=== PATIENT | female | born 1945 | race Caucasian/White ===

== ENCOUNTER → 2018-03-05 | Outpatient (CLI) | payer MEDICARE, OTHER ==
--- NOTE | 2018-03-07 13:39 | MM ---
Reason for exam: screening (asymptomatic). Last mammogram was performed 1 year and 11 months ago. Physical Findings: A clinical breast exam by your physician is recommended on an annual basis and results should be correlated with mammographic findings. MG 3D Screening Mammo W/Cad Bilateral CC and MLO view(s) were taken. Prior study comparison: March 31, 2016, bilateral MG screening mammo w CAD. September 02, 2014, mammogram, performed at [place]. There are scattered fibroglandular densities. New enlarging nodule posterior lower inner quadrant right breast. ASSESSMENT: Incomplete: need additional imaging evaluation, BI-RAD 0 RECOMMENDATION: Special view mammogram of the right breast. If lesion persists on supplemental views, image directed ultrasound is recommended. [facility] will attempt to contact patient to return for supplemental views and ultrasound if indicated.
== END | disposition home or self-care (01) ==
LOC: RADMAMWWP 09:56
PROVIDERS: ATTEND Family Medicine
DX: Z12.31 Encounter for screening mammogram for malignant neoplasm of breast (principal)
CPT/HCPCS: 77063; 77067

== ENCOUNTER → 2018-03-22 | Outpatient (CLI) | payer MEDICARE, OTHER ==
--- NOTE | 2018-03-23 11:31 | MM ---
Reason for exam: additional evaluation requested from abnormal screening. Last mammogram was performed 1 month ago. Physical Findings: Nurse did not find any significant physical abnormalities on exam. MG 3D Work Up W/Cad RT Spot compression LM and MLO view(s) were taken of the right breast. Prior study comparison: March 05, 2018, bilateral MG 3d screening mammo w/cad. March 31, 2016, bilateral MG screening mammo w CAD. Finding: There is a stable 2 mm equal density (isodense), circumscribed oval mass in the lower quadrant of the right breast. New finding since March 31, 2016. These results were verbally communicated with the patient and result sheet given to the patient on 03/22/18. ASSESSMENT: Probably benign, BI-RAD 3 RECOMMENDATION: Follow-up diagnostic mammogram and ultrasound of the right breast in 6 months.
--- NOTE | 2018-03-23 11:32 | USB ---
Reason for exam: additional evaluation requested from abnormal screening. US Breast Workup Limited RT Right limited breast ultrasound including focal area of concern, retroareolar and axilla demonstrates a 0.4 x 0.3 x 0.3cm oval lesion too small to characterize at 4 o'clock, probable cyst. These results were verbally communicated with the patient and result sheet given to the patient on 03/22/18. ASSESSMENT: Probably benign, BI-RAD 3 RECOMMENDATION: Follow-up diagnostic mammogram and ultrasound of the right breast in 6 months.
== END | disposition home or self-care (01) ==
LOC: RADMAMWWP 12:41
PROVIDERS: ATTEND Family Medicine
DX: R92.8 Other abnormal and inconclusive findings on diagnostic imaging of breast (principal)
CPT/HCPCS: 77065; 76642; G0279; 77061

== ENCOUNTER → 2018-10-04 | Outpatient (CLI) | payer MEDICARE, OTHER ==
--- NOTE | 2018-10-05 08:17 | MM ---
Reason for exam: follow-up at short interval from prior study. Last mammogram was performed 6 months ago. Physical Findings: Nurse did not find any significant physical abnormalities on exam. MG Diagnostic Mammo RT w CAD CC and MLO view(s) were taken of the right breast. Prior study comparison: March 22, 2018, right breast MG 3d work up w/cad RT. March 05, 2018, bilateral MG 3d screening mammo w/cad. There are scattered fibroglandular densities. The previously seen right mass at 4-5 o'clock position appears smaller. Benign calcifications in the right breast. These results were verbally communicated with the patient and result sheet given to the patient on 10/04/18. ASSESSMENT: Benign, BI-RAD 2 RECOMMENDATION: Return to routine screening mammogram schedule for both breasts. Back on schedule.
--- NOTE | 2018-10-05 08:20 | USB ---
Reason for exam: follow-up at short interval from prior study. US Breast RT Right complete breast ultrasound includes all four quadrants, the retroareolar region and axilla. Finding demonstrates a 0.2 x 0.1 x 0.1cm lesion too small to characterize at 5 o'clock previously 4 x 3 x 3mm, smaller, benign. These results were verbally communicated with the patient and result sheet given to the patient on 10/04/18. ASSESSMENT: Benign, BI-RAD 2 RECOMMENDATION: Return to routine screening mammogram schedule for both breasts. Back on schedule.
== END | disposition home or self-care (01) ==
LOC: RADMAMWWP 13:00
PROVIDERS: ATTEND Family Medicine
DX: R92.8 Other abnormal and inconclusive findings on diagnostic imaging of breast (principal)
CPT/HCPCS: 77065

== ENCOUNTER → 2018-10-04 | Outpatient (CLI) | payer MEDICARE, OTHER ==
--- NOTE | 2018-10-05 09:03 | EST ---
EXERCISE STRESS DATE OF SERVICE: 10/04/2018 AGE: 73 SEX: Female HT: 60 WT: 120 PROTOCOL: Alberto STAGE: II DURATION OF EXERCISE: 4 minutes HEART RATE REST: 106 BLOOD PRESSURE REST: 148/94 MAXIMUM HEART RATE ACHIEVED: 153 MAXIMUM BLOOD PRESSURE: 214/82 85% MPHR: 125 100% MPHR: 147 METS: 5.9 INDICATIONS: Chest pain. CLINICAL INFORMATION: STRESS DATA: Pretesting physical examination showed a heart rate of 106, pressure is 148/94 mmHg. Baseline rhythm showed sinus mechanism. The patient exercised on the treadmill according to Alberto protocol for a total of 4 minutes and achieved 5.9 METs. Max heart rate was 153, which is about 100% of maximum predicted heart rate. Maximum blood pressure was 214/82 mmHg. Clinically the patient did not have any symptoms of chest pain or discomfort. The EKG did not show any significant ST or T-wave abnormalities concerning for ischemia. CONCLUSION: 1. Average exercise capacity. 2. Normal EKG in response to exercise. 3. Normal stress test for the patient. MMODL / IJN: [id number] /
== END ==
LOC: RADNMMAIN 10:24
PROVIDERS: ATTEND Nurse Practitioner
DX: R94.31 Abnormal electrocardiogram [ECG] [EKG] (principal)
CPT/HCPCS: 93017

== ENCOUNTER → 2019-03-19 | Outpatient (CLI) | payer MEDICARE, OTHER | LOC: CPPFTMAIN 12:15 | PROVIDERS: ATTEND Family Medicine | DX: J44.9 Chronic obstructive pulmonary disease, unspecified (principal) | CPT/HCPCS: 93005; 94060; 94726; 94729 ==

== ENCOUNTER → 2019-04-05 | Outpatient (CLI) | payer MEDICARE, OTHER ==
--- NOTE | 2019-04-05 11:32 | BD ---
EXAMINATION TYPE: Axial Bone Density DATE OF EXAM: 04/05/2019 COMPARISON: NONE CLINICAL HISTORY: M 89.9 Height: 60 IN Weight: 114 LBS FRAX RISK QUESTIONS: Family History (Parent hip fracture): YES FATHER RISK FACTORS HISTORY OF: Active: YES Postmenopausal woman: AGE 58 MEDICATIONS: Additional Medications: VIT D, HIGH BLOOD PRESSURE MEDS, WATER PILL, TYPE TWO DIABETES MEDS, PILL FO R EYES, CHOLESTEROL MEDS EXAM MEASUREMENTS: Bone mineral densitometry was performed using the [employer]. Bone mineral density as measured about the Lumbar spine is: ----- L1-L4(G/cm2): 0.955 T Score Values are as follows: ----- L2: -2.0 ----- L3: -1.9 ----- L4: -1.7 ----- L1-L4: -1.9 Bone mineral density BASELINE Bone mineral density about the R hip (g/cm2): 0.823 Bone mineral density about the L hip (g/cm2): 0.804 T Score values are as follows: -----R Neck: -1.5 -----L Neck: -1.7 -----R Total: -1.4 -----L Total: -1.6 Bone mineral density BASELINE IMPRESSION: Osteopenia (T Score between -2.5 and -1). There is slightly increased risk of fracture and the patient may be considered for treatment. Re-Screen 2-5 years. NOTE: T-SCORE=SD OF THE YOUNG ADULT MEAN.
--- NOTE | 2019-04-09 08:21 | MM ---
Reason for exam: screening (asymptomatic). Last mammogram was performed 6 months ago. History: Patient is postmenopausal. Physical Findings: A clinical breast exam by your physician is recommended on an annual basis and results should be correlated with mammographic findings. MG 3D Screening Mammo W/Cad Bilateral CC and MLO view(s) were taken. Prior study comparison: October 04, 2018, right breast MG diagnostic mammo RT w CAD. March 05, 2018, bilateral MG 3d screening mammo w/cad. September 02, 2014, mammogram, performed at [place]. There are scattered fibroglandular densities. There are benign appearing round calcifications bilaterally. There is no discrete abnormality. ASSESSMENT: Benign, BI-RAD 2 RECOMMENDATION: Routine screening mammogram of both breasts in 1 year.
== END ==
LOC: RADMAMWWP 10:11
PROVIDERS: ATTEND Family Medicine
DX: Z12.31 Encounter for screening mammogram for malignant neoplasm of breast (principal); M85.80 Other specified disorders of bone density and structure, unspecified site
CPT/HCPCS: 77063; 77067; 77080

== ENCOUNTER → 2019-04-08 | Outpatient (CLI) | payer MEDICARE, OTHER ==
[2019-04-08 16:41] LABS: Basophils # (A) 0.1 k/uL (0-0.2); Basophils % (A) 1 %; Eosinophils # (A) 0.6 k/uL (0-0.7); Eosinophils % (A) 8 %; HCT 41.5 % (34.0-46.0); HGB 13.7 gm/dL (11.4-16.0); Lymphocytes % (A) 27 %; MCH 30.3 pg (25.0-35.0); MCHC 32.9 g/dL (31.0-37.0); MCV 91.9 fL (80.0-100.0); Monocytes # (A) 0.3 k/uL (0-1.0); Monocytes % (A) 4 %; Neutrophils # (A) 4.3 k/uL (1.3-7.7); Neutrophils % (A) 57 %; Platelet Count 272 k/uL (150-450); RBC 4.52 m/uL (3.80-5.40); RDW 13.7 % (11.5-15.5); WBC 7.4 k/uL (3.8-10.6)
[2019-04-08 16:48] LABS: Potassium 3.5 mmol/L (3.5-5.1)
== END | disposition home or self-care (01) ==
LOC: LABPAT 15:18
PROVIDERS: ATTEND Obstetrics & Gynecology
DX: Z01.812 Encounter for preprocedural laboratory examination (principal); N81.4 Uterovaginal prolapse, unspecified; E11.9 Type 2 diabetes mellitus without complications
CPT/HCPCS: 36415; 80051; 82565; 82947; 84520; 85025; 87086

== ENCOUNTER 2019-04-16 08:18 | Day surgery (SDC) | payer MEDICARE, OTHER ==
[~2019-04-16 08:18] MED LIST: DEXAMETHASONE SOD PHOSPHATE 10 MG/ML 1 ML VIAL IV ONE; LIDOCAINE 1% 20 ML VIAL (10MG/ML) FOR IV START INTRADERMA PRN; METOCLOPRAMIDE 5 MG/ML 2 ML VIAL IVP PRN; MORPHINE SULFATE 2 MG/ML SYRINGE IV PRN; ONDANSETRON 4 MG/2 ML VIAL IVP ONE
[2019-04-16 09:23] LABS: Glucose,Whole Blood 139 mg/dL (75-99)
[2019-04-16] MEDS: LACTATED RINGERS 1,000 ML IV SCH (09:30)
[2019-04-16] MEDS ORDERED: fentaNYL (PF) 50 MCG/ML 2 ML AMP IV ONE (09:48)
[2019-04-16] MEDS ORDERED: MIDAZOLAM (PF) 2 MG/2 ML VIAL IV ONE (09:48)
[2019-04-16] MEDS ORDERED: NALOXONE 0.4 MG/ML 1 ML VIAL IV PRN (09:56)
[2019-04-16] MEDS ORDERED: NALBUPHINE 10 MG/ML (1 ML AMP) IV PRN (09:56)
[2019-04-16] MEDS ORDERED: diphenhydrAMINE 50 MG/ML 1 ML VIAL IVP PRN ×2 (09:56→11:34)
[2019-04-16] MEDS ORDERED: KETOROLAC 30 MG/ML 1 ML VIAL IVP PRN ×2 (09:56→11:34)
[2019-04-16] MEDS ORDERED: MORPHINE SULFATE (PF) 0.3 MG/0.3 ML SYR ONE (10:19)
[2019-04-16] MEDS ORDERED: ALBUTEROL INHALER 60 PUFF/8 GM INHALER INHALATION ONE (10:19)
[2019-04-16] MEDS ORDERED: fentaNYL (PF) 50 MCG/ML 2 ML AMP ONE (10:19)
[2019-04-16] MEDS ORDERED: MIDAZOLAM 2 MG/2 ML VIAL ONE (10:19)
[2019-04-16] MEDS ORDERED: ROCURONIUM BROMIDE 10 MG/ML 10 ML VIAL IV ONE (10:19)
[2019-04-16] MEDS ORDERED: PROPOFOL 10 MG/ML 20 ML VIAL IV ONE (10:19)
[2019-04-16] MEDS ORDERED: GLYCOPYRROLATE 0.2 MG/ML 2 ML VIAL ONE (10:19)
[2019-04-16] MEDS ORDERED: NEOSTIGMINE 1 MG/ML 10 ML VIAL ONE (10:19)
[2019-04-16] MEDS ORDERED: LIDOCAINE 1% INJ 10MG/ML (20 ML MDV) ONE (10:19)
[2019-04-16] MEDS ORDERED: PHENYLEPHRINE-0.9% NACL SYG 1 MG/10 ML SYRINGE ONE (10:19)
[2019-04-16] MEDS ORDERED: VASOPRESSIN 20 UNIT/ML 1 ML VIAL SQ ONE (10:44)
[2019-04-16] MEDS ORDERED: BACITRACIN 500 UNIT/GM OINT 28.4 GM TUBE TOPICAL ONE (10:51)
[2019-04-16] MEDS ORDERED: ONDANSETRON 4 MG/2 ML VIAL IVP PRN (11:34)
[2019-04-16] MEDS ORDERED: METOCLOPRAMIDE 5 MG/ML 2 ML VIAL IVP PRN (11:34)
[2019-04-16] MEDS ORDERED: SIMETHICONE 80 MG CHEWABLE PO PRN (11:34)
--- NOTE | 2019-04-16 11:34 | P.OP ---
Date of Procedure: 04/16/19 Preoperative Diagnosis: Symptomatic grade 4 cystocele, uterine prolapse. Postoperative Diagnosis: Same, atrophic appearing ovaries bilaterally Procedure(s) Performed: Vaginal hysterectomy, cystocele repair Anesthesia: SHORTY Surgeon: Arlyn Pineda Truer Pinion And Wheel #1: Katlyn No Estimated Blood Loss (ml): 50 IV fluids (ml): 400 Urine output (ml): 100 Pathology: other (Cervix and uterus) Condition: stable Disposition: PACU Operative Findings: Atrophic bilateral ovaries, high in the pelvis Description of Procedure: Patient is brought to the operating suite after spinal with Duramorph is administered. She's placed in the dorsal lithotomy position and a general anesthetic is administered. The appropriate timeout is performed to assure proper patient and procedural identification. Antibiotics are given. The cervix, vagina, perineal body are all prepped and draped in the usual sterile fashion. Bladder is drained for approximately 100 mL of clear yellow urine. Weighted speculum was placed into the vagina. Anterior lip of the cervix is grasped with a double-tooth tenaculum. Cervix is injected circumferentially with a dilute Pitressin solution. [place] blade scalpel is used to incise the mucosa with a V position at 6:00. A sponge is used to sweep the mucosa from the underlying fascial plane. The peritoneum is entered at 6:00 and suture tied with 2-0 Vicryl, held with a hemostat. The large billed speculum is now placed into the peritoneal cavity. At all times care is taken to keep the mucosa swept well from the operative field to avoid bladder and/or ureteral injury. The right uterosacral ligament is identified, clamped with Natalia clamp, cut and suture tied. It is held with a hemostat. Same procedure is carried out on the patient's left side. Uterine vasculature is now skeletonized, it is clamped cut and suture ligated. 2 additional pedicles are taken superior to the vessels. The uterus is now "walked out" posteriorly. The anterior peritoneum is entered carefully and Natalia clamps are used around the final pedicles to remove the cervix and uterus. The pedicles are tied with 0 Vicryl, flashed, and retied for excellent hemostasis. The ovaries are very small, atrophic, high in the pelvis and left in situ. Weighted speculum was now changed to the shallow billed speculum. The 2-0 Vicryl that was placed at 6:00 is carefully brought around in a pursestring fashion to close the peritoneum. Care is taken to avoid loops of bowel. The uterosacral ligaments are then brought across to incorporate the opposite ligament and vaginal mucosa. 2 additional yjfiwv-xb-alnxa sutures are taken on the mucosa and the vaginal cough is closed. The superiormost portion is grasped with Allis clamps, and the cystocele repair is started. The anterior mucosa is injected with the same dilute Pitressin. Metzenbaum scissors are used in the midline to underlying the mucosa. The edges are held with Allis clamps and a fanlike fashion. A sponge rolled finger is used to sweep the mucosa from the underlying fascial plane. Brown catheter is placed and urine is noted to be clear. 2-0 Vicryl sutures are now placed in an interrupted fashion to bring the fascial edges together thereby completely reducing the cystocele. Metzenbaum scissors are used to trim the redundant mucosa. 2-0 Vicryl is used to close the mucosa and a running locking stitch to the apex of the defect. Brown catheter is noted to be draining clear urine. All sponge needle and enhancement counts are correct. The vagina is packed with one-inch iodophor gauze with basic tracing. Hemostasis is excellent. Patient is brought back to recovery room in very good condition with a pulse of 78, 98% O2 saturation, blood pressure 97/60.
[2019-04-16 12:19] LABS: Glucose,Whole Blood 211 mg/dL (75-99)
[2019-04-16] MEDS ORDERED: INSULIN ASPART (NovoLOG) 100 UNIT/ML VIAL SQ ONE (12:20)
[2019-04-16 14:16] LABS: Glucose,Whole Blood 185 mg/dL (75-99)
[2019-04-16 14:28] VITALS: BMI 22.6
[2019-04-16] MEDS ORDERED: FLUTICASONE 220 MCG INHALER INHALATION PRN (16:34)
[2019-04-16] MEDS ORDERED: ALBUTEROL NEBULIZED 2.5 MG/3 ML INHALATION PRN (16:34)
[2019-04-16 16:59] LABS: Glucose,Whole Blood 150 mg/dL (75-99)
[2019-04-17 07:11] VITALS: BP 128/75; PULSE 90; RESP 17; TEMP 98.7
[2019-04-17 07:12] LABS: Glucose,Whole Blood 128 mg/dL (75-99)
[2019-04-17] MEDS: LACTATED RINGERS 1,000 ML IV SCH (07:12)
[2019-04-17] MEDS ORDERED: metFORMIN 500 MG TAB PO SCH (09:00)
[2019-04-17] MEDS ORDERED: ATORVASTATIN 10 MG TAB PO SCH (09:00)
[2019-04-17] MEDS ORDERED: ACETAMINOPHEN TAB 325 MG TAB PO PRN (11:35)
--- NOTE | 2019-04-17 12:25 | DS ---
DISCHARGE SUMMARY DATE OF ADMISSION: 04/16/2019 ADMITTING DIAGNOSES: 1. Symptomatic grade 4 cystocele. 2. Uterine prolapse. DATE OF DISCHARGE: 04/16/2019 DISCHARGE DIAGNOSIS: 1. Status post vaginal hysterectomy and cystocele repair. This is a 73-year-old female who presented with a history of increasing perineal bulge and pressure. Primary care physician diagnosed cystocele and referred patient to my care. She was noted indeed to have a grade 4 cystocele, as well as the uterine prolapse. After consultation, patient elected to proceed with surgical repair, declining option for pessary. Please see admitting history and physical for details. She was admitted and underwent vaginal hysterectomy and cystocele repair under my care at [facility] on 04/16/2019. Surgery was unremarkable, no rectocele was noted, ovaries appeared normal and atrophic in appearance and therefore were left in situ per her wishes. The vagina was packed with iodoform gauze and Brown catheter placed. Please see dictated operative note for details. This morning, the patient is doing well. Brown catheter has been removed, she is successfully voiding with a postvoid residual of 0 Noted on the bedside urine scan. Her vital signs have remained stable and she is afebrile. Blood sugar was slightly high yesterday in the postoperative recovery room, this was covered by 3 units of insulin per anesthesia. Blood sugar this morning 128. The patient is passing flatus, ambulating, tolerating regular food, and is judged to be in very good condition for discharge home. She is having no pain. Vaginal packing and Brown catheter have been removed, and as noted, successful voids have been recorded. The patient will follow up with me in the office in 2 weeks. I have reminded her no intercourse, tampons, or douching. She will use [id number] Advil or Aleve, or Motrin as needed for pain. She will resume all of her home medications as prescribed by Dr. Boggs. I have asked her to call me with any fever, shakes or chills, foul- smelling or bloody vaginal drainage, with any pain not alleviated by [id number]-gaulafe products, with any difficulties urinating or with defecation, or indeed with any concerns or questions. MMODL / IJN: [id number] /
--- NOTE | 2019-04-17 13:28 | P.PAINPG ---
Subjective Progress Note Date: 04/17/19 Patient was given intrathecal Duramorph on 04/16 for hysterectomy. She was not able to be seen before discharge. It does not appear she had any side effects from the medication. Pain medications per primary service; please call back with any further questions. Eduardo Dubois MD Objective - Vital Signs Vital signs: Vital Signs Temp 98.7 F 04/17/19 06:31 Pulse 90 04/17/19 06:31 Resp 17 04/17/19 06:31 BP 128/75 04/17/19 06:31 Pulse Ox 95 04/17/19 06:31 Intake & Output 04/16/19 04/17/19 04/17/19 18:59 06:59 18:59 Intake Total 1130 600 Output Total 150 1800 1151 Balance 980 -1200 -1151 Intake: IV 550 Intake, IV Titration 40 60 Amount Lactated Ringers 1,000 ml 40 60 @ 20 mls/hr IV .Q24H CHARLES Rx#:[id number] Oral 540 540 Output: Urine 100 1800 1125 Straight 450 Uretheral (Brown) 1800 Post Void Residual 26 Estimated Blood Loss 50 Other: Voiding Method Indwelling Catheter Toilet # Voids 1 - Labs Labs: Abnormal Lab Results - Last 24 Hours (Table) 04/16/19 04/16/19 04/17/19 Range/Units 14:04 16:38 07:00 POC Glucose (mg/dL) 185 H 150 H 128 H (75-99) mg/dL PQRS Measure Charge Sheet PQRS Narrative: Smoking Status Former smoker Do You Want the Pneumonia Vaccine Up to Date Vaccine AT THIS TIME? Blood Pressure [Left Arm] 128/75 Blood Pressure [Right Arm 152/77 Supine] Pain Intensity [Lower Abdomen] 0 Pain Intensity [None] 0 Scale Used Numeric (1 - 10) Home Medications: Ambulatory Orders Cholecalciferol [Vitamin D3] 2,000 unit PO DAILY 04/05/16 Fish Oil/Dha/Epa [Fish Oil 1,200 mg Fish Oil] 1 each PO DAILY 04/05/16 Lovastatin [Mevacor] 40 mg PO DAILY 04/05/16 Triamterene-Hctz 37.5-25Mg [Dyazide 37.5-25 Capsule] 1 cap PO DAILY 04/05/16 Albuterol Nebulized [Ventolin Nebulized] 2.5 mg INHALATION Q6H PRN 04/10/19 Albuterol Sulfate [Proair Hfa] 1 - 2 puff INHALATION Q6HR PRN 04/10/19 Fluticasone Propionate [Flovent Hfa 220 mcg] 1 puff INHALATION BID PRN 04/10/19 Vit C/E/Zn/Coppr/Lutein/Zeaxan [Preservision Areds 2 Softgel] 1 each PO DAILY 04/10/19 metFORMIN HCL [Glucophage] 500 mg PO DAILY 04/10/19 Controlled Substance Measures - Controlled Substance Measures Is patient prescribed a controlled substance at discharge?: No
== END 2019-04-17 12:47 ==
LOC: OR 08:18 → 4SSUR 11:26 → OR 04-17 12:47
PROVIDERS: ATTEND Obstetrics & Gynecology
DX: N81.4 Uterovaginal prolapse, unspecified (principal); N80.0 Endometriosis of uterus; D25.9 Leiomyoma of uterus, unspecified; N84.0 Polyp of corpus uteri; N88.8 Other specified noninflammatory disorders of cervix uteri; N83.312 Acquired atrophy of left ovary; N83.311 Acquired atrophy of right ovary; I10 Essential (primary) hypertension; E78.5 Hyperlipidemia, unspecified; J45.909 Unspecified asthma, uncomplicated; E11.9 Type 2 diabetes mellitus without complications; K57.90 Diverticulosis of intestine, part unspecified, without perforation or abscess without bleeding; M85.80 Other specified disorders of bone density and structure, unspecified site; Z79.84 Long term (current) use of oral hypoglycemic drugs; Z79.82 Long term (current) use of aspirin; Z79.899 Other long term (current) drug therapy; Z98.890 Other specified postprocedural states; Z87.891 Personal history of nicotine dependence; Z88.1 Allergy status to other antibiotic agents; Z86.010 Personal history of colon polyps; Z87.19 Personal history of other diseases of the digestive system; Z78.0 Asymptomatic menopausal state; Z82.49 Family history of ischemic heart disease and other diseases of the circulatory system; Z82.3 Family history of stroke; Z83.3 Family history of diabetes mellitus
CPT/HCPCS: 88307; 58260; 57240; J2250 ×2; J1100; J2710; J0690; J2405; J2001; J2274; J3010; J2370; J2704; 86850; 86900; 86901

== ENCOUNTER → 2020-04-07 | Outpatient (CLI) | payer MEDICARE, OTHER ==
--- NOTE | 2020-04-09 09:24 | MM ---
Reason for exam: screening (asymptomatic). Last mammogram was performed 1 year ago. History: Patient is postmenopausal. Physical Findings: A clinical breast exam by your physician is recommended on an annual basis and results should be correlated with mammographic findings. MG 3D Screening Mammo W/Cad Bilateral CC and MLO view(s) were taken. Prior study comparison: April 05, 2019, bilateral MG 3d screening mammo w/cad. October 04, 2018, right breast MG diagnostic mammo RT w CAD. There are scattered fibroglandular densities. Benign oil cyst calcifications. No significant changes when compared with prior studies. ASSESSMENT: Negative, BI-RAD 1 RECOMMENDATION: Routine screening mammogram of both breasts in 1 year.
== END | disposition home or self-care (01) ==
LOC: RADMAMWWP 13:32
PROVIDERS: ATTEND Family Medicine
DX: Z12.31 Encounter for screening mammogram for malignant neoplasm of breast (principal); R94.31 Abnormal electrocardiogram [ECG] [EKG]
CPT/HCPCS: 77063; 77067; 93005

== ENCOUNTER → 2021-03-03 | Outpatient (CLI) | payer MEDICARE, OTHER | END | disposition home or self-care (01) | LOC: LABWHC1 11:41 | PROVIDERS: ATTEND Family Medicine | DX: R94.31 Abnormal electrocardiogram [ECG] [EKG] (principal) | CPT/HCPCS: 36415; 93005 ==

== ENCOUNTER → 2021-04-12 | Outpatient (CLI) | payer MEDICARE, OTHER ==
--- NOTE | 2021-04-14 14:11 | MM ---
Reason for exam: screening (asymptomatic). Last mammogram was performed 1 year ago. History: Patient is postmenopausal. Took hormonal contraceptives for 2 years. Physical Findings: A clinical breast exam by your physician is recommended on an annual basis and results should be correlated with mammographic findings. MG 3D Screening Mammo W/Cad Bilateral CC and MLO view(s) were taken. Prior study comparison: April 07, 2020, bilateral MG 3d screening mammo w/cad. October 04, 2018, right breast MG diagnostic mammo RT w CAD. There are scattered fibroglandular densities. There are benign appearing round calcifications bilaterally. There is no discrete abnormality. ASSESSMENT: Benign, BI-RAD 2 RECOMMENDATION: Routine screening mammogram of both breasts in 1 year.
== END | disposition home or self-care (01) ==
LOC: RADMAMWWP 10:44
PROVIDERS: ATTEND Family Medicine
DX: Z12.31 Encounter for screening mammogram for malignant neoplasm of breast (principal)
CPT/HCPCS: 77063; 77067

== ENCOUNTER → 2022-04-13 | Outpatient (CLI) | payer MEDICARE, OTHER ==
--- NOTE | 2022-04-15 12:23 | BD ---
EXAMINATION TYPE: Axial Bone Density DATE OF EXAM: 04/13/2022 COMPARISON: 04.05.2019 SCAN, UNAVAILABLE, TRENDED NEW CLINICAL HISTORY: 76 years year old Female. ICD-10 CODE: Z13.820 Osteoporosis screen Height: 59.5 Weight: 114 FRAX RISK QUESTIONS: Family History (Parent hip fracture): YES, FATHER Glucocorticoids (More than 3mos): YES (Ex: prednisone, prednisolone, methylprednisolone, dexamethasone, and hydrocortisone). RISK FACTORS HISTORY OF: Family History of Osteoporosis: YES, FATHER, WITH FX Postmenopausal woman: YES, 58 YRS OLD Hyperparathyroidism: NO Adrenal Insufficiency: NO MEDICATIONS: Prednisone or other steroids: YES, FOR ASTHMA, FOR FEW YRS Additional Medications: VIT D, BP MEDS, STEROIDS FOR EYES, CHOLESTEROL MEDS, VIT D, DIABETIC MEDS, Additional History: HYPERTENSION, CHOLESTEROL, DIABETIC, ASTHMA EXAM MEASUREMENTS: Bone mineral densitometry was performed using the [employer] System. Bone mineral density as measured about the Lumbar spine is: ----- L1-L4(G/cm2): 0.942 T Score Values are as follows: ----- L1: -2.4 ----- L2: -2.2 ----- L3: -2.1 ----- L4: -1.3 ----- L1-L4: -2.0 Bone mineral density FIRST SCAN, PRIOR UNAVAILABLE Bone mineral density about the R hip (g/cm2): 0.789 Bone mineral density about the L hip (g/cm2): 0.783 T Score values are as follows: -----R Neck: -1.7 -----L Neck: -1.8 -----R Total: -1.7 -----L Total: -1.8 Bone mineral density FIRST SCAN....PRIOR UNAVAILABLE FRAX%s: The graph provided illustrates a 35.5% chance for a major osteoporotic fx and a 21.4% chance for the hips probability for fx in 10 years time. IMPRESSION: Osteopenia (T Score between -2.5 and -1). There is slightly increased risk of fracture and the patient may be considered for treatment. Re-Screen 2-5 years. NOTE: T-SCORE=SD OF THE YOUNG ADULT MEAN.
--- NOTE | 2022-04-15 18:44 | MM ---
Reason for Exam: Screening (asymptomatic). Last screening mammogram was performed 12 month(s) ago. Patient History: Menarche at age 13. First Full-Term at age 25. Hysterectomy at age 71. Postmenopausal. Patient used Hormonal Contraceptives for 2 years. Risk Values: Jeanna 5 year model risk: 2.0%. NCI Lifetime model risk: 4.0%. Prior Study Comparison: 04/05/2019 Bilateral Screening Mammogram, [facility]. 04/07/2020 Bilateral Screening Mammogram, [facility]. 04/12/2021 Bilateral Screening Mammogram, [facility]. Tissue Density: There are scattered fibroglandular densities. Findings: Analyzed By CAD. There is no suspicious group of microcalcifications or new suspicious mass in either breast. Overall Assessment: Negative, BI-RAD 1 Management: Screening Mammogram of both breasts in 1 year. A clinical breast exam by your physician is recommended on an annual basis and results should be correlated with mammographic findings. Electronically signed and approved by: Singh Nevarez DO
== END | disposition home or self-care (01) ==
LOC: RADMAMWWP 10:21
PROVIDERS: ATTEND Family Medicine
DX: Z12.31 Encounter for screening mammogram for malignant neoplasm of breast (principal); Z13.820 Encounter for screening for osteoporosis
CPT/HCPCS: 77063; 77067; 77080

== ENCOUNTER 2022-07-05 06:36 | Day surgery (SDC) | payer MEDICARE, OTHER ==
[2022-06-30 15:22] VITALS: BMI 21.4
[~2022-07-05 06:36] MED LIST changes: -DEXAMETHASONE SOD PHOSPHATE 10 MG/ML 1 ML VIAL IV ONE; +LACTATED RINGERS 1,000 ML IV SCH; +LIDOCAINE 1% (10MG/ML) FOR IV START INTRADERMA PRN; -LIDOCAINE 1% 20 ML VIAL (10MG/ML) FOR IV START INTRADERMA PRN; -METOCLOPRAMIDE 5 MG/ML 2 ML VIAL IVP PRN; -MORPHINE SULFATE 2 MG/ML SYRINGE IV PRN; -ONDANSETRON 4 MG/2 ML VIAL IVP ONE
[2022-07-05 07:08] VITALS: TEMP 97.8
[2022-07-05 07:21] LABS: Glucose,Whole Blood 159 mg/dL (70-110)
[2022-07-05] MEDS ORDERED: LIDOCAINE 2% INJ 20 MG/ML (2 ML VIAL) ONE (07:28)
[2022-07-05] MEDS ORDERED: PROPOFOL 10 MG/ML 20 ML VIAL IV ONE (07:28)
--- NOTE | 2022-07-05 07:31 | P.GSHP ---
History of Present Illness H&P Date: 07/05/22 Chief Complaint: Colon cancer screening 76-year-old female here today for colonoscopy. Her last colonoscopy was 6 years ago. A 1 cm tubular adenoma was found at that time. Family history of colon cancer in her sister. No bowel complaints. Past Medical History Past Medical History: Asthma, Diabetes Mellitus, Eye Disorder, Hyperlipidemia, Hypertension Additional Past Medical History / Comment(s): MACULAR DEGENERATION-BILAT History of Any Multi-Drug Resistant Organisms: None Reported Past Surgical History: Hysterectomy Additional Past Surgical History / Comment(s): GANGLION CYST FROM FINGER. FATTY TUMOR REMOVED LT HIP. COLONOSCOPY Past Anesthesia/Blood Transfusion Reactions: No Reported Reaction Smoking Status: Former smoker - Past Family History Son(s) Family Medical History: Cancer Sister(s) Family Medical History: Cancer Medications and Allergies Home Medications Medication Instructions Recorded Confirmed Type Cholecalciferol [Vitamin D3] 2,000 unit PO DAILY 04/05/16 07/05/22 History Fish Oil/Dha/Epa [Fish Oil 1,200 1 each PO DAILY 04/05/16 07/05/22 History mg Fish Oil] Lovastatin [Mevacor] 40 mg PO DAILY 04/05/16 07/05/22 History Triamterene-Hctz 37.5-25Mg 1 cap PO DAILY 04/05/16 07/05/22 History [Dyazide 37.5-25 Capsule] Albuterol Nebulized [Ventolin 2.5 mg INHALATION Q6H PRN 04/10/19 07/05/22 Histor y Nebulized] Albuterol Sulfate [Proair Hfa] 1 - 2 puff INHALATION Q6HR PRN 04/10/19 07/05/22 History Fluticasone Propionate [Flovent 1 puff INHALATION BID PRN 04/10/19 07/05/22 History Hfa 220 mcg] Vit C/E/Zn/Coppr/Lutein/Zeaxan 1 each PO DAILY 04/10/19 07/05/22 History [Preservision Areds 2 Softgel] metFORMIN HCL [Glucophage] 500 mg PO DAILY 04/10/19 07/05/22 History Allergies Allergy/AdvReac Type Severity Reaction Status Date / Time erythromycin base Allergy Dyspnea Verified 07/05/22 07:03 Surgical - Exam Vital Signs Temp Pulse Resp BP Pulse Ox 97.8 F 99 18 158/77 96 07/05/22 07:01 07/05/22 07:01 07/05/22 07:01 07/05/22 07:01 07/05/22 07:01 Physical exam: General: Well-developed, well-nourished HEENT: Normocephalic, sclerae nonicteric Abdomen: Nontender, nondistended Extremities: No edema Neuro: Alert and oriented Results - Labs Abnormal Lab Results - Last 24 Hours (Table) 07/05/22 Range/Units 07:15 POC Glucose (mg/dL) 159 H (70-110) mg/dL Assessment and Plan (1) Colon cancer screening Narrative/Plan: Will proceed with colonoscopy at this time. Current Visit: Yes Status: Acute Code(s): Z12.11 - ENCOUNTER FOR SCREENING FOR MALIGNANT NEOPLASM OF COLON SNOMED Code(s): 513354732
--- NOTE | 2022-07-05 07:52 | P.PCN ---
Date of Procedure: 07/05/22 Procedure(s) Performed: PREOPERATIVE DIAGNOSIS: Colon cancer screening, history of polyps, family history of colon cancer POSTOPERATIVE DIAGNOSIS: Mild diverticulosis PROCEDURE: Colonoscopy ANESTHESIA: MAC SURGEON: Carlos Jordan M.D. SPECIMENS: None ENDOSCOPIC PROCEDURE: The patient was placed on the endoscopy table in the left decubitus position. The Olympus colonoscope was inserted into the anus and passed under direct visualization to the base of the cecum. The appendiceal orifice was visualized. From that point the scope was slowly withdrawn inspecting all surfaces carefully. There were no neoplastic inflammatory or polypoid lesions throughout the cecum, ascending, transverse, descending, sigmoid and rectum. There was scattered diverticulosis noted throughout the colon. Digital rectal examination was normal. The patient was taken to the recovery room in stable condition per anesthesia guidelines. RECOMMENDATIONS: Resume diet. Follow colonoscopy 5 years.
[2022-07-05 07:58] VITALS: RESP 16
[2022-07-05 08:12] VITALS: BP 129/66; PULSE 83
== END 2022-07-05 08:40 | disposition home or self-care (01) ==
LOC: ORWHC2ENDO 06:36
PROVIDERS: ATTEND Surgery
DX: Z86.010 Personal history of colon polyps (principal); Z12.11 Encounter for screening for malignant neoplasm of colon; E78.5 Hyperlipidemia, unspecified; E11.9 Type 2 diabetes mellitus without complications; I10 Essential (primary) hypertension; J45.909 Unspecified asthma, uncomplicated; Z79.84 Long term (current) use of oral hypoglycemic drugs; Z80.0 Family history of malignant neoplasm of digestive organs; Z87.891 Personal history of nicotine dependence; Z88.1 Allergy status to other antibiotic agents
CPT/HCPCS: J2704; J2001; G0105; 45378

== ENCOUNTER → 2023-04-14 | Outpatient (CLI) | payer MEDICARE, OTHER ==
--- NOTE | 2023-04-17 09:59 | MM ---
Reason for Exam: Screening (asymptomatic). Last screening mammogram was performed 12 month(s) ago. Patient History: Menarche at age 13. First Full-Term at age 25. Hysterectomy at age 71. Postmenopausal. Patient used Hormonal Contraceptives for 2 years. Risk Values: Jeanna 5 year model risk: 1.9%. NCI Lifetime model risk: 3.7%. Prior Study Comparison: 04/07/2020 Bilateral Screening Mammogram, [facility]. 04/12/2021 Bilateral Screening Mammogram, [facility]. 04/13/2022 Bilateral MG 3D screening mammo w/cad, [facility]. Tissue Density: There are scattered fibroglandular densities. Findings: Analyzed By CAD. There is no suspicious group of microcalcifications or new suspicious mass in either breast. Overall Assessment: Benign, BI-RAD 2 Management: Screening Mammogram of both breasts in 1 year. . Patient should continue monthly self-breast exams. A clinical breast exam by your physician is recommended on an annual basis. This exam should not preclude additional follow-up of suspicious palpable abnormalities. Note on Jeanna scores and lifetime risk: 1. A Jeanna score greater than 3% is considered moderate risk. If this is the case, consider specialist referral to assess eligibility for a risk reducing agent. 2. If overall lifetime risk for the development of breast cancer is 20% or higher, the patient may qualify for future screening with alternating mammogram and breast MRI. Electronically signed and approved by: Austin Cortez M.D. Radiologis
== END | disposition home or self-care (01) ==
LOC: RADMAMWWP 10:53
PROVIDERS: ATTEND Family Medicine
DX: Z12.31 Encounter for screening mammogram for malignant neoplasm of breast (principal); Z78.0 Asymptomatic menopausal state
CPT/HCPCS: 77063; 77067

== ENCOUNTER → 2023-11-15 | Outpatient (CLI) | payer MEDICARE, OTHER ==
--- NOTE | 2023-11-15 12:38 | XR ---
EXAMINATION TYPE: XR chest 2V DATE OF EXAM: 11/15/2023 11:57 AM CLINICAL INDICATION:Female, 78 years old with history of R07.89; COMPARISON: Chest radiographs from 11/15/2023 TECHNIQUE: XR chest 2V Frontal and lateral views of the chest. FINDINGS: Lungs/Pleura: Blunting of the left costophrenic angle.. There is no evidence of right pleural effusio n, focal consolidation, or pneumothorax. Pulmonary vascularity: Unremarkable. Heart/mediastinum: Cardiomediastinal silhouette is unremarkable. Musculoskeletal: No acute osseous pathology. IMPRESSION: Small to moderate left pleural effusion.
== END | disposition home or self-care (01) ==
LOC: RADXRMAIN 11:39
PROVIDERS: ATTEND Family Medicine
DX: J90 Pleural effusion, not elsewhere classified (principal)
CPT/HCPCS: 71046

== ENCOUNTER 2023-11-18 18:32 | Inpatient (IN) | payer MEDICARE, OTHER ==
--- NOTE | 2023-11-18 19:34 | ED ---
SOB HPI - General Chief Complaint: Shortness of Breath Stated Complaint: KIARA,Mateus. lung pain-sent by PCP Time Seen by Provider: 11/18/23 19:03 Source: patient Mode of arrival: ambulatory Limitations: no limitations - History of Present Illness Initial Comments: 78-year-old female history of hypertension diabetes asthma hyperlipidemia who states for last week or so she has had shortness of breath and left-sided chest pain. States the pain gets worse with movement she states she had rigors and shaking about 1 week ago with a temperature 102 she states she had a temperature of 99 today at home. No overt phlegm when she coughs she does have some exer tional dyspnea she states she has had decreased oral intake and is thirsty. No other current complaints or modifying factors he is a former smoker. MD Complaint: shortness of breath, chest pain - Related Data Home Medications Medication Instructions Recorded Confirmed Cholecalciferol [Vitamin D3] 50 mcg PO DAILY 04/05/16 11/18/23 Lovastatin [Mevacor] 40 mg PO DAILY 04/05/16 11/18/23 Albuterol Sulfate [Proair Hfa] 1 - 2 puff INHALATION RT-Q6H PRN 04/10/19 11/18/23 Vit C/E/Zn/Coppr/Lutein/Zeaxan 1 cap PO DAILY 04/10/19 11/18/23 [Preservision Areds 2 Softgel] metFORMIN HCL [Glucophage] 750 mg PO DAILY 04/10/19 11/18/23 Aspirin EC [Ecotrin Low Dose] 81 mg PO DAILY 11/18/23 11/18/23 [place]-3/Dha/Epa/Fish Oil [Fish Oil 1 cap PO DAILY 11/18/23 11/18/23 1,000 mg Softgel] Triamterene-Hctz 37.5-25Mg 1 tab PO DAILY 11/18/23 11/18/23 [Maxzide 37.5-25] Allergies Allergy/AdvReac Type Severity Reaction Status Date / Time erythromycin base Allergy Dyspnea Verified 11/18/23 20:14 Review of Systems ROS Statement: Those systems with pertinent positive or pertinent negative responses have been documented in the HPI. ROS Other: All systems not noted in ROS Statement are negative. Past Medical History Past Medical History: Asthma, Diabetes Mellitus, Eye Disorder, Hyperlipidemia, Hypertension Additional Past Medical History / Comment(s): MACULAR DEGENERATION-BILAT History of Any Multi-Drug Resistant Organisms: None Reported Past Surgical History: Hysterectomy Additional Past Surgical History / Comment(s): GANGLION CYST FROM FINGER. FATTY TUMOR REMOVED LT HIP. COLONOSCOPY Past Anesthesia/Blood Transfusion Reactions: No Reported Reaction Past Psychological History: No Psychological Hx Reported Smoking Status: Former smoker Past Alcohol Use History: None Reported Past Drug Use History: None Reported - Past Family History Son(s) Family Medical History: Cancer Sister(s) Family Medical History: Cancer General Exam - General Exam Comments Initial Comments: This is a well-developed well-nourished awake alert oriented x 4 female Limitations: no limitations General appearance: alert, in no apparent distress Head exam: Present: atraumatic, normocephalic, normal inspection Eye exam: Present: normal appearance, PERRL, EOMI. Absent: scleral icterus, conjunctival injection, periorbital swelling ENT exam: Present: mucous membranes dry Neck exam: Present: normal inspection, full ROM, other (No stridor JVD or bruits). Absent: tenderness, meningismus, lymphadenopathy Respiratory exam: Present: decreased breath sounds. Absent: respiratory distress, wheezes, rales, rhonchi, stridor Cardiovascular Exam: Present: normal rhythm, tachycardia, normal heart sounds. Absent: systolic murmur, diastolic murmur, rubs, gallop, clicks GI/Abdominal exam: Present: soft, normal bowel sounds. Absent: distended, tenderness, guarding, rebound, rigid Extremities exam: Present: normal inspection, full ROM, normal capillary refill. Absent: tenderness, pedal edema, joint swelling, calf tenderness Back exam: Present: normal inspection Neurological exam: Present: alert, oriented X3, CN II-XII intact Psychiatric exam: Present: normal affect, normal mood Skin exam: Present: warm, dry, intact, normal color. Absent: rash Course Vital Signs 11/18/23 11/18/23 11/18/23 18:42 19:05 19:21 Temperature 99 F Pulse Rate 128 H 123 H Respiratory 22 18 20 Rate Blood Pressure 157/77 145/80 O2 Sat by Pulse 93 L 94 L Oximetry 11/18/23 11/18/23 11/18/23 20:28 21:12 21:18 Temperature Pulse Rate 114 H 110 H 115 H Respiratory 22 Rate Blood Pressure O2 Sat by Pulse Oximetry Medical Decision Making - Medical Decision Making I did reevaluate patient on several occasions patient did demonstrate elevated D-dimer CT was negative for evidence of PE however the CAT scan did show evidence of a left lower lobe lobar pneumonia. I did discuss the findings with the patient and family and with Dr. Gandhi. Patient will be admitted placed on IV antibiotics IV fluids. Was pt. sent in by a medical professional or institution (, ELISA, CONSTRUCTION ASSISTANT, urgent care, hospital, or detention...) When possib le be specific @ -No Did you speak to anyone other than the patient for history (EMS, parent, family, police, friend...)? What history was obtained from this source @ -Patient's Did you review nursing and triage notes (agree or disagree)? Why? @ -I reviewed and agree with nursing and triage notes Were old charts reviewed (outside hosp., previous admission, EMS record, old EKG, old radiological studies, urgent care reports/EKG's, detention records)? Report findings @ -Previous chest x-ray old charts were reviewed Differential Diagnosis (chest pain, altered mental status, abdominal pain women, abdominal pain men, vaginal bleeding, weakness, fever, dyspnea, syncope, headache, dizziness, GI bleed, back pain, seizure, CVA, palpatations, mental health, musculoskeletal)? @ -Dyspnea, chest pain EKG interpreted by me (3pts min.). @ -As above EKG interpreted by me sinus tachycardia with occasional premature atrial contractions rate 122 TN interval 164 QRS duration 71 QT/QTc 295/368 X-rays interpreted by me (1pt min.). @ -X-ray interpreted by me evidence of left lower lobe pleural effusion and consolidation CT interpreted by me (1pt min.). @ -CT angio interpreted by me no PE seen however evidence of left lower lobe lobar pneumonia U/S interpreted by me (1pt. min.). @ -None done What testing was considered but not performed or refused? (CT, X-rays, U/S, labs)? Why? @ -None What meds were considered but not given or refused? Why? @ -None Did you discuss the management of the patient with other professionals (professionals i.e. , ELISA, CONSTRUCTION ASSISTANT, lab, RT, psych nurse, social service technician, assembly line brazer, teacher, naval gunfire liaison officer, case picker)? Give summary @ -Dr. Gandhi Was smoking cessation discussed for >3mins.? @ -No Was critical care preformed (if so, how long)? @ -31 minutes Were there social determinants of health that impacted care today? How? (Homelessness, low income, unemployed, alcoholism, drug addiction, transportation, low edu. Level, literacy, decrease access to med. care, senior living, rehab)? @ -No Was there de-escalation of care discussed even if they declined (Discuss DNR or withdrawal of care, Hospice)? DNR status @ -No What co-morbidities impacted this encounter? (DM, HTN, Smoking, COPD, CAD, Cancer, CVA, ARF, Chemo, Hep., AIDS, mental health diagnosis, sleep apnea, morbid obesity)? @ -Hypertension, diabetes, hyperlipidemia Was patient admitted / discharged? Hospital course, mention meds given and route, prescriptions, significant lab abnormalities, going to OR and other pertinent info. @ -Hospital course was admitted for inpatient treatment the antibiotics consultation by pulmonary medicine Undiagnosed new problem with uncertain prognosis? @ -No Drug Therapy requiring intensive monitoring for toxicity (Heparin, Nitro, Insulin, Cardizem)? @ -No Were any procedures done? @ -No Diagnosis/symptom? @ -Left lower lobe pneumonia, dyspnea, leukocytosis, elevated D-dimer, dehydration, tachycardia Acute, or Chronic, or Acute on Chronic? @ -Acute Uncomplicated (without systemic symptoms) or Complicated (systemic symptoms)? @ -Complicated Side effects of treatment? @ -No Exacerbation, Progression, or Severe Exacerbation? @ -Progression Poses a threat to life or bodily function? How? (Chest pain, USA, SD, pneumonia, PE, COPD, DKA, ARF, appy, cholecystitis, CVA, Diverticulitis, Homicidal, Suicidal, threat to staff... and all critical care pts) @ -Potential, pneumonia, tachycardia, dehydration - Lab Data Result diagrams: 11/18/23 20:21 11/18/23 20:21 Lab Results 11/18/23 11/18/23 11/18/23 Range/Units 20:21 20:21 20: WBC 30.8 H (3.8-10.6) k/uL RBC 4.25 (3.80-5.40) m/uL Hgb 13.5 (11.4-16.0) gm/dL Hct 39.8 (34.0-46.0) % MCV 93.7 (80.0-100.0) fL MCH 31.9 (25.0-35.0) pg MCHC 34.0 (31.0-37.0) g/dL RDW 12.6 (11.5-15.5) % Plt Count 509 H (150-450) k/uL MPV 9.5 Neutrophils % (Manual) 77 % Band Neuts % (Manual) 15 % Lymphocytes % (Manual) 3 % Monocytes % (Manual) 5 % Neutrophils # (Manual) 28.30 H (1.3-7.7) k/uL Lymphocytes # (Manual) 0.92 L (1.0-4.8) k/uL Monocytes # (Manual) 1.54 H (0-1.0) k/uL Nucleated RBCs 0 (0-0) /100 WBC Manual Slide Review Performed PT 12.4 (10.0-12.5) sec INR 1.2 H (<1.2) APTT 27.7 (22.0-30.0) sec D-Dimer 3.10 H (<0.60) mg/L FEU Sodium 127 L (137-145) mmol/L Potassium 4.1 (3.5-5.1) mmol/L Chloride 87 L (98-107) mmol/L Carbon Dioxide 31 H (22-30) mmol/L Anion Gap 9 mmol/L BUN 18 H (7-17) mg/dL Creatinine 0.56 (0.52-1.04) mg/dL Est GFR (CKD-EPI)AfAm >90 (>60 ml/min/1.73 sqM) Est GFR (CKD-EPI)NonAf 90 (>60 ml/min/1.73 sqM) Glucose 353 H (74-99) mg/dL Plasma Lactic Acid Jeancarlos (0.7-2.0) mmol/L Calcium 9.1 (8.4-10.2) mg/dL Magnesium 1.6 (1.6-2.3) mg/dL Total Bilirubin 1.4 H (0.2-1.3) mg/dL AST 32 (14-36) U/L ALT 26 (4-34) U/L Alkaline Phosphatase 207 H (38-126) U/L Troponin I (0.000-0.034) ng/mL NT-Pro-B Natriuret Pep 826 pg/mL Total Protein 6.1 L (6.3-8.2) g/dL Albumin 3.0 L (3.5-5.0) g/dL Influenza Type A (PCR) (Not Detectd) Influenza Type B (PCR) (Not Detectd) RSV (PCR) (Not Detectd) SARS-CoV-2 (PCR) (Not Detectd) 11/18/23 11/18/23 11/18/23 Range/Units 20:21 20:21 20:21 WBC (3.8-10.6) k/uL RBC (3.80-5.40) m/uL Hgb (11.4-16.0) gm/dL Hct (34.0-46.0) % MCV (80.0-100.0) fL MCH (25.0-35.0) pg MCHC (31.0-37.0) g/dL RDW (11.5-15.5) % Plt Count (150-450) k/uL MPV Neutrophils % (Manual) % Band Neuts % (Manual) % Lymphocytes % (Manual) % Monocytes % (Manual) % Neutrophils # (Manual) (1.3-7.7) k/uL Lymphocytes # (Manual) (1.0-4.8) k/uL Monocytes # (Manual) (0-1.0) k/uL Nucleated RBCs (0-0) /100 WBC Manual Slide Review PT (10.0-12.5) sec INR (<1.2) APTT (22.0-30.0) sec D-Dimer (<0.60) mg/L FEU Sodium (137-145) mmol/L Potassium (3.5-5.1) mmol/L Chloride (98-107) mmol/L Carbon Dioxide (22-30) mmol/L Anion Gap mmol/L BUN (7-17) mg/dL Creatinine (0.52-1.04) mg/dL Est GFR (CKD-EPI)AfAm (>60 ml/min/1.73 sqM) Est GFR (CKD-EPI)NonAf (>60 ml/min/1.73 sqM) Glucose (74-99) mg/dL Plasma Lactic Acid Jeancarlos 1.7 (0.7-2.0) mmol/L Calcium (8.4-10.2) mg/dL Magnesium (1.6-2.3) mg/dL Total Bilirubin (0.2-1.3) mg/dL AST (14-36) U/L ALT (4-34) U/L Alkaline Phosphatase (38-126) U/L Troponin I <0.012 (0.000-0.034) ng/mL NT-Pro-B Natriuret Pep pg/mL Total Protein (6.3-8.2) g/dL Albumin (3.5-5.0) g/dL Influenza Type A (PCR) Not Detected (Not Detectd) Influenza Type B (PCR) Not Detected (Not Detectd) RSV (PCR) Not Detected (Not Detectd) SARS-CoV-2 (PCR) Not Detected (Not Detectd) Critical Care Time Critical Care Time: Yes Total Critical Care Time: 31 Disposition Clinical Impression: Left lower lobe pneumonia, Tachycardia, Dyspnea, Dehydration, Elevated d-dimer, Febrile illness, acute, Leukocytosis, Hyponatremia Disposition: ADMITTED IP TO THIS [facility] Condition: Fair Referrals: Keely Valderrama MD [Primary Care Provider] - 1-2 days Time of Disposition: 23:23 Decision Date: 11/18/23 Decision Time: 23:24
[2023-11-18] MEDS: SODIUM CHLORIDE 0.9% 1,000 ML IV STA (20:23)
[2023-11-18] MEDS: SODIUM CHLORIDE 0.9% 500 ML 500 ML IV STA (20:23)
--- NOTE | 2023-11-18 20:32 | XR ---
EXAMINATION TYPE: XR chest 2V DATE OF EXAM: 11/18/2023 7:45 PM CLINICAL INDICATION:Female, 78 years old with history of difficulty breathing; [facility] COMPARISON: 11/15/2023 TECHNIQUE: XR chest 2V. Frontal and lateral views of the chest.. FINDINGS: Lines/Tubes/Devices: EKG leads overlie the chest. No indwelling lines are seen. Heart/mediastinum: Heart size upper normal. Mediastinum appears stable. Aortic atherosclerotic calc ifications. Pulmonary vascularity: Slightly increased central vascular congestion. Lungs/Pleura: Left basilar pleural/parenchymal opacity with obscuration of the costophrenic angle, ap pears slightly worsened. Right lung is stable with no evidence of infiltrate or sizable effusion. No pneumothorax seen bilaterally. Musculoskeletal: No acute osseous abnormality demonstrated in the limits of the exam. Degenerative c hanges of the spine and shoulders. Other findings: None. IMPRESSION: Increased pulmonary vascular congestion, slightly larger moderate sized left pleural effusion with ad jacent infiltrate/atelectasis. Overall findings likely reflect fluid overload or CHF.
[2023-11-18 20:52] LABS: HCT 39.8 % (34.0-46.0); HGB 13.5 gm/dL (11.4-16.0); MCH 31.9 pg (25.0-35.0); MCV 93.7 fL (80.0-100.0); Mean Platelet Volume 9.5; Platelet Count 509 k/uL (150-450); RBC 4.25 m/uL (3.80-5.40); RDW 12.6 % (11.5-15.5); WBC 30.8 k/uL (3.8-10.6)
[2023-11-18 21:07] LABS: ALT 26 U/L (4-34); AST 32 U/L (14-36); African American GFR (CKD) >90 (>60 ml/min/1.73 sqM); Alkaline Phosphatase 207 U/L (38-126); Anion Gap 9 mmol/L; Blood Urea Nitrogen 18 mg/dL (7-17); Calcium 9.1 mg/dL (8.4-10.2); Carbon Dioxide 31 mmol/L (22-30); Chloride 87 mmol/L (98-107); Glucose 353 mg/dL (74-99); Magnesium 1.6 mg/dL (1.6-2.3); Non-African American GFR(CKD) 90 (>60 ml/min/1.73 sqM); Potassium 4.1 mmol/L (3.5-5.1); Sodium 127 mmol/L (137-145); Total Bilirubin 1.4 mg/dL (0.2-1.3); Total Protein 6.1 g/dL (6.3-8.2)
[2023-11-18] MEDS: IPRATROPIUM-ALBUTEROL 3 ML NEB INHALATION STA (21:11)
[2023-11-18 21:14] LABS: NT-Pro-B-Type Natriuretic Pept 826 pg/mL
[2023-11-18 21:21] LABS: INR 1.2 (<1.2); Partial Thromboplastin Time 27.7 sec (22.0-30.0); Prothrombin Time 12.4 sec (10.0-12.5)
[2023-11-18 21:52] LABS: Band Neutrophils % 15 %; Lymphocytes # (M) 0.92 k/uL (1.0-4.8); Monocytes # (M) 1.54 k/uL (0-1.0); Neutrophils % (M) 77 %; Nucleated Red Blood Cells 0 /100 WBC (0-0); Total Cells Counted 200
--- NOTE | 2023-11-18 22:35 | CT ---
EXAM: CT Angiography Chest With Intravenous Contrast CLINICAL HISTORY: ITS.REASON CT Reason: PE suspected TECHNIQUE: Axial computed tomographic angiography images of the chest with intravenous contrast. CTDI is 9.5 mGy and DLP is 186.6 mGy-cm. This CT exam was performed using one or more of the following dose reduction techniques: automated exposure control, adjustment of the mA and/or kV according to patient size, and/or use of iterative reconstruction technique. MIP reconstructed images were created and reviewed. COMPARISON: No relevant prior studies available. FINDINGS: Pulmonary arteries: Unremarkable. No acute pulmonary embolism. Aorta: Atherosclerotic changes of the aorta. No thoracic aortic aneurysm. Lungs: Airspace consolidation in the LEFT lower lobe, consistent with lobar pneumonia. Pleural space: Unremarkable. No significant effusion. No pneumothorax. Heart: Unremarkable. No cardiomegaly. No significant pericardial effusion. No evidence of RV dysfunction. Bones/joints: Degenerative changes of the spine. No acute fracture. No dislocation. Soft tissues: Unremarkable. Lymph nodes: Unremarkable. No enlarged lymph nodes. Upper abdomen: Elevated RIGHT hemidiaphragm. IMPRESSION: 1. No acute pulmonary embolism. 2. Airspace consolidation in the LEFT lower lobe, consistent with lobar pneumonia. Aspiration not excluded.
[2023-11-18] MEDS ORDERED: PNEUMONIA PROTOCOL UTILIZED 1 EACH MISC PO PRN (23:24)
[2023-11-18] MEDS: cefTRIAXone IN SWFI 1,000 MG/10 ML SYRINGE IVP STA (23:38)
[2023-11-18] MEDS: SODIUM CHLORIDE 0.9% 1,000 ML IV SCH (23:40)
[2023-11-19 00:04] LABS: Glucose,Whole Blood 307 mg/dL (70-110)
[2023-11-19] MEDS: INSULIN ASPART (NovoLOG) 100 UNIT/ML VIAL SQ SCH (00:30)
[2023-11-19 06:48] LABS: Glucose,Whole Blood 246 mg/dL (70-110)
--- NOTE | 2023-11-19 07:35 | XR ---
EXAMINATION TYPE: XR chest 2V DATE OF EXAM: 11/19/2023 COMPARISON: 11/18/2023 HISTORY: 78-year-old female follow-up pneumonia TECHNIQUE: PA and lateral views FINDINGS: Moderate-sized left pleural effusion persists with adjacent opacity. Interstitial prominence unchange d. Hyperinflation. Heart normal size. IMPRESSION: COPD with continued moderate left pleural effusion with adjacent atelectasis and/or consolidation.
[2023-11-19] MEDS: ATORVASTATIN 10 MG TAB PO SCH (08:32)
[2023-11-19] MEDS: VIT A,C & E-LUTEIN-MINERALS 1 EACH TAB PO SCH (08:32)
[2023-11-19] MEDS: CHOLECALCIFEROL 25 MCG (1000 IU) TABLET PO SCH (08:32)
[2023-11-19] MEDS: NON FORMULARY DRUG (Omega-3/Dha/Epa/Fish Oil [Fish Oil 1,000 Mg Softgel] 1 EACH Capsule) PO SCH (08:32)
[2023-11-19] MEDS: metFORMIN 500 MG TAB PO SCH (08:33)
[2023-11-19] MEDS: ASPIRIN 81 MG PO SCH (08:33)
[2023-11-19] MEDS: TRIAMTERENE-HCTZ 37.5-25MG 1 EACH CAP PO SCH (08:33)
--- NOTE | 2023-11-19 08:36 | US ---
EXAMINATION TYPE: US chest DATE OF EXAM: 11/19/2023 COMPARISON: Radiograph same day CLINICAL INDICATION: Female, 78 years old with history of Markings for thoracentesis by pulmonary sta ff; Left lateral chest pain radiating to neck TECHNIQUE: Targeted ultrasound of the posterior lower bilateral hemithoraces EXAM MEASUREMENTS: Right Pleural Effusion pocket size: 0 cm Right skin surface to fluid distance: 0 cm Left Pleural Effusion pocket size: 7.7 cm Left skin surface to fluid distance: 2.9 cm Loculated left pleural effusion Left side marked for possible thoracentesis outside the dept. Pulmonologists are able to review the images in the patient?s EMR. IMPRESSIONS: Moderate-sized loculated left pleural effusion.
[2023-11-19] MEDS: IPRATROPIUM-ALBUTEROL 3 ML NEB INHALATION PRN (08:48)
--- NOTE | 2023-11-19 09:50 | P.HPIM ---
History of Present Illness H&P Date: 11/19/23 this is a 70-year-old female patient of Dr. Valderrama who presented to the ER with complaints of muscle aches and shaking febrile and chest pain that has been occurring over the past week. Patient states she's had some external shortness of breath and poor oral intake. Patient has past medical history of asthma, diabetes mellitus, I disorder, hyperlipidemia and hypertension.chest x-ray completed showing COPD with continued moderate left pleural effusion. Lab work revealing a WBC of 30.8, sodium 127, creatinine 0.56. Troponin negative. D- dimer elevated at 3.10CT of the chest completed showing no acute pulmonary embolism. Airspace consolidation in the left lower lobe consistent with lobar pneumonia.influenza, RSV and COVID-19 negative.at this time patient was admitted. Patient started on IV antibiotics. Pulmonary service is consulted. Blood culture and sputum culture ordered repeat labs ordered. At this time patient is sitting up in chair. Current vital signs temp 90.6, heart rate 103, blood pressure 129/70 fourth pulse ox 93% on room air. ultrasound of chest has been ordered per pulmonary for possible pleurocentesis. Review of Systems please refer to HPI otherwise unremarkable Past Medical History Past Medical History: Asthma, Diabetes Mellitus, Eye Disorder, Hyperlipidemia, Hypertension Additional Past Medical History / Comment(s): MACULAR DEGENERATION-BILAT History of Any Multi-Drug Resistant Organisms: None Reported Past Surgical History: Hysterectomy Additional Past Surgical History / Comment(s): GANGLION CYST FROM FINGER. FATTY TUMOR REMOVED LT HIP. COLONOSCOPY Past Anesthesia/Blood Transfusion Reactions: No Reported Reaction Past Psychological History: No Psychological Hx Reported Smoking Status: Former smoker Past Alcohol Use History: None Reported Additional Past Alcohol Use History / Comment(s): SMOKED IN [id number] 3 CIGARETTES A WEEK Past Drug Use History: None Reported - Past Family History Son(s) Family Medical History: Cancer Sister(s) Family Medical History: Cancer Medications and Allergies Home Medications Medication Instructions Recorded Confirmed Type Cholecalciferol [Vitamin D3] 50 mcg PO DAILY 04/05/16 11/18/23 History Lovastatin [Mevacor] 40 mg PO DAILY 04/05/16 11/18/23 History Albuterol Sulfate [Proair Hfa] 1 - 2 puff INHALATION RT-Q6H PRN 04/10/19 11/18/23 History Vit C/E/Zn/Coppr/Lutein/Zeaxan 1 cap PO DAILY 04/10/19 11/18/23 History [Preservision Areds 2 Softgel] metFORMIN HCL [Glucophage] 750 mg PO DAILY 04/10/19 11/18/23 History Aspirin EC [Ecotrin Low Dose] 81 mg PO DAILY 11/18/23 11/18/23 History [place]-3/Dha/Epa/Fish Oil [Fish Oil 1 cap PO DAILY 11/18/23 11/18/23 History 1,000 mg Softgel] Triamterene-Hctz 37.5-25Mg 1 tab PO DAILY 11/18/23 11/18/23 History [Maxzide 37.5-25] Allergies Allergy/AdvReac Type Severity Reaction Status Date / Time erythromycin base Allergy Dyspnea Verified 11/18/23 20:14 Physical Exam Vitals: Vital Signs Temp Pulse Pulse Resp BP BP Pulse Ox 11/19/23 09:06 112 H 11/19/23 08:48 112 H 11/19/23 07:46 98.8 F 121 H 19 130/72 90 L 11/19/23 01:22 98.6 F 103 H 16 129/74 93 L 11/18/23 23:42 98.1 F 106 H 20 129/81 94 L 11/18/23 23:00 112 H 13 139/84 94 L 11/18/23 22:00 109 H 15 129/81 94 L 11/18/23 21:18 115 H 11/18/23 21:12 110 H 11/18/23 20:28 114 H 22 11/18/23 19:21 123 H 20 145/80 94 L 11/18/23 19:05 18 11/18/23 18:42 99 F 128 H 22 157/77 93 L Intake and Output 11/18/23 11/19/23 11/19/23 22:59 06:59 14:59 Output Total 450 Balance -450 Output: Urine 450 Other: # Voids 1 # Bowel Movements 1 Weight 45.359 kg 45.359 kg Head normocephalic Neck supple Lungs clear to auscultation bilaterally no wheezing or crackles Heart regular rate and rhythm S1-S2, no rub or gallop Abdomen is soft nontender nondistended positive bowel sounds no hepatosplenomegaly Extremities no edema Neuro alert and orientated to 3 Results CBC & Chem 7: 11/18/23 20:21 11/18/23 20:21 Labs: Abnormal Lab Results - Last 24 Hours (Table) 11/18/23 11/18/23 11/18/23 Range/Units 20:21 20:21 20:21 WBC 30.8 H (3.8-10.6) k/uL Plt Count 509 H (150-450) k/uL Neutrophils # (Manual) 28.30 H (1.3-7.7) k/uL Lymphocytes # (Manual) 0.92 L (1.0-4.8) k/uL Monocytes # (Manual) 1.54 H (0-1.0) k/uL INR 1.2 H (<1.2) D-Dimer 3.10 H (<0.60) mg/L FEU Sodium 127 L (137-145) mmol/L Chloride 87 L (98-107) mmol/L Carbon Dioxide 31 H (22-30) mmol/L BUN 18 H (7-17) mg/dL Glucose 353 H (74-99) mg/dL POC Glucose (mg/dL) (70-110) mg/dL Total Bilirubin 1.4 H (0.2-1.3) mg/dL Alkaline Phosphatase 207 H (38-126) U/L Total Protein 6.1 L (6.3-8.2) g/dL Albumin 3.0 L (3.5-5.0) g/dL 11/19/23 11/19/23 Range/Units 00:03 06:42 WBC (3.8-10.6) k/uL Plt Count (150-450) k/uL Neutrophils # (Manual) (1.3-7.7) k/uL Lymphocytes # (Manual) (1.0-4.8) k/uL Monocytes # (Manual) (0-1.0) k/uL INR (<1.2) D-Dimer (<0.60) mg/L FEU Sodium (137-145) mmol/L Chloride (98-107) mmol/L Carbon Dioxide (22-30) mmol/L BUN (7-17) mg/dL Glucose (74-99) mg/dL POC Glucose (mg/dL) 307 H 246 H (70-110) mg/dL Total Bilirubin (0.2-1.3) mg/dL Alkaline Phosphatase (38-126) U/L Total Protein (6.3-8.2) g/dL Albumin (3.5-5.0) g/dL Thrombosis Risk Factor Assmnt - Choose All That Apply Any of the Below Risk Factors Present?: No Each Risk Factor Represents 3 Points: Age 75 years or older Thrombosis Risk Factor Assessment Total Risk Factor Score: 3 Thrombosis Risk Factor Assessment Level: Moderate Risk Assessment and Plan Assessment: 1. Left lower lobe pneumonia 2. Leukocytosis secondary to above 3. Pleural effusion 4. Hyponatremia secondary to dehydration 5. Elevated d-dimer. CTA negative for PE 6. History of asthma 7. History of diabetes mellitus. Patient on sliding scale coverage 8. History of macular degeneration 9. History of hyperlipidemia 10. History of essential hypertension DVT prophylaxis heparin. GI prophylaxis Protonix Pulmonary service is consulted Ultrasound of chest ordered per pulmonary Sputum and blood cultures ordered Patient started on IV antibiotics repeat labs ordered Time with Patient: Greater than 30 (Greater than 60% of the total time spent in counseling and coordination of careGreater than 60% of the total time spent in counseling and coordination of care)
[2023-11-19] MEDS ORDERED: VANCOMYCIN IV PER PHARMACY 1 EACH MISC MISCELLANE PRN (10:57)
--- NOTE | 2023-11-19 11:32 | XR ---
EXAMINATION TYPE: XR chest 1V portable DATE OF EXAM: 11/19/2023 Comparison: 11/19/2023 Clinical History: 78-year-old female s/p thoracentesis, empyema Findings: Residual small to moderate left pleural effusion. No appreciable pneumothorax. Mild hyperinflation. H eart limits of normal in size. Impression: Residual small to moderate left pleural effusion with adjacent atelectasis and/or consolidation follo wing thoracentesis. No appreciable pneumothorax.
[2023-11-19] MEDS: AMPICILLIN-SULBACTAM 3 GM in SODIUM CHLORIDE 0.9% 100 ML IVPB SCH (11:52)
[2023-11-19 12:05] LABS: Glucose,Whole Blood 302 mg/dL (70-110)
[2023-11-19 12:26] LABS: ALT 22 U/L (4-34); AST 32 U/L (14-36); African American GFR (CKD) >90 (>60 ml/min/1.73 sqM); Albumin 2.5 g/dL (3.5-5.0); Albumin/Globulin Ratio 0.9; Alkaline Phosphatase 163 U/L (38-126); Anion Gap 8 mmol/L; Blood Urea Nitrogen 15 mg/dL (7-17); Calcium 8.5 mg/dL (8.4-10.2); Carbon Dioxide 29 mmol/L (22-30); Chloride 92 mmol/L (98-107); Globulin 2.8 g/dL; Glucose 336 mg/dL (74-99); LDH 217 U/L (120-246); Non-African American GFR(CKD) 88 (>60 ml/min/1.73 sqM); Potassium 3.7 mmol/L (3.5-5.1); Sodium 129 mmol/L (137-145); Total Bilirubin 0.9 mg/dL (0.2-1.3); Total Protein 5.3 g/dL (6.3-8.2)
[2023-11-19] MEDS: VANCOMYCIN 750 MG in SODIUM CHLORIDE 0.9% 250 ML IVPB SCH (12:28)
[2023-11-19 12:37] LABS: HCT 39.7 % (34.0-46.0); HGB 12.5 gm/dL (11.4-16.0); MCH 30.6 pg (25.0-35.0); MCHC 31.4 g/dL (31.0-37.0); MCV 97.3 fL (80.0-100.0); Mean Platelet Volume 9.8; Platelet Count 528 k/uL (150-450); RBC 4.09 m/uL (3.80-5.40); RDW 12.6 % (11.5-15.5); WBC 28.3 k/uL (3.8-10.6)
[2023-11-19 13:41] LABS: Band Neutrophils % 1 %; Lymphocytes # (M) 0.85 k/uL (1.0-4.8); Metamyelocytes # (M) 0.57 k/uL (0); Metamyelocytes % 2 %; Monocytes # (M) 1.98 k/uL (0-1.0); Myelocytes # (M) 0.28 k/uL (0); Myelocytes % 1 %; Neutrophils % (M) 88 %; Nucleated Red Blood Cells 0 /100 WBC (0-0); Total Cells Counted 200
[2023-11-19 13:42] LABS: RBC Morphology Normal; Toxic Granulation Present
--- NOTE | 2023-11-19 15:14 | P.CNPUL ---
History of Present Illness Consult date: 11/19/23 Requesting physician: Jeffery Gandhi Reason for consult: abnormal CXR/CT Chief complaint: Shortness of breath, chills, fever History of present illness: This is a very pleasant 78-year-old female patient with a history of asthma, diabetes mellitus, hypertension, hyperlipidemia, macular degeneration, former smoker. About 1 week ago she had a day where she developed shortness of breath left-sided chest discomfort shivers and shaking and a temperature of 102. She thought that it would go away and proceeded throughout the next few days however she was getting some exertional dyspnea and poor appetite and presented here to the emergency room yesterday. She denied any recent travel. No sick contacts. Chest x-ray revealed a left-sided infiltrate/effusion and airspace consolidation consistent with lobar pneumonia. CT angiogram ruled out pulmonary embolism. White count 28.3. Hemoglobin 12.5. Platelets 528. Sodium 129. Potassium 3.7. Bicarb 29. BUN 15. Creatinine 0.59. Glucose 336. Viral screen negative. Ultrasound of the chest revealed a 7.7 cm pleural effusion. She was initiated on ceftriaxone. She is seen today in consultation on the regular medical floor. She is currently sitting up in bed. Awake and alert in no acute distress. Still with some left-sided chest discomfort. He is maintaining good O2 saturations in the 90s on room air. She is currently afebrile. Slightly tachycardic. Review of Systems REVIEW OF SYSTEMS: CONSTITUTIONAL: Denies any recent significant weight loss or weight gain. EYES: Denies change in vision. EARS, NOSE, MOUTH, THROAT: Denies headaches, denies sore throat. CARDIOVASCULAR: Positive for left-sided chest pain, palpitations or syncopal episodes. RESPIRATORY: Positive for shortness of breath, cough, congestion no hemoptysis. GASTROINTESTINAL: Denies change in appetite, denies abdominal pain GENITOURINARY: Denies hematuria, denies infections. MUSKULOSKELETAL: Denies pain, denies swelling. INTEGUMENTARY: Denies rash, denies eczema. NEUROLOGICAL: Denies recent memory loss, no recent seizure activity. PSYCHIATRIC: Denies anxiety, denies depression. HEMATOLOGIC/LYMPHATIC: Denies anemia, denies enlarged lymph nodes. Past Medical History Past Medical History: Asthma, Diabetes Mellitus, Eye Disorder, Hyperlipidemia, Hypertension Additional Past Medical History / Comment(s): MACULAR DEGENERATION-BILAT History of Any Multi-Drug Resistant Organisms: None Reported Past Surgical History: Hysterectomy Additional Past Surgical History / Comment(s): GANGLION CYST FROM FINGER. FATTY TUMOR REMOVED LT HIP. COLONOSCOPY Past Anesthesia/Blood Transfusion Reactions: No Reported Reaction Past Psychological History: No Psychological Hx Reported Smoking Status: Former smoker Past Alcohol Use History: None Reported Additional Past Alcohol Use History / Comment(s): SMOKED IN [id number] 3 CIGARETTES A WEEK Past Drug Use History: None Reported - Past Family History Son(s) Family Medical History: Cancer Sister(s) Family Medical History: Cancer Medications and Allergies Home Medications Medication Instructions Recorded Confirmed Type Cholecalciferol [Vitamin D3] 50 mcg PO DAILY 04/05/16 11/18/23 History Lovastatin [Mevacor] 40 mg PO DAILY 04/05/16 11/18/23 History Albuterol Sulfate [Proair Hfa] 1 - 2 puff INHALATION RT-Q6H PRN 04/10/19 11/18/23 History Vit C/E/Zn/Coppr/Lutein/Zeaxan 1 cap PO DAILY 04/10/19 11/18/23 History [Preservision Areds 2 Softgel] metFORMIN HCL [Glucophage] 750 mg PO DAILY 04/10/19 11/18/23 History Aspirin EC [Ecotrin Low Dose] 81 mg PO DAILY 11/18/23 11/18/23 History [place]-3/Dha/Epa/Fish Oil [Fish Oil 1 cap PO DAILY 11/18/23 11/18/23 History 1,000 mg Softgel] Triamterene-Hctz 37.5-25Mg 1 tab PO DAILY 11/18/23 11/18/23 History [Maxzide 37.5-25] Allergies Allergy/AdvReac Type Severity Reaction Status Date / Time erythromycin base Allergy Dyspnea Verified 11/18/23 20:14 Physical Exam Vitals: Vital Signs Temp Pulse Pulse Resp BP BP Pulse Ox 11/19/23 09:06 112 H 11/19/23 08:48 112 H 11/19/23 07:46 98.8 F 121 H 19 130/72 90 L 11/19/23 01:22 98.6 F 103 H 16 129/74 93 L 11/18/23 23:42 98.1 F 106 H 20 129/81 94 L 11/18/23 23:00 112 H 13 139/84 94 L 11/18/23 22:00 109 H 15 129/81 94 L 11/18/23 21:18 115 H 11/18/23 21:12 110 H 11/18/23 20:28 114 H 22 11/18/23 19:21 123 H 20 145/80 94 L 11/18/23 19:05 18 11/18/23 18:42 99 F 128 H 22 157/77 93 L Intake and Output 11/19/23 11/19/23 11/19/23 06:59 14:59 22:59 Output Total 450 Balance -450 Output: Urine 450 Other: # Voids 1 # Bowel Movements 1 Weight 45.359 kg GENERAL EXAM: Alert, active, very pleasant 78-year-old female, on room air, fairly comfortable in no apparent distress. HEAD: Normocephalic. EYES: Normal reaction of pupils, equal size. NOSE: Clear with pink turbinates. THROAT: No erythema or exudates. NECK: No masses, no JVD. CHEST: No chest wall deformity. LUNGS: Equal air entry with diminished breath sounds in the left base. CVS: S1 and S2 normal with no audible murmur, regular rhythm. ABDOMEN: No hepatosplenomegaly, normal bowel sounds, no guarding or rigidity. SPINE: No scoliosis or deformity SKIN: No rashes CENTRAL NERVOUS SYSTEM: No focal deficits, tone is normal in all 4 extremities. EXTREMITIES: There is no peripheral edema. No clubbing, no cyanosis. Peripheral pulses are intact. Results - Laboratory Findings CBC and BMP: 11/19/23 10:57 11/19/23 10:57 PT/INR, D-dimer PT 12.4 sec (10.0-12.5) 11/18/23 20:21 INR 1.2 (<1.2) H 11/18/23 20:21 D-Dimer 3.10 mg/L FEU (<0.60) H 11/18/23 20:21 Abnormal lab findings: Abnormal Labs 11/18/23 11/18/23 11/18/23 20:21 20:21 20:21 WBC 30.8 H Plt Count 509 H Neutrophils # (Manual) 28.30 H Lymphocytes # (Manual) 0.92 L Monocytes # (Manual) 1.54 H Metamyelocytes # (Man) Myelocytes # (Manual) INR 1.2 H D-Dimer 3.10 H Sodium 127 L Chloride 87 L Carbon Dioxide 31 H BUN 18 H Glucose 353 H POC Glucose (mg/dL) Total Bilirubin 1.4 H Alkaline Phosphatase 207 H Total Protein 6.1 L Albumin 3.0 L 11/19/23 11/19/23 11/19/23 00:03 06:42 10:57 WBC 28.3 H Plt Count 528 H Neutrophils # (Manual) 25.10 H Lymphocytes # (Manual) 0.85 L Monocytes # (Manual) 1.98 H Metamyelocytes # (Man) 0.57 H Myelocytes # (Manual) 0.28 H INR D-Dimer Sodium Chloride Carbon Dioxide BUN Glucose POC Glucose (mg/dL) 307 H 246 H Total Bilirubin Alkaline Phosphatase Total Protein Albumin 11/19/23 11/19/23 10:57 12:03 WBC Plt Count Neutrophils # (Manual) Lymphocytes # (Manual) Monocytes # (Manual) Metamyelocytes # (Man) Myelocytes # (Manual) INR D-Dimer Sodium 129 L Chloride 92 L Carbon Dioxide BUN Glucose 336 H POC Glucose (mg/dL) 302 H Total Bilirubin Alkaline Phosphatase 163 H Total Protein 5.3 L Albumin 2.5 L - Diagnostic Findings Chest x-ray: image reviewed CT scan - chest: image reviewed Assessment and Plan Assessment: Left-sided chest pain secondary to a left pleural effusion. Status post left- sided thoracentesis today November 19, 2023 with 150 cc of thick creamy moreno fluid returned. Suspect empyema Acute community-acquired pneumonia in the left lower lobe, possible empyema Febrile illness secondary to above Leukocytosis secondary to above Hyponatremia Diabetes mellitus with hyperglycemia Macular degeneration Hyperlipidemia Hypertension Plan: The patient was seen and evaluated CAT scan, chest x-ray, labs and medications reviewed Status post left-sided thoracentesis Suspect empyema Discontinue ceftriaxone Add vancomycin and Unasyn May require pigtail catheter insertion Follow-up chest x-ray in a.m. We will continue to follow and make further recommendations based on her clinical status I have personally seen and examined the patient, performed the documentation and the assessment and plan as written. Number of minutes spent on the visit: 20.
[2023-11-19 16:46] LABS: Glucose,Whole Blood 232 mg/dL (70-110)
--- NOTE | 2023-11-19 19:51 | OP ---
OPERATIVE REPORT DATE OF SERVICE : PROCEDURE: Left-sided thoracentesis. PREOPERATIVE DIAGNOSIS: Left pleural effusion. POSTOPERATIVE DIAGNOSIS: Emphysema. ANESTHESIA USED: 2 mL of 1% lidocaine. PROCEDURE IN DETAIL: The patient was placed in a sitting upright position, the area below the left scapula was prepared in a sterile fashion. Drapes were applied. The marking was placed by biotechnician at the level of the 8th intercostal space and tip of the scapula. The area was locally anesthetized; then using a 26-gauge needle, I was able to advance the needle into the pleural space, and fluid was obtained. The fluid was noted to be purulent. Then, a small tiny incision was made, and a standard thoracentesis catheter and needle were used, advanced into the pleural space, fluid was obtained. Then, the catheter was advanced over the needle and the needle was pulled out of the pleural space. Intermittently flowing fluid was noted draining into the bottle, and the fluid seemed to be purulent, consistent with pus. I was able to drain a total of 150 mL out of the pleural space using a syringe. Then, the fluid was sent for different diagnostic studies. The catheter was removed. Chest x-ray postoperatively showed no complications. Results on the fluid are pending. Based on the finding on the pleural effusion fluid, the patient may need to have a pigtail catheter placement and she will have a followup chest x-ray in a.m. MP / EMILIEN: [id number] /
[2023-11-19] MEDS: HEPARIN SODIUM,PORCINE 5,000 UNIT/ML 1 ML VIAL SQ SCH (20:11)
[2023-11-19 21:39] LABS: Glucose,Whole Blood 262 mg/dL (70-110)
[2023-11-19 23:03] LABS: Cholesterol,BF Source Pleural Fluid; Cholesterol,Body Fluid 23 mg/dL; Glucose, BF Source Pleural Fluid; Glucose, Body Fluid 105 mg/dL; T. Protein, Body Fluid Source Pleural Fluid; Total Protein, Body Fluid 3050 mg/dL
[2023-11-19 23:22] LABS: LDH, Body Fluid Source Pleural Fluid
[2023-11-19 23:33] LABS: Appearance,BF Turbid (Clear)
[2023-11-20 06:35] LABS: Glucose,Whole Blood 222 mg/dL (70-110)
[2023-11-20] MEDS: PANTOPRAZOLE 40 MG TABLET PO SCH (06:53)
[2023-11-20 08:42] LABS: Basophils % (A) 0.5 %; Eosinophils # (A) 0.09 X 10*3/uL (0.04-0.35); Eosinophils % (A) 0.5 %; HCT 35.8 % (37.2-46.3); HGB 11.6 g/dL (12.0-15.0); Lymphocytes # (A) 1.39 X 10*3/uL (0.90-5.00); MCH 30.3 pg (27.0-32.0); MCHC 32.4 g/dL (32.0-37.0); MCV 93.5 FL (80.0-97.0); Mean Platelet Volume 11.5 FL (9.5-12.2); Monocytes # (A) 1.28 X 10*3/uL (0.20-1.00); Monocytes % (A) 6.5 %; NRBC Per 100 WBC 0 X 10*3/uL (0.00-0.01); Neutrophils # (A) 16.56 X 10*3/uL (1.80-7.70); Neutrophils % (A) 83.8 %; Platelet Count 489 X 10*3/uL (140-440); RBC 3.83 X 10*6/uL (4.10-5.20); RDW 13.2 % (11.5-14.5); WBC 19.76 X 10*3/uL (4.50-10.00)
[2023-11-20 08:47] LABS: ALT 24 U/L (8-44); AST 38 U/L (13-35); Albumin 2.6 g/dL (3.8-4.9); Albumin/Globulin Ratio 1.04 Ratio (1.60-3.17); Alkaline Phosphatase 134 U/L (41-126); BUN/Creat Ratio 18.17 Ratio (12.00-20.00); Blood Urea Nitrogen 10.9 mg/dL (9.0-27.0); Calcium 8.7 mg/dL (8.7-10.3); Carbon Dioxide 26.7 mmol/L (21.6-31.8); Chloride 97 mmol/L (96-109); Globulin 2.5 g/dL (1.6-3.3); Glucose 245 mg/dL (70-110); Potassium 3.5 mmol/L (3.5-5.5); Sodium 135 mmol/L (135-145); Total Bilirubin 0.6 mg/dL (0.3-1.2); Total Protein 5.1 g/dL (6.2-8.2)
--- NOTE | 2023-11-20 10:52 | XR ---
EXAMINATION TYPE: XR chest 1V portable DATE OF EXAM: 11/20/2023 Comparison: 11/19/2023 Clinical History: 78-year-old female Empyema Findings: Undergoing moderate left pleural effusion. Trace effusion suggested on the right. Upper and mid lungs remain clear. Heart normal size. No appreciable pneumothorax. Impression: Ongoing moderate left pleural effusion with adjacent atelectasis and/or consolidation. Possible trace effusion on the right.
[2023-11-20 11:41] LABS: Glucose,Whole Blood 333 mg/dL (70-110)
--- NOTE | 2023-11-20 14:02 | P.GSCN ---
History of Present Illness Consult date: 11/20/23 Reason for Consult: Empyema Requesting physician: Jc Bhakta History of present illness: This is a 78-year-old gentleman who follows outpatient with Dr. Valderrama for internal medicine. She has a previous medical history of hypertension, hyperlipidemia, asthma, diabetes, previous light tobacco dependence with cessation many years ago, and family history of cancer. She has had recent episode of chills, shaking, along with left-sided chest pain and shortness of breath. She had a chest x-ray completed per her primary care physician demonstrating a left-sided pleural effusion. She continued to feel bad and presented to [facility] emergency room a couple of days ago. Chest x- ray in the emergency room demonstrated left-sided pleural effusion. Chest CTA was completed demonstrating no acute pulmonary embolism, however there was airspace consolidation in the left lower lobe consistent with pneumonia. Lab work revealed WBC 30.8, platelet count 509, 15% band neutrophils, sodium 127, creatinine 0.56, negative troponin, BNP 826, and influenza/RSV/COVID were negative. She was initiated on IV antibiotics and admitted for evaluation and treatment with consultation placed to pulmonology. Yesterday she had an ultrasound of the chest completed demonstrating a 7.7 cm fluid pocket on the left side. Subsequently she underwent left-sided thoracentesis by Dr. Ortez, however he was only able to drain a total of 150 mL purulent drainage which was sent for culture. Follow-up chest x-ray this morning demonstrated ongoing left- sided pleural effusion. Due to this finding and the nature of the purulent d rainage from thoracentesis consultation was placed to Dr. Echeverria for surgical recommendations. Review of Systems Review of systems was completed and was negative except as noted - Constitutional Reports chills, Reports fever - Cardiovascular Reports dyspnea on exertion Past Medical History Past Medical History: Asthma, Diabetes Mellitus, Eye Disorder, Hyperlipidemia, Hypertension Additional Past Medical History / Comment(s): MACULAR DEGENERATION-BILAT History of Any Multi-Drug Resistant Organisms: None Reported Past Surgical History: Hysterectomy Additional Past Surgical History / Comment(s): GANGLION CYST FROM FINGER. FATTY TUMOR REMOVED LT HIP. COLONOSCOPY Past Anesthesia/Blood Transfusion Reactions: No Reported Reaction Past Psychological History: No Psychological Hx Reported Smoking Status: Former smoker Past Alcohol Use History: None Reported Additional Past Alcohol Use History / Comment(s): SMOKED IN [id number] 3 CIGARETTES A WEEK Past Drug Use History: None Reported - Past Family History Son(s) Family Medical History: Cancer Sister(s) Family Medical History: Cancer Medications and Allergies Home Medications Medication Instructions Recorded Confirmed Type Cholecalciferol [Vitamin D3] 50 mcg PO DAILY 04/05/16 11/18/23 History Lovastatin [Mevacor] 40 mg PO DAILY 04/05/16 11/18/23 History Albuterol Sulfate [Proair Hfa] 1 - 2 puff INHALATION RT-Q6H PRN 04/10/19 11/18/23 History Vit C/E/Zn/Coppr/Lutein/Zeaxan 1 cap PO DAILY 04/10/19 11/18/23 History [Preservision Areds 2 Softgel] metFORMIN HCL [Glucophage] 750 mg PO DAILY 04/10/19 11/18/23 History Aspirin EC [Ecotrin Low Dose] 81 mg PO DAILY 11/18/23 11/18/23 History [place]-3/Dha/Epa/Fish Oil [Fish Oil 1 cap PO DAILY 11/18/23 11/18/23 History 1,000 mg Softgel] Triamterene-Hctz 37.5-25Mg 1 tab PO DAILY 11/18/23 11/18/23 History [Maxzide 37.5-25] Allergies Allergy/AdvReac Type Severity Reaction Status Date / Time erythromycin base Allergy Dyspnea Verified 11/18/23 20:14 Surgical - Exam Vital Signs Temp Pulse Resp BP Pulse Ox 99 F 128 H 22 157/77 93 L 11/18/23 18:42 11/18/23 18:42 11/18/23 18:42 11/18/23 18:42 11/18/23 18:42 CONSTITUTIONAL: Awake and alert, appears comfortable, cooperative, well- developed, well-nourished, no pain, no acute distress EYES: Pupils equal, round, reactive to light, normal ocular movement ENT: Moist mucous membranes without oral lesions present NECK: No masses, no bruits, trachea midline RESPIRATORY: Lungs sounds diminished in the left base. Respirations even, nonlabored. Currently on room air with oxygen saturation 95%. Strong cough. No chest wall deformities. No clubbing or cyanosis present CARDIOVASCULAR: S1, S2 present. Regular rate and rhythm, sinus rhythm on telemetry. Palpable peripheral pulses bilaterally. No edema present. No calf pain or tenderness noted GASTROINTESTINAL: Abdomen soft, nontender, nondistended without masses or organomegaly noted. There is no rebound or guarding present. Active bowel sounds present 4 quadrants. GENITOURINARY: Deferred INTEGUMENTARY: Skin is warm and dry NEUROLOGIC: Cranial nerves II through XII intact, normal coordination, no obvious motor or sensory deficits, speech is normal MUSKULOSKELETAL: Able to move all extremities, strength equal bilaterally, normal posture PSYCHIATRIC: Alert and oriented to person place and time, appropriate affect, intact judgment and insight Results - Labs 11/22/23 05:27 11/22/23 05:27 Abnormal Lab Results - Last 24 Hours (Table) 11/19/23 11/19/23 11/19/23 Range/Units 10:45 10:57 10:57 WBC 28.3 H (3.8-10.6) k/uL RBC (4.10-5.20) X 10*6/uL Hgb (12.0-15.0) g/dL Hct (37.2-46.3) % Plt Count 528 H (150-450) k/uL Immature Gran # (0.00-0.04) X 10*3/uL Neutrophils # (1.80-7.70) X 10*3/uL Neutrophils # (Manual) 25.10 H (1.3-7.7) k/uL Lymphocytes # (Manual) 0.85 L (1.0-4.8) k/uL Monocytes # (0.20-1.00) X 10*3/uL Monocytes # (Manual) 1.98 H (0-1.0) k/uL Metamyelocytes # (Man) 0.57 H (0) k/uL Myelocytes # (Manual) 0.28 H (0) k/uL Sodium 129 L (137-145) mmol/L Chloride 92 L (98-107) mmol/L Glucose 336 H (74-99) mg/dL POC Glucose (mg/dL) (70-110) mg/dL AST (13-35) U/L Alkaline Phosphatase 163 H (38-126) U/L Total Protein 5.3 L (6.3-8.2) g/dL Albumin 2.5 L (3.5-5.0) g/dL Albumin/Globulin Ratio (1.60-3.17) Ratio Procalcitonin (0.02-0.09) ng/mL Fluid Appearance Turbid A (Clear) 11/19/23 11/19/23 11/19/23 Range/Units 10:57 16:45 21:37 WBC (3.8-10.6) k/uL RBC (4.10-5.20) X 10*6/uL Hgb (12.0-15.0) g/dL Hct (37.2-46.3) % Plt Count (150-450) k/uL Immature Gran # (0.00-0.04) X 10*3/uL Neutrophils # (1.80-7.70) X 10*3/uL Neutrophils # (Manual) (1.3-7.7) k/uL Lymphocytes # (Manual) (1.0-4.8) k/uL Monocytes # (0.20-1.00) X 10*3/uL Monocytes # (Manual) (0-1.0) k/uL Metamyelocytes # (Man) (0) k/uL Myelocytes # (Manual) (0) k/uL Sodium (137-145) mmol/L Chloride (98-107) mmol/L Glucose (74-99) mg/dL POC Glucose (mg/dL) 232 H 262 H (70-110) mg/dL AST (13-35) U/L Alkaline Phosphatase (38-126) U/L Total Protein (6.3-8.2) g/dL Albumin (3.5-5.0) g/dL Albumin/Globulin Ratio (1.60-3.17) Ratio Procalcitonin 1.08 H (0.02-0.09) ng/mL Fluid Appearance (Clear) 11/20/23 11/20/23 11/20/23 Range/Units 05:45 05:45 06:34 WBC 19.76 H (3.8-10.6) k/uL RBC 3.83 L (4.10-5.20) X 10*6/uL Hgb 11.6 L (12.0-15.0) g/dL Hct 35.8 L (37.2-46.3) % Plt Count 489 H (150-450) k/uL Immature Gran # 0.34 H (0.00-0.04) X 10*3/uL Neutrophils # 16.56 H (1.80-7.70) X 10*3/uL Neutrophils # (Manual) (1.3-7.7) k/uL Lymphocytes # (Manual) (1.0-4.8) k/uL Monocytes # 1.28 H (0.20-1.00) X 10*3/uL Monocytes # (Manual) (0-1.0) k/uL Metamyelocytes # (Man) (0) k/uL Myelocytes # (Manual) (0) k/uL Sodium (137-145) mmol/L Chloride (98-107) mmol/L Glucose 245 H (74-99) mg/dL POC Glucose (mg/dL) 222 H (70-110) mg/dL AST 38 H (13-35) U/L Alkaline Phosphatase 134 H (38-126) U/L Total Protein 5.1 L (6.3-8.2) g/dL Albumin 2.6 L (3.5-5.0) g/dL Albumin/Globulin Ratio 1.04 L (1.60-3.17) Ratio Procalcitonin (0.02-0.09) ng/mL Fluid Appearance (Clear) 11/20/23 Range/Units 11:39 WBC (3.8-10.6) k/uL RBC (4.10-5.20) X 10*6/uL Hgb (12.0-15.0) g/dL Hct (37.2-46.3) % Plt Count (150-450) k/uL Immature Gran # (0.00-0.04) X 10*3/uL Neutrophils # (1.80-7.70) X 10*3/uL Neutrophils # (Manual) (1.3-7.7) k/uL Lymphocytes # (Manual) (1.0-4.8) k/uL Monocytes # (0.20-1.00) X 10*3/uL Monocytes # (Manual) (0-1.0) k/uL Metamyelocytes # (Man) (0) k/uL Myelocytes # (Manual) (0) k/uL Sodium (137-145) mmol/L Chloride (98-107) mmol/L Glucose (74-99) mg/dL POC Glucose (mg/dL) 333 H (70-110) mg/dL AST (13-35) U/L Alkaline Phosphatase (38-126) U/L Total Protein (6.3-8.2) g/dL Albumin (3.5-5.0) g/dL Albumin/Globulin Ratio (1.60-3.17) Ratio Procalcitonin (0.02-0.09) ng/mL Fluid Appearance (Clear) Microbiology - Last 24 Hours (Table) 11/19/23 07:45 Gram Stain - Preliminary Sputum 11/19/23 10:45 Gram Stain - Preliminary Pleural Fluid Diabetes panel 11/19/23 11/20/23 Range/Units 10:57 05:45 Sodium 129 L 135 (137-145) mmol/L Potassium 3.7 3.5 (3.5-5.1) mmol/L Chloride 92 L 97 (98-107) mmol/L Carbon Dioxide 29 26.7 (22-30) mmol/L BUN 15 10.9 (7-17) mg/dL Creatinine 0.59 0.6 (0.52-1.04) mg/dL Glucose 336 H 245 H (74-99) mg/dL Calcium 8.5 8.7 (8.4-10.2) mg/dL AST 32 38 H (14-36) U/L ALT 22 24 (4-34) U/L Alkaline Phosphatase 163 H 134 H (38-126) U/L Total Protein 5.3 L 5.1 L (6.3-8.2) g/dL Albumin 2.5 L 2.6 L (3.5-5.0) g/dL Calcium panel 11/19/23 11/20/23 Range/Units 10:57 05:45 Calcium 8.5 8.7 (8.4-10.2) mg/dL Albumin 2.5 L 2.6 L (3.5-5.0) g/dL Pituitary panel 11/19/23 11/20/23 Range/Units 10:57 05:45 Sodium 129 L 135 (137-145) mmol/L Potassium 3.7 3.5 (3.5-5.1) mmol/L Chloride 92 L 97 (98-107) mmol/L Carbon Dioxide 29 26.7 (22-30) mmol/L BUN 15 10.9 (7-17) mg/dL Creatinine 0.59 0.6 (0.52-1.04) mg/dL Glucose 336 H 245 H (74-99) mg/dL Calcium 8.5 8.7 (8.4-10.2) mg/dL Adrenal panel 11/19/23 11/20/23 Range/Units 10:57 05:45 Sodium 129 L 135 (137-145) mmol/L Potassium 3.7 3.5 (3.5-5.1) mmol/L Chloride 92 L 97 (98-107) mmol/L Carbon Dioxide 29 26.7 (22-30) mmol/L BUN 15 10.9 (7-17) mg/dL Creatinine 0.59 0.6 (0.52-1.04) mg/dL Glucose 336 H 245 H (74-99) mg/dL Calcium 8.5 8.7 (8.4-10.2) mg/dL Total Bilirubin 0.9 0.6 (0.2-1.3) mg/dL AST 32 38 H (14-36) U/L ALT 22 24 (4-34) U/L Alkaline Phosphatase 163 H 134 H (38-126) U/L Total Protein 5.3 L 5.1 L (6.3-8.2) g/dL Albumin 2.5 L 2.6 L (3.5-5.0) g/dL - Imaging Chest x-ray: report reviewed, image reviewed CT scan - chest: report reviewed, image reviewed Assessment and Plan Assessment: Left-sided pleural effusion, status post thoracentesis with removal of 150 mL purulent drainage, suspect empyema Leukocytosis, likely due to pneumonia pneumonia Hyponatremia Fever, chest pain, shortness of breath secondary to above History of hypertension Hyperlipidemia Asthma Diabetes Previous light tobacco dependence with cessation many years ago Family history of cancer Plan: The patient was seen and examined at the bedside with Dr. Echeverria. Chart/diagnostics reviewed. The patient's white blood cell count is currently trending down, 19 this morning down from 30 previously. She remains on room air and is in no acute distress. She was sitting up on the cardiac stepdown unit eating lunch when we saw her. At this time we recommend placement of pigtail catheter by interventional radiology, we will instill lytics to break up and remove septations and allow chest to drain. No surgical intervention warranted at this point, although if patient effusion does not improve will consider possible VATS with decortication. This was discussed in detail with the patient and her by Dr. Echeverria. Recommend continuing IV antibiotics with adjustments once pleural fluid culture finalized. Increase activity as tolerated. Encourage incentive spirometry use. Medical management of other comorbidities per internal medicine, pulmonology. Thank you Dr. Ortez for this consult, we will continue to follow along with you and make further recommendations as appropriate. I have personally seen and examined the patient, performed the documentation and the assessment and plan as written. Number of minutes spent on the visit: 30. MARGARITA Mullins Attending Addendum: Pt seen and evaluated with VETERINARY TECHNICIAN INSTRUCTOR above. Agree with their assessment and plan. I spent 35 minutes reviewing the data and discussing the plan of care with the team. Time with Patient: Greater than 30
--- NOTE | 2023-11-20 15:00 | P.PN ---
Subjective Progress Note Date: 11/20/23 This is a very pleasant 78-year-old female patient with a history of asthma, diabetes mellitus, hypertension, hyperlipidemia, macular degeneration, former smoker. About 1 week ago she had a day where she developed shortness of breath left-sided chest discomfort shivers and shaking and a temperature of 102. She thought that it would go away and proceeded throughout the next few days however she was getting some exertional dyspnea and poor appetite and presented here to the emergency room yesterday. She denied any recent travel. No sick contacts. Chest x-ray revealed a left-sided infiltrate/effusion and airspace consolidation consistent with lobar pneumonia. CT angiogram ruled out pulmonary embolism. White count 28.3. Hemoglobin 12.5. Platelets 528. Sodium 129. Potassium 3.7. Bicarb 29. BUN 15. Creatinine 0.59. Glucose 336. Viral screen negative. Ultrasound of the chest revealed a 7.7 cm pleural effusion. She was initiated on ceftriaxone. She is seen today in consultation on the regular medical floor. She is currently sitting up in bed. Awake and alert in no acute distress. Still with some left-sided chest discomfort. He is maintaining good O2 saturations in the 90s on room air. She is currently afebrile. Slightly tachycardic. The patient is seen today November 20, 2023 in follow-up on the regular medical floor. She is currently sitting up in a chair at the bedside. Awake and alert in no acute distress. She denies any worsening shortness of breath, cough or congestion. She is maintaining good O2 saturation in the 90s on room air. No fever or chills. Normal saline at 100 MLS per hour. She did undergo a left- sided thoracentesis yesterday with thick creamy purulent drainage noted. Urinalysis reveals greater than 565,000 WBCs. Total protein 3050. LDH greater than 2500. Exudate. White count 19.7. Hemoglobin 11.6. Platelets 489. Sodium 135. Potassium 3.5. Bicarb 27. BUN 11. Creatinine 0.6. Glucose 245. Chest x-ray shows ongoing moderate left pleural effusion with adjacent atelectasis and/or consolidation. Trace right effusion. Blood culture, sputum culture and pleural fluid cultures are pending. She remains on vancomycin and Unasyn. Heparin for DVT prophylaxis. Objective - Vital Signs Vital signs: Vital Signs Temp 98.3 F 11/20/23 07:27 Pulse 112 H 11/20/23 11:16 Resp 19 11/20/23 07:27 BP 141/72 11/20/23 07:27 Pulse Ox 95 11/20/23 08:19 FiO2 21 11/20/23 08:19 Intake & Output 11/19/23 11/20/23 11/20/23 18:59 06:59 18:59 Other: Voiding Method Toilet # Voids 2 4 3 # Bowel Movements 1 1 - Exam GENERAL EXAM: Alert, active, pleasant 78-year-old female, on room air, comf ortable in no apparent distress. HEAD: Normocephalic. EYES: Normal reaction of pupils, equal size. NOSE: Clear with pink turbinates. THROAT: No erythema or exudates. NECK: No masses, no JVD. CHEST: No chest wall deformity. LUNGS: Equal air entry with crackles, dullness in the left base. CVS: S1 and S2 normal with no audible murmur, regular rhythm. ABDOMEN: No hepatosplenomegaly, normal bowel sounds, no guarding or rigidity. SPINE: No scoliosis or deformity SKIN: No rashes CENTRAL NERVOUS SYSTEM: No focal deficits, tone is normal in all 4 extremities. EXTREMITIES: There is no peripheral edema. No clubbing, no cyanosis. Peripheral pulses are intact. - Labs CBC & Chem 7: 11/20/23 05:45 11/20/23 05:45 Labs: Abnormal Lab Results - Last 24 Hours (Table) 11/19/23 11/19/23 11/19/23 Range/Units 10:45 10:57 16:45 WBC (4.50-10.00) X 10*3/uL RBC (4.10-5.20) X 10*6/uL Hgb (12.0-15.0) g/dL Hct (37.2-46.3) % Plt Count (140-440) X 10*3/uL Immature Gran # (0.00-0.04) X 10*3/uL Neutrophils # (1.80-7.70) X 10*3/uL Monocytes # (0.20-1.00) X 10*3/uL Glucose (70-110) mg/dL POC Glucose (mg/dL) 232 H (70-110) mg/dL AST (13-35) U/L Alkaline Phosphatase (41-126) U/L Total Protein (6.2-8.2) g/dL Albumin (3.8-4.9) g/dL Albumin/Globulin Ratio (1.60-3.17) Ratio Procalcitonin 1.08 H (0.02-0.09) ng/mL Fluid Appearance Turbid A (Clear) 11/19/23 11/20/23 11/20/23 Range/Units 21:37 05:45 05:45 WBC 19.76 H (4.50-10.00) X 10*3/uL RBC 3.83 L (4.10-5.20) X 10*6/uL Hgb 11.6 L (12.0-15.0) g/dL Hct 35.8 L (37.2-46.3) % Plt Count 489 H (140-440) X 10*3/uL Immature Gran # 0.34 H (0.00-0.04) X 10*3/uL Neutrophils # 16.56 H (1.80-7.70) X 10*3/uL Monocytes # 1.28 H (0.20-1.00) X 10*3/uL Glucose 245 H (70-110) mg/dL POC Glucose (mg/dL) 262 H (70-110) mg/dL AST 38 H (13-35) U/L Alkaline Phosphatase 134 H (41-126) U/L Total Protein 5.1 L (6.2-8.2) g/dL Albumin 2.6 L (3.8-4.9) g/dL Albumin/Globulin Ratio 1.04 L (1.60-3.17) Ratio Procalcitonin (0.02-0.09) ng/mL Fluid Appearance (Clear) 11/20/23 11/20/23 Range/Units 06:34 11:39 WBC (4.50-10.00) X 10*3/uL RBC (4.10-5.20) X 10*6/uL Hgb (12.0-15.0) g/dL Hct (37.2-46.3) % Plt Count (140-440) X 10*3/uL Immature Gran # (0.00-0.04) X 10*3/uL Neutrophils # (1.80-7.70) X 10*3/uL Monocytes # (0.20-1.00) X 10*3/uL Glucose (70-110) mg/dL POC Glucose (mg/dL) 222 H 333 H (70-110) mg/dL AST (13-35) U/L Alkaline Phosphatase (41-126) U/L Total Protein (6.2-8.2) g/dL Albumin (3.8-4.9) g/dL Albumin/Globulin Ratio (1.60-3.17) Ratio Procalcitonin (0.02-0.09) ng/mL Fluid Appearance (Clear) Microbiology - Last 24 Hours (Table) 11/18/23 20:30 Blood Culture - Preliminary Blood 11/18/23 20:21 Blood Culture - Preliminary Blood 11/19/23 07:45 Gram Stain - Preliminary Sputum 11/19/23 10:45 Gram Stain - Preliminary Pleural Fluid Assessment and Plan Assessment: Left-sided chest pain secondary to a left pleural effusion. Status post left-s ided thoracentesis today November 19, 2023 with 150 cc of thick creamy moreno fluid returned. Suspect empyema Acute community-acquired pneumonia in the left lower lobe, possible empyema Febrile illness secondary to above Leukocytosis secondary to above Hyponatremia Diabetes mellitus with hyperglycemia Macular degeneration Hyperlipidemia Hypertension Plan: The patient was seen and evaluated Chest x-ray, labs and medications reviewed Status post left-sided thoracentesis Suspect empyema Continue vancomycin and Unasyn Consult to cardiothoracic services We will continue to follow I have personally seen and examined the patient, performed the documentation and the assessment and plan as written. Number of minutes spent on the visit: 10.
[2023-11-20 16:48] LABS: Glucose,Whole Blood 247 mg/dL (70-110)
--- NOTE | 2023-11-20 17:42 | P.PN ---
Subjective Progress Note Date: 11/20/23 Aliya Leiva, is a 78-year-old female patient of Dr. Valderrama who presented to the ER with complaints of muscle aches and shaking febrile and chest pain that has been occurring over the past week. Patient states she's had some external shortness of breath and poor oral intake. Patient has past medical history of asthma, diabetes mellitus, I disorder, hyperlipidemia and hypertension.chest x- ray completed showing COPD with continued moderate left pleural effusion. Lab work revealing a WBC of 30.8, sodium 127, creatinine 0.56. Troponin negative. D-dimer elevated at 3.10CT of the chest completed showing no acute pulmonary embolism. Airspace consolidation in the left lower lobe consistent with lobar pneumonia.influenza, RSV and COVID-19 negative.at this time patient was admitted. Patient started on IV antibiotics. Pulmonary service is consulted. Blood culture and sputum culture ordered repeat labs ordered. At this time patient is sitting up in chair. Current vital signs temp 90.6, heart rate 103, blood pressure 129/70 fourth pulse ox 93% on room air. ultrasound of chest has been ordered per pulmonary for possible pleurocentesis. on 11/20/2023 patient was seen and examined on the medical floor, she is alert and oriented 3 in no apparent distress, she is complaining of cough and shortness of breath, with mild improvement since yesterday, otherwise she denies any complaints there is no fever or chills no headache or dizziness no chest pain, no nausea or vomiting no abdominal pain no diarrhea no blood in the stools no burning with urination no frequency or urgency and no hematuria.. Patient remains on IV antibiotic Unasyn and vancomycin, awaiting culture results. left sided chest tube remains in place. Objective - Vital Signs Vital signs: Vital Signs Temp 98.3 F 11/20/23 07:27 Pulse 108 H 11/20/23 08:31 Resp 19 11/20/23 07:27 BP 141/72 11/20/23 07:27 Pulse Ox 95 11/20/23 08:19 FiO2 21 11/20/23 08:19 Intake & Output 11/19/23 11/20/23 11/20/23 18:59 06:59 18:59 Other: Voiding Method Toilet # Voids 2 4 # Bowel Movements 1 - Exam In general patient is alert and oriented x 3 in no distress HEENT head normocephalic and atraumatic Neck is supple no JVD no goiter no lymphadenopathy no carotid bruit Chest examination reveals a scattered crackles in both lung [place] no wheezing Cardiac exam reveals regular heart sounds S1 and S2 no gallops no murmurs Abdomen is soft nontender no organomegaly with normal bowel sounds Extremity exam reveals no edema no cyanosis or clubbing Neurological examination reveals no gross focal deficits - Labs CBC & Chem 7: 11/20/23 05:45 11/20/23 05:45 Labs: Abnormal Lab Results - Last 24 Hours (Table) 11/19/23 11/19/23 11/19/23 Range/Units 10:45 10:57 10:57 WBC 28.3 H (3.8-10.6) k/uL Plt Count 528 H (150-450) k/uL Neutrophils # (Manual) 25.10 H (1.3-7.7) k/uL Lymphocytes # (Manual) 0.85 L (1.0-4.8) k/uL Monocytes # (Manual) 1.98 H (0-1.0) k/uL Metamyelocytes # (Man) 0.57 H (0) k/uL Myelocytes # (Manual) 0.28 H (0) k/uL Sodium 129 L (137-145) mmol/L Chloride 92 L (98-107) mmol/L Glucose 336 H (74-99) mg/dL POC Glucose (mg/dL) (70-110) mg/dL Alkaline Phosphatase 163 H (38-126) U/L Total Protein 5.3 L (6.3-8.2) g/dL Albumin 2.5 L (3.5-5.0) g/dL Procalcitonin (0.02-0.09) ng/mL Fluid Appearance Turbid A (Clear) 11/19/23 11/19/23 11/19/23 Range/Units 10:57 12:03 16:45 WBC (3.8-10.6) k/uL Plt Count (150-450) k/uL Neutrophils # (Manual) (1.3-7.7) k/uL Lymphocytes # (Manual) (1.0-4.8) k/uL Monocytes # (Manual) (0-1.0) k/uL Metamyelocytes # (Man) (0) k/uL Myelocytes # (Manual) (0) k/uL Sodium (137-145) mmol/L Chloride (98-107) mmol/L Glucose (74-99) mg/dL POC Glucose (mg/dL) 302 H 232 H (70-110) mg/dL Alkaline Phosphatase (38-126) U/L Total Protein (6.3-8.2) g/dL Albumin (3.5-5.0) g/dL Procalcitonin 1.08 H (0.02-0.09) ng/mL Fluid Appearance (Clear) 11/19/23 11/20/23 Range/Units 21:37 06:34 WBC (3.8-10.6) k/uL Plt Count (150-450) k/uL Neutrophils # (Manual) (1.3-7.7) k/uL Lymphocytes # (Manual) (1.0-4.8) k/uL Monocytes # (Manual) (0-1.0) k/uL Metamyelocytes # (Man) (0) k/uL Myelocytes # (Manual) (0) k/uL Sodium (137-145) mmol/L Chloride (98-107) mmol/L Glucose (74-99) mg/dL POC Glucose (mg/dL) 262 H 222 H (70-110) mg/dL Alkaline Phosphatase (38-126) U/L Total Protein (6.3-8.2) g/dL Albumin (3.5-5.0) g/dL Procalcitonin (0.02-0.09) ng/mL Fluid Appearance (Clear) Microbiology - Last 24 Hours (Table) 11/19/23 10:45 Gram Stain - Preliminary Pleural Fluid Assessment and Plan Assessment: 1. Left lower lobe pneumonia 2. Leukocytosis secondary to above 3. Pleural effusion 4. Hyponatremia secondary to dehydration 5. Elevated d-dimer. CTA negative for PE 6. History of asthma 7. History of diabetes mellitus. Patient on sliding scale coverage 8. History of macular degeneration 9. History of hyperlipidemia 10. History of essential hypertension DVT prophylaxis heparin. GI prophylaxis Protonix Pulmonary service is consulted Ultrasound of chest ordered per pulmonary Sputum and blood cultures ordered Patient started on IV antibiotics repeat labs ordered
[2023-11-20 20:29] LABS: Glucose,Whole Blood 262 mg/dL (70-110)
[2023-11-21 05:47] LABS: Glucose,Whole Blood 232 mg/dL (70-110)
--- NOTE | 2023-11-21 08:15 | US ---
EXAMINATION TYPE: US guided chest tube insertion DATE OF EXAM: 11/20/2023 Comparison: Correlation CT 11/18/2023 Clinical History: 78-year-old female with empyema, referred for left chest pigtail catheter insertion RADIOLOGIST: Dr. Ambar Gomez PROCEDURE: Ultrasound along the posterior left chest wall was used identify the very thickened, complex left ple ural effusion The patient was brought into the ultrasound suite. The procedure, along with risks and complications were discussed with the patient. Patient agreed to proceed with the procedure. A consent was signed a nd placed in patient's chart. Maximum sterile technique was utilized. The site was marked. Timeout was performed by myself. The posterior left chest was sterilely prepped and draped in the usual fashion. 7mL of 1% Lidocaine was utilized to anesthetize the superficial and deep soft tissues under direct ul trasound guidance. Following that, a skin milvia was and through that skin milvia, an 8.5 [place] catheter system was advance d into the fluid collection under direct ultrasound guidance. The pigtail loop was formed and secured as the stylette/introducer was removed. Positioning was confirmed with successful aspiration of 5 mL of blood tinged, purulent fluid which was discarded. The catheter was subsequently connected to a drainage bag and secured with a StayFix device. Patient tolerated the procedure well and discharged to the inpatient service in satisfactory conditio n. IMPRESSION: Satisfactory placement of an 8.5 [place] pigtail drainage catheter into the patient's left-sided empye ma via ultrasound guidance.
--- NOTE | 2023-11-21 08:19 | XR ---
EXAMINATION TYPE: XR chest 1V portable DATE OF EXAM: 11/21/2023 Comparison: 11/20/2023 Clinical History: 78-year-old female left effusion Findings: Background hyperinflation. Heart normal size. Decreasing but still with residual [id number] le ft effusion with a left-sided pigtail pleural catheter in place. No appreciable pneumothorax. Impression: Left-sided pigtail pleural catheter in place. No appreciable pneumothorax. Decreasing but still resid ual [id number] left pleural effusion.
[2023-11-21] MEDS: DORNASE ALFA 5 MG in SODIUM CHLORIDE 0.9% 50 ML IRRIGATION ONE (08:41)
[2023-11-21] MEDS: ALTEPLASE 10 MG in SODIUM CHLORIDE 0.9% 50 ML IRRIGATION ONE (08:41)
[2023-11-21 08:50] LABS: Basophils # (A) 0.11 X 10*3/uL (0.00-0.10); Basophils % (A) 0.7 %; Eosinophils # (A) 0.11 X 10*3/uL (0.04-0.35); Eosinophils % (A) 0.7 %; HCT 37.9 % (37.2-46.3); HGB 12.4 g/dL (12.0-15.0); Lymphocytes # (A) 1.41 X 10*3/uL (0.90-5.00); Lymphocytes % (A) 9.2 %; MCH 30.5 pg (27.0-32.0); MCHC 32.7 g/dL (32.0-37.0); MCV 93.1 FL (80.0-97.0); Mean Platelet Volume 11.2 FL (9.5-12.2); Monocytes % (A) 7.2 %; NRBC Per 100 WBC 0 X 10*3/uL (0.00-0.01); Neutrophils # (A) 11.85 X 10*3/uL (1.80-7.70); Neutrophils % (A) 77.2 %; Platelet Count 575 X 10*3/uL (140-440); RBC 4.07 X 10*6/uL (4.10-5.20); RDW 13.2 % (11.5-14.5); WBC 15.34 X 10*3/uL (4.50-10.00)
--- NOTE | 2023-11-21 09:14 | P.PN ---
Subjective Progress Note Date: 11/21/23 Aliya Leiva, is a 78-year-old female patient of Dr. Valderrama who presented to the ER with complaints of muscle aches and shaking febrile and chest pain that has been occurring over the past week. Patient states she's had some external shortness of breath and poor oral intake. Patient has past medical history of asthma, diabetes mellitus, I disorder, hyperlipidemia and hypertension.chest x- ray completed showing COPD with continued moderate left pleural effusion. Lab work revealing a WBC of 30.8, sodium 127, creatinine 0.56. Troponin negative. D-dimer elevated at 3.10CT of the chest completed showing no acute pulmonary embolism. Airspace consolidation in the left lower lobe consistent with lobar pneumonia.influenza, RSV and COVID-19 negative.at this time patient was admitted. Patient started on IV antibiotics. Pulmonary service is consulted. Blood culture and sputum culture ordered repeat labs ordered. At this time patient is sitting up in chair. Current vital signs temp 90.6, heart rate 103, blood pressure 129/70 fourth pulse ox 93% on room air. ultrasound of chest has been ordered per pulmonary for possible pleurocentesis. on 11/20/2023 patient was seen and examined on the medical floor, she is alert and oriented 3 in no apparent distress, she is complaining of cough and shortness of breath, with mild improvement since yesterday, otherwise she denies any complaints there is no fever or chills no headache or dizziness no chest pain, no nausea or vomiting no abdominal pain no diarrhea no blood in the stools no burning with urination no frequency or urgency and no hematuria.. Patient remains on IV antibiotic Unasyn and vancomycin, awaiting culture results. left sided chest tube remains in place. On 11/21/2023 patient's alert and oriented 3. Patient reports improvement from yesterday. Patient remains on IV antibiotics. Discussed case with cardio thoracic surgery continue current plan of altaplase through pigtail. Chest tube remains in placecurrent vital signs temp 98.0, heart rate 101, respiratory rate 18, blood pressure 131/76 with pulse ox of 95%.white blood cell trending down 15.34. Patient remains on vancomycin and Unasyn. Objective - Vital Signs Vital signs: Vital Signs Temp 98.0 F 11/21/23 07:14 Pulse 101 H 11/21/23 07:14 Resp 18 11/21/23 07:14 BP 131/76 11/21/23 07:14 Pulse Ox 95 11/21/23 07:14 FiO2 21 11/20/23 08:19 Intake & Output 11/20/23 11/21/23 11/21/23 18:59 06:59 18:59 Output Total 80 Balance -80 Output: Chest Tube Drainage 80 Left Posterior Chest 80 Other: Voiding Method Toilet # Voids 1 1 # Bowel Movements 1 - Exam In general patient is alert and oriented x 3 in no distress HEENT head normocephalic and atraumatic Neck is supple no JVD no goiter no lymphadenopathy no carotid bruit Chest examination reveals a scattered crackles in both lung [place] no wheezing Cardiac exam reveals regular heart sounds S1 and S2 no gallops no murmurs Abdomen is soft nontender no organomegaly with normal bowel sounds Extremity exam reveals no edema no cyanosis or clubbing Neurological examination reveals no gross focal deficits - Labs CBC & Chem 7: 11/21/23 06:08 11/20/23 05:45 Labs: Abnormal Lab Results - Last 24 Hours (Table) 11/20/23 11/20/23 11/20/23 Range/Units 11:39 16:46 20:19 WBC (4.50-10.00) X 10*3/uL RBC (4.10-5.20) X 10*6/uL Plt Count (140-440) X 10*3/uL Immature Gran # (0.00-0.04) X 10*3/uL Neutrophils # (1.80-7.70) X 10*3/uL Monocytes # (0.20-1.00) X 10*3/uL Basophils # (0.00-0.10) X 10*3/uL POC Glucose (mg/dL) 333 H 247 H 262 H (70-110) mg/dL 11/21/23 11/21/23 Range/Units 05:46 06:08 WBC 15.34 H (4.50-10.00) X 10*3/uL RBC 4.07 L (4.10-5.20) X 10*6/uL Plt Count 575 H (140-440) X 10*3/uL Immature Gran # 0.76 H (0.00-0.04) X 10*3/uL Neutrophils # 11.85 H (1.80-7.70) X 10*3/uL Monocytes # 1.10 H (0.20-1.00) X 10*3/uL Basophils # 0.11 H (0.00-0.10) X 10*3/uL POC Glucose (mg/dL) 232 H (70-110) mg/dL Microbiology - Last 24 Hours (Table) 11/19/23 10:45 Acid Fast Bacilli Smear - Preliminary Pleural Fluid 11/19/23 10:45 Gram Stain - Preliminary Pleural Fluid Body Fluid Culture - Preliminary Alpha Hemolytic Streptococcus 11/18/23 20:30 Blood Culture - Preliminary Blood 11/18/23 20:21 Blood Culture - Preliminary Blood 11/19/23 07:45 Gram Stain - Preliminary Sputum Assessment and Plan Assessment: 1. Left lower lobe pneumonia 2. Leukocytosis secondary to above 3. Pleural effusionstatus post pleurocentesis with purulent drainage esuspect empyema 4. Hyponatremia secondary to dehydration 5. Elevated d-dimer. CTA negative for PE 6. History of asthma 7. History of diabetes mellitus. Patient on sliding scale coverage 8. History of macular degeneration 9. History of hyperlipidemia 10. History of essential hypertension DVT prophylaxis heparin. GI prophylaxis Protonix Pulmonary service is consulted cardiothoracic following Sputum and blood cultures ordered Patient started on IV antibiotics repeat labs ordered
[2023-11-21 09:26] LABS: ALT 33 U/L (8-44); AST 37 U/L (13-35); Albumin 2.8 g/dL (3.8-4.9); Alkaline Phosphatase 146 U/L (41-126); BUN/Creat Ratio 15.33 Ratio (12.00-20.00); Blood Urea Nitrogen 9.2 mg/dL (9.0-27.0); Calcium 8.7 mg/dL (8.7-10.3); Carbon Dioxide 28.9 mmol/L (21.6-31.8); Chloride 97 mmol/L (96-109); Globulin 2.8 g/dL (1.6-3.3); Glucose 260 mg/dL (70-110); Potassium 3.6 mmol/L (3.5-5.5); Sodium 137 mmol/L (135-145); Total Bilirubin 0.7 mg/dL (0.3-1.2); Total Protein 5.6 g/dL (6.2-8.2)
--- NOTE | 2023-11-21 09:44 | P.PN ---
Subjective Progress Note Date: 11/21/23 Principal diagnosis: Left-sided pleural effusion status post thoracentesis, leukocytosis, hyponatremia. History of hypertension, hyperlipidemia, asthma, diabetes, previous light tobacco dependence with cessation many years ago, family history of cancer The patient was seen and examined this morning with Dr. Echeverria. She is in no acute distress and does states she is feeling better. Remains on room air. Left sided pigtail catheter was placed yesterday with 250 mL purulent drainage currently in her chest atrium. Will instill lytics today and monitor output. Pleural fluid from thoracentesis on November 18 preliminarily growing alphahemolytic strep. Remains on IV antibiotics. No other new concerns. Objective - Vital Signs Vital signs: Vital Signs Temp 98.0 F 11/21/23 07:14 Pulse 101 H 11/21/23 07:14 Resp 18 11/21/23 07:14 BP 131/76 11/21/23 07:14 Pulse Ox 95 11/21/23 07:14 FiO2 21 11/20/23 08:19 Intake & Output 11/20/23 11/21/23 11/21/23 18:59 06:59 18:59 Output Total 80 Balance -80 Output: Chest Tube Drainage 80 Left Posterior Chest 80 Other: Voiding Method Toilet # Voids 1 1 # Bowel Movements 1 - Exam CONSTITUTIONAL: Appears comfortable, cooperative, no acute distress RESPIRATORY: Lungs sounds diminished in the left base. Respirations even, nonlabored. Currently on room air with oxygen saturation 92% CARDIOVASCULAR: S1, S2 present. Tacky but regular rate and rhythm. Palpable peripheral pulses bilaterally. No edema present. No calf pain or tenderness noted. SCDs present. GASTROINTESTINAL: Abdomen soft, nontender, nondistended. Active bowel sounds present 4 quadrants. Tolerating diet GENITOURINARY: Continues to void INTEGUMENTARY: Skin is warm and dry NEUROLOGIC: Cranial nerves II through XII intact MUSKULOSKELETAL: Able to move all extremities, strength equal bilaterally, gait normal PSYCHIATRIC: Alert and oriented to person place and time, appropriate affect, intact judgment and insight INVASIVE LINES AND TUBES: Left pigtail catheter present, no air leaks present, 60 mL purulent drainage overnight, 250 mL in the last 24 hours - Allied health notes Allied health notes reviewed: nursing - Labs CBC & Chem 7: 11/21/23 06:08 04/23/24 06:08 Labs: Abnormal Lab Results - Last 24 Hours (Table) 11/20/23 11/20/23 11/20/23 Range/Units 11:39 16:46 20:19 WBC (4.50-10.00) X 10*3/uL RBC (4.10-5.20) X 10*6/uL Plt Count (140-440) X 10*3/uL Immature Gran # (0.00-0.04) X 10*3/uL Neutrophils # (1.80-7.70) X 10*3/uL Monocytes # (0.20-1.00) X 10*3/uL Basophils # (0.00-0.10) X 10*3/uL Glucose (70-110) mg/dL POC Glucose (mg/dL) 333 H 247 H 262 H (70-110) mg/dL AST (13-35) U/L Alkaline Phosphatase (41-126) U/L Total Protein (6.2-8.2) g/dL Albumin (3.8-4.9) g/dL Albumin/Globulin Ratio (1.60-3.17) Ratio 11/21/23 11/21/23 11/21/23 Range/Units 05:46 06:08 06:08 WBC 15.34 H (4.50-10.00) X 10*3/uL RBC 4.07 L (4.10-5.20) X 10*6/uL Plt Count 575 H (140-440) X 10*3/uL Immature Gran # 0.76 H (0.00-0.04) X 10*3/uL Neutrophils # 11.85 H (1.80-7.70) X 10*3/uL Monocytes # 1.10 H (0.20-1.00) X 10*3/uL Basophils # 0.11 H (0.00-0.10) X 10*3/uL Glucose 260 H (70-110) mg/dL POC Glucose (mg/dL) 232 H (70-110) mg/dL AST 37 H (13-35) U/L Alkaline Phosphatase 146 H (41-126) U/L Total Protein 5.6 L (6.2-8.2) g/dL Albumin 2.8 L (3.8-4.9) g/dL Albumin/Globulin Ratio 1.00 L (1.60-3.17) Ratio Microbiology - Last 24 Hours (Table) 11/19/23 10:45 Acid Fast Bacilli Smear - Preliminary Pleural Fluid 11/19/23 10:45 Gram Stain - Preliminary Pleural Fluid Body Fluid Culture - Preliminary Alpha Hemolytic Streptococcus 11/18/23 20:30 Blood Culture - Preliminary Blood 11/18/23 20:21 Blood Culture - Preliminary Blood 11/19/23 07:45 Gram Stain - Preliminary Sputum - Imaging and Cardiology Chest x-ray: report reviewed, image reviewed Assessment and Plan Assessment: Left-sided pleural effusion/empyema, status post thoracentesis with removal of 150 mL purulent drainage, status post pigtail catheter placement Leukocytosis, likely due to pneumonia Hyponatremia Fever, chest pain, shortness of breath secondary to above History of hypertension Hyperlipidemia Asthma Diabetes Previous light tobacco dependence with cessation many years ago Family history of cancer Plan: First dose alteplase/dornase instilled to pigtail catheter, catheter clamped, will allow lytics to dwell for 1 to 2 hours No surgical intervention warranted at this point, although if patient's effusion does not improve will consider possible VATS with decortication Continue antibiotics, monitor for culture finalization Increase activity as tolerated Incentive spirometry ordered and should be encouraged Medical management of other comorbidities per internal medicine, pulmonology More recommendations to follow
[2023-11-21 11:42] LABS: African American GFR (CKD) >90 (>60 ml/min/1.73 sqM); Non-African American GFR(CKD) 90 (>60 ml/min/1.73 sqM)
[2023-11-21 11:46] LABS: Glucose,Whole Blood 339 mg/dL (70-110)
[2023-11-21] MEDS: VANCOMYCIN 1,000 MG in SODIUM CHLORIDE 0.9% 250 ML IVPB SCH (12:41)
[2023-11-21] MEDS: VANCOMYCIN TROUGH DUE 1 EACH MISC MISCELLANE ONE (12:47)
--- NOTE | 2023-11-21 13:03 | P.PN ---
Subjective Progress Note Date: 11/21/23 This is a very pleasant 78-year-old female patient with a history of asthma, diabetes mellitus, hypertension, hyperlipidemia, macular degeneration, former smoker. About 1 week ago she had a day where she developed shortness of breath left-sided chest discomfort shivers and shaking and a temperature of 102. She thought that it would go away and proceeded throughout the next few days however she was getting some exertional dyspnea and poor appetite and presented here to the emergency room yesterday. She denied any recent travel. No sick contacts. Chest x-ray revealed a left-sided infiltrate/effusion and airspace consolidation consistent with lobar pneumonia. CT angiogram ruled out pulmonary embolism. White count 28.3. Hemoglobin 12.5. Platelets 528. Sodium 129. Potassium 3.7. Bicarb 29. BUN 15. Creatinine 0.59. Glucose 336. Viral screen negative. Ultrasound of the chest revealed a 7.7 cm pleural effusion. She was initiated on ceftriaxone. She is seen today in consultation on the regular medical floor. She is currently sitting up in bed. Awake and alert in no acute distress. Still with some left-sided chest discomfort. He is maintaining good O2 saturations in the 90s on room air. She is currently afebrile. Slightly tachycardic. The patient is seen today November 20, 2023 in follow-up on the regular medical floor. She is currently sitting up in a chair at the bedside. Awake and alert in no acute distress. She denies any worsening shortness of breath, cough or congestion. She is maintaining good O2 saturation in the 90s on room air. No fever or chills. Normal saline at 100 MLS per hour. She did undergo a left- sided thoracentesis yesterday with thick creamy purulent drainage noted. Urinalysis reveals greater than 565,000 WBCs. Total protein 3050. LDH greater than 2500. Exudate. White count 19.7. Hemoglobin 11.6. Platelets 489. Sodium 135. Potassium 3.5. Bicarb 27. BUN 11. Creatinine 0.6. Glucose 245. Chest x-ray shows ongoing moderate left pleural effusion with adjacent atelectasis and/or consolidation. Trace right effusion. Blood culture, sputum culture and pleural fluid cultures are pending. She remains on vancomycin and Unasyn. Heparin for DVT prophylaxis. The patient is seen today November 21, 2023 and follow-up on the regular medical floor. She is awake and alert in no acute distress. Up in a chair. She did undergo left-sided pigtail catheter placement yesterday. She received lytic therapy today. Currently with 250 mL of purulent drainage within the Pleur- evac. Chest x-ray reveals left-sided pigtail catheter in place. No appreciable pneumothorax. Decreasing but still residual small to moderate left pleural effusion. Pleural fluid culture is positive for alphahemolytic Streptococcus. Blood cultures reveal no growth. Sputum culture revealed no growth. White count 15.3. Hemoglobin 12.4. Platelets 575. Sodium 137. Potassium 3.6. BUN 9.2. Creatinine 0.6. Glucose 260. AST 37. ALT 33. Vancomycin trough 8.3. She is continued on vancomycin and Unasyn. Heparin for DVT prophylaxis. Normal saline at 100 MLS per hour. Objective - Vital Signs Vital signs: Vital Signs Temp 98.0 F 11/21/23 07:14 Pulse 101 H 11/21/23 07:14 Resp 18 11/21/23 07:14 BP 131/76 11/21/23 07:14 Pulse Ox 95 11/21/23 07:14 FiO2 21 11/20/23 08:19 Intake & Output 11/20/23 11/21/23 11/21/23 18:59 06:59 18:59 Output Total 80 190 Balance -80 -190 Output: Chest Tube Drainage 80 190 Left Posterior Chest 80 190 Other: Voiding Method Toilet # Voids 1 1 # Bowel Movements 1 - Exam GENERAL EXAM: Alert, pleasant 78-year-old female, up in a chair, on room air, comfortable in no apparent distress. HEAD: Normocephalic. EYES: Normal reaction of pupils, equal size. NOSE: Clear with pink turbinates. THROAT: No erythema or exudates. NECK: No masses, no JVD. CHEST: No chest wall deformity. LUNGS: Equal air entry with crackles, dullness in the left base. Left-sided pigtail catheter in place to Pleur-evac and -20 cm of water wall suction CVS: S1 and S2 normal with no audible murmur, regular rhythm. ABDOMEN: No hepatosplenomegaly, normal bowel sounds, no guarding or rigidity. SPINE: No scoliosis or deformity SKIN: No rashes CENTRAL NERVOUS SYSTEM: No focal deficits, tone is normal in all 4 extremities. EXTREMITIES: There is no peripheral edema. No clubbing, no cyanosis. Peripheral pulses are intact. - Labs CBC & Chem 7: 11/21/23 06:08 11/21/23 10:59 Labs: Abnormal Lab Results - Last 24 Hours (Table) 11/20/23 11/20/23 11/21/23 Range/Units 16:46 20:19 05:46 WBC (4.50-10.00) X 10*3/uL RBC (4.10-5.20) X 10*6/uL Plt Count (140-440) X 10*3/uL Immature Gran # (0.00-0.04) X 10*3/uL Neutrophils # (1.80-7.70) X 10*3/uL Monocytes # (0.20-1.00) X 10*3/uL Basophils # (0.00-0.10) X 10*3/uL Glucose (70-110) mg/dL POC Glucose (mg/dL) 247 H 262 H 232 H (70-110) mg/dL AST (13-35) U/L Alkaline Phosphatase (41-126) U/L Total Protein (6.2-8.2) g/dL Albumin (3.8-4.9) g/dL Albumin/Globulin Ratio (1.60-3.17) Ratio 11/21/23 11/21/23 11/21/23 Range/Units 06:08 06:08 11:44 WBC 15.34 H (4.50-10.00) X 10*3/uL RBC 4.07 L (4.10-5.20) X 10*6/uL Plt Count 575 H (140-440) X 10*3/uL Immature Gran # 0.76 H (0.00-0.04) X 10*3/uL Neutrophils # 11.85 H (1.80-7.70) X 10*3/uL Monocytes # 1.10 H (0.20-1.00) X 10*3/uL Basophils # 0.11 H (0.00-0.10) X 10*3/uL Glucose 260 H (70-110) mg/dL POC Glucose (mg/dL) 339 H (70-110) mg/dL AST 37 H (13-35) U/L Alkaline Phosphatase 146 H (41-126) U/L Total Protein 5.6 L (6.2-8.2) g/dL Albumin 2.8 L (3.8-4.9) g/dL Albumin/Globulin Ratio 1.00 L (1.60-3.17) Ratio Microbiology - Last 24 Hours (Table) 11/19/23 07:45 Gram Stain - Final Sputum Sputum Culture - Final 11/19/23 10:45 Acid Fast Bacilli Smear - Preliminary Pleural Fluid 11/19/23 10:45 Gram Stain - Preliminary Pleural Fluid Body Fluid Culture - Preliminary Alpha Hemolytic Streptococcus 11/18/23 20:30 Blood Culture - Preliminary Blood 11/18/23 20:21 Blood Culture - Preliminary Blood Assessment and Plan Assessment: Left-sided chest pain secondary to a left pleural effusion. Status post left- sided thoracentesis today November 19, 2023 with 150 cc of thick creamy moreno fluid returned. Suspect empyema. Received a left-sided pigtail catheter placement on 11/20/2023. Lytics instilled on 11/21/2023. Approximately 250 mL of purulent drainage in the Pleur-evac thus far. Preliminary cultures revealing alpha hemolytic Streptococcus. Remains on vancomycin and Unasyn Acute community-acquired pneumonia in the left lower lobe, possible empyema Febrile illness secondary to above, recovered Leukocytosis secondary to above, improving Hyponatremia, recovered Diabetes mellitus with hyperglycemia Macular degeneration Hyperlipidemia Hypertension Plan: The patient was seen and evaluated Chest x-ray, labs and medications reviewed Left-sided pigtail catheter placed Received lytic therapy today Preliminary cultures with alphahemolytic Streptococcus Continue vancomycin and Unasyn Stable and on room air We will continue to follow I have personally seen and examined the patient, performed the documentation and the assessment and plan as written. Number of minutes spent on the visit: 10.
[2023-11-21 16:43] LABS: Glucose,Whole Blood 269 mg/dL (70-110)
[2023-11-21 21:31] LABS: Glucose,Whole Blood 284 mg/dL (70-110)
--- NOTE | 2023-11-21 21:50 | P.CONS ---
History of Present Illness - Reason for Consult Consult date: 11/21/23 Empyema Requesting physician: Jeffery Gandhi - Chief Complaint Shortness of breath left-sided chest pain x days - History of Present Illness Patient is a 78-year-old female with a past medical history significant for diabetes mellitus hypertension hyperlipidemia asthma started getting sick about a week before presentation to the hospital with the patient did have an episode of fever with rigors and chills and then started to having left sided chest pain patient was describing the pain to be sharp that has progressively getting worse in intensity to almost 9 out of 10 by the time she presented to the hospital patient mention prior to coming to the hospital was evaluated by her primary care physician did have a chest x-ray and was told there was fluid on the lungs however no antibiotics were given patient was running a low-grade fever but with worsening chest pain the patient did present to the hospital on 11/26/2023 patient presented to the hospital did have a low- grade fever of 99 degrees for right patient was tachycardic but not hypotensive mildly hypoxic currently off oxygen patient did have a white count of 30,000 which is down to 15.34 creatinine 0.6 AST mildly elevated procalcitonin 1.08 patient did have a chest x-ray followed by CT angiogram of the chest there was no PE airspace consolidation left lower lobe consistent with lobar pneumonia patient has been evaluated by pulmonary and the patient did have a left-sided thoracocentesis with fluid consistent with empyema patient did have a chest tube insertion completed this morning infectious was consulted for further management of antibiotic therapy patient is currently combination of Unasyn and vancomycin Review of Systems Positive point and negatives has been mentioned in the HPI, complete review of systems was performed and all other systems are negative Past Medical History Past Medical History: Asthma, Diabetes Mellitus, Eye Disorder, Hyperlipidemia, Hypertension Additional Past Medical History / Comment(s): MACULAR DEGENERATION-BILAT History of Any Multi-Drug Resistant Organisms: None Reported Past Surgical History: Hysterectomy Additional Past Surgical History / Comment(s): GANGLION CYST FROM FINGER. FATTY TUMOR REMOVED LT HIP. COLONOSCOPY Past Anesthesia/Blood Transfusion Reactions: No Reported Reaction Past Psychological History: No Psychological Hx Reported Smoking Status: Former smoker Past Alcohol Use History: None Reported Additional Past Alcohol Use History / Comment(s): SMOKED IN [id number] 3 CIGARETTES A WEEK Past Drug Use History: None Reported - Past Family History Son(s) Family Medical History: Cancer Sister(s) Family Medical History: Cancer Medications and Allergies Home Medications Medication Instructions Recorded Confirmed Type Cholecalciferol [Vitamin D3 (25 50 mcg PO DAILY 04/05/16 11/18/23 History Mcg = 1000 Iu)] Lovastatin [Mevacor] 40 mg PO DAILY 04/05/16 11/18/23 History Albuterol Sulfate [Proair Hfa] 1 - 2 puff INHALATION RT-Q6H PRN 04/10/19 11/18/23 History Vit C/E/Zn/Coppr/Lutein/Zeaxan 1 cap PO DAILY 04/10/19 11/18/23 History [Preservision Areds 2 Softgel] metFORMIN HCL [Glucophage] 750 mg PO DAILY 04/10/19 11/18/23 History Aspirin EC [Ecotrin Low Dose] 81 mg PO DAILY 11/18/23 11/18/23 History [place]-3/Dha/Epa/Fish Oil [Fish Oil 1 cap PO DAILY 11/18/23 11/18/23 History 1,000 mg Softgel] Triamterene-Hctz 37.5-25Mg 1 tab PO DAILY 11/18/23 11/18/23 History [Maxzide 37.5-25] Amoxic-Pot Clav 875-125Mg 1 tab PO Q12HR 15 Days #30 tab 12/02/23 Rx [Augmentin 875-125] Allergies Allergy/AdvReac Type Severity Reaction Status Date / Time erythromycin base Allergy Dyspnea Verified 11/18/23 20:14 Physical Exam Vitals: Vital Signs Temp Pulse Pulse Resp BP Pulse Ox 11/21/23 07:14 98.0 F 101 H 18 131/76 95 11/21/23 06:23 112 H 11/21/23 06:16 110 H 11/21/23 01:15 98.0 F 110 H 13 117/72 92 L 11/20/23 19:29 98.1 F 106 H 15 137/65 96 11/20/23 16:45 99.2 F 111 H 18 137/68 96 11/20/23 15:30 115 H 16 155/68 98 11/20/23 15:10 113 H 18 147/71 96 11/20/23 14:50 116 H 18 155/67 95 Intake and Output 11/20/23 11/21/23 11/21/23 22:59 06:59 14:59 Output Total 20 60 Balance -20 -60 Output: Chest Tube Drainage 20 60 Left Posterior Chest 20 60 Other: Voiding Method Toilet # Voids 2 1 # Bowel Movements 1 GENERAL DESCRIPTION: Elderly female lying in bed, no distress. No tachypnea or accessory muscle of respiration use. HEENT: Shows Pallor , no scleral icterus. Oral mucous membrane is dry. No pharyngeal erythema or thrush NECK: Trachea central, no thyromegaly. LUNGS: Unlabored breathing. Decreased breath sound left base HEART: S1, S2, regular rate and rhythm. No loud murmur ABDOMEN: Soft, no tenderness , guarding or rigidity, no organomegaly EXTREMITIES: No edema of feet. SKIN: No rash, no masses palpable. NEUROLOGICAL: The patient is awake, alert, oriented x3, mood and affect normal. Results CBC & Chem 7: 12/02/23 06:06 12/02/23 06:06 Labs: Abnormal Lab Results - Last 24 Hours (Table) 11/20/23 11/20/23 11/20/23 Range/Units 11:39 16:46 20:19 WBC (4.50-10.00) X 10*3/uL RBC (4.10-5.20) X 10*6/uL Plt Count (140-440) X 10*3/uL Immature Gran # (0.00-0.04) X 10*3/uL Neutrophils # (1.80-7.70) X 10*3/uL Monocytes # (0.20-1.00) X 10*3/uL Basophils # (0.00-0.10) X 10*3/uL Glucose (70-110) mg/dL POC Glucose (mg/dL) 333 H 247 H 262 H (70-110) mg/dL AST (13-35) U/L Alkaline Phosphatase (41-126) U/L Total Protein (6.2-8.2) g/dL Albumin (3.8-4.9) g/dL Albumin/Globulin Ratio (1.60-3.17) Ratio 11/21/23 11/21/23 11/21/23 Range/Units 05:46 06:08 06:08 WBC 15.34 H (4.50-10.00) X 10*3/uL RBC 4.07 L (4.10-5.20) X 10*6/uL Plt Count 575 H (140-440) X 10*3/uL Immature Gran # 0.76 H (0.00-0.04) X 10*3/uL Neutrophils # 11.85 H (1.80-7.70) X 10*3/uL Monocytes # 1.10 H (0.20-1.00) X 10*3/uL Basophils # 0.11 H (0.00-0.10) X 10*3/uL Glucose 260 H (70-110) mg/dL POC Glucose (mg/dL) 232 H (70-110) mg/dL AST 37 H (13-35) U/L Alkaline Phosphatase 146 H (41-126) U/L Total Protein 5.6 L (6.2-8.2) g/dL Albumin 2.8 L (3.8-4.9) g/dL Albumin/Globulin Ratio 1.00 L (1.60-3.17) Ratio Microbiology - Last 24 Hours (Table) 11/19/23 07:45 Gram Stain - Final Sputum Sputum Culture - Final 11/19/23 10:45 Acid Fast Bacilli Smear - Preliminary Pleural Fluid 11/19/23 10:45 Gram Stain - Preliminary Pleural Fluid Body Fluid Culture - Preliminary Alpha Hemolytic Streptococcus 11/18/23 20:30 Blood Culture - Preliminary Blood 11/18/23 20:21 Blood Culture - Preliminary Blood Assessment and Plan (1) Empyema Status: Acute Code(s): J86.9 - PYOTHORAX WITHOUT FISTULA SNOMED Code(s): 733670525 (2) Left lower lobe pneumonia Status: Acute Code(s): J18.9 - PNEUMONIA, UNSPECIFIED ORGANISM SNOMED Code(s): 572794177 Plan: 1patient was in the hospital with sepsis in this patient who did have a low- grade fever tachycardia elevated white count source is left-sided pneumonia with a parapneumonic effusion/empyema in this patient was status post thoracocentesis followed by chest tube placement cultures currently growing alphahemolytic Streptococcus 2-patient to continue Unasyn 3 g every 6 hours however we will discontinue vancomycin 3-May need IV antibiotic on discharge depending upon clinical response and final culture Multiple question concern answered We will follow on clinical condition and cultures to further adjust medication if needed Thank you for this consultation we will follow the patient along with you Dictation was produced using [employer] dictation software. please excuse any grammatical, word or spelling errors. Time with Patient: Greater than 30
[2023-11-21] MEDS: ACETAMINOPHEN TAB 325 MG TAB PO PRN (23:21)
[2023-11-22 06:21] LABS: Glucose,Whole Blood 220 mg/dL (70-110)
[2023-11-22 08:38] LABS: Basophils # (A) 0.08 X 10*3/uL (0.00-0.10); Basophils % (A) 0.4 %; Eosinophils # (A) 0.09 X 10*3/uL (0.04-0.35); Eosinophils % (A) 0.5 %; HCT 34.4 % (37.2-46.3); HGB 11.6 g/dL (12.0-15.0); Lymphocytes # (A) 1.98 X 10*3/uL (0.90-5.00); Lymphocytes % (A) 10.6 %; MCH 30.9 pg (27.0-32.0); MCHC 33.7 g/dL (32.0-37.0); MCV 91.5 FL (80.0-97.0); Monocytes # (A) 1.39 X 10*3/uL (0.20-1.00); Monocytes % (A) 7.4 %; NRBC Per 100 WBC 0 X 10*3/uL (0.00-0.01); Neutrophils # (A) 14.36 X 10*3/uL (1.80-7.70); Platelet Count 577 X 10*3/uL (140-440); RBC 3.76 X 10*6/uL (4.10-5.20); RDW 13.2 % (11.5-14.5); WBC 18.67 X 10*3/uL (4.50-10.00)
--- NOTE | 2023-11-22 08:41 | P.PN ---
Subjective Progress Note Date: 11/22/23 Principal diagnosis: Left-sided pleural effusion status post thoracentesis, leukocytosis, hyponatremia. History of hypertension, hyperlipidemia, asthma, diabetes, previous light tobacco dependence with cessation many years ago, family history of cancer The patient was seen and examined this morning. She is in no acute distress and does states she is feeling better although she felt worse yesterday afternoon after lytics were instilled. Remains on room air. Left sided pigtail remains with 450 mL purulent drainage after first lytic instillation yesterday. Pleural fluid from thoracentesis on November 18 growing alphahemolytic strep. Remains on IV antibiotics, ID consulted. No other new concerns. Objective - Vital Signs Vital signs: Vital Signs Temp 97.6 F 11/22/23 07:29 Pulse 98 11/22/23 07:29 Resp 17 11/22/23 07:29 BP 126/73 11/22/23 07:29 Pulse Ox 95 11/22/23 07:29 FiO2 21 11/20/23 08:19 Intake & Output 11/21/23 11/22/23 11/22/23 18:59 06:59 18:59 Output Total 190 260 Balance -190 -260 Output: Chest Tube Drainage 190 260 Left Posterior Chest 190 260 Other: Voiding Method Toilet # Voids 1 4 - Exam CONSTITUTIONAL: Appears comfortable, cooperative, no acute distress RESPIRATORY: Lungs sounds diminished in the left base. Respirations even, nonlabored. Currently on room air with oxygen saturation 95%. Achieving 750 mL on incentive spirometry CARDIOVASCULAR: S1, S2 present. Tacky but regular rate and rhythm. Palpable peripheral pulses bilaterally. No edema present. No calf pain or tenderness noted. SCDs present. GASTROINTESTINAL: Abdomen soft, nontender, nondistended. Active bowel sounds present 4 quadrants. Tolerating diet GENITOURINARY: Continues to void INTEGUMENTARY: Skin is warm and dry NEUROLOGIC: Cranial nerves II through XII intact MUSKULOSKELETAL: Able to move all extremities, strength equal bilaterally, gait normal PSYCHIATRIC: Alert and oriented to person place and time, appropriate affect, intact judgment and insight INVASIVE LINES AND TUBES: Left pigtail catheter present, no air leaks present, 260 mL purulent drainage overnight, 450 mL in the last 24 hours - Allied health notes Allied health notes reviewed: nursing - Labs CBC & Chem 7: 11/21/23 06:08 11/21/23 10:59 Labs: Abnormal Lab Results - Last 24 Hours (Table) 11/21/23 11/21/23 11/21/23 Range/Units 06:08 06:08 11:44 WBC 15.34 H (4.50-10.00) X 10*3/uL RBC 4.07 L (4.10-5.20) X 10*6/uL Plt Count 575 H (140-440) X 10*3/uL Immature Gran # 0.76 H (0.00-0.04) X 10*3/uL Neutrophils # 11.85 H (1.80-7.70) X 10*3/uL Monocytes # 1.10 H (0.20-1.00) X 10*3/uL Basophils # 0.11 H (0.00-0.10) X 10*3/uL Glucose 260 H (70-110) mg/dL POC Glucose (mg/dL) 339 H (70-110) mg/dL AST 37 H (13-35) U/L Alkaline Phosphatase 146 H (41-126) U/L Total Protein 5.6 L (6.2-8.2) g/dL Albumin 2.8 L (3.8-4.9) g/dL Albumin/Globulin Ratio 1.00 L (1.60-3.17) Ratio 11/21/23 11/21/23 11/22/23 Range/Units 16:41 21:30 06:19 WBC (4.50-10.00) X 10*3/uL RBC (4.10-5.20) X 10*6/uL Plt Count (140-440) X 10*3/uL Immature Gran # (0.00-0.04) X 10*3/uL Neutrophils # (1.80-7.70) X 10*3/uL Monocytes # (0.20-1.00) X 10*3/uL Basophils # (0.00-0.10) X 10*3/uL Glucose (70-110) mg/dL POC Glucose (mg/dL) 269 H 284 H 220 H (70-110) mg/dL AST (13-35) U/L Alkaline Phosphatase (41-126) U/L Total Protein (6.2-8.2) g/dL Albumin (3.8-4.9) g/dL Albumin/Globulin Ratio (1.60-3.17) Ratio Microbiology - Last 24 Hours (Table) 11/19/23 10:45 Gram Stain - Final Pleural Fluid Body Fluid Culture - Final Alpha Hemolytic Streptococcus 11/18/23 20:30 Blood Culture - Preliminary Blood 11/18/23 20:21 Blood Culture - Preliminary Blood 11/19/23 07:45 Gram Stain - Final Sputum Sputum Culture - Final - Imaging and Cardiology Chest x-ray: image reviewed Assessment and Plan Assessment: Left-sided pleural effusion/empyema, status post thoracentesis with removal of 150 mL purulent drainage, status post pigtail catheter placement Leukocytosis, likely due to pneumonia Hyponatremia Fever, chest pain, shortness of breath secondary to above History of hypertension Hyperlipidemia Asthma Diabetes Previous light tobacco dependence with cessation many years ago Family history of cancer Plan: Will instill second dose alteplase/dornase instilled to pigtail catheter, catheter clamped, will allow lytics to dwell for 1 to 2 hours Plan is for 3 days of lytics then CT of chest tomorrow afternoon to determine further course of treatment No surgical intervention warranted at this point, although if patient's effusion does not improve will consider possible VATS with decortication Continue antibiotics per ID recommendations Increase activity as tolerated Incentive spirometry ordered and should be encouraged Medical management of other comorbidities per internal medicine, pulmonology More recommendations to follow
[2023-11-22 08:51] LABS: ALT 25 U/L (8-44); AST 29 U/L (13-35); Albumin 2.5 g/dL (3.8-4.9); Alkaline Phosphatase 119 U/L (41-126); BUN/Creat Ratio 14.17 Ratio (12.00-20.00); Blood Urea Nitrogen 8.5 mg/dL (9.0-27.0); Calcium 8.3 mg/dL (8.7-10.3); Chloride 98 mmol/L (96-109); Globulin 2.5 g/dL (1.6-3.3); Glucose 245 mg/dL (70-110); Potassium 3.3 mmol/L (3.5-5.5); Sodium 136 mmol/L (135-145); Total Bilirubin 0.6 mg/dL (0.3-1.2)
--- NOTE | 2023-11-22 09:06 | XR ---
EXAMINATION TYPE: XR chest 1V portable DATE OF EXAM: 11/22/2023 Comparison: 11/21/2023 Clinical History: 78-year-old female empyema Findings: Left basilar pigtail pleural catheter is present. [id number] left effusion remains. Heart norm al size. Remainder of the lungs appear clear. Impression: Stable appearance with pigtail pleural catheter at the left base and small to moderate residual left effusion.
[2023-11-22] MEDS: DORNASE ALFA 5 MG in SODIUM CHLORIDE 0.9% 50 ML IRRIGATION ONE (09:32)
[2023-11-22] MEDS: ALTEPLASE 10 MG in SODIUM CHLORIDE 0.9% 50 ML IRRIGATION ONE (09:32)
--- NOTE | 2023-11-22 11:10 | P.PN ---
Subjective Progress Note Date: 11/22/23 lAiya Leiva, is a 78-year-old female patient of Dr. Valderrama who presented to the ER with complaints of muscle aches and shaking febrile and chest pain that has been occurring over the past week. Patient states she's had some external shortness of breath and poor oral intake. Patient has past medical history of asthma, diabetes mellitus, I disorder, hyperlipidemia and hypertension.chest x- ray completed showing COPD with continued moderate left pleural effusion. Lab work revealing a WBC of 30.8, sodium 127, creatinine 0.56. Troponin negative. D-dimer elevated at 3.10CT of the chest completed showing no acute pulmonary embolism. Airspace consolidation in the left lower lobe consistent with lobar pneumonia.influenza, RSV and COVID-19 negative.at this time patient was admitted. Patient started on IV antibiotics. Pulmonary service is consulted. Blood culture and sputum culture ordered repeat labs ordered. At this time patient is sitting up in chair. Current vital signs temp 90.6, heart rate 103, blood pressure 129/70 fourth pulse ox 93% on room air. ultrasound of chest has been ordered per pulmonary for possible pleurocentesis. on 11/20/2023 patient was seen and examined on the medical floor, she is alert and oriented 3 in no apparent distress, she is complaining of cough and shortness of breath, with mild improvement since yesterday, otherwise she denies any complaints there is no fever or chills no headache or dizziness no chest pain, no nausea or vomiting no abdominal pain no diarrhea no blood in the stools no burning with urination no frequency or urgency and no hematuria.. Patient remains on IV antibiotic Unasyn and vancomycin, awaiting culture results. left sided chest tube remains in place. On 11/21/2023 patient's alert and oriented 3. Patient reports improvement from yesterday. Patient remains on IV antibiotics. Discussed case with cardio thoracic surgery continue current plan of altaplase through pigtail. Chest tube remains in placecurrent vital signs temp 98.0, heart rate 101, respiratory rate 18, blood pressure 131/76 with pulse ox of 95%.white blood cell trending down 15.34. Patient remains on vancomycin and Unasyn. On 11/22/2023 patient's alert and oriented 3.Patient reports improvement from yesterday. Chest tube remains in place patient remains on IV antibiotics. Pulmonary, cardiothoracic infectious disease service is following.Current vital signs temp 97.6, heart rate 98, respiratory rate 17, blood pressure 126/73 with a pulse ox 95% on room air Patient denies chest pain or shortness of breath. Patient denies any nausea vomiting or diarrhea. Patient denies any urinary burning or frequency Objective - Vital Signs Vital signs: Vital Signs Temp 97.6 F 11/22/23 07:29 Pulse 98 11/22/23 08:00 Resp 17 11/22/23 08:00 BP 126/73 11/22/23 07:29 Pulse Ox 95 11/22/23 07:29 FiO2 21 11/20/23 08:19 Intake & Output 11/21/23 11/22/23 11/22/23 18:59 06:59 18:59 Output Total 190 260 Balance -190 -260 Output: Chest Tube Drainage 190 260 Left Posterior Chest 190 260 Other: Voiding Method Toilet Toilet # Voids 1 4 1 - Exam In general patient is alert and oriented x 3 in no distress HEENT head normocephalic and atraumatic Neck is supple no JVD no goiter no lymphadenopathy no carotid bruit Chest examination reveals a scattered crackles in both lung [place] no wheezing Cardiac exam reveals regular heart sounds S1 and S2 no gallops no murmurs Abdomen is soft nontender no organomegaly with normal bowel sounds Extremity exam reveals no edema no cyanosis or clubbing Neurological examination reveals no gross focal deficits - Labs CBC & Chem 7: 11/22/23 05:27 11/22/23 05:27 Labs: Abnormal Lab Results - Last 24 Hours (Table) 11/21/23 11/21/23 11/21/23 Range/Units 11:44 16:41 21:30 WBC (4.50-10.00) X 10*3/uL RBC (4.10-5.20) X 10*6/uL Hgb (12.0-15.0) g/dL Hct (37.2-46.3) % Plt Count (140-440) X 10*3/uL Immature Gran # (0.00-0.04) X 10*3/uL Neutrophils # (1.80-7.70) X 10*3/uL Monocytes # (0.20-1.00) X 10*3/uL Potassium (3.5-5.5) mmol/L BUN (9.0-27.0) mg/dL Glucose (70-110) mg/dL POC Glucose (mg/dL) 339 H 269 H 284 H (70-110) mg/dL Calcium (8.7-10.3) mg/dL Total Protein (6.2-8.2) g/dL Albumin (3.8-4.9) g/dL Albumin/Globulin Ratio (1.60-3.17) Ratio 11/22/23 11/22/23 11/22/23 Range/Units 05:27 05:27 06:19 WBC 18.67 H (4.50-10.00) X 10*3/uL RBC 3.76 L (4.10-5.20) X 10*6/uL Hgb 11.6 L (12.0-15.0) g/dL Hct 34.4 L (37.2-46.3) % Plt Count 577 H (140-440) X 10*3/uL Immature Gran # 0.77 H (0.00-0.04) X 10*3/uL Neutrophils # 14.36 H (1.80-7.70) X 10*3/uL Monocytes # 1.39 H (0.20-1.00) X 10*3/uL Potassium 3.3 L (3.5-5.5) mmol/L BUN 8.5 L (9.0-27.0) mg/dL Glucose 245 H (70-110) mg/dL POC Glucose (mg/dL) 220 H (70-110) mg/dL Calcium 8.3 L (8.7-10.3) mg/dL Total Protein 5.0 L (6.2-8.2) g/dL Albumin 2.5 L (3.8-4.9) g/dL Albumin/Globulin Ratio 1.00 L (1.60-3.17) Ratio Microbiology - Last 24 Hours (Table) 11/19/23 10:45 Gram Stain - Final Pleural Fluid Body Fluid Culture - Final Alpha Hemolytic Streptococcus 11/18/23 20:30 Blood Culture - Preliminary Blood 11/18/23 20:21 Blood Culture - Preliminary Blood 11/19/23 07:45 Gram Stain - Final Sputum Sputum Culture - Final Assessment and Plan Assessment: 1. Left lower lobe pneumonia 2. Leukocytosis secondary to above 3. Pleural effusion status post pleurocentesis with purulent drainage esuspect empyema 4. Hyponatremia secondary to dehydration 5. Elevated d-dimer. CTA negative for PE 6. History of asthma 7. History of diabetes mellitus. Patient on sliding scale coverage 8. History of macular degeneration 9. History of hyperlipidemia 10. History of essential hypertension DVT prophylaxis heparin. GI prophylaxis Protonix Pulmonary service is consulted cardiothoracic following Sputum and blood cultures ordered Patient started on IV antibiotics repeat labs ordered
[2023-11-22 11:36] LABS: Glucose,Whole Blood 249 mg/dL (70-110)
--- NOTE | 2023-11-22 15:14 | P.PN ---
Subjective Progress Note Date: 11/22/23 This is a very pleasant 78-year-old female patient with a history of asthma, diabetes mellitus, hypertension, hyperlipidemia, macular degeneration, former smoker. About 1 week ago she had a day where she developed shortness of breath left-sided chest discomfort shivers and shaking and a temperature of 102. She thought that it would go away and proceeded throughout the next few days however she was getting some exertional dyspnea and poor appetite and presented here to the emergency room yesterday. She denied any recent travel. No sick contacts. Chest x-ray revealed a left-sided infiltrate/effusion and airspace consolidation consistent with lobar pneumonia. CT angiogram ruled out pulmonary embolism. White count 28.3. Hemoglobin 12.5. Platelets 528. Sodium 129. Potassium 3.7. Bicarb 29. BUN 15. Creatinine 0.59. Glucose 336. Viral screen negative. Ultrasound of the chest revealed a 7.7 cm pleural effusion. She was initiated on ceftriaxone. She is seen today in consultation on the regular medical floor. She is currently sitting up in bed. Awake and alert in no acute distress. Still with some left-sided chest discomfort. He is maintaining good O2 saturations in the 90s on room air. She is currently afebrile. Slightly tachycardic. The patient is seen today November 20, 2023 in follow-up on the regular medical floor. She is currently sitting up in a chair at the bedside. Awake and alert in no acute distress. She denies any worsening shortness of breath, cough or congestion. She is maintaining good O2 saturation in the 90s on room air. No fever or chills. Normal saline at 100 MLS per hour. She did undergo a left- sided thoracentesis yesterday with thick creamy purulent drainage noted. Urinalysis reveals greater than 565,000 WBCs. Total protein 3050. LDH greater than 2500. Exudate. White count 19.7. Hemoglobin 11.6. Platelets 489. Sodium 135. Potassium 3.5. Bicarb 27. BUN 11. Creatinine 0.6. Glucose 245. Chest x-ray shows ongoing moderate left pleural effusion with adjacent atelectasis and/or consolidation. Trace right effusion. Blood culture, sputum culture and pleural fluid cultures are pending. She remains on vancomycin and Unasyn. Heparin for DVT prophylaxis. The patient is seen today November 21, 2023 and follow-up on the regular medical floor. She is awake and alert in no acute distress. Up in a chair. She did undergo left-sided pigtail catheter placement yesterday. She received lytic therapy today. Currently with 250 mL of purulent drainage within the Pleur- evac. Chest x-ray reveals left-sided pigtail catheter in place. No appreciable pneumothorax. Decreasing but still residual small to moderate left pleural effusion. Pleural fluid culture is positive for alphahemolytic Streptococcus. Blood cultures reveal no growth. Sputum culture revealed no growth. White count 15.3. Hemoglobin 12.4. Platelets 575. Sodium 137. Potassium 3.6. BUN 9.2. Creatinine 0.6. Glucose 260. AST 37. ALT 33. Vancomycin trough 8.3. She is continued on vancomycin and Unasyn. Heparin for DVT prophylaxis. Normal saline at 100 MLS per hour. The patient is seen today November 22, 2023 in follow-up on the regular medical floor. She remains awake and alert in no acute distress. No worsening shortness of breath, cough or congestion. Maintaining good O2 saturations in the 90s on room air. Left chest pigtail catheter remains in place with a total of 500 cc out now. She received lytics again this morning. Pleural fluid cultures are positive for alphahemolytic Streptococcus. Blood cultures revealed no growth. Sputum culture revealed no growth. White count 18.6. Hemoglobin 11.6. Platelets 577. Sodium 136. Potassium 3.3. Bicarb 26. BUN 8. Creatinine 0.6. Glucose 245. She is continued on Unasyn, continued on bronchodilators. Heparin for DVT prophylaxis. Objective - Vital Signs Vital signs: Vital Signs Temp 98.2 F 11/22/23 14:26 Pulse 108 H 11/22/23 14:26 Resp 17 11/22/23 14:26 BP 130/78 11/22/23 14:26 Pulse Ox 95 11/22/23 14:26 FiO2 21 11/20/23 08:19 Intake & Output 11/21/23 11/22/23 11/22/23 18:59 06:59 18:59 Output Total 190 260 200 Balance -190 -260 -200 Output: Chest Tube Drainage 190 260 200 Left Posterior Chest 190 260 200 Other: Voiding Method Toilet Toilet # Voids 1 4 1 - Exam GENERAL EXAM: Alert, pleasant 78-year-old female, up in a chair, on room air, comfortable in no apparent distress. HEAD: Normocephalic. EYES: Normal reaction of pupils, equal size. NOSE: Clear with pink turbinates. THROAT: No erythema or exudates. NECK: No masses, no JVD. CHEST: No chest wall deformity. LUNGS: Equal air entry with crackles, dullness in the left base. Left-sided pigtail catheter in place to Pleur-evac and -20 cm of water wall suction CVS: S1 and S2 normal with no audible murmur, regular rhythm. ABDOMEN: No hepatosplenomegaly, normal bowel sounds, no guarding or rigidity. SPINE: No scoliosis or deformity SKIN: No rashes CENTRAL NERVOUS SYSTEM: No focal deficits, tone is normal in all 4 extremities. EXTREMITIES: There is no peripheral edema. No clubbing, no cyanosis. Peripheral pulses are intact. - Labs CBC & Chem 7: 11/22/23 05:27 11/22/23 05:27 Labs: Abnormal Lab Results - Last 24 Hours (Table) 11/21/23 11/21/23 11/22/23 Range/Units 16:41 21:30 05:27 WBC 18.67 H (4.50-10.00) X 10*3/uL RBC 3.76 L (4.10-5.20) X 10*6/uL Hgb 11.6 L (12.0-15.0) g/dL Hct 34.4 L (37.2-46.3) % Plt Count 577 H (140-440) X 10*3/uL Immature Gran # 0.77 H (0.00-0.04) X 10*3/uL Neutrophils # 14.36 H (1.80-7.70) X 10*3/uL Monocytes # 1.39 H (0.20-1.00) X 10*3/uL Potassium (3.5-5.5) mmol/L BUN (9.0-27.0) mg/dL Glucose (70-110) mg/dL POC Glucose (mg/dL) 269 H 284 H (70-110) mg/dL Calcium (8.7-10.3) mg/dL Total Protein (6.2-8.2) g/dL Albumin (3.8-4.9) g/dL Albumin/Globulin Ratio (1.60-3.17) Ratio 11/22/23 11/22/23 11/22/23 Range/Units 05:27 06:19 11:34 WBC (4.50-10.00) X 10*3/uL RBC (4.10-5.20) X 10*6/uL Hgb (12.0-15.0) g/dL Hct (37.2-46.3) % Plt Count (140-440) X 10*3/uL Immature Gran # (0.00-0.04) X 10*3/uL Neutrophils # (1.80-7.70) X 10*3/uL Monocytes # (0.20-1.00) X 10*3/uL Potassium 3.3 L (3.5-5.5) mmol/L BUN 8.5 L (9.0-27.0) mg/dL Glucose 245 H (70-110) mg/dL POC Glucose (mg/dL) 220 H 249 H (70-110) mg/dL Calcium 8.3 L (8.7-10.3) mg/dL Total Protein 5.0 L (6.2-8.2) g/dL Albumin 2.5 L (3.8-4.9) g/dL Albumin/Globulin Ratio 1.00 L (1.60-3.17) Ratio Microbiology - Last 24 Hours (Table) 11/18/23 20:30 Blood Culture - Preliminary Blood 11/18/23 20:21 Blood Culture - Preliminary Blood 11/19/23 10:45 Gram Stain - Final Pleural Fluid Body Fluid Culture - Final Alpha Hemolytic Streptococcus Assessment and Plan Assessment: Left-sided chest pain secondary to a left pleural effusion. Status post left- sided thoracentesis today November 19, 2023 with 150 cc of thick creamy moreno fluid returned. Suspect empyema. Received a left-sided pigtail catheter placement on 11/20/2023. Lytics instilled on 11/21/2023. Approximately 250 mL of purulent drainage in the Pleur-evac thus far. Preliminary cultures revealing alpha hemolytic Streptococcus. Remains on Unasyn Acute community-acquired pneumonia in the left lower lobe, possible empyema Febrile illness secondary to above, recovered Leukocytosis secondary to above, improving Hyponatremia, recovered Diabetes mellitus with hyperglycemia Macular degeneration Hyperlipidemia Hypertension Plan: The patient was seen and evaluated Chest x-ray, labs and medications reviewed Left-sided pigtail catheter placed Received lytics again today Pleural cultures with alphahemolytic Streptococcus Continue Unasyn Stable and on room air We will continue to follow I have personally seen and examined the patient, performed the documentation and the assessment and plan as written. Number of minutes spent on the visit: 10.
[2023-11-22 16:31] LABS: Glucose,Whole Blood 158 mg/dL (70-110)
[2023-11-22 20:16] LABS: Glucose,Whole Blood 246 mg/dL (70-110)
[2023-11-23 06:35] LABS: Glucose,Whole Blood 204 mg/dL (70-110)
[2023-11-23] MEDS: DORNASE ALFA 5 MG in SODIUM CHLORIDE 0.9% 50 ML IRRIGATION ONE (10:14)
[2023-11-23] MEDS: ALTEPLASE 10 MG in SODIUM CHLORIDE 0.9% 50 ML IRRIGATION ONE (10:14)
--- NOTE | 2023-11-23 10:25 | P.PN ---
Subjective Progress Note Date: 11/23/23 Principal diagnosis: Left-sided pleural effusion status post thoracentesis, leukocytosis, hyponatremia. History of hypertension, hyperlipidemia, asthma, diabetes, previous light tobacco dependence with cessation many years ago, family history of cancer The patient was seen and examined this morning. She is in no acute distress and does states she is feeling better. Remains on room air. Left sided pigtail remains with 400 mL purulent drainage after second lytic instillation yesterday. Pleural fluid from thoracentesis on November 18 growing alphahemolytic strep. Remains on IV antibiotics, ID consulted. Patient has been ambulatory without difficulty. No other new concerns. Objective - Vital Signs Vital signs: Vital Signs Temp 98.4 F 11/23/23 07:07 Pulse 98 11/23/23 07:07 Resp 17 11/23/23 07:07 BP 138/75 11/23/23 07:07 Pulse Ox 95 11/23/23 07:07 FiO2 21 11/20/23 08:19 Intake & Output 11/22/23 11/23/23 11/23/23 18:59 06:59 18:59 Intake Total 180 Output Total 250 200 Balance -250 -200 180 Intake: Oral 180 Output: Chest Tube Drainage 250 200 Left Posterior Chest 250 200 Other: Voiding Method Toilet Toilet # Voids 1 1 - Exam CONSTITUTIONAL: Appears comfortable, cooperative, no acute distress RESPIRATORY: Lungs sounds diminished in the left base. Respirations even, nonlabored. Currently on room air with oxygen saturation 94%. Achieving 750 mL on incentive spirometry CARDIOVASCULAR: S1, S2 present. Tacky but regular rate and rhythm. Palpable peripheral pulses bilaterally. No edema present. No calf pain or tenderness noted. SCDs present. GASTROINTESTINAL: Abdomen soft, nontender, nondistended. Active bowel sounds present 4 quadrants. Tolerating diet GENITOURINARY: Continues to void INTEGUMENTARY: Skin is warm and dry NEUROLOGIC: Cranial nerves II through XII intact MUSKULOSKELETAL: Able to move all extremities, strength equal bilaterally, gait normal PSYCHIATRIC: Alert and oriented to person place and time, appropriate affect, intact judgment and insight INVASIVE LINES AND TUBES: Left pigtail catheter present, no air leaks present, 50 mL purulent drainage overnight, 400 mL in the last 24 hours - Allied health notes Allied health notes reviewed: nursing - Labs CBC & Chem 7: 11/22/23 05:27 11/22/23 05:27 Labs: Abnormal Lab Results - Last 24 Hours (Table) 11/22/23 11/22/23 11/22/23 Range/Units 11:34 16:29 20:15 POC Glucose (mg/dL) 249 H 158 H 246 H (70-110) mg/dL 11/23/23 Range/Units 06:33 POC Glucose (mg/dL) 204 H (70-110) mg/dL Microbiology - Last 24 Hours (Table) 11/21/23 14:00 Nasal Screen MRSA/MSSA - Final Nasopharyngeal Washing 11/18/23 20:30 Blood Culture - Preliminary Blood 11/18/23 20:21 Blood Culture - Preliminary Blood - Imaging and Cardiology Chest x-ray: image reviewed Assessment and Plan Assessment: Left-sided pleural effusion/empyema, status post thoracentesis with removal of 150 mL purulent drainage, status post pigtail catheter placement Leukocytosis, likely due to pneumonia Hyponatremia Fever, chest pain, shortness of breath secondary to above History of hypertension Hyperlipidemia Asthma Diabetes Previous light tobacco dependence with cessation many years ago Family history of cancer Plan: Third dose alteplase/dornase instilled to pigtail catheter, catheter clamped, will allow lytics to dwell for 1 to 2 hours Plan is for CT of chest this afternoon to determine further course of treatment No surgical intervention warranted at this point, although if patient's effusion does not improve will consider possible VATS with decortication Continue antibiotics per ID recommendations Increase activity as tolerated Incentive spirometry ordered and should be encouraged Medical management of other comorbidities per internal medicine, pulmonology More recommendations to follow
[2023-11-23 10:57] LABS: Basophils # (A) 0.11 X 10*3/uL (0.00-0.10); Basophils % (A) 0.8 %; Eosinophils # (A) 0.13 X 10*3/uL (0.04-0.35); Eosinophils % (A) 0.9 %; HCT 36.2 % (37.2-46.3); Lymphocytes # (A) 1.38 X 10*3/uL (0.90-5.00); Lymphocytes % (A) 9.5 %; MCHC 33.1 g/dL (32.0-37.0); MCV 93.5 FL (80.0-97.0); Mean Platelet Volume 11.5 FL (9.5-12.2); Monocytes # (A) 0.82 X 10*3/uL (0.20-1.00); Monocytes % (A) 5.6 %; NRBC Per 100 WBC 0 X 10*3/uL (0.00-0.01); Neutrophils # (A) 11.65 X 10*3/uL (1.80-7.70); Platelet Count 611 X 10*3/uL (140-440); RBC 3.87 X 10*6/uL (4.10-5.20); RDW 13.3 % (11.5-14.5); WBC 14.55 X 10*3/uL (4.50-10.00)
[2023-11-23 11:10] LABS: ALT 32 U/L (8-44); AST 40 U/L (13-35); Albumin 2.7 g/dL (3.8-4.9); Albumin/Globulin Ratio 1.04 Ratio (1.60-3.17); Alkaline Phosphatase 120 U/L (41-126); BUN/Creat Ratio 13.33 Ratio (12.00-20.00); Calcium 8.7 mg/dL (8.7-10.3); Carbon Dioxide 28.6 mmol/L (21.6-31.8); Chloride 97 mmol/L (96-109); Globulin 2.6 g/dL (1.6-3.3); Glucose 205 mg/dL (70-110); Potassium 3.4 mmol/L (3.5-5.5); Sodium 138 mmol/L (135-145); Total Bilirubin 0.5 mg/dL (0.3-1.2); Total Protein 5.3 g/dL (6.2-8.2)
[2023-11-23 11:40] LABS: Glucose,Whole Blood 309 mg/dL (70-110)
[2023-11-23 14:43] VITALS: BMI 19.5
--- NOTE | 2023-11-23 15:10 | P.PN ---
Subjective Progress Note Date: 11/23/23 This is a very pleasant 78-year-old female patient with a history of asthma, diabetes mellitus, hypertension, hyperlipidemia, macular degeneration, former smoker. About 1 week ago she had a day where she developed shortness of breath left-sided chest discomfort shivers and shaking and a temperature of 102. She thought that it would go away and proceeded throughout the next few days however she was getting some exertional dyspnea and poor appetite and presented here to the emergency room yesterday. She denied any recent travel. No sick contacts. Chest x-ray revealed a left-sided infiltrate/effusion and airspace consolidation consistent with lobar pneumonia. CT angiogram ruled out pulmonary embolism. White count 28.3. Hemoglobin 12.5. Platelets 528. Sodium 129. Potassium 3.7. Bicarb 29. BUN 15. Creatinine 0.59. Glucose 336. Viral screen negative. Ultrasound of the chest revealed a 7.7 cm pleural effusion. She was initiated on ceftriaxone. She is seen today in consultation on the regular medical floor. She is currently sitting up in bed. Awake and alert in no acute distress. Still with some left-sided chest discomfort. He is maintaining good O2 saturations in the 90s on room air. She is currently afebrile. Slightly tachycardic. The patient is seen today November 20, 2023 in follow-up on the regular medical floor. She is currently sitting up in a chair at the bedside. Awake and alert in no acute distress. She denies any worsening shortness of breath, cough or congestion. She is maintaining good O2 saturation in the 90s on room air. No fever or chills. Normal saline at 100 MLS per hour. She did undergo a left- sided thoracentesis yesterday with thick creamy purulent drainage noted. Urinalysis reveals greater than 565,000 WBCs. Total protein 3050. LDH greater than 2500. Exudate. White count 19.7. Hemoglobin 11.6. Platelets 489. Sodium 135. Potassium 3.5. Bicarb 27. BUN 11. Creatinine 0.6. Glucose 245. Chest x-ray shows ongoing moderate left pleural effusion with adjacent atelectasis and/or consolidation. Trace right effusion. Blood culture, sputum culture and pleural fluid cultures are pending. She remains on vancomycin and Unasyn. Heparin for DVT prophylaxis. The patient is seen today November 21, 2023 and follow-up on the regular medical floor. She is awake and alert in no acute distress. Up in a chair. She did undergo left-sided pigtail catheter placement yesterday. She received lytic therapy today. Currently with 250 mL of purulent drainage within the Pleur- evac. Chest x-ray reveals left-sided pigtail catheter in place. No appreciable pneumothorax. Decreasing but still residual small to moderate left pleural effusion. Pleural fluid culture is positive for alphahemolytic Streptococcus. Blood cultures reveal no growth. Sputum culture revealed no growth. White count 15.3. Hemoglobin 12.4. Platelets 575. Sodium 137. Potassium 3.6. BUN 9.2. Creatinine 0.6. Glucose 260. AST 37. ALT 33. Vancomycin trough 8.3. She is continued on vancomycin and Unasyn. Heparin for DVT prophylaxis. Normal saline at 100 MLS per hour. The patient is seen today November 22, 2023 in follow-up on the regular medical floor. She remains awake and alert in no acute distress. No worsening shortness of breath, cough or congestion. Maintaining good O2 saturations in the 90s on room air. Left chest pigtail catheter remains in place with a total of 500 cc out now. She received lytics again this morning. Pleural fluid cultures are positive for alphahemolytic Streptococcus. Blood cultures revealed no growth. Sputum culture revealed no growth. White count 18.6. Hemoglobin 11.6. Platelets 577. Sodium 136. Potassium 3.3. Bicarb 26. BUN 8. Creatinine 0.6. Glucose 245. She is continued on Unasyn, continued on bronchodilators. Heparin for DVT prophylaxis. The patient is seen today November 23, 2023 in follow-up on the regular medical floor. She is sitting up in a chair. Awake and alert in no acute distress. States she is feeling better each day. No worsening shortness of breath, cough or congestion. No fever or chills. Pleural fluid cultures positive for alphahemolytic Streptococcus. She received a third dose of lytics this morning. CT scan of the chest is pending. Stable and on room air. Remains on Unasyn. White count 14.5. Hemoglobin 12.0. Platelets 611. Sodium 138. Potassium 3.4. Bicarb 29. BUN 8. Creatinine 0.6. Glucose 205. Objective - Vital Signs Vital signs: Vital Signs Temp 98.4 F 11/23/23 07:07 Pulse 98 11/23/23 07:07 Resp 17 11/23/23 07:07 BP 138/75 11/23/23 07:07 Pulse Ox 95 11/23/23 07:07 FiO2 21 11/20/23 08:19 Intake & Output 11/22/23 11/23/23 11/23/23 18:59 06:59 18:59 Intake Total 180 Output Total 250 200 Balance -250 -200 180 Weight 45.359 kg Intake: Oral 180 Output: Chest Tube Drainage 250 200 Left Posterior Chest 250 200 Other: Voiding Method Toilet Toilet Toilet # Voids 1 1 - Exam GENERAL EXAM: Alert, 78-year-old female, on room air, comfortable in no apparent distress. HEAD: Normocephalic. EYES: Normal reaction of pupils, equal size. NOSE: Clear with pink turbinates. THROAT: No erythema or exudates. NECK: No masses, no JVD. CHEST: No chest wall deformity. LUNGS: Equal air entry with crackles, dullness in the left base. Left-sided pigtail catheter in place to Pleur-evac and -20 cm of water wall suction CVS: S1 and S2 normal with no audible murmur, regular rhythm. ABDOMEN: No hepatosplenomegaly, normal bowel sounds, no guarding or rigidity. SPINE: No scoliosis or deformity SKIN: No rashes CENTRAL NERVOUS SYSTEM: No focal deficits, tone is normal in all 4 extremities. EXTREMITIES: There is no peripheral edema. No clubbing, no cyanosis. Peripheral pulses are intact. - Labs CBC & Chem 7: 11/23/23 07:18 11/23/23 07:18 Labs: Abnormal Lab Results - Last 24 Hours (Table) 11/22/23 11/22/23 11/23/23 Range/Units 16:29 20:15 06:33 WBC (4.50-10.00) X 10*3/uL RBC (4.10-5.20) X 10*6/uL Hct (37.2-46.3) % Plt Count (140-440) X 10*3/uL Immature Gran # (0.00-0.04) X 10*3/uL Neutrophils # (1.80-7.70) X 10*3/uL Basophils # (0.00-0.10) X 10*3/uL Potassium (3.5-5.5) mmol/L Anion Gap (4.00-12.00) mmol/L BUN (9.0-27.0) mg/dL Glucose (70-110) mg/dL POC Glucose (mg/dL) 158 H 246 H 204 H (70-110) mg/dL AST (13-35) U/L Total Protein (6.2-8.2) g/dL Albumin (3.8-4.9) g/dL Albumin/Globulin Ratio (1.60-3.17) Ratio 11/23/23 11/23/23 11/23/23 Range/Units 07:18 07:18 11:38 WBC 14.55 H (4.50-10.00) X 10*3/uL RBC 3.87 L (4.10-5.20) X 10*6/uL Hct 36.2 L (37.2-46.3) % Plt Count 611 H (140-440) X 10*3/uL Immature Gran # 0.46 H (0.00-0.04) X 10*3/uL Neutrophils # 11.65 H (1.80-7.70) X 10*3/uL Basophils # 0.11 H (0.00-0.10) X 10*3/uL Potassium 3.4 L (3.5-5.5) mmol/L Anion Gap 12.40 H (4.00-12.00) mmol/L BUN 8.0 L (9.0-27.0) mg/dL Glucose 205 H (70-110) mg/dL POC Glucose (mg/dL) 309 H (70-110) mg/dL AST 40 H (13-35) U/L Total Protein 5.3 L (6.2-8.2) g/dL Albumin 2.7 L (3.8-4.9) g/dL Albumin/Globulin Ratio 1.04 L (1.60-3.17) Ratio Microbiology - Last 24 Hours (Table) 11/21/23 14:00 Nasal Screen MRSA/MSSA - Final Nasopharyngeal Washing 11/18/23 20:30 Blood Culture - Preliminary Blood 11/18/23 20:21 Blood Culture - Preliminary Blood Assessment and Plan Assessment: Left-sided chest pain secondary to a left pleural effusion. Status post left- sided thoracentesis today November 19, 2023 with 150 cc of thick creamy moreno fluid returned. Suspect empyema. Received a left-sided pigtail catheter placement on 11/20/2023. Lytics instilled on 11/21/2023. Approximately 250 mL of purulent drainage in the Pleur-evac thus far. Preliminary cultures revealing alpha hemolytic Streptococcus. Remains on Unasyn Acute community-acquired pneumonia in the left lower lobe, empyema Febrile illness secondary to above, recovered Leukocytosis secondary to above, improving Hyponatremia, recovered Diabetes mellitus with hyperglycemia Macular degeneration Hyperlipidemia Hypertension Plan: The patient was seen and evaluated Labs and medications reviewed Received lytics a third time today CT scan of the chest pending Continue Unasyn Stable and on room air We will continue to follow I have personally seen and examined the patient, performed the documentation and the assessment and plan as written. Number of minutes spent on the visit: 10.
--- NOTE | 2023-11-23 16:52 | P.PN ---
Subjective Progress Note Date: 11/23/23 Aliya Leiva, is a 78-year-old female patient of Dr. Valderrama who presented to the ER with complaints of muscle aches and shaking febrile and chest pain that has been occurring over the past week. Patient states she's had some external shortness of breath and poor oral intake. Patient has past medical history of asthma, diabetes mellitus, I disorder, hyperlipidemia and hypertension.chest x- ray completed showing COPD with continued moderate left pleural effusion. Lab work revealing a WBC of 30.8, sodium 127, creatinine 0.56. Troponin negative. D-dimer elevated at 3.10CT of the chest completed showing no acute pulmonary embolism. Airspace consolidation in the left lower lobe consistent with lobar pneumonia.influenza, RSV and COVID-19 negative.at this time patient was admitted. Patient started on IV antibiotics. Pulmonary service is consulted. Blood culture and sputum culture ordered repeat labs ordered. At this time patient is sitting up in chair. Current vital signs temp 90.6, heart rate 103, blood pressure 129/70 fourth pulse ox 93% on room air. ultrasound of chest has been ordered per pulmonary for possible pleurocentesis. on 11/20/2023 patient was seen and examined on the medical floor, she is alert and oriented 3 in no apparent distress, she is complaining of cough and shortness of breath, with mild improvement since yesterday, otherwise she denies any complaints there is no fever or chills no headache or dizziness no chest pain, no nausea or vomiting no abdominal pain no diarrhea no blood in the stools no burning with urination no frequency or urgency and no hematuria.. Patient remains on IV antibiotic Unasyn and vancomycin, awaiting culture results. left sided chest tube remains in place. On 11/21/2023 patient's alert and oriented 3. Patient reports improvement from yesterday. Patient remains on IV antibiotics. Discussed case with cardio thoracic surgery continue current plan of altaplase through pigtail. Chest tube remains in placecurrent vital signs temp 98.0, heart rate 101, respiratory rate 18, blood pressure 131/76 with pulse ox of 95%.white blood cell trending down 15.34. Patient remains on vancomycin and Unasyn. On 11/22/2023 patient's alert and oriented 3.Patient reports improvement from yesterday. Chest tube remains in place patient remains on IV antibiotics. Pulmonary, cardiothoracic infectious disease service is following.Current vital signs temp 97.6, heart rate 98, respiratory rate 17, blood pressure 126/73 with a pulse ox 95% on room air Patient denies chest pain or shortness of breath. Patient denies any nausea vomiting or diarrhea. Patient denies any urinary burning or frequency On 11/23/2023 patient was seen and examined on the medical floor she is alert and oriented 3 in no apparent distress, she is complaining of mild pain at the site of the chest tube, ootherwise she denies any complaints there is no fever or chills no headache or dizziness no chest pain, No shortness of breath no cough no nausea or vomiting no abdominal pain no diarrhea and no urinary symptoms Objective - Vital Signs Vital signs: Vital Signs Temp 98.4 F 11/23/23 07:07 Pulse 98 11/23/23 07:07 Resp 17 11/23/23 07:07 BP 138/75 11/23/23 07:07 Pulse Ox 95 11/23/23 07:07 FiO2 21 11/20/23 08:19 Intake & Output 11/22/23 11/23/23 11/23/23 18:59 06:59 18:59 Intake Total 180 Output Total 250 200 Balance -250 -200 180 Intake: Oral 180 Output: Chest Tube Drainage 250 200 Left Posterior Chest 250 200 Other: Voiding Method Toilet Toilet Toilet # Voids 1 1 - Exam In general patient is alert and oriented x 3 in no distress HEENT head normocephalic and atraumatic Neck is supple no JVD no goiter no lymphadenopathy no carotid bruit Chest examination reveals a scattered crackles in both lung [place] no wheezing Cardiac exam reveals regular heart sounds S1 and S2 no gallops no murmurs Abdomen is soft nontender no organomegaly with normal bowel sounds Extremity exam reveals no edema no cyanosis or clubbing Neurological examination reveals no gross focal deficits - Labs CBC & Chem 7: 11/23/23 07:18 11/23/23 07:18 Labs: Abnormal Lab Results - Last 24 Hours (Table) 11/22/23 11/22/23 11/23/23 Range/Units 16:29 20:15 06:33 WBC (4.50-10.00) X 10*3/uL RBC (4.10-5.20) X 10*6/uL Hct (37.2-46.3) % Plt Count (140-440) X 10*3/uL Immature Gran # (0.00-0.04) X 10*3/uL Neutrophils # (1.80-7.70) X 10*3/uL Basophils # (0.00-0.10) X 10*3/uL Potassium (3.5-5.5) mmol/L Anion Gap (4.00-12.00) mmol/L BUN (9.0-27.0) mg/dL Glucose (70-110) mg/dL POC Glucose (mg/dL) 158 H 246 H 204 H (70-110) mg/dL AST (13-35) U/L Total Protein (6.2-8.2) g/dL Albumin (3.8-4.9) g/dL Albumin/Globulin Ratio (1.60-3.17) Ratio 11/23/23 11/23/23 11/23/23 Range/Units 07:18 07:18 11:38 WBC 14.55 H (4.50-10.00) X 10*3/uL RBC 3.87 L (4.10-5.20) X 10*6/uL Hct 36.2 L (37.2-46.3) % Plt Count 611 H (140-440) X 10*3/uL Immature Gran # 0.46 H (0.00-0.04) X 10*3/uL Neutrophils # 11.65 H (1.80-7.70) X 10*3/uL Basophils # 0.11 H (0.00-0.10) X 10*3/uL Potassium 3.4 L (3.5-5.5) mmol/L Anion Gap 12.40 H (4.00-12.00) mmol/L BUN 8.0 L (9.0-27.0) mg/dL Glucose 205 H (70-110) mg/dL POC Glucose (mg/dL) 309 H (70-110) mg/dL AST 40 H (13-35) U/L Total Protein 5.3 L (6.2-8.2) g/dL Albumin 2.7 L (3.8-4.9) g/dL Albumin/Globulin Ratio 1.04 L (1.60-3.17) Ratio Microbiology - Last 24 Hours (Table) 11/21/23 14:00 Nasal Screen MRSA/MSSA - Final Nasopharyngeal Washing 11/18/23 20:30 Blood Culture - Preliminary Blood 11/18/23 20:21 Blood Culture - Preliminary Blood Assessment and Plan Assessment: 1. Left lower lobe pneumonia 2. Leukocytosis secondary to above 3. Pleural effusion status post pleurocentesis with purulent drainage esuspect empyema 4. Hyponatremia secondary to dehydration 5. Elevated d-dimer. CTA negative for PE 6. History of asthma 7. History of diabetes mellitus. Patient on sliding scale coverage 8. History of macular degeneration 9. History of hyperlipidemia 10. History of essential hypertension DVT prophylaxis heparin. GI prophylaxis Protonix Pulmonary service is consulted cardiothoracic following Sputum and blood cultures ordered Patient started on IV antibiotics repeat labs ordered
[2023-11-23 17:06] LABS: Glucose,Whole Blood 198 mg/dL (70-110)
--- NOTE | 2023-11-23 17:06 | P.PN ---
Subjective Progress Note Date: 11/22/23 Principal diagnosis: Reason for follow-up is empyema Patient is a 78-year-old female with a past medical history significant for diabetes mellitus hypertension hyperlipidemia asthma, presented to the hospital left-sided chest pain increasing shortness of breath and cough has been diagnosed with pneumonia/empyema, status post chest tube placement. On today's evaluation that is 11/22/2023,the patient denies any fever or any chills, patient is breathing comfortably on room air, the patient left-sided chest pain has slightly decreased intensity continue to have a cough, patient denies abdominal pain, no nausea vomiting or diarrhea. Patient white count is 18.67 creatinine is 1.39 Objective - Vital Signs Vital signs: Vital Signs Temp 97.6 F 11/22/23 07:29 Pulse 98 11/22/23 08:00 Resp 17 11/22/23 08:00 BP 126/73 11/22/23 07:29 Pulse Ox 95 11/22/23 07:29 FiO2 21 11/20/23 08:19 Intake & Output 11/21/23 11/22/23 11/22/23 18:59 06:59 18:59 Output Total 190 260 200 Balance -190 -260 -200 Output: Chest Tube Drainage 190 260 200 Left Posterior Chest 190 260 200 Other: Voiding Method Toilet Toilet # Voids 1 4 1 - Exam GENERAL DESCRIPTION: An elderly female lying in bed in no distress RESPIRATORY SYSTEM: Unlabored breathing , decreased breath sounds at bases HEART: S1 S2 regular rate and rhythm , ABDOMEN: Soft , no tenderness EXTREMITIES: No edema feet - Labs CBC & Chem 7: 11/23/23 07:18 11/23/23 07:18 Labs: Abnormal Lab Results - Last 24 Hours (Table) 11/21/23 11/21/23 11/22/23 Range/Units 16:41 21:30 05:27 WBC 18.67 H (4.50-10.00) X 10*3/uL RBC 3.76 L (4.10-5.20) X 10*6/uL Hgb 11.6 L (12.0-15.0) g/dL Hct 34.4 L (37.2-46.3) % Plt Count 577 H (140-440) X 10*3/uL Immature Gran # 0.77 H (0.00-0.04) X 10*3/uL Neutrophils # 14.36 H (1.80-7.70) X 10*3/uL Monocytes # 1.39 H (0.20-1.00) X 10*3/uL Potassium (3.5-5.5) mmol/L BUN (9.0-27.0) mg/dL Glucose (70-110) mg/dL POC Glucose (mg/dL) 269 H 284 H (70-110) mg/dL Calcium (8.7-10.3) mg/dL Total Protein (6.2-8.2) g/dL Albumin (3.8-4.9) g/dL Albumin/Globulin Ratio (1.60-3.17) Ratio 11/22/23 11/22/23 11/22/23 Range/Units 05:27 06:19 11:34 WBC (4.50-10.00) X 10*3/uL RBC (4.10-5.20) X 10*6/uL Hgb (12.0-15.0) g/dL Hct (37.2-46.3) % Plt Count (140-440) X 10*3/uL Immature Gran # (0.00-0.04) X 10*3/uL Neutrophils # (1.80-7.70) X 10*3/uL Monocytes # (0.20-1.00) X 10*3/uL Potassium 3.3 L (3.5-5.5) mmol/L BUN 8.5 L (9.0-27.0) mg/dL Glucose 245 H (70-110) mg/dL POC Glucose (mg/dL) 220 H 249 H (70-110) mg/dL Calcium 8.3 L (8.7-10.3) mg/dL Total Protein 5.0 L (6.2-8.2) g/dL Albumin 2.5 L (3.8-4.9) g/dL Albumin/Globulin Ratio 1.00 L (1.60-3.17) Ratio Microbiology - Last 24 Hours (Table) 11/19/23 10:45 Gram Stain - Final Pleural Fluid Body Fluid Culture - Final Alpha Hemolytic Streptococcus 11/18/23 20:30 Blood Culture - Preliminary Blood 11/18/23 20:21 Blood Culture - Preliminary Blood 11/19/23 07:45 Gram Stain - Final Sputum Sputum Culture - Final Assessment and Plan (1) Empyema Current Visit: Yes Status: Acute Code(s): J86.9 - PYOTHORAX WITHOUT FISTULA SNOMED Code(s): 829239294 (2) Left lower lobe pneumonia Current Visit: Yes Status: Acute Code(s): J18.9 - PNEUMONIA, UNSPECIFIED ORGANISM SNOMED Code(s): 111218979 (3) Leukocytosis Current Visit: Yes Status: Acute Code(s): D72.829 - ELEVATED WHITE BLOOD CELL COUNT, UNSPECIFIED SNOMED Code(s): 688114256 Plan: 1patient was in the hospital with sepsis in this patient who did have a low-gra de fever tachycardia elevated white count source is left-sided pneumonia with a parapneumonic effusion/empyema in this patient was status post thoracocentesis followed by chest tube placement cultures currently growing alphahemolytic Streptococcus 2-patient currently treated with Unasyn to continue and monitor clinical course closely Dictation was produced using [employer] dictation software. please excuse any grammatical, word or spelling errors. Time with Patient: Less than 30
--- NOTE | 2023-11-23 17:07 | P.PN ---
Subjective Progress Note Date: 11/23/23 Principal diagnosis: Reason for follow-up is empyema Patient is a 78-year-old female with a past medical history significant for diabetes mellitus hypertension hyperlipidemia asthma, presented to the hospital left-sided chest pain increasing shortness of breath and cough has been diagnosed with pneumonia/empyema, status post chest tube placement. On today's evaluation that is 11/23/2023,the patient remains to be afebrile, patient is on room air not requiring supplemental oxygen and denies any shortness of breath did have improvement of left-sided chest pain currently have a congested cough no nausea vomiting no abdominal pain no diarrhea. Patient white. 14.55 creatinine 0.82 cultures with alphahemolytic Streptococcus Objective - Vital Signs Vital signs: Vital Signs Temp 98.4 F 11/23/23 15:58 Pulse 108 H 11/23/23 15:58 Resp 17 11/23/23 15:58 BP 129/78 11/23/23 15:58 Pulse Ox 96 11/23/23 15:58 FiO2 21 11/20/23 08:19 Intake & Output 11/22/23 11/23/23 11/23/23 18:59 06:59 18:59 Intake Total 180 Output Total 250 200 Balance -250 -200 180 Weight 45.359 kg Intake: Oral 180 Output: Chest Tube Drainage 250 200 Left Posterior Chest 250 200 Other: Voiding Method Toilet Toilet Toilet # Voids 1 1 - Exam GENERAL DESCRIPTION: An elderly female lying in bed in no distress RESPIRATORY SYSTEM: Unlabored breathing , decreased breath sounds at bases HEART: S1 S2 regular rate and rhythm , ABDOMEN: Soft , no tenderness EXTREMITIES: No edema feet - Labs CBC & Chem 7: 11/23/23 07:18 11/23/23 07:18 Labs: Abnormal Lab Results - Last 24 Hours (Table) 11/22/23 11/23/23 11/23/23 Range/Units 20:15 06:33 07:18 WBC 14.55 H (4.50-10.00) X 10*3/uL RBC 3.87 L (4.10-5.20) X 10*6/uL Hct 36.2 L (37.2-46.3) % Plt Count 611 H (140-440) X 10*3/uL Immature Gran # 0.46 H (0.00-0.04) X 10*3/uL Neutrophils # 11.65 H (1.80-7.70) X 10*3/uL Basophils # 0.11 H (0.00-0.10) X 10*3/uL Potassium (3.5-5.5) mmol/L Anion Gap (4.00-12.00) mmol/L BUN (9.0-27.0) mg/dL Glucose (70-110) mg/dL POC Glucose (mg/dL) 246 H 204 H (70-110) mg/dL AST (13-35) U/L Total Protein (6.2-8.2) g/dL Albumin (3.8-4.9) g/dL Albumin/Globulin Ratio (1.60-3.17) Ratio 11/23/23 11/23/23 Range/Units 07:18 11:38 WBC (4.50-10.00) X 10*3/uL RBC (4.10-5.20) X 10*6/uL Hct (37.2-46.3) % Plt Count (140-440) X 10*3/uL Immature Gran # (0.00-0.04) X 10*3/uL Neutrophils # (1.80-7.70) X 10*3/uL Basophils # (0.00-0.10) X 10*3/uL Potassium 3.4 L (3.5-5.5) mmol/L Anion Gap 12.40 H (4.00-12.00) mmol/L BUN 8.0 L (9.0-27.0) mg/dL Glucose 205 H (70-110) mg/dL POC Glucose (mg/dL) 309 H (70-110) mg/dL AST 40 H (13-35) U/L Total Protein 5.3 L (6.2-8.2) g/dL Albumin 2.7 L (3.8-4.9) g/dL Albumin/Globulin Ratio 1.04 L (1.60-3.17) Ratio Microbiology - Last 24 Hours (Table) 11/21/23 14:00 Nasal Screen MRSA/MSSA - Final Nasopharyngeal Washing Assessment and Plan (1) Empyema Current Visit: Yes Status: Acute Code(s): J86.9 - PYOTHORAX WITHOUT FISTULA SNOMED Code(s): 751325929 (2) Left lower lobe pneumonia Current Visit: Yes Status: Acute Code(s): J18.9 - PNEUMONIA, UNSPECIFIED ORGANISM SNOMED Code(s): 647158674 (3) Leukocytosis Current Visit: Yes Status: Acute Code(s): D72.829 - ELEVATED WHITE BLOOD CELL COUNT, UNSPECIFIED SNOMED Code(s): 466900297 Plan: 1patient was in the hospital with sepsis in this patient who did have a low- grade fever tachycardia elevated white count source is left-sided pneumonia with a parapneumonic effusion/empyema in this patient was status post thoracocentesis followed by chest tube placement cultures currently growing alphahemolytic Streptococcus 2-patient currently treated with Unasyn we will obtain midline for outpatient IV antibiotic therapy which can be transitioned to IV Rocephin Patient has been has multiple questions were answered Dictation was produced using [employer] dictation software. please excuse any grammatical, word or spelling errors. Time with Patient: Less than 30
[2023-11-23 20:40] LABS: Glucose,Whole Blood 241 mg/dL (70-110)
[2023-11-24 05:56] LABS: Glucose,Whole Blood 190 mg/dL (70-110)
--- NOTE | 2023-11-24 09:08 | XR ---
EXAMINATION TYPE: XR chest 1V portable DATE OF EXAM: 11/24/2023 Comparison: 11/22/2023 Clinical History: 78-year-old female empyema Findings: Heart normal size. Aorta and pulmonary vasculature within normal limits. Left basilar pigtail pleural catheter is present. There is a decreasing, now small left pleural effusion. There seems to be devel oping trace right pleural effusion. Hyperinflation. Similar mild interstitial prominence. Impression: 1. Left-sided basilar pigtail pleural catheter in place. Decreasing, now small left pleural effusion. 2. There may be a developing trace right pleural effusion. 3. Background COPD.
--- NOTE | 2023-11-24 09:50 | P.PN ---
Subjective Progress Note Date: 11/24/23 Aliya Leiva, is a 78-year-old female patient of Dr. Valderrama who presented to the ER with complaints of muscle aches and shaking febrile and chest pain that has been occurring over the past week. Patient states she's had some external shortness of breath and poor oral intake. Patient has past medical history of asthma, diabetes mellitus, I disorder, hyperlipidemia and hypertension.chest x- ray completed showing COPD with continued moderate left pleural effusion. Lab work revealing a WBC of 30.8, sodium 127, creatinine 0.56. Troponin negative. D-dimer elevated at 3.10CT of the chest completed showing no acute pulmonary embolism. Airspace consolidation in the left lower lobe consistent with lobar pneumonia.influenza, RSV and COVID-19 negative.at this time patient was admitted. Patient started on IV antibiotics. Pulmonary service is consulted. Blood culture and sputum culture ordered repeat labs ordered. At this time patient is sitting up in chair. Current vital signs temp 90.6, heart rate 103, blood pressure 129/70 fourth pulse ox 93% on room air. ultrasound of chest has been ordered per pulmonary for possible pleurocentesis. on 11/20/2023 patient was seen and examined on the medical floor, she is alert and oriented 3 in no apparent distress, she is complaining of cough and shortness of breath, with mild improvement since yesterday, otherwise she denies any complaints there is no fever or chills no headache or dizziness no chest pain, no nausea or vomiting no abdominal pain no diarrhea no blood in the stools no burning with urination no frequency or urgency and no hematuria.. Patient remains on IV antibiotic Unasyn and vancomycin, awaiting culture results. left sided chest tube remains in place. On 11/21/2023 patient's alert and oriented 3. Patient reports improvement from yesterday. Patient remains on IV antibiotics. Discussed case with cardio thoracic surgery continue current plan of altaplase through pigtail. Chest tube remains in placecurrent vital signs temp 98.0, heart rate 101, respiratory rate 18, blood pressure 131/76 with pulse ox of 95%.white blood cell trending down 15.34. Patient remains on vancomycin and Unasyn. On 11/22/2023 patient's alert and oriented 3.Patient reports improvement from yesterday. Chest tube remains in place patient remains on IV antibiotics. Pulmonary, cardiothoracic infectious disease service is following.Current vital signs temp 97.6, heart rate 98, respiratory rate 17, blood pressure 126/73 with a pulse ox 95% on room air Patient denies chest pain or shortness of breath. Patient denies any nausea vomiting or diarrhea. Patient denies any urinary burning or frequency On 11/23/2023 patient was seen and examined on the medical floor she is alert and oriented 3 in no apparent distress, she is complaining of mild pain at the site of the chest tube, ootherwise she denies any complaints there is no fever or chills no headache or dizziness no chest pain, No shortness of breath no cough no nausea or vomiting no abdominal pain no diarrhea and no urinary symptoms On 11/24/2023 patient is alert and oriented 3. Patient states she is feeling improved. Patient will need outpatient IV antibiotics per ID recommendation PICC line has been placed. Continue TPA administration her cardiothoracic green rgery. Chest tube remains in place Objective - Vital Signs Vital signs: Vital Signs Temp 98.5 F 11/24/23 07:03 Pulse 101 H 11/24/23 07:03 Resp 18 11/24/23 07:03 BP 125/64 11/24/23 07:03 Pulse Ox 92 L 11/24/23 07:03 FiO2 21 11/20/23 08:19 Intake & Output 11/23/23 11/24/23 11/24/23 18:59 06:59 18:59 Intake Total 430 900 Output Total 400 60 Balance 30 840 Weight 45.359 kg Intake: Oral 430 900 Output: Chest Tube Drainage 400 60 Left Posterior Chest 400 60 Other: Voiding Method Toilet # Voids 1 3 - Exam In general patient is alert and oriented x 3 in no distress HEENT head normocephalic and atraumatic Neck is supple no JVD no goiter no lymphadenopathy no carotid bruit Chest examination reveals a scattered crackles in both lung astorga no wheezing Cardiac exam reveals regular heart sounds S1 and S2 no gallops no murmurs Abdomen is soft nontender no organomegaly with normal bowel sounds Extremity exam reveals no edema no cyanosis or clubbing Neurological examination reveals no gross focal deficits - Labs CBC & Chem 7: 11/23/23 07:18 11/23/23 07:18 Labs: Abnormal Lab Results - Last 24 Hours (Table) 11/19/23 11/23/23 11/23/23 Range/Units 10:45 07:18 07:18 WBC 14.55 H (4.50-10.00) X 10*3/uL RBC 3.87 L (4.10-5.20) X 10*6/uL Hct 36.2 L (37.2-46.3) % Plt Count 611 H (140-440) X 10*3/uL Immature Gran # 0.46 H (0.00-0.04) X 10*3/uL Neutrophils # 11.65 H (1.80-7.70) X 10*3/uL Basophils # 0.11 H (0.00-0.10) X 10*3/uL Potassium 3.4 L (3.5-5.5) mmol/L Anion Gap 12.40 H (4.00-12.00) mmol/L BUN 8.0 L (9.0-27.0) mg/dL Glucose 205 H (70-110) mg/dL POC Glucose (mg/dL) (70-110) mg/dL AST 40 H (13-35) U/L Total Protein 5.3 L (6.2-8.2) g/dL Albumin 2.7 L (3.8-4.9) g/dL Albumin/Globulin Ratio 1.04 L (1.60-3.17) Ratio Pleur Adenosine Deamin 229 H (0-30) U/L 11/23/23 11/23/23 11/23/23 Range/Units 11:38 17:05 20:39 WBC (4.50-10.00) X 10*3/uL RBC (4.10-5.20) X 10*6/uL Hct (37.2-46.3) % Plt Count (140-440) X 10*3/uL Immature Gran # (0.00-0.04) X 10*3/uL Neutrophils # (1.80-7.70) X 10*3/uL Basophils # (0.00-0.10) X 10*3/uL Potassium (3.5-5.5) mmol/L Anion Gap (4.00-12.00) mmol/L BUN (9.0-27.0) mg/dL Glucose (70-110) mg/dL POC Glucose (mg/dL) 309 H 198 H 241 H (70-110) mg/dL AST (13-35) U/L Total Protein (6.2-8.2) g/dL Albumin (3.8-4.9) g/dL Albumin/Globulin Ratio (1.60-3.17) Ratio Pleur Adenosine Deamin (0-30) U/L 11/24/23 Range/Units 05:54 WBC (4.50-10.00) X 10*3/uL RBC (4.10-5.20) X 10*6/uL Hct (37.2-46.3) % Plt Count (140-440) X 10*3/uL Immature Gran # (0.00-0.04) X 10*3/uL Neutrophils # (1.80-7.70) X 10*3/uL Basophils # (0.00-0.10) X 10*3/uL Potassium (3.5-5.5) mmol/L Anion Gap (4.00-12.00) mmol/L BUN (9.0-27.0) mg/dL Glucose (70-110) mg/dL POC Glucose (mg/dL) 190 H (70-110) mg/dL AST (13-35) U/L Total Protein (6.2-8.2) g/dL Albumin (3.8-4.9) g/dL Albumin/Globulin Ratio (1.60-3.17) Ratio Pleur Adenosine Deamin (0-30) U/L Assessment and Plan Assessment: 1. Left lower lobe pneumonia 2. Leukocytosis secondary to above 3. Pleural effusion status post pleurocentesis with purulent drainage esuspect empyema 4. Hyponatremia secondary to dehydration 5. Elevated d-dimer. CTA negative for PE 6. History of asthma 7. History of diabetes mellitus. Patient on sliding scale coverage 8. History of macular degeneration 9. History of hyperlipidemia 10. History of essential hypertension DVT prophylaxis heparin. GI prophylaxis Protonix Pulmonary service is consulted cardiothoracic following Sputum and blood cultures ordered Patient started on IV antibiotics PICC line placed for IV antibiotics repeat labs ordered
[2023-11-24 10:50] LABS: Basophils # (A) 0.08 X 10*3/uL (0.00-0.10); Basophils % (A) 0.6 %; Eosinophils # (A) 0.15 X 10*3/uL (0.04-0.35); Eosinophils % (A) 1.1 %; HCT 33.8 % (37.2-46.3); Lymphocytes # (A) 1.64 X 10*3/uL (0.90-5.00); Lymphocytes % (A) 11.8 %; MCH 30.7 pg (27.0-32.0); MCHC 32.5 g/dL (32.0-37.0); MCV 94.4 FL (80.0-97.0); Mean Platelet Volume 11.2 FL (9.5-12.2); Monocytes # (A) 0.77 X 10*3/uL (0.20-1.00); Monocytes % (A) 5.5 %; NRBC Per 100 WBC 0 X 10*3/uL (0.00-0.01); Neutrophils # (A) 10.78 X 10*3/uL (1.80-7.70); Neutrophils % (A) 77.4 %; Platelet Count 616 X 10*3/uL (140-440); RBC 3.58 X 10*6/uL (4.10-5.20); RDW 13.4 % (11.5-14.5); WBC 13.92 X 10*3/uL (4.50-10.00)
[2023-11-24 10:54] LABS: ALT 26 U/L (8-44); AST 31 U/L (13-35); Albumin 2.7 g/dL (3.8-4.9); Albumin/Globulin Ratio 1.08 Ratio (1.60-3.17); Alkaline Phosphatase 121 U/L (41-126); BUN/Creat Ratio 8.86 Ratio (12.00-20.00); Blood Urea Nitrogen 6.2 mg/dL (9.0-27.0); Calcium 8.4 mg/dL (8.7-10.3); Carbon Dioxide 27.9 mmol/L (21.6-31.8); Chloride 99 mmol/L (96-109); Globulin 2.5 g/dL (1.6-3.3); Glucose 219 mg/dL (70-110); Potassium 3.4 mmol/L (3.5-5.5); Sodium 138 mmol/L (135-145); Total Bilirubin 0.4 mg/dL (0.3-1.2); Total Protein 5.2 g/dL (6.2-8.2)
[2023-11-24 11:27] LABS: Glucose,Whole Blood 302 mg/dL (70-110)
--- NOTE | 2023-11-24 12:14 | P.PN ---
Subjective Progress Note Date: 11/24/23 Principal diagnosis: Left-sided pleural effusion status post thoracentesis, leukocytosis, hyponatremia. History of hypertension, hyperlipidemia, asthma, diabetes, previous light tobacco dependence with cessation many years ago, family history of cancer. The patient was seen and examined in follow-up today November 24, 2023 at her bedside on the fourth floor medical surgical unit. She is currently sitting up to bedside chair, is awake, alert, oriented x 3 and is no acute apparent distress. She reports she continues to feel better on a daily basis. Oxygen saturations are 98% on room air and she is achieving 750 to 1000 mL on her incentive spirometry with encouragement. Left pleural pigtail catheter remains in place and connected to bedside Pleur-evac on low continuous wall suction at - 20 cm H2O. She was given a third dose of alteplase/dornase yesterday with 60 mL output from her pigtail catheter in the last 8 hours and 450 mL of thin serosanguineous drainage in the last 24 hours. She remains on Unasyn for antibiotic coverage managed by infectious disease. Pleural fluid culture shows alpha hemolytic Streptococcus from November 19, 2023. Chest x-ray results revie mon. CT of the chest report remains pending. Objective - Vital Signs Vital signs: Vital Signs Temp 98.5 F 11/24/23 07:03 Pulse 101 H 11/24/23 07:03 Resp 18 11/24/23 07:03 BP 125/64 11/24/23 07:03 Pulse Ox 92 L 11/24/23 07:03 FiO2 21 11/20/23 08:19 Intake & Output 11/23/23 11/24/23 11/24/23 18:59 06:59 18:59 Intake Total 430 900 Output Total 400 60 Balance 30 840 Weight 45.359 kg Intake: Oral 430 900 Output: Chest Tube Drainage 400 60 Left Posterior Chest 400 60 Other: Voiding Method Toilet # Voids 1 3 - Exam CONSTITUTIONAL: Appears comfortable, cooperative, no acute distress RESPIRATORY: Lungs sounds diminished in the left base. Respirations symmetrical, nonlabored. Currently on room air with oxygen saturation 98%. Achieving 750-1000 mL on her incentive spirometry CARDIOVASCULAR: S1, S2 present. Tachycardic, regular rate and rhythm. Palpable peripheral pulses bilaterally. No edema present. No calf pain or tenderness noted. SCDs present. GASTROINTESTINAL: Abdomen soft, nontender, nondistended. Active bowel sounds present 4 quadrants. Tolerating diet. GENITOURINARY: Continues to void. INTEGUMENTARY: Skin is warm and dry, no clubbing or cyanosis is present. Left chest pigtail catheter site dressing clean, dry and intact. NEUROLOGIC: Cranial nerves II through XII intact. No focal deficits. MUSKULOSKELETAL: Able to move all extremities, strength equal bilaterally, gait normal. PSYCHIATRIC: Alert and oriented to person place and time, appropriate affect, intact judgment and insight. INVASIVE LINES AND TUBES: Left pigtail catheter present, no air leaks present, 60 mL purulent drainage overnight, 450 mL in the last 24 hours - Allied health notes Allied health notes reviewed: nursing - Labs CBC & Chem 7: 11/24/23 07:51 11/24/23 07:51 Labs: Abnormal Lab Results - Last 24 Hours (Table) 11/19/23 11/23/23 11/23/23 Range/Units 10:45 17:05 20:39 WBC (4.50-10.00) X 10*3/uL RBC (4.10-5.20) X 10*6/uL Hgb (12.0-15.0) g/dL Hct (37.2-46.3) % Plt Count (140-440) X 10*3/uL Immature Gran # (0.00-0.04) X 10*3/uL Neutrophils # (1.80-7.70) X 10*3/uL Potassium (3.5-5.5) mmol/L BUN (9.0-27.0) mg/dL BUN/Creatinine Ratio (12.00-20.00) Ratio Glucose (70-110) mg/dL POC Glucose (mg/dL) 198 H 241 H (70-110) mg/dL Calcium (8.7-10.3) mg/dL Total Protein (6.2-8.2) g/dL Albumin (3.8-4.9) g/dL Albumin/Globulin Ratio (1.60-3.17) Ratio Pleur Adenosine Deamin 229 H (0-30) U/L 11/24/23 11/24/23 11/24/23 Range/Units 05:54 07:51 07:51 WBC 13.92 H (4.50-10.00) X 10*3/uL RBC 3.58 L (4.10-5.20) X 10*6/uL Hgb 11.0 L (12.0-15.0) g/dL Hct 33.8 L (37.2-46.3) % Plt Count 616 H (140-440) X 10*3/uL Immature Gran # 0.50 H (0.00-0.04) X 10*3/uL Neutrophils # 10.78 H (1.80-7.70) X 10*3/uL Potassium 3.4 L (3.5-5.5) mmol/L BUN 6.2 L (9.0-27.0) mg/dL BUN/Creatinine Ratio 8.86 L (12.00-20.00) Ratio Glucose 219 H (70-110) mg/dL POC Glucose (mg/dL) 190 H (70-110) mg/dL Calcium 8.4 L (8.7-10.3) mg/dL Total Protein 5.2 L (6.2-8.2) g/dL Albumin 2.7 L (3.8-4.9) g/dL Albumin/Globulin Ratio 1.08 L (1.60-3.17) Ratio Pleur Adenosine Deamin (0-30) U/L 11/24/23 Range/Units 11:25 WBC (4.50-10.00) X 10*3/uL RBC (4.10-5.20) X 10*6/uL Hgb (12.0-15.0) g/dL Hct (37.2-46.3) % Plt Count (140-440) X 10*3/uL Immature Gran # (0.00-0.04) X 10*3/uL Neutrophils # (1.80-7.70) X 10*3/uL Potassium (3.5-5.5) mmol/L BUN (9.0-27.0) mg/dL BUN/Creatinine Ratio (12.00-20.00) Ratio Glucose (70-110) mg/dL POC Glucose (mg/dL) 302 H (70-110) mg/dL Calcium (8.7-10.3) mg/dL Total Protein (6.2-8.2) g/dL Albumin (3.8-4.9) g/dL Albumin/Globulin Ratio (1.60-3.17) Ratio Pleur Adenosine Deamin (0-30) U/L - Imaging and Cardiology Chest x-ray: report reviewed, image reviewed Assessment and Plan Assessment: Left-sided pleural effusion/empyema, status post thoracentesis with removal of 150 mL purulent drainage, status post pigtail catheter placement Leukocytosis, likely due to pneumonia Hyponatremia Fever, chest pain, shortness of breath secondary to above History of hypertension Hyperlipidemia Asthma Diabetes Previous light tobacco dependence with cessation many years ago Family history of cancer Plan: Fourth dose alteplase/dornase pleural instillation to left chest pigtail catheter, catheter clamped, will allow lytics to dwell for [address] of chest results remain pending. No surgical intervention warranted at this point, although if patient's effusion does not improve will consider possible VATS with decortication. Continue antibiotics per ID recommendations. Increase activity as tolerated. Incentive spirometry encouraged 10 times every hour while awake. Medical management of other comorbidities per internal medicine, pulmonology. More recommendations to follow based on patient's clinical course. Time with Patient: Greater than 30
--- NOTE | 2023-11-24 14:56 | P.PN ---
Subjective Progress Note Date: 11/24/23 Principal diagnosis: Empyema. This is a very pleasant 78-year-old female patient with a history of asthma, diabetes mellitus, hypertension, hyperlipidemia, macular degeneration, former smoker. About 1 week ago she had a day where she developed shortness of breath left-sided chest discomfort shivers and shaking and a temperature of 102. She thought that it would go away and proceeded throughout the next few days however she was getting some exertional dyspnea and poor appetite and presented here to the emergency room yesterday. She denied any recent travel. No sick contacts. Chest x-ray revealed a left-sided infiltrate/effusion and airspace consolidation consistent with lobar pneumonia. CT angiogram ruled out pulmonary embolism. White count 28.3. Hemoglobin 12.5. Platelets 528. Sodium 129. Potassium 3.7. Bicarb 29. BUN 15. Creatinine 0.59. Glucose 336. Viral screen negative. Ultrasound of the chest revealed a 7.7 cm pleural effusion. She was initiated on ceftriaxone. She is seen today in consultation on the regular medical floor. She is currently sitting up in bed. Awake and alert in no acute distress. Still with some left-sided chest discomfort. He is maintaining good O2 saturations in the 90s on room air. She is currently afebrile. Slightly tachycardic. The patient is seen today November 20, 2023 in follow-up on the regular medical f juan jose. She is currently sitting up in a chair at the bedside. Awake and alert in no acute distress. She denies any worsening shortness of breath, cough or congestion. She is maintaining good O2 saturation in the 90s on room air. No fever or chills. Normal saline at 100 MLS per hour. She did undergo a left- sided thoracentesis yesterday with thick creamy purulent drainage noted. Urinalysis reveals greater than 565,000 WBCs. Total protein 3050. LDH greater than 2500. Exudate. White count 19.7. Hemoglobin 11.6. Platelets 489. Sodium 135. Potassium 3.5. Bicarb 27. BUN 11. Creatinine 0.6. Glucose 245. Chest x-ray shows ongoing moderate left pleural effusion with adjacent atelec tasis and/or consolidation. Trace right effusion. Blood culture, sputum culture and pleural fluid cultures are pending. She remains on vancomycin and Unasyn. Heparin for DVT prophylaxis. The patient is seen today November 21, 2023 and follow-up on the regular medical floor. She is awake and alert in no acute distress. Up in a chair. She did undergo left-sided pigtail catheter placement yesterday. She received lytic therapy today. Currently with 250 mL of purulent drainage within the Pleur- evac. Chest x-ray reveals left-sided pigtail catheter in place. No appreciable pneumothorax. Decreasing but still residual small to moderate left pleural effusion. Pleural fluid culture is positive for alphahemolytic Streptococcus. Blood cultures reveal no growth. Sputum culture revealed no growth. White count 15.3. Hemoglobin 12.4. Platelets 575. Sodium 137. Potassium 3.6. BUN 9.2. Creatinine 0.6. Glucose 260. AST 37. ALT 33. Vancomycin trough 8.3. She is continued on vancomycin and Unasyn. Heparin for DVT prophylaxis. Normal saline at 100 MLS per hour. The patient is seen today November 22, 2023 in follow-up on the regular medical floor. She remains awake and alert in no acute distress. No worsening shortness of breath, cough or congestion. Maintaining good O2 saturations in the 90s on room air. Left chest pigtail catheter remains in place with a total of 500 cc out now. She received lytics again this morning. Pleural fluid cultures are positive for alphahemolytic Streptococcus. Blood cultures revealed no growth. Sputum culture revealed no growth. White count 18.6. Hemoglobin 11.6. Platelets 577. Sodium 136. Potassium 3.3. Bicarb 26. BUN 8. Crea tinine 0.6. Glucose 245. She is continued on Unasyn, continued on bronchodilators. Heparin for DVT prophylaxis. The patient is seen today November 23, 2023 in follow-up on the regular medical floor. She is sitting up in a chair. Awake and alert in no acute distress. States she is feeling better each day. No worsening shortness of breath, cough or congestion. No fever or chills. Pleural fluid cultures positive for alphahemolytic Streptococcus. She received a third dose of lytics this morning. CT scan of the chest is pending. Stable and on room air. Remains on Unasyn. White count 14.5. Hemoglobin 12.0. Platelets 611. Sodium 138. Potassium 3.4. Bicarb 29. BUN 8. Creatinine 0.6. Glucose 205. Progress note dated November 24, 2023. The patient is seen today in room 456. She is on room air. She is not receiving any IV fluids. Her chest x-ray shows improvement, in that left chest area. The patient was been treated for an empyema. A pigtail catheter was placed. She has received at least 3 doses of tPA and alpha dornase. Clinically, she is doing well without complaints. Current laboratory data includes a white count of 13.9, hemoglobin 11, hematocrit 33.8, and a platelet count of 616,000. Sodium 138, potassium 3.4, chlorides 99, CO2 28, BUN 6.2, and creatinine 0.7. Glucose is 302. Pleural fluid analysis revealed evidence of alphahemolytic Streptococcus. The patient is currently on Unasyn. Objective - Vital Signs Vital signs: Vital Signs Temp 98.6 F 11/24/23 13:09 Pulse 111 H 11/24/23 13:09 Resp 17 11/24/23 13:09 BP 137/82 11/24/23 13:09 Pulse Ox 98 11/24/23 13:09 FiO2 21 11/20/23 08:19 Intake & Output 11/23/23 11/24/23 11/24/23 18:59 06:59 18:59 Intake Total 430 900 Output Total 400 60 Balance 30 840 Weight 45.359 kg Intake: Oral 430 900 Output: Chest Tube Drainage 400 60 Left Posterior Chest 400 60 Other: Voiding Method Toilet # Voids 1 3 - Exam No acute distress, oriented 3. No respiratory distress, currently on room air. HEENT examination is grossly unremarkable. Mucous membranes are moist. No oral lesions. Neck supple. Full range of motion. No adenopathy thyromegaly or neck vein distention. Cardiovascular examination reveals regular rhythm rate. S1-S2 normal. No S3 or S4. No discernible murmur noted. Heart rate 92 bpm. Lungs reveal manage breath sounds at the left base. Scattered rhonchi. No wheezes or crackles. Saturation is 98% on room air. Left-sided pigtail catheter is noted. Abdomen soft bowel sounds are heard. No masses or tenderness. Extremities are intact. No cyanosis clubbing or edema. Skin is without rash or lesion. Neurologic examination is brief but nonfocal. - Labs CBC & Chem 7: 11/24/23 07:51 11/24/23 07:51 Labs: Abnormal Lab Results - Last 24 Hours (Table) 11/19/23 11/23/23 11/23/23 Range/Units 10:45 17:05 20:39 WBC (4.50-10.00) X 10*3/uL RBC (4.10-5.20) X 10*6/uL Hgb (12.0-15.0) g/dL Hct (37.2-46.3) % Plt Count (140-440) X 10*3/uL Immature Gran # (0.00-0.04) X 10*3/uL Neutrophils # (1.80-7.70) X 10*3/uL Potassium (3.5-5.5) mmol/L BUN (9.0-27.0) mg/dL BUN/Creatinine Ratio (12.00-20.00) Ratio Glucose (70-110) mg/dL POC Glucose (mg/dL) 198 H 241 H (70-110) mg/dL Calcium (8.7-10.3) mg/dL Total Protein (6.2-8.2) g/dL Albumin (3.8-4.9) g/dL Albumin/Globulin Ratio (1.60-3.17) Ratio Pleur Adenosine Deamin 229 H (0-30) U/L 11/24/23 11/24/23 11/24/23 Range/Units 05:54 07:51 07:51 WBC 13.92 H (4.50-10.00) X 10*3/uL RBC 3.58 L (4.10-5.20) X 10*6/uL Hgb 11.0 L (12.0-15.0) g/dL Hct 33.8 L (37.2-46.3) % Plt Count 616 H (140-440) X 10*3/uL Immature Gran # 0.50 H (0.00-0.04) X 10*3/uL Neutrophils # 10.78 H (1.80-7.70) X 10*3/uL Potassium 3.4 L (3.5-5.5) mmol/L BUN 6.2 L (9.0-27.0) mg/dL BUN/Creatinine Ratio 8.86 L (12.00-20.00) Ratio Glucose 219 H (70-110) mg/dL POC Glucose (mg/dL) 190 H (70-110) mg/dL Calcium 8.4 L (8.7-10.3) mg/dL Total Protein 5.2 L (6.2-8.2) g/dL Albumin 2.7 L (3.8-4.9) g/dL Albumin/Globulin Ratio 1.08 L (1.60-3.17) Ratio Pleur Adenosine Deamin (0-30) U/L 11/24/23 Range/Units 11:25 WBC (4.50-10.00) X 10*3/uL RBC (4.10-5.20) X 10*6/uL Hgb (12.0-15.0) g/dL Hct (37.2-46.3) % Plt Count (140-440) X 10*3/uL Immature Gran # (0.00-0.04) X 10*3/uL Neutrophils # (1.80-7.70) X 10*3/uL Potassium (3.5-5.5) mmol/L BUN (9.0-27.0) mg/dL BUN/Creatinine Ratio (12.00-20.00) Ratio Glucose (70-110) mg/dL POC Glucose (mg/dL) 302 H (70-110) mg/dL Calcium (8.7-10.3) mg/dL Total Protein (6.2-8.2) g/dL Albumin (3.8-4.9) g/dL Albumin/Globulin Ratio (1.60-3.17) Ratio Pleur Adenosine Deamin (0-30) U/L Microbiology - Last 24 Hours (Table) 11/18/23 20:30 Blood Culture - Final Blood 11/18/23 20:21 Blood Culture - Final Blood Assessment and Plan Assessment: Left-sided chest pain secondary to a left pleural effusion. Status post left-sided thoracentesis today November 19, 2023 with 150 cc of thick creamy moreno fluid returned. Suspect empyema. Received a left-sided pigtail catheter placement on 11/20/2023. Lytics instilled on 11/21/2023. Approximately 250 mL of purulent drainage in the Pleur-evac thus far. Preliminary cultures revealing alpha hemolytic Streptococcus. Acute community-acquired pneumonia in the left lower lobe, empyema. Febrile illness secondary to above, recovered. Leukocytosis secondary to above, improving. Hyponatremia, recovered. Diabetes mellitus with hyperglycemia. Macular degeneration. Hyperlipidemia. Hypertension. Plan: Plan dated November 24, 2023. The patient appears to be doing relatively well. In my opinion, her most recent chest x-ray shows improvement. We will continue to follow the patient, make recommendations along the way. The patient continues on Unasyn for an alpha hemolytic streptococcal infection. The patient continues on room air. She is not receiving any IV fluids. All in all, she is progressing very nicely. Time with Patient: Less than 30
[2023-11-24 16:35] LABS: Glucose,Whole Blood 187 mg/dL (70-110)
--- NOTE | 2023-11-24 17:11 | CDI ---
Documentation Clarification Form Date: 11/24/2023 04:55:00 PM From: Cassie Torres RN CCDS Phone: [phone] Admit Date: 11/18/2023 11:24:00 PM Patient Name: Aliya Leiva Visit Number: [id number] Discharge Date: ATTENTION: The Clinical Documentation Specialists (CDI) and [facility] Coding Staff appreciate your assistance in clarifying documentation. Please respond to the clarification below the line at the bottom and electronically sign. The CDI & [facility] Coding staff will review the response and follow-up if needed. Please note: Queries are made part of the Legal Health Record. If you have any questions, please contact the author of this message via ITS. Dr. Jeffery Gandhi The patient has [insert documentation with location and date]. Based on this information and the findings below, is there an additional diagnosis that is clinically appropriate for this patient? History/Risk Factors: 70 year old female presents to the ED with muscle aches and shaking febrile and chest pain for one week with shortness of breath. Medical History: COPD, Asthma, DM, HTN and COPD. 11/18, H&P. Clinical Indicators: WBC, 11/17: 30.8 Body Fluid Culture, 11/18: Alpha Hemolytic Streptococcus Vitals signs, 11/17: B/P 157/77; HR 128; Temp 99.0 F Oral; RR 22; SpO2 93% RA ID consult, 11/20: Patient was in the hospital with sepsis in this patient who did have a low grade fever tachycardia elevated white count source is left sided pneumonia with a par pneumonic effusion/empyema in this patient was status post thoracentesis followed by chest tube placement cultures currently growing alpha hemolytic streptococcus. Treatment: ID Consult: ID See above Antibiotics 11/18 Ampicillin Sodium/Sulbactam 3gm 100mls @ 200mls/hr IVP Q8H; 11/17 Rocephin 2,000mg IVP x 1; 11/18 - 11/20 Vancomycin 750mg 250mls@ 125mls/hr IV Q12H; 11/20 Vancomycin 1,000mg 250mls@ 125mls/hr IV x 1; IV Bolus: 11/17 0.9NS 500cc IV bolus X 1; Is there an additional diagnosis that is clinically appropriate for this patient? [ x ] Sepsis, present on admission [ ] Sepsis, developed during stay, not present on admission [ ] No additional diagnosis/not clinically significant [ ] Other, please specify [ ] Unable to determine SIRS Criteria: 2 or more of the following may indicate SIRS Temperature < 96.8F (36C) or > 101.0F (38.3C) Heart Rate > 90 bpm Respiratory Rate > 20 breaths/min or PaCO2 < 32 mmHg White Blood Cell Count > 12,000 or < 4,000 cells/mm3 or > 10% bands (Template Last Reviewed: July 2022) MTDD
[2023-11-24] MEDS: ALTEPLASE 10 MG in SODIUM CHLORIDE 0.9% 50 ML IRRIGATION ONE (18:42)
[2023-11-24] MEDS: DORNASE ALFA 5 MG in SODIUM CHLORIDE 0.9% 50 ML IRRIGATION ONE (18:42)
[2023-11-24 19:53] LABS: Glucose,Whole Blood 180 mg/dL (70-110)
--- NOTE | 2023-11-24 21:45 | P.PN ---
Subjective Progress Note Date: 11/24/23 Principal diagnosis: Reason for follow-up is empyema Patient is a 78-year-old female with a past medical history significant for diabetes mellitus hypertension hyperlipidemia asthma, presented to the hospital left-sided chest pain increasing shortness of breath and cough has been diagnosed with pneumonia/empyema, status post chest tube placement. On today's evaluation that is 11/24/2023, the patient continues to be afebrile, the patient is on room air and breathing comfortably, the Pt left-sided chest pain has decreased except at the site of insertion of the tube breathing has improved denies any worsening cough or sputum production no abdominal pain no diarrhea. The patient white count is down to 13.92, creatinine is 0.7 Objective - Vital Signs Vital signs: Vital Signs Temp 98.6 F 11/24/23 13:09 Pulse 104 H 11/24/23 19:22 Resp 17 11/24/23 13:09 BP 137/82 11/24/23 13:09 Pulse Ox 98 11/24/23 13:09 FiO2 21 11/20/23 08:19 Intake & Output 11/24/23 11/24/23 11/25/23 06:59 18:59 06:59 Intake Total 900 1060 Output Total 60 0 Balance 840 1060 0 Intake: Intake, IV Titration 100 Amount Ampicillin-Sulbactam 3 gm 100 In Sodium Chloride 0.9% 100 ml @ 200 mls/hr IVPB Q8H [facility] Rx#:[id number] Oral 900 960 Output: Chest Tube Drainage 60 0 Left Posterior Chest 60 0 Other: # Voids 3 4 - Exam GENERAL DESCRIPTION: An elderly female lying in bed in no distress RESPIRATORY SYSTEM: Unlabored breathing , decreased breath sounds at bases HEART: S1 S2 regular rate and rhythm , ABDOMEN: Soft , no tenderness EXTREMITIES: No edema feet - Labs CBC & Chem 7: 11/24/23 07:51 11/24/23 07:51 Labs: Abnormal Lab Results - Last 24 Hours (Table) 11/24/23 11/24/23 11/24/23 Range/Units 05:54 07:51 07:51 WBC 13.92 H (4.50-10.00) X 10*3/uL RBC 3.58 L (4.10-5.20) X 10*6/uL Hgb 11.0 L (12.0-15.0) g/dL Hct 33.8 L (37.2-46.3) % Plt Count 616 H (140-440) X 10*3/uL Immature Gran # 0.50 H (0.00-0.04) X 10*3/uL Neutrophils # 10.78 H (1.80-7.70) X 10*3/uL Potassium 3.4 L (3.5-5.5) mmol/L BUN 6.2 L (9.0-27.0) mg/dL BUN/Creatinine Ratio 8.86 L (12.00-20.00) Ratio Glucose 219 H (70-110) mg/dL POC Glucose (mg/dL) 190 H (70-110) mg/dL Calcium 8.4 L (8.7-10.3) mg/dL Total Protein 5.2 L (6.2-8.2) g/dL Albumin 2.7 L (3.8-4.9) g/dL Albumin/Globulin Ratio 1.08 L (1.60-3.17) Ratio 11/24/23 11/24/23 11/24/23 Range/Units 11:25 16:34 19:51 WBC (4.50-10.00) X 10*3/uL RBC (4.10-5.20) X 10*6/uL Hgb (12.0-15.0) g/dL Hct (37.2-46.3) % Plt Count (140-440) X 10*3/uL Immature Gran # (0.00-0.04) X 10*3/uL Neutrophils # (1.80-7.70) X 10*3/uL Potassium (3.5-5.5) mmol/L BUN (9.0-27.0) mg/dL BUN/Creatinine Ratio (12.00-20.00) Ratio Glucose (70-110) mg/dL POC Glucose (mg/dL) 302 H 187 H 180 H (70-110) mg/dL Calcium (8.7-10.3) mg/dL Total Protein (6.2-8.2) g/dL Albumin (3.8-4.9) g/dL Albumin/Globulin Ratio (1.60-3.17) Ratio Microbiology - Last 24 Hours (Table) 04/20/24 20:30 Blood Culture - Final Blood 11/18/23 20:21 Blood Culture - Final Blood Assessment and Plan (1) Empyema Current Visit: Yes Status: Acute Code(s): J86.9 - PYOTHORAX WITHOUT FISTULA SNOMED Code(s): 380579306 (2) Left lower lobe pneumonia Current Visit: Yes Status: Acute Code(s): J18.9 - PNEUMONIA, UNSPECIFIED ORGANISM SNOMED Code(s): 723279146 (3) Leukocytosis Current Visit: Yes Status: Acute Code(s): D72.829 - ELEVATED WHITE BLOOD CELL COUNT, UNSPECIFIED SNOMED Code(s): 046751588 Plan: 1patient was in the hospital with sepsis in this patient who did have a low- grade fever tachycardia elevated white count source is left-sided pneumonia with a parapneumonic effusion/empyema in this patient was status post thoracocentesis followed by chest tube placement cultures currently growing alphahemolytic Streptococcus 2-patient is afebrile patient white count is trending down we will continue patient on Unasyn while inpatient and monitor clinical course closely Dictation was produced using [employer] dictation software. please excuse any grammatical, word or spelling errors. Time with Patient: Less than 30
[2023-11-25 06:39] LABS: Glucose,Whole Blood 192 mg/dL (70-110)
--- NOTE | 2023-11-25 08:25 | XR ---
EXAMINATION TYPE: XR chest 1V portable DATE OF EXAM: 11/25/2023 Comparison: 11/24/2023 Clinical History: 78-year-old female right pleural effusion Findings: Upper normal size. Hyperinflation. Trace right effusion. Small left pleural effusion with pigtail ple ural catheter are similar. Impression: COPD with similar small left effusion with pigtail pleural catheter in place. Trace right effusion green spected as well.
[2023-11-25 09:28] LABS: Basophils # (A) 0.09 X 10*3/uL (0.00-0.10); Basophils % (A) 0.5 %; Eosinophils # (A) 0.13 X 10*3/uL (0.04-0.35); Eosinophils % (A) 0.8 %; HCT 31.5 % (37.2-46.3); HGB 10.2 g/dL (12.0-15.0); Lymphocytes # (A) 1.82 X 10*3/uL (0.90-5.00); Lymphocytes % (A) 10.6 %; MCH 30.3 pg (27.0-32.0); MCHC 32.4 g/dL (32.0-37.0); MCV 93.5 FL (80.0-97.0); Mean Platelet Volume 11.5 FL (9.5-12.2); Monocytes % (A) 5.8 %; NRBC Per 100 WBC 0 X 10*3/uL (0.00-0.01); Neutrophils # (A) 13.74 X 10*3/uL (1.80-7.70); Neutrophils % (A) 80.3 %; Platelet Count 588 X 10*3/uL (140-440); RBC 3.37 X 10*6/uL (4.10-5.20); RDW 13.2 % (11.5-14.5); WBC 17.13 X 10*3/uL (4.50-10.00)
[2023-11-25 09:48] LABS: ALT 28 U/L (8-44); AST 39 U/L (13-35); Albumin 2.7 g/dL (3.8-4.9); Albumin/Globulin Ratio 1.08 Ratio (1.60-3.17); Alkaline Phosphatase 131 U/L (41-126); Blood Urea Nitrogen 6.9 mg/dL (9.0-27.0); Calcium 8.4 mg/dL (8.7-10.3); Carbon Dioxide 27.4 mmol/L (21.6-31.8); Chloride 97 mmol/L (96-109); Globulin 2.5 g/dL (1.6-3.3); Glucose 212 mg/dL (70-110); Potassium 3.9 mmol/L (3.5-5.5); Sodium 137 mmol/L (135-145); Total Bilirubin 0.4 mg/dL (0.3-1.2); Total Protein 5.2 g/dL (6.2-8.2)
--- NOTE | 2023-11-25 11:05 | P.PN ---
Subjective Progress Note Date: 11/25/23 Principal diagnosis: Left-sided pleural effusion status post thoracentesis, leukocytosis, hyponatremia. History of hypertension, hyperlipidemia, asthma, diabetes, previous light tobacco dependence with cessation many years ago, family history of cancer. POD# #4 placement of an 8.5 Yoruba pigtail drainage catheter into the patient's left-sided empyema via ultrasound guidance by interventional radiology. The patient was seen and examined in follow-up today November 25, 2023 at her bedside on the fourth floor medical surgical unit. She is currently sitting up to the bedside chair, is awake, alert, oriented x 3 and is in no acute apparent distress. Denies any complaints of pain or shortness of breath at this time. She does complain of a chronic productive cough with blood-tinged sputum. Oxygen saturations are 94% on room air and she is achieving 750 mL on her incentive spirometry with encouragement. Left-sided pigtail catheter remains in place to low continuous wall suction -20 cm H2O. No air leak is present. She was instilled with a fourth total dose dose of pleural instillation yesterday alteplase/dornase. The pigtail catheter was clamped for 1 hour and the patient rotated from left side, right side, supine and prone as tolerated. The pigtail catheter has drained 300 mL of thin serosanguineous drainage in the last 24 hours. Chest x-ray results reviewed. Objective - Vital Signs Vital signs: Vital Signs Temp 98.3 F 11/25/23 07:41 Pulse 112 H 11/25/23 07:41 Resp 18 11/25/23 07:41 BP 152/87 11/25/23 07:41 Pulse Ox 95 11/25/23 07:41 FiO2 21 11/20/23 08:19 Intake & Output 11/24/23 11/25/23 11/25/23 18:59 06:59 18:59 Intake Total 1060 860 Output Total 320 Balance 1060 540 Intake: Intake, IV Titration 100 Amount Ampicillin-Sulbactam 3 gm 100 In Sodium Chloride 0.9% 100 ml @ 200 mls/hr IVPB Q8H [facility] Rx#:[id number] Oral 960 860 Output: Chest Tube Drainage 320 Left Posterior Chest 320 Other: Voiding Method Toilet # Voids 4 2 - Exam CONSTITUTIONAL: Appears comfortable, cooperative, no acute distress RESPIRATORY: Lungs sounds diminished in the left base. Respirations symmetrical, nonlabored. Currently on room air with oxygen saturation 98%. Achieving 750 mL on her incentive spirometry CARDIOVASCULAR: S1, S2 present. Tachycardic, regular rate and rhythm. Palpable peripheral pulses bilaterally. No edema present. No calf pain or tenderness noted. SCDs present. GASTROINTESTINAL: Abdomen soft, nontender, nondistended. Active bowel sounds present 4 quadrants. Tolerating diet. GENITOURINARY: Continues to void. INTEGUMENTARY: Skin is warm and dry, no clubbing or cyanosis is present. Left chest pigtail catheter site dressing clean, dry and intact. NEUROLOGIC: Cranial nerves II through XII intact. No focal deficits. MUSKULOSKELETAL: Able to move all extremities, strength equal bilaterally, gait normal. PSYCHIATRIC: Alert and oriented to person place and time, appropriate affect, intact judgment and insight. INVASIVE LINES AND TUBES: Left pigtail catheter present, no air leaks present, 160 mL purulent drainage overnight, 300 mL in the last 24 hours - Allied health notes Allied health notes reviewed: nursing - Labs CBC & Chem 7: 11/25/23 03:55 11/25/23 03:55 Labs: Abnormal Lab Results - Last 24 Hours (Table) 11/24/23 11/24/23 11/24/23 Range/Units 07:51 11:25 16:34 WBC (4.50-10.00) X 10*3/uL RBC (4.10-5.20) X 10*6/uL Hgb (12.0-15.0) g/dL Hct (37.2-46.3) % Plt Count (140-440) X 10*3/uL Immature Gran # (0.00-0.04) X 10*3/uL Neutrophils # (1.80-7.70) X 10*3/uL Potassium 3.4 L (3.5-5.5) mmol/L Anion Gap (4.00-12.00) mmol/L BUN 6.2 L (9.0-27.0) mg/dL BUN/Creatinine Ratio 8.86 L (12.00-20.00) Ratio Glucose 219 H (70-110) mg/dL POC Glucose (mg/dL) 302 H 187 H (70-110) mg/dL Calcium 8.4 L (8.7-10.3) mg/dL AST (13-35) U/L Alkaline Phosphatase (41-126) U/L Total Protein 5.2 L (6.2-8.2) g/dL Albumin 2.7 L (3.8-4.9) g/dL Albumin/Globulin Ratio 1.08 L (1.60-3.17) Ratio 11/24/23 11/25/23 11/25/23 Range/Units 19:51 03:55 03:55 WBC 17.13 H (4.50-10.00) X 10*3/uL RBC 3.37 L (4.10-5.20) X 10*6/uL Hgb 10.2 L (12.0-15.0) g/dL Hct 31.5 L (37.2-46.3) % Plt Count 588 H (140-440) X 10*3/uL Immature Gran # 0.35 H (0.00-0.04) X 10*3/uL Neutrophils # 13.74 H (1.80-7.70) X 10*3/uL Potassium (3.5-5.5) mmol/L Anion Gap 12.60 H (4.00-12.00) mmol/L BUN 6.9 L (9.0-27.0) mg/dL BUN/Creatinine Ratio 11.50 L (12.00-20.00) Ratio Glucose 212 H (70-110) mg/dL POC Glucose (mg/dL) 180 H (70-110) mg/dL Calcium 8.4 L (8.7-10.3) mg/dL AST 39 H (13-35) U/L Alkaline Phosphatase 131 H (41-126) U/L Total Protein 5.2 L (6.2-8.2) g/dL Albumin 2.7 L (3.8-4.9) g/dL Albumin/Globulin Ratio 1.08 L (1.60-3.17) Ratio 11/25/23 Range/Units 06:37 WBC (4.50-10.00) X 10*3/uL RBC (4.10-5.20) X 10*6/uL Hgb (12.0-15.0) g/dL Hct (37.2-46.3) % Plt Count (140-440) X 10*3/uL Immature Gran # (0.00-0.04) X 10*3/uL Neutrophils # (1.80-7.70) X 10*3/uL Potassium (3.5-5.5) mmol/L Anion Gap (4.00-12.00) mmol/L BUN (9.0-27.0) mg/dL BUN/Creatinine Ratio (12.00-20.00) Ratio Glucose (70-110) mg/dL POC Glucose (mg/dL) 192 H (70-110) mg/dL Calcium (8.7-10.3) mg/dL AST (13-35) U/L Alkaline Phosphatase (41-126) U/L Total Protein (6.2-8.2) g/dL Albumin (3.8-4.9) g/dL Albumin/Globulin Ratio (1.60-3.17) Ratio Microbiology - Last 24 Hours (Table) 11/18/23 20:30 Blood Culture - Final Blood 11/18/23 20:21 Blood Culture - Final Blood - Imaging and Cardiology Chest x-ray: report reviewed, image reviewed Assessment and Plan Assessment: Left-sided pleural effusion/empyema, status post thoracentesis with removal of 150 mL purulent drainage, status post pigtail catheter placement Leukocytosis, likely due to pneumonia Hyponatremia Fever, chest pain, shortness of breath secondary to above History of hypertension Hyperlipidemia Asthma Diabetes Previous light tobacco dependence with cessation many years ago Family history of cancer Plan: Fifth dose alteplase/dornase pleural instillation to left chest pigtail catheter, catheter clamped, will allow lytics to dwell for [address] of chest results remain pending. No surgical intervention warranted at this point, although if patient's effusion does not improve will consider possible VATS with decortication. Continue antibiotics per ID recommendations. Increase activity as tolerated. Incentive spirometry encouraged 10 times every hour while awake. Medical management of other comorbidities per internal medicine, pulmonology. More recommendations to follow based on patient's clinical course. Time with Patient: Greater than 30
[2023-11-25 11:13] LABS: Glucose,Whole Blood 338 mg/dL (70-110)
[2023-11-25] MEDS: DORNASE ALFA 5 MG in SODIUM CHLORIDE 0.9% 50 ML IRRIGATION ONE (11:16)
[2023-11-25] MEDS: ALTEPLASE 10 MG in SODIUM CHLORIDE 0.9% 50 ML IRRIGATION ONE (11:17)
[2023-11-25] MEDS: guaiFENesin 600 MG TABLET.ER PO SCH (11:47)
--- NOTE | 2023-11-25 12:59 | P.PN ---
Subjective Progress Note Date: 11/25/23 Aliya Leiva, is a 78-year-old female patient of Dr. Valderrama who presented to the ER with complaints of muscle aches and shaking febrile and chest pain that has been occurring over the past week. Patient states she's had some external shortness of breath and poor oral intake. Patient has past medical history of asthma, diabetes mellitus, I disorder, hyperlipidemia and hypertension.chest x- ray completed showing COPD with continued moderate left pleural effusion. Lab work revealing a WBC of 30.8, sodium 127, creatinine 0.56. Troponin negative. D-dimer elevated at 3.10CT of the chest completed showing no acute pulmonary embolism. Airspace consolidation in the left lower lobe consistent with lobar pneumonia.influenza, RSV and COVID-19 negative.at this time patient was admitted. Patient started on IV antibiotics. Pulmonary service is consulted. Blood culture and sputum culture ordered repeat labs ordered. At this time patient is sitting up in chair. Current vital signs temp 90.6, heart rate 103, blood pressure 129/70 fourth pulse ox 93% on room air. ultrasound of chest has been ordered per pulmonary for possible pleurocentesis. on 11/20/2023 patient was seen and examined on the medical floor, she is alert and oriented 3 in no apparent distress, she is complaining of cough and shortness of breath, with mild improvement since yesterday, otherwise she denies any complaints there is no fever or chills no headache or dizziness no chest pain, no nausea or vomiting no abdominal pain no diarrhea no blood in the stools no burning with urination no frequency or urgency and no hematuria.. Patient remains on IV antibiotic Unasyn and vancomycin, awaiting culture results. left sided chest tube remains in place. On 11/21/2023 patient's alert and oriented 3. Patient reports improvement from yesterday. Patient remains on IV antibiotics. Discussed case with cardio thoracic surgery continue current plan of altaplase through pigtail. Chest tube remains in placecurrent vital signs temp 98.0, heart rate 101, respiratory rate 18, blood pressure 131/76 with pulse ox of 95%.white blood cell trending down 15.34. Patient remains on vancomycin and Unasyn. On 11/22/2023 patient's alert and oriented 3.Patient reports improvement from yesterday. Chest tube remains in place patient remains on IV antibiotics. Pulmonary, cardiothoracic infectious disease service is following.Current vital signs temp 97.6, heart rate 98, respiratory rate 17, blood pressure 126/73 with a pulse ox 95% on room air Patient denies chest pain or shortness of breath. Patient denies any nausea vomiting or diarrhea. Patient denies any urinary burning or frequency On 11/23/2023 patient was seen and examined on the medical floor she is alert and oriented 3 in no apparent distress, she is complaining of mild pain at the site of the chest tube, otherwise she denies any complaints there is no fever or chills no headache or dizziness no chest pain, No shortness of breath no cough no nausea or vomiting no abdominal pain no diarrhea and no urinary symptoms On 11/24/2023 patient is alert and oriented 3. Patient states she is feeling improved. Patient will need outpatient IV antibiotics per ID recommendation PICC line has been placed. Continue TPA administration her cardiothoracic param lucio. Chest tube remains in place on 11/25/2023 patient was seen and examined on the medical floor, she is alert and oriented 3 in no apparent distress, she is complaining of mild pain at the site of the chest to, otherwise she denies any complaints, her vital exam reveals a temperature of 98.3 pulse 112 respiration 18 blood pressure 152/87 pulse ox 95% on room air, laboratory data reveals a white blood count of 17.13 hemoglobin 10.2 platelet count 588 BUN 6.9 creatinine 0.6 patient remains on IV Unasyn, she is followed by pulmonary, infectious disease, and thoracic surgery, she is improving gradually, will continue to follow closely. Objective - Vital Signs Vital signs: Vital Signs Temp 98.3 F 11/25/23 07:41 Pulse 112 H 11/25/23 07:41 Resp 18 11/25/23 07:41 BP 152/87 11/25/23 07:41 Pulse Ox 95 11/25/23 07:41 FiO2 21 11/20/23 08:19 Intake & Output 11/24/23 11/25/23 11/25/23 18:59 06:59 18:59 Intake Total 1060 860 Output Total 320 Balance 1060 540 Intake: Intake, IV Titration 100 Amount Ampicillin-Sulbactam 3 gm 100 In Sodium Chloride 0.9% 100 ml @ 200 mls/hr IVPB Q8H [facility] Rx#:[id number] Oral 960 860 Output: Chest Tube Drainage 320 Left Posterior Chest 320 Other: Voiding Method Toilet # Voids 4 2 - Exam In general patient is alert and oriented x 3 in no distress HEENT head normocephalic and atraumatic Neck is supple no JVD no goiter no lymphadenopathy no carotid bruit Chest examination reveals a scattered crackles in both lung [place] no wheezing Cardiac exam reveals regular heart sounds S1 and S2 no gallops no murmurs Abdomen is soft nontender no organomegaly with normal bowel sounds Extremity exam reveals no edema no cyanosis or clubbing Neurological examination reveals no gross focal deficits - Labs CBC & Chem 7: 11/25/23 03:55 11/25/23 03:55 Labs: Abnormal Lab Results - Last 24 Hours (Table) 11/24/23 11/24/23 11/24/23 Range/Units 07:51 07:51 11:25 WBC 13.92 H (4.50-10.00) X 10*3/uL RBC 3.58 L (4.10-5.20) X 10*6/uL Hgb 11.0 L (12.0-15.0) g/dL Hct 33.8 L (37.2-46.3) % Plt Count 616 H (140-440) X 10*3/uL Immature Gran # 0.50 H (0.00-0.04) X 10*3/uL Neutrophils # 10.78 H (1.80-7.70) X 10*3/uL Potassium 3.4 L (3.5-5.5) mmol/L Anion Gap (4.00-12.00) mmol/L BUN 6.2 L (9.0-27.0) mg/dL BUN/Creatinine Ratio 8.86 L (12.00-20.00) Ratio Glucose 219 H (70-110) mg/dL POC Glucose (mg/dL) 302 H (70-110) mg/dL Calcium 8.4 L (8.7-10.3) mg/dL AST (13-35) U/L Alkaline Phosphatase (41-126) U/L Total Protein 5.2 L (6.2-8.2) g/dL Albumin 2.7 L (3.8-4.9) g/dL Albumin/Globulin Ratio 1.08 L (1.60-3.17) Ratio 11/24/23 11/24/23 11/25/23 Range/Units 16:34 19:51 03:55 WBC 17.13 H (4.50-10.00) X 10*3/uL RBC 3.37 L (4.10-5.20) X 10*6/uL Hgb 10.2 L (12.0-15.0) g/dL Hct 31.5 L (37.2-46.3) % Plt Count 588 H (140-440) X 10*3/uL Immature Gran # 0.35 H (0.00-0.04) X 10*3/uL Neutrophils # 13.74 H (1.80-7.70) X 10*3/uL Potassium (3.5-5.5) mmol/L Anion Gap (4.00-12.00) mmol/L BUN (9.0-27.0) mg/dL BUN/Creatinine Ratio (12.00-20.00) Ratio Glucose (70-110) mg/dL POC Glucose (mg/dL) 187 H 180 H (70-110) mg/dL Calcium (8.7-10.3) mg/dL AST (13-35) U/L Alkaline Phosphatase (41-126) U/L Total Protein (6.2-8.2) g/dL Albumin (3.8-4.9) g/dL Albumin/Globulin Ratio (1.60-3.17) Ratio 11/25/23 11/25/23 Range/Units 03:55 06:37 WBC (4.50-10.00) X 10*3/uL RBC (4.10-5.20) X 10*6/uL Hgb (12.0-15.0) g/dL Hct (37.2-46.3) % Plt Count (140-440) X 10*3/uL Immature Gran # (0.00-0.04) X 10*3/uL Neutrophils # (1.80-7.70) X 10*3/uL Potassium (3.5-5.5) mmol/L Anion Gap 12.60 H (4.00-12.00) mmol/L BUN 6.9 L (9.0-27.0) mg/dL BUN/Creatinine Ratio 11.50 L (12.00-20.00) Ratio Glucose 212 H (70-110) mg/dL POC Glucose (mg/dL) 192 H (70-110) mg/dL Calcium 8.4 L (8.7-10.3) mg/dL AST 39 H (13-35) U/L Alkaline Phosphatase 131 H (41-126) U/L Total Protein 5.2 L (6.2-8.2) g/dL Albumin 2.7 L (3.8-4.9) g/dL Albumin/Globulin Ratio 1.08 L (1.60-3.17) Ratio Microbiology - Last 24 Hours (Table) 11/18/23 20:30 Blood Culture - Final Blood 11/18/23 20:21 Blood Culture - Final Blood Assessment and Plan Assessment: 1. Left lower lobe pneumonia 2. Leukocytosis secondary to above 3. Pleural effusion status post pleurocentesis with purulent drainage esuspect empyema 4. Hyponatremia secondary to dehydration 5. Elevated d-dimer. CTA negative for PE 6. History of asthma 7. History of diabetes mellitus. Patient on sliding scale coverage 8. History of macular degeneration 9. History of hyperlipidemia 10. History of essential hypertension DVT prophylaxis heparin. GI prophylaxis Protonix Pulmonary service is consulted cardiothoracic following Sputum and blood cultures ordered Patient started on IV antibiotics PICC line placed for IV antibiotics repeat labs ordered
--- NOTE | 2023-11-25 15:14 | P.PN ---
Subjective Progress Note Date: 11/25/23 This is a very pleasant 78-year-old female patient with a history of asthma, diabetes mellitus, hypertension, hyperlipidemia, macular degeneration, former smoker. About 1 week ago she had a day where she developed shortness of breath left-sided chest discomfort shivers and shaking and a temperature of 102. She thought that it would go away and proceeded throughout the next few days however she was getting some exertional dyspnea and poor appetite and presented here to the emergency room yesterday. She denied any recent travel. No sick contacts. Chest x-ray revealed a left-sided infiltrate/effusion and airspace consolidation consistent with lobar pneumonia. CT angiogram ruled out pulmonary embolism. White count 28.3. Hemoglobin 12.5. Platelets 528. Sodium 129. Potassium 3.7. Bicarb 29. BUN 15. Creatinine 0.59. Glucose 336. Viral screen negative. Ultrasound of the chest revealed a 7.7 cm pleural effusion. She was initiated on ceftriaxone. She is seen today in consultation on the regular medical floor. She is currently sitting up in bed. Awake and alert in no acute distress. Still with some left-sided chest discomfort. He is maintaining good O2 saturations in the 90s on room air. She is currently afebrile. Slightly tachycardic. The patient is seen today November 20, 2023 in follow-up on the regular medical floor. She is currently sitting up in a chair at the bedside. Awake and alert in no acute distress. She denies any worsening shortness of breath, cough or congestion. She is maintaining good O2 saturation in the 90s on room air. No fever or chills. Normal saline at 100 MLS per hour. She did undergo a left- sided thoracentesis yesterday with thick creamy purulent drainage noted. Urinalysis reveals greater than 565,000 WBCs. Total protein 3050. LDH greater than 2500. Exudate. White count 19.7. Hemoglobin 11.6. Platelets 489. Sodium 135. Potassium 3.5. Bicarb 27. BUN 11. Creatinine 0.6. Glucose 245. Chest x-ray shows ongoing moderate left pleural effusion with adjacent atelectasis and/or consolidation. Trace right effusion. Blood culture, sputum culture and pleural fluid cultures are pending. She remains on vancomycin and Unasyn. Heparin for DVT prophylaxis. The patient is seen today November 21, 2023 and follow-up on the regular medical floor. She is awake and alert in no acute distress. Up in a chair. She did undergo left-sided pigtail catheter placement yesterday. She received lytic therapy today. Currently with 250 mL of purulent drainage within the Pleur- evac. Chest x-ray reveals left-sided pigtail catheter in place. No appreciable pneumothorax. Decreasing but still residual small to moderate left pleural effusion. Pleural fluid culture is positive for alphahemolytic Streptococcus. Blood cultures reveal no growth. Sputum culture revealed no growth. White count 15.3. Hemoglobin 12.4. Platelets 575. Sodium 137. Potassium 3.6. BUN 9.2. Creatinine 0.6. Glucose 260. AST 37. ALT 33. Vancomycin trough 8.3. She is continued on vancomycin and Unasyn. Heparin for DVT prophylaxis. Normal saline at 100 MLS per hour. The patient is seen today November 22, 2023 in follow-up on the regular medical floor. She remains awake and alert in no acute distress. No worsening shortness of breath, cough or congestion. Maintaining good O2 saturations in the 90s on room air. Left chest pigtail catheter remains in place with a total of 500 cc out now. She received lytics again this morning. Pleural fluid cultures are positive for alphahemolytic Streptococcus. Blood cultures revealed no growth. Sputum culture revealed no growth. White count 18.6. Hemoglobin 11.6. Platelets 577. Sodium 136. Potassium 3.3. Bicarb 26. BUN 8. Creatinine 0.6. Glucose 245. She is continued on Unasyn, continued on bronchodilators. Heparin for DVT prophylaxis. The patient is seen today November 23, 2023 in follow-up on the regular medical floor. She is sitting up in a chair. Awake and alert in no acute distress. States she is feeling better each day. No worsening shortness of breath, cough or congestion. No fever or chills. Pleural fluid cultures positive for alphahemolytic Streptococcus. She received a third dose of lytics this morning. CT scan of the chest is pending. Stable and on room air. Remains on Unasyn. White count 14.5. Hemoglobin 12.0. Platelets 611. Sodium 138. Potassium 3.4. Bicarb 29. BUN 8. Creatinine 0.6. Glucose 205. Progress note dated November 24, 2023. The patient is seen today in room 456. She is on room air. She is not receiving any IV fluids. Her chest x-ray shows improvement, in that left chest area. The patient was been treated for an empyema. A pigtail catheter was placed. She has received at least 3 doses of tPA and alpha dornase. Clin ically, she is doing well without complaints. Current laboratory data includes a white count of 13.9, hemoglobin 11, hematocrit 33.8, and a platelet count of 616,000. Sodium 138, potassium 3.4, chlorides 99, CO2 28, BUN 6.2, and creatinine 0.7. Glucose is 302. Pleural fluid analysis revealed evidence of alphahemolytic Streptococcus. The patient is currently on Unasyn. The patient is seen today November 25, 2023 in follow-up on the regular medical floor. She is currently sitting up in a chair at the bedside. Awake and alert in no acute distress. Maintaining good O2 saturations in the 90s on room air. Chest x-ray is similar with left lower lobe effusion. She has been followed by CT services who attempted to inject lytics again today. It causes her to cough and have discomfort. Pleural fluid culture was positive for alphahemolytic Streptococcus. She remains on Unasyn. White count 17.1. Hemoglobin 10.2. Platelets 588. Sodium 137. Potassium 3.9. Bicarb 27. BUN 7. Creatinine 0.6. Glucose 212. Continued on bronchodilators and Mucinex. Heparin for DVT prophylaxis. Objective - Vital Signs Vital signs: Vital Signs Temp 98.3 F 11/25/23 07:41 Pulse 112 H 11/25/23 07:41 Resp 18 11/25/23 07:41 BP 152/87 11/25/23 07:41 Pulse Ox 95 11/25/23 07:41 FiO2 21 11/20/23 08:19 Intake & Output 11/24/23 11/25/23 11/25/23 18:59 06:59 18:59 Intake Total 1060 860 Output Total 320 Balance 1060 540 Intake: Intake, IV Titration 100 Amount Ampicillin-Sulbactam 3 gm 100 In Sodium Chloride 0.9% 100 ml @ 200 mls/hr IVPB Q8H CHARLES Rx#:[id number] Oral 960 860 Output: Chest Tube Drainage 320 Left Posterior Chest 320 Other: Voiding Method Toilet # Voids 4 2 - Exam GENERAL EXAM: Alert, very pleasant 78-year-old female, up in a chair, on room air, comfortable in no apparent distress. HEAD: Normocephalic. EYES: Normal reaction of pupils, equal size. NOSE: Clear with pink turbinates. THROAT: No erythema or exudates. NECK: No masses, no JVD. CHEST: No chest wall deformity. LUNGS: Equal air entry with crackles, dullness in the left base. Left-sided pigtail catheter in place to Pleur-evac and -20 cm of water wall suction CVS: S1 and S2 normal with no audible murmur, regular rhythm. ABDOMEN: No hepatosplenomegaly, normal bowel sounds, no guarding or rigidity. SPINE: No scoliosis or deformity SKIN: No rashes CENTRAL NERVOUS SYSTEM: No focal deficits, tone is normal in all 4 extremities. EXTREMITIES: There is no peripheral edema. No clubbing, no cyanosis. Peripheral pulses are intact. - Labs CBC & Chem 7: 11/25/23 03:55 11/25/23 03:55 Labs: Abnormal Lab Results - Last 24 Hours (Table) 11/24/23 11/24/23 11/25/23 Range/Units 16:34 19:51 03:55 WBC 17.13 H (4.50-10.00) X 10*3/uL RBC 3.37 L (4.10-5.20) X 10*6/uL Hgb 10.2 L (12.0-15.0) g/dL Hct 31.5 L (37.2-46.3) % Plt Count 588 H (140-440) X 10*3/uL Immature Gran # 0.35 H (0.00-0.04) X 10*3/uL Neutrophils # 13.74 H (1.80-7.70) X 10*3/uL Anion Gap (4.00-12.00) mmol/L BUN (9.0-27.0) mg/dL BUN/Creatinine Ratio (12.00-20.00) Ratio Glucose (70-110) mg/dL POC Glucose (mg/dL) 187 H 180 H (70-110) mg/dL Calcium (8.7-10.3) mg/dL AST (13-35) U/L Alkaline Phosphatase (41-126) U/L Total Protein (6.2-8.2) g/dL Albumin (3.8-4.9) g/dL Albumin/Globulin Ratio (1.60-3.17) Ratio 11/25/23 11/25/23 11/25/23 Range/Units 03:55 06:37 11:11 WBC (4.50-10.00) X 10*3/uL RBC (4.10-5.20) X 10*6/uL Hgb (12.0-15.0) g/dL Hct (37.2-46.3) % Plt Count (140-440) X 10*3/uL Immature Gran # (0.00-0.04) X 10*3/uL Neutrophils # (1.80-7.70) X 10*3/uL Anion Gap 12.60 H (4.00-12.00) mmol/L BUN 6.9 L (9.0-27.0) mg/dL BUN/Creatinine Ratio 11.50 L (12.00-20.00) Ratio Glucose 212 H (70-110) mg/dL POC Glucose (mg/dL) 192 H 338 H (70-110) mg/dL Calcium 8.4 L (8.7-10.3) mg/dL AST 39 H (13-35) U/L Alkaline Phosphatase 131 H (41-126) U/L Total Protein 5.2 L (6.2-8.2) g/dL Albumin 2.7 L (3.8-4.9) g/dL Albumin/Globulin Ratio 1.08 L (1.60-3.17) Ratio Microbiology - Last 24 Hours (Table) 11/18/23 20:30 Blood Culture - Final Blood 11/18/23 20:21 Blood Culture - Final Blood Assessment and Plan Assessment: Left-sided chest pain secondary to a left pleural effusion. Status post left- sided thoracentesis today November 19, 2023 with 150 cc of thick creamy moreno fluid returned. Suspect empyema. Received a left-sided pigtail catheter placement on 11/20/2023. Lytics instilled daily x 5 so far. Preliminary cultures revealing alpha hemolytic Streptococcus. Remains on Unasyn Acute community-acquired pneumonia in the left lower lobe, empyema Febrile illness secondary to above, recovered Leukocytosis secondary to above, improving Hyponatremia, recovered Diabetes mellitus with hyperglycemia Macular degeneration Hyperlipidemia Hypertension Plan: The patient was seen and evaluated Chest x-ray, labs and medications reviewed Received 5th dose of lytics today Continue Unasyn Stable and on room air Follow-up chest x-ray in a.m. We will continue to follow I have personally seen and examined the patient, performed the documentation and the assessment and plan as written. Number of minutes spent on the visit: 10.
[2023-11-25 16:45] LABS: Glucose,Whole Blood 184 mg/dL (70-110)
[2023-11-25 20:53] LABS: Glucose,Whole Blood 230 mg/dL (70-110)
[2023-11-26 05:46] LABS: Glucose,Whole Blood 176 mg/dL (70-110)
[2023-11-26 09:55] LABS: Basophils # (A) 0.08 X 10*3/uL (0.00-0.10); Basophils % (A) 0.7 %; Eosinophils # (A) 0.19 X 10*3/uL (0.04-0.35); Eosinophils % (A) 1.6 %; HCT 29.4 % (37.2-46.3); HGB 9.5 g/dL (12.0-15.0); Lymphocytes # (A) 2.03 X 10*3/uL (0.90-5.00); Lymphocytes % (A) 16.7 %; MCH 30.3 pg (27.0-32.0); MCHC 32.3 g/dL (32.0-37.0); MCV 93.6 FL (80.0-97.0); Mean Platelet Volume 11.5 FL (9.5-12.2); Monocytes # (A) 0.74 X 10*3/uL (0.20-1.00); Monocytes % (A) 6.1 %; NRBC Per 100 WBC 0 X 10*3/uL (0.00-0.01); Neutrophils # (A) 8.94 X 10*3/uL (1.80-7.70); Neutrophils % (A) 73.3 %; Platelet Count 541 X 10*3/uL (140-440); RBC 3.14 X 10*6/uL (4.10-5.20); RDW 13.2 % (11.5-14.5); WBC 12.18 X 10*3/uL (4.50-10.00)
[2023-11-26 10:03] LABS: ALT 25 U/L (8-44); AST 29 U/L (13-35); Albumin 2.8 g/dL (3.8-4.9); Albumin/Globulin Ratio 1.22 Ratio (1.60-3.17); Alkaline Phosphatase 118 U/L (41-126); Blood Urea Nitrogen 6.6 mg/dL (9.0-27.0); Calcium 8.6 mg/dL (8.7-10.3); Carbon Dioxide 27.1 mmol/L (21.6-31.8); Chloride 99 mmol/L (96-109); Globulin 2.3 g/dL (1.6-3.3); Glucose 180 mg/dL (70-110); Potassium 3.8 mmol/L (3.5-5.5); Sodium 137 mmol/L (135-145); Total Bilirubin 0.4 mg/dL (0.3-1.2); Total Protein 5.1 g/dL (6.2-8.2)
--- NOTE | 2023-11-26 10:21 | P.PN ---
Subjective Progress Note Date: 11/26/23 Aliya Leiva, is a 78-year-old female patient of Dr. Valderrama who presented to the ER with complaints of muscle aches and shaking febrile and chest pain that has been occurring over the past week. Patient states she's had some external shortness of breath and poor oral intake. Patient has past medical history of asthma, diabetes mellitus, I disorder, hyperlipidemia and hypertension.chest x- ray completed showing COPD with continued moderate left pleural effusion. Lab work revealing a WBC of 30.8, sodium 127, creatinine 0.56. Troponin negative. D-dimer elevated at 3.10CT of the chest completed showing no acute pulmonary embolism. Airspace consolidation in the left lower lobe consistent with lobar pneumonia.influenza, RSV and COVID-19 negative.at this time patient was admitted. Patient started on IV antibiotics. Pulmonary service is consulted. Blood culture and sputum culture ordered repeat labs ordered. At this time patient is sitting up in chair. Current vital signs temp 90.6, heart rate 103, blood pressure 129/70 fourth pulse ox 93% on room air. ultrasound of chest has been ordered per pulmonary for possible pleurocentesis. on 11/20/2023 patient was seen and examined on the medical floor, she is alert and oriented 3 in no apparent distress, she is complaining of cough and shortness of breath, with mild improvement since yesterday, otherwise she denies any complaints there is no fever or chills no headache or dizziness no chest pain, no nausea or vomiting no abdominal pain no diarrhea no blood in the stools no burning with urination no frequency or urgency and no hematuria.. Patient remains on IV antibiotic Unasyn and vancomycin, awaiting culture results. left sided chest tube remains in place. On 11/21/2023 patient's alert and oriented 3. Patient reports improvement from yesterday. Patient remains on IV antibiotics. Discussed case with cardio thoracic surgery continue current plan of altaplase through pigtail. Chest tube remains in placecurrent vital signs temp 98.0, heart rate 101, respiratory rate 18, blood pressure 131/76 with pulse ox of 95%.white blood cell trending down 15.34. Patient remains on vancomycin and Unasyn. On 11/22/2023 patient's alert and oriented 3.Patient reports improvement from yesterday. Chest tube remains in place patient remains on IV antibiotics. Pulmonary, cardiothoracic infectious disease service is following.Current vital signs temp 97.6, heart rate 98, respiratory rate 17, blood pressure 126/73 with a pulse ox 95% on room air Patient denies chest pain or shortness of breath. Patient denies any nausea vomiting or diarrhea. Patient denies any urinary burning or frequency On 11/23/2023 patient was seen and examined on the medical floor she is alert and oriented 3 in no apparent distress, she is complaining of mild pain at the site of the chest tube, otherwise she denies any complaints there is no fever or chills no headache or dizziness no chest pain, No shortness of breath no cough no nausea or vomiting no abdominal pain no diarrhea and no urinary symptoms On 11/24/2023 patient is alert and oriented 3. Patient states she is feeling improved. Patient will need outpatient IV antibiotics per ID recommendation PICC line has been placed. Continue TPA administration her cardiothoracic param lucio. Chest tube remains in place on 11/25/2023 patient was seen and examined on the medical floor, she is alert and oriented 3 in no apparent distress, she is complaining of mild pain at the site of the chest to, otherwise she denies any complaints, her vital exam reveals a temperature of 98.3 pulse 112 respiration 18 blood pressure 152/87 pulse ox 95% on room air, laboratory data reveals a white blood count of 17.13 hemoglobin 10.2 platelet count 588 BUN 6.9 creatinine 0.6 patient remains on IV Unasyn, she is followed by pulmonary, infectious disease, and thoracic surgery, she is improving gradually, will continue to follow closely. On 11/17/2022 for patient's alert and oriented 3. Patient reports improvement from yesterday. Chest tube remains in place. Current vital signs temp 98.6, heart rate 101, respiratory rate 18, blood pressure 133/77 with pulse ox 96 on room air.white blood cell improving today 12.18. Patient denies chest pain or shortness breath. Patient denies nausea vomiting or diarrhea. Patient denies any urinary burning Objective - Vital Signs Vital signs: Vital Signs Temp 98.6 F 11/26/23 07:13 Pulse 101 H 11/26/23 07:13 Resp 18 11/26/23 07:13 BP 133/77 11/26/23 07:13 Pulse Ox 96 11/26/23 07:13 FiO2 21 11/20/23 08:19 Intake & Output 11/25/23 11/26/23 11/26/23 18:59 06:59 18:59 Intake Total 480 Output Total 20 20 Balance -20 460 Intake: Oral 480 Output: Chest Tube Drainage 20 20 Left Posterior Chest 20 20 Other: Voiding Method Toilet Toilet # Voids 3 3 - Exam In general patient is alert and oriented x 3 in no distress HEENT head normocephalic and atraumatic Neck is supple no JVD no goiter no lymphadenopathy no carotid bruit Chest examination reveals a scattered crackles in both lung ast[place] no wheezing Cardiac exam reveals regular heart sounds S1 and S2 no gallops no murmurs Abdomen is soft nontender no organomegaly with normal bowel sounds Extremity exam reveals no edema no cyanosis or clubbing Neurological examination reveals no gross focal deficits - Labs CBC & Chem 7: 11/26/23 05:42 11/26/23 05:42 Labs: Abnormal Lab Results - Last 24 Hours (Table) 11/25/23 11/25/23 11/25/23 Range/Units 11:11 16:42 20:51 WBC (4.50-10.00) X 10*3/uL RBC (4.10-5.20) X 10*6/uL Hgb (12.0-15.0) g/dL Hct (37.2-46.3) % Plt Count (140-440) X 10*3/uL Immature Gran # (0.00-0.04) X 10*3/uL Neutrophils # (1.80-7.70) X 10*3/uL BUN (9.0-27.0) mg/dL BUN/Creatinine Ratio (12.00-20.00) Ratio Glucose (70-110) mg/dL POC Glucose (mg/dL) 338 H 184 H 230 H (70-110) mg/dL Calcium (8.7-10.3) mg/dL Total Protein (6.2-8.2) g/dL Albumin (3.8-4.9) g/dL Albumin/Globulin Ratio (1.60-3.17) Ratio 11/26/23 11/26/23 11/26/23 Range/Units 05:42 05:42 05:45 WBC 12.18 H (4.50-10.00) X 10*3/uL RBC 3.14 L (4.10-5.20) X 10*6/uL Hgb 9.5 L (12.0-15.0) g/dL Hct 29.4 L (37.2-46.3) % Plt Count 541 H (140-440) X 10*3/uL Immature Gran # 0.20 H (0.00-0.04) X 10*3/uL Neutrophils # 8.94 H (1.80-7.70) X 10*3/uL BUN 6.6 L (9.0-27.0) mg/dL BUN/Creatinine Ratio 11.00 L (12.00-20.00) Ratio Glucose 180 H (70-110) mg/dL POC Glucose (mg/dL) 176 H (70-110) mg/dL Calcium 8.6 L (8.7-10.3) mg/dL Total Protein 5.1 L (6.2-8.2) g/dL Albumin 2.8 L (3.8-4.9) g/dL Albumin/Globulin Ratio 1.22 L (1.60-3.17) Ratio Assessment and Plan Assessment: 1. Left lower lobe pneumonia 2. Leukocytosis secondary to above 3. Pleural effusion status post pleurocentesis with purulent drainage esuspect empyema 4. Hyponatremia secondary to dehydration 5. Elevated d-dimer. CTA negative for PE 6. History of asthma 7. History of diabetes mellitus. Patient on sliding scale coverage 8. History of macular degeneration 9. History of hyperlipidemia 10. History of essential hypertension DVT prophylaxis heparin. GI prophylaxis Protonix Pulmonary service is consulted cardiothoracic following Sputum and blood cultures ordered Patient started on IV antibiotics PICC line placed for IV antibiotics repeat labs ordered
--- NOTE | 2023-11-26 10:25 | P.PN ---
Subjective Progress Note Date: 11/26/23 Principal diagnosis: Left-sided pleural effusion status post thoracentesis, leukocytosis, hyponatremia. History of hypertension, hyperlipidemia, asthma, diabetes, previous light tobacco dependence with cessation many years ago, family history of cancer. POD# #5 placement of an 8.5 Nepali pigtail drainage catheter into the patient's left-sided empyema via ultrasound guidance by interventional radiology. The patient was seen and examined in follow-up today November 26, 2023 at her bedside on the fourth floor medical surgical unit. She is currently sitting up to the bedside chair, is awake, alert, oriented x 3 and is in no acute apparent distress. Patient states that she feels much improved today from yesterday. Oxygen saturations are 96% on room air and she is achieving 750 to 1000 mL on her incentive spirometry with encouragement. Left chest pigtail catheter remains in place to low continuous wall suction -20 cm H2O. No air leak is present. Draining thin serosanguineous drainage with 50 mL output in the last 24 hours. Attempts were made yesterday to instill alteplase/dornase lytics through her left chest pigtail catheter, although once started infusing the lytics the patient started coughing and was complaining of coughing up tenacious blood-tinged sputum. She felt it was associated with infusing the lytics and subsequently we did not instill the lytic solutions. Chest x-ray was reviewed. Objective - Vital Signs Vital signs: Vital Signs Temp 98.6 F 11/26/23 07:13 Pulse 101 H 11/26/23 07:13 Resp 18 11/26/23 07:13 BP 133/77 11/26/23 07:13 Pulse Ox 96 11/26/23 07:13 FiO2 21 11/20/23 08:19 Intake & Output 11/25/23 11/26/23 11/26/23 18:59 06:59 18:59 Intake Total 480 Output Total 20 20 Balance -20 460 Intake: Oral 480 Output: Chest Tube Drainage 20 20 Left Posterior Chest 20 20 Other: Voiding Method Toilet Toilet # Voids 3 3 - Exam CONSTITUTIONAL: Appears comfortable, cooperative, no acute distress RESPIRATORY: Lungs sounds diminished in the left base. Respirations symmetrical, nonlabored. Currently on room air with oxygen saturation 96%. Achieving 750-1000 mL on her incentive spirometry CARDIOVASCULAR: S1, S2 present. Regular rate and rhythm. Palpable peripheral pulses bilaterally. No edema present. No calf pain or tenderness noted. SCDs present. GASTROINTESTINAL: Abdomen soft, nontender, nondistended. Active bowel sounds present 4 quadrants. Tolerating diet. GENITOURINARY: Continues to void. INTEGUMENTARY: Skin is warm and dry, no clubbing or cyanosis is present. Left chest pigtail catheter site dressing clean, dry and intact. NEUROLOGIC: Cranial nerves II through XII intact. No focal deficits. MUSKULOSKELETAL: Able to move all extremities, strength equal bilaterally, gait normal. PSYCHIATRIC: Alert and oriented to person place and time, appropriate affect, intact judgment and insight. INVASIVE LINES AND TUBES: Left pigtail catheter present, no air leaks present, 50 mL in the last 24 hours - Labs CBC & Chem 7: 11/26/23 05:42 11/26/23 05:42 Labs: Abnormal Lab Results - Last 24 Hours (Table) 11/25/23 11/25/23 11/25/23 Range/Units 11:11 16:42 20:51 WBC (4.50-10.00) X 10*3/uL RBC (4.10-5.20) X 10*6/uL Hgb (12.0-15.0) g/dL Hct (37.2-46.3) % Plt Count (140-440) X 10*3/uL Immature Gran # (0.00-0.04) X 10*3/uL Neutrophils # (1.80-7.70) X 10*3/uL BUN (9.0-27.0) mg/dL BUN/Creatinine Ratio (12.00-20.00) Ratio Glucose (70-110) mg/dL POC Glucose (mg/dL) 338 H 184 H 230 H (70-110) mg/dL Calcium (8.7-10.3) mg/dL Total Protein (6.2-8.2) g/dL Albumin (3.8-4.9) g/dL Albumin/Globulin Ratio (1.60-3.17) Ratio 11/26/23 11/26/23 11/26/23 Range/Units 05:42 05:42 05:45 WBC 12.18 H (4.50-10.00) X 10*3/uL RBC 3.14 L (4.10-5.20) X 10*6/uL Hgb 9.5 L (12.0-15.0) g/dL Hct 29.4 L (37.2-46.3) % Plt Count 541 H (140-440) X 10*3/uL Immature Gran # 0.20 H (0.00-0.04) X 10*3/uL Neutrophils # 8.94 H (1.80-7.70) X 10*3/uL BUN 6.6 L (9.0-27.0) mg/dL BUN/Creatinine Ratio 11.00 L (12.00-20.00) Ratio Glucose 180 H (70-110) mg/dL POC Glucose (mg/dL) 176 H (70-110) mg/dL Calcium 8.6 L (8.7-10.3) mg/dL Total Protein 5.1 L (6.2-8.2) g/dL Albumin 2.8 L (3.8-4.9) g/dL Albumin/Globulin Ratio 1.22 L (1.60-3.17) Ratio - Imaging and Cardiology Chest x-ray: image reviewed Assessment and Plan Assessment: Left-sided pleural effusion/empyema, status post thoracentesis with removal of 150 mL purulent drainage, status post pigtail catheter placement Leukocytosis, likely due to pneumonia Hyponatremia Fever, chest pain, shortness of breath secondary to above History of hypertension Hyperlipidemia Asthma Diabetes Previous light tobacco dependence with cessation many years ago Family history of cancer Plan: No further alteplase/dornase pleural instillation to left chest pigtail catheter. We will potentially remove the left pigtail catheter tomorrow November 27, 2023. CT of chest results remain pending. No surgical intervention warranted at this point, although if patient's effusion does not improve will consider possible VATS with decortication. Continue antibiotics per ID recommendations. Increase activity as tolerated. Incentive spirometry encouraged 10 times every hour while awake. Medical management of other comorbidities per internal medicine, pulmonology. More recommendations to follow based on patient's clinical course. Time with Patient: Less than 30
--- NOTE | 2023-11-26 11:34 | CT ---
EXAMINATION TYPE: CT chest wo con CT DLP: 192.8 mGycm, Automated exposure control for dose reduction was used. DATE OF EXAM: 11/23/2023 3:30 PM COMPARISON: None. . CLINICAL INDICATION:Female, 78 years old with history of eval empyema; [facility], TECHNIQUE: Multiple axial images were obtained through the chest. Sagittal and coronal reformats were created for review. Contrast used: mL of (None if empty) Oral contrast used: (None if empty) FINDINGS: Unremarkable thyroid and base of neck. Nonenlarged mediastinal nodes are seen with none enlarged by CT criteria. Genie are not well assessed without contrast. Heart appears mildly enlarged with mild scattered coronary calcifications and trace pericardial fluid . Mild to moderate calcification of the aortic valve and more distal aorta mostly along the arch. Desce nding aorta 3.1 cm, descending 2.4 cm. The pulmonary trunk measures 2.6 cm, within normal limits. Further evaluation of the vasculature is l imited without contrast. Small hiatal hernia is suggested. Central airways are clear, as are the right-sided bronchi. On the left, there is debris/fluid opacifi cation of multiple segmental and subsegmental branches of the left lower lobe bronchus. Left lateral basilar pigtail chest tube terminates within the pleural space. There is a small left ba silar pleural fluid collection, with fluid attenuation about 14 Hounsfield units. There is a small pn eumothorax component with air-fluid level posteriorly. Evaluation for empyema is limited without IV c ontrast. Left hemidiaphragm is mildly elevated, likely from eventration. Opacity in the left lung base adjacent to the effusion likely reflects compressive atelectasis and ed sarahi, but superimposed infection is certainly possible. Visualized aerated portions of the left lung a re clear. On the right, there is a trace right pleural effusion without evidence of consolidation, or pneumotho rax. Linear opacities towards the right lung base especially the RML likely represent scarring or sub segmental atelectasis. Limited views of the upper abdomen show mild thickening of the adrenals. Mild perinephric stranding, left more than right, could be chronic without urinary symptoms. Rounded contour deformity of the mid left kidney appears associated with low-attenuation approximately 2.5 cm nodule; this is likely to b e a cyst. No pneumoperitoneum is seen. Calcifications of the upper abdominal aorta involving the proximal renal arteries with mild stenoses suspected. Chest wall soft tissues show no concerning abnormality. Osseous structures show no acute abnormality. Degenerative changes of the thoracic spine. Vertebral b silvano heights are preserved. IMPRESSION: 1. Small left pleural fluid collection, could represent effusion but empyema cannot be excluded. The re is a small pneumothorax component. 2. Left basilar pigtail chest tube in place. 3. Left basilar pulmonary opacity likely atelectasis and edema, with superimposed infection possible . 4. Fluid/debris opacification of multiple segmental and subsegmental branches of the left lower lobe bronchus. Could reflect mucous secretions and/or aspiration. 5. No acute right lung infiltrate. Trace right pleural effusion. 6. Other chronic and likely incidental findings, as described above.
[2023-11-26 11:43] LABS: Glucose,Whole Blood 199 mg/dL (70-110)
--- NOTE | 2023-11-26 12:12 | XR ---
EXAMINATION TYPE: XR chest 2V DATE OF EXAM: 11/26/2023 6:28 AM CLINICAL INDICATION:Female, 78 years old with history of Loculated left pleural effusion; [facility] COMPARISON: 11/25/2023 portable chest and older exams TECHNIQUE: XR chest 2V. Frontal and lateral views of the chest.. FINDINGS: Left basilar pigtail catheter appears unchanged, terminates inside the margin of the ribs at the late ral left lung base. Small left pleural fluid collection appears similar to the prior study. The pneumothorax component be tter seen on prior CT is not demonstrated clearly but no interval change is appreciated. No visualized apical pneumothorax bilaterally. Mild interstitial coarsening throughout both lungs per sists unchanged. Decreased blunting of the right costophrenic angle compared to prior. No new or wors ening airspace disease. Cardiomediastinal silhouette appears stable. Heart size upper normal. Atherosclerotic calcifications of the aorta. Osseous structures are grossly unchanged. IMPRESSION: 1. Stable position of left basilar pigtail catheter. 2. Small left pleural fluid collection appears similar to the prior study. Pneumothorax component be tter seen on prior CT is not clearly demonstrated. 3. Decreased blunting of the right costophrenic angle suggesting improved pleural effusion.
[2023-11-26] MEDS: AMPICILLIN-SULBACTAM 3 GM in SODIUM CHLORIDE 0.9% 100 ML IVPB SCH (13:01)
--- NOTE | 2023-11-26 13:43 | P.PN ---
Subjective Progress Note Date: 11/26/23 This is a very pleasant 78-year-old female patient with a history of asthma, diabetes mellitus, hypertension, hyperlipidemia, macular degeneration, former smoker. About 1 week ago she had a day where she developed shortness of breath left-sided chest discomfort shivers and shaking and a temperature of 102. She thought that it would go away and proceeded throughout the next few days however she was getting some exertional dyspnea and poor appetite and presented here to the emergency room yesterday. She denied any recent travel. No sick contacts. Chest x-ray revealed a left-sided infiltrate/effusion and airspace consolidation consistent with lobar pneumonia. CT angiogram ruled out pulmonary embolism. White count 28.3. Hemoglobin 12.5. Platelets 528. Sodium 129. Potassium 3.7. Bicarb 29. BUN 15. Creatinine 0.59. Glucose 336. Viral screen negative. Ultrasound of the chest revealed a 7.7 cm pleural effusion. She was initiated on ceftriaxone. She is seen today in consultation on the regular medical floor. She is currently sitting up in bed. Awake and alert in no acute distress. Still with some left-sided chest discomfort. He is maintaining good O2 saturations in the 90s on room air. She is currently afebrile. Slightly tachycardic. The patient is seen today November 20, 2023 in follow-up on the regular medical floor. She is currently sitting up in a chair at the bedside. Awake and alert in no acute distress. She denies any worsening shortness of breath, cough or congestion. She is maintaining good O2 saturation in the 90s on room air. No fever or chills. Normal saline at 100 MLS per hour. She did undergo a left- sided thoracentesis yesterday with thick creamy purulent drainage noted. Urinalysis reveals greater than 565,000 WBCs. Total protein 3050. LDH greater than 2500. Exudate. White count 19.7. Hemoglobin 11.6. Platelets 489. Sodium 135. Potassium 3.5. Bicarb 27. BUN 11. Creatinine 0.6. Glucose 245. Chest x-ray shows ongoing moderate left pleural effusion with adjacent atelectasis and/or consolidation. Trace right effusion. Blood culture, sputum culture and pleural fluid cultures are pending. She remains on vancomycin and Unasyn. Heparin for DVT prophylaxis. The patient is seen today November 21, 2023 and follow-up on the regular medical floor. She is awake and alert in no acute distress. Up in a chair. She did undergo left-sided pigtail catheter placement yesterday. She received lytic therapy today. Currently with 250 mL of purulent drainage within the Pleur- evac. Chest x-ray reveals left-sided pigtail catheter in place. No appreciable pneumothorax. Decreasing but still residual small to moderate left pleural effusion. Pleural fluid culture is positive for alphahemolytic Streptococcus. Blood cultures reveal no growth. Sputum culture revealed no growth. White count 15.3. Hemoglobin 12.4. Platelets 575. Sodium 137. Potassium 3.6. BUN 9.2. Creatinine 0.6. Glucose 260. AST 37. ALT 33. Vancomycin trough 8.3. She is continued on vancomycin and Unasyn. Heparin for DVT prophylaxis. Normal saline at 100 MLS per hour. The patient is seen today November 22, 2023 in follow-up on the regular medical floor. She remains awake and alert in no acute distress. No worsening shortness of breath, cough or congestion. Maintaining good O2 saturations in the 90s on room air. Left chest pigtail catheter remains in place with a total of 500 cc out now. She received lytics again this morning. Pleural fluid cultures are positive for alphahemolytic Streptococcus. Blood cultures revealed no growth. Sputum culture revealed no growth. White count 18.6. Hemoglobin 11.6. Platelets 577. Sodium 136. Potassium 3.3. Bicarb 26. BUN 8. Creatinine 0.6. Glucose 245. She is continued on Unasyn, continued on bronchodilators. Heparin for DVT prophylaxis. The patient is seen today November 23, 2023 in follow-up on the regular medical floor. She is sitting up in a chair. Awake and alert in no acute distress. States she is feeling better each day. No worsening shortness of breath, cough or congestion. No fever or chills. Pleural fluid cultures positive for alphahemolytic Streptococcus. She received a third dose of lytics this morning. CT scan of the chest is pending. Stable and on room air. Remains on Unasyn. White count 14.5. Hemoglobin 12.0. Platelets 611. Sodium 138. Potassium 3.4. Bicarb 29. BUN 8. Creatinine 0.6. Glucose 205. Progress note dated November 24, 2023. The patient is seen today in room 456. She is on room air. She is not receiving any IV fluids. Her chest x-ray shows improvement, in that left chest area. The patient was been treated for an empyema. A pigtail catheter was placed. She has received at least 3 doses of tPA and alpha dornase. Clin ically, she is doing well without complaints. Current laboratory data includes a white count of 13.9, hemoglobin 11, hematocrit 33.8, and a platelet count of 616,000. Sodium 138, potassium 3.4, chlorides 99, CO2 28, BUN 6.2, and creatinine 0.7. Glucose is 302. Pleural fluid analysis revealed evidence of alphahemolytic Streptococcus. The patient is currently on Unasyn. The patient is seen today November 25, 2023 in follow-up on the regular medical floor. She is currently sitting up in a chair at the bedside. Awake and alert in no acute distress. Maintaining good O2 saturations in the 90s on room air. Chest x-ray is similar with left lower lobe effusion. She has been followed by CT services who attempted to inject lytics again today. It causes her to cough and have discomfort. Pleural fluid culture was positive for alphahemolytic Streptococcus. She remains on Unasyn. White count 17.1. Hemoglobin 10.2. Platelets 588. Sodium 137. Potassium 3.9. Bicarb 27. BUN 7. Creatinine 0.6. Glucose 212. Continued on bronchodilators and Mucinex. Heparin for DVT prophylaxis. The patient is seen today November 26 2023 in follow-up on the regular medical floor. She is awake and alert in no acute distress. Continues to maintain good O2 saturations in the 90s on room air. Sitting up in a chair at the bedside. Yesterday after receiving lytics she developed significant coughing and hemoptysis. No plans for lytics today. Follow-up chest x-ray continues to show slight improvement in the left lower lobe infiltrate. Follow-up CT scan of the chest reveals a small left pleural fluid collection. Small pneumothorax. Left basilar pigtail catheter in place. Left basilar pulmonary opacity likely atelectasis and edema. Fluid/debris opacification of multiple segments and subs egmental branches of the left lower lobe bronchus. No acute right lung infiltrate. Trace right pleural effusion. White count 12.1. Hemoglobin 9.5. Platelets 541. Sodium 137. Potassium 3.8. Bicarb 27. BUN 6.6. Creatinine 0.6. Glucose 180. She remains on Unasyn. Heparin for DVT prophylaxis. Objective - Vital Signs Vital signs: Vital Signs Temp 98.6 F 11/26/23 07:13 Pulse 101 H 11/26/23 07:13 Resp 18 11/26/23 07:13 BP 133/77 11/26/23 07:13 Pulse Ox 96 11/26/23 07:13 FiO2 21 11/20/23 08:19 Intake & Output 11/25/23 11/26/23 11/26/23 18:59 06:59 18:59 Intake Total 480 Output Total 20 20 Balance -20 460 Intake: Oral 480 Output: Chest Tube Drainage 20 20 Left Posterior Chest 20 20 Other: Voiding Method Toilet Toilet # Voids 3 3 - Exam GENERAL EXAM: Alert, pleasant 78-year-old female, on room air, comfortable in no apparent distress. HEAD: Normocephalic. EYES: Normal reaction of pupils, equal size. NOSE: Clear with pink turbinates. THROAT: No erythema or exudates. NECK: No masses, no JVD. CHEST: No chest wall deformity. LUNGS: Equal air entry with crackles, dullness in the left base. Left-sided pigtail catheter in place. CVS: S1 and S2 normal with no audible murmur, regular rhythm. ABDOMEN: No hepatosplenomegaly, normal bowel sounds, no guarding or rigidity. SPINE: No scoliosis or deformity SKIN: No rashes CENTRAL NERVOUS SYSTEM: No focal deficits, tone is normal in all 4 extremities. EXTREMITIES: There is no peripheral edema. No clubbing, no cyanosis. Peripheral pulses are intact. - Labs CBC & Chem 7: 11/26/23 05:42 11/26/23 05:42 Labs: Abnormal Lab Results - Last 24 Hours (Table) 11/25/23 11/25/23 11/26/23 Range/Units 16:42 20:51 05:42 WBC 12.18 H (4.50-10.00) X 10*3/uL RBC 3.14 L (4.10-5.20) X 10*6/uL Hgb 9.5 L (12.0-15.0) g/dL Hct 29.4 L (37.2-46.3) % Plt Count 541 H (140-440) X 10*3/uL Immature Gran # 0.20 H (0.00-0.04) X 10*3/uL Neutrophils # 8.94 H (1.80-7.70) X 10*3/uL BUN (9.0-27.0) mg/dL BUN/Creatinine Ratio (12.00-20.00) Ratio Glucose (70-110) mg/dL POC Glucose (mg/dL) 184 H 230 H (70-110) mg/dL Calcium (8.7-10.3) mg/dL Total Protein (6.2-8.2) g/dL Albumin (3.8-4.9) g/dL Albumin/Globulin Ratio (1.60-3.17) Ratio 11/26/23 11/26/23 11/26/23 Range/Units 05:42 05:45 11:42 WBC (4.50-10.00) X 10*3/uL RBC (4.10-5.20) X 10*6/uL Hgb (12.0-15.0) g/dL Hct (37.2-46.3) % Plt Count (140-440) X 10*3/uL Immature Gran # (0.00-0.04) X 10*3/uL Neutrophils # (1.80-7.70) X 10*3/uL BUN 6.6 L (9.0-27.0) mg/dL BUN/Creatinine Ratio 11.00 L (12.00-20.00) Ratio Glucose 180 H (70-110) mg/dL POC Glucose (mg/dL) 176 H 199 H (70-110) mg/dL Calcium 8.6 L (8.7-10.3) mg/dL Total Protein 5.1 L (6.2-8.2) g/dL Albumin 2.8 L (3.8-4.9) g/dL Albumin/Globulin Ratio 1.22 L (1.60-3.17) Ratio Assessment and Plan Assessment: Left-sided chest pain secondary to a left pleural effusion. Status post left- sided thoracentesis today November 19, 2023 with 150 cc of thick creamy moreno fluid returned. Suspect empyema. Received a left-sided pigtail catheter placement on 11/20/2023. Lytics instilled daily x 5 so far. Preliminary cultures revealing alpha hemolytic Streptococcus. Remains on Unasyn Acute community-acquired pneumonia in the left lower lobe, empyema Febrile illness secondary to above, recovered Leukocytosis secondary to above, improving Hyponatremia, recovered Diabetes mellitus with hyperglycemia Macular degeneration Hyperlipidemia Hypertension Plan: The patient was seen and evaluated Chest x-ray, CT scan of the chest, labs and medications reviewed Received 5th dose of lytics yesterday No plans for surgical intervention at this point May remove pigtail catheter tomorrow Continue Unasyn Stable and on room air Working well with the incentive spirometer We will continue to follow I have personally seen and examined the patient, performed the documentation and the assessment and plan as written. Number of minutes spent on the visit: 10.
--- NOTE | 2023-11-26 15:35 | P.PN ---
Subjective Progress Note Date: 11/25/23 Principal diagnosis: Reason for follow-up is empyema Patient is a 78-year-old female with a past medical history significant for diabetes mellitus hypertension hyperlipidemia asthma, presented to the hospital left-sided chest pain increasing shortness of breath and cough has been diagnosed with pneumonia/empyema, status post chest tube placement. On today's evaluation that is 11/25/2023, Patient is afebrile patient is currently on room air and denies having any shortness of breath, the patient denies any worsening left-sided chest pain or cough, the patient denies any nausea vomiting did not have any abdominal pain and no diarrhea, mention however feeling rather good today Patient white count is up to 17.13 creatinine 0.6 Objective - Vital Signs Vital signs: Vital Signs Temp 98.4 F 11/25/23 14:00 Pulse 108 H 11/25/23 14:00 Resp 17 11/25/23 14:00 BP 128/79 11/25/23 14:00 Pulse Ox 96 11/25/23 14:00 FiO2 21 11/20/23 08:19 Intake & Output 11/24/23 11/25/23 11/25/23 18:59 06:59 18:59 Intake Total 1060 860 Output Total 320 Balance 1060 540 Intake: Intake, IV Titration 100 Amount Ampicillin-Sulbactam 3 gm 100 In Sodium Chloride 0.9% 100 ml @ 200 mls/hr IVPB Q8H [facility] Rx#:[id number] Oral 960 860 Output: Chest Tube Drainage 320 Left Posterior Chest 320 Other: Voiding Method Toilet # Voids 4 2 - Exam GENERAL DESCRIPTION: An elderly female lying in bed in no distress RESPIRATORY SYSTEM: Unlabored breathing , decreased breath sounds at bases HEART: S1 S2 regular rate and rhythm , ABDOMEN: Soft , no tenderness EXTREMITIES: No edema feet - Labs CBC & Chem 7: 11/26/23 05:42 11/26/23 05:42 Labs: Abnormal Lab Results - Last 24 Hours (Table) 11/24/23 11/24/23 11/25/23 Range/Units 16:34 19:51 03:55 WBC 17.13 H (4.50-10.00) X 10*3/uL RBC 3.37 L (4.10-5.20) X 10*6/uL Hgb 10.2 L (12.0-15.0) g/dL Hct 31.5 L (37.2-46.3) % Plt Count 588 H (140-440) X 10*3/uL Immature Gran # 0.35 H (0.00-0.04) X 10*3/uL Neutrophils # 13.74 H (1.80-7.70) X 10*3/uL Anion Gap (4.00-12.00) mmol/L BUN (9.0-27.0) mg/dL BUN/Creatinine Ratio (12.00-20.00) Ratio Glucose (70-110) mg/dL POC Glucose (mg/dL) 187 H 180 H (70-110) mg/dL Calcium (8.7-10.3) mg/dL AST (13-35) U/L Alkaline Phosphatase (41-126) U/L Total Protein (6.2-8.2) g/dL Albumin (3.8-4.9) g/dL Albumin/Globulin Ratio (1.60-3.17) Ratio 11/25/23 11/25/23 11/25/23 Range/Units 03:55 06:37 11:11 WBC (4.50-10.00) X 10*3/uL RBC (4.10-5.20) X 10*6/uL Hgb (12.0-15.0) g/dL Hct (37.2-46.3) % Plt Count (140-440) X 10*3/uL Immature Gran # (0.00-0.04) X 10*3/uL Neutrophils # (1.80-7.70) X 10*3/uL Anion Gap 12.60 H (4.00-12.00) mmol/L BUN 6.9 L (9.0-27.0) mg/dL BUN/Creatinine Ratio 11.50 L (12.00-20.00) Ratio Glucose 212 H (70-110) mg/dL POC Glucose (mg/dL) 192 H 338 H (70-110) mg/dL Calcium 8.4 L (8.7-10.3) mg/dL AST 39 H (13-35) U/L Alkaline Phosphatase 131 H (41-126) U/L Total Protein 5.2 L (6.2-8.2) g/dL Albumin 2.7 L (3.8-4.9) g/dL Albumin/Globulin Ratio 1.08 L (1.60-3.17) Ratio Microbiology - Last 24 Hours (Table) 11/18/23 20:30 Blood Culture - Final Blood 11/18/23 20:21 Blood Culture - Final Blood Assessment and Plan (1) Empyema Current Visit: Yes Status: Acute Code(s): J86.9 - PYOTHORAX WITHOUT FISTULA SNOMED Code(s): 755216114 (2) Left lower lobe pneumonia Current Visit: Yes Status: Acute Code(s): J18.9 - PNEUMONIA, UNSPECIFIED ORGANISM SNOMED Code(s): 787809270 (3) Leukocytosis Current Visit: Yes Status: Acute Code(s): D72.829 - ELEVATED WHITE BLOOD CELL COUNT, UNSPECIFIED SNOMED Code(s): 133266963 Plan: 1patient was in the hospital with sepsis in this patient who did have a low- grade fever tachycardia elevated white count source is left-sided pneumonia with a parapneumonic effusion/empyema in this patient was status post thoracocentesis followed by chest tube placement cultures currently growing alphahemolytic Streptococcus 2-patient is afebrile however the patient white count is slightly up today and will be monitored closely repeat CBC with a.m. lab for now continue with the Unasyn Dictation was produced using [employer] dictation software. please excuse any grammatical, word or spelling errors. Time with Patient: Less than 30
--- NOTE | 2023-11-26 15:36 | P.PN ---
Subjective Progress Note Date: 11/26/23 Principal diagnosis: Reason for follow-up is empyema Patient is a 78-year-old female with a past medical history significant for diabetes mellitus hypertension hyperlipidemia asthma, presented to the hospital left-sided chest pain increasing shortness of breath and cough has been diagnosed with pneumonia/empyema, status post chest tube placement. On today's evaluation that is 11/26/2023, patient has been afebrile, patient is breathing comfortably and is currently on room air, patient left-sided chest pain has decreased intensity denies any worsening cough or sputum production no nausea no vomiting no abdominal pain or diarrhea patient feeling better today. Patient white count is down to 12.18, creatinine 0.6 Objective - Vital Signs Vital signs: Vital Signs Temp 98.6 F 11/26/23 07:13 Pulse 101 H 11/26/23 07:13 Resp 18 11/26/23 07:13 BP 133/77 11/26/23 07:13 Pulse Ox 96 11/26/23 07:13 FiO2 21 11/20/23 08:19 Intake & Output 11/25/23 11/26/23 11/26/23 18:59 06:59 18:59 Intake Total 480 Output Total 20 20 Balance -20 460 Intake: Oral 480 Output: Chest Tube Drainage 20 20 Left Posterior Chest 20 20 Other: Voiding Method Toilet Toilet # Voids 3 3 - Exam GENERAL DESCRIPTION: An elderly female lying in bed in no distress RESPIRATORY SYSTEM: Unlabored breathing , decreased breath sounds at bases HEART: S1 S2 regular rate and rhythm , ABDOMEN: Soft , no tenderness EXTREMITIES: No edema feet - Labs CBC & Chem 7: 11/26/23 05:42 11/26/23 05:42 Labs: Abnormal Lab Results - Last 24 Hours (Table) 11/25/23 11/25/23 11/26/23 Range/Units 16:42 20:51 05:42 WBC 12.18 H (4.50-10.00) X 10*3/uL RBC 3.14 L (4.10-5.20) X 10*6/uL Hgb 9.5 L (12.0-15.0) g/dL Hct 29.4 L (37.2-46.3) % Plt Count 541 H (140-440) X 10*3/uL Immature Gran # 0.20 H (0.00-0.04) X 10*3/uL Neutrophils # 8.94 H (1.80-7.70) X 10*3/uL BUN (9.0-27.0) mg/dL BUN/Creatinine Ratio (12.00-20.00) Ratio Glucose (70-110) mg/dL POC Glucose (mg/dL) 184 H 230 H (70-110) mg/dL Calcium (8.7-10.3) mg/dL Total Protein (6.2-8.2) g/dL Albumin (3.8-4.9) g/dL Albumin/Globulin Ratio (1.60-3.17) Ratio 11/26/23 11/26/23 11/26/23 Range/Units 05:42 05:45 11:42 WBC (4.50-10.00) X 10*3/uL RBC (4.10-5.20) X 10*6/uL Hgb (12.0-15.0) g/dL Hct (37.2-46.3) % Plt Count (140-440) X 10*3/uL Immature Gran # (0.00-0.04) X 10*3/uL Neutrophils # (1.80-7.70) X 10*3/uL BUN 6.6 L (9.0-27.0) mg/dL BUN/Creatinine Ratio 11.00 L (12.00-20.00) Ratio Glucose 180 H (70-110) mg/dL POC Glucose (mg/dL) 176 H 199 H (70-110) mg/dL Calcium 8.6 L (8.7-10.3) mg/dL Total Protein 5.1 L (6.2-8.2) g/dL Albumin 2.8 L (3.8-4.9) g/dL Albumin/Globulin Ratio 1.22 L (1.60-3.17) Ratio Assessment and Plan (1) Empyema Current Visit: Yes Status: Acute Code(s): J86.9 - PYOTHORAX WITHOUT FISTULA SNOMED Code(s): 873470017 (2) Left lower lobe pneumonia Current Visit: Yes Status: Acute Code(s): J18.9 - PNEUMONIA, UNSPECIFIED O RGANISM SNOMED Code(s): 903399532 (3) Leukocytosis Current Visit: Yes Status: Acute Code(s): D72.829 - ELEVATED WHITE BLOOD CELL COUNT, UNSPECIFIED SNOMED Code(s): 644170641 Plan: 1patient was in the hospital with sepsis in this patient who did have a low- grade fever tachycardia elevated white count source is left-sided pneumonia with a parapneumonic effusion/empyema in this patient was status post thoracocentesis followed by chest tube placement cultures currently growing alphahemolytic Streptococcus 2-patient is afebrile and the patient white count is down today compared to yesterday patient is covered with Unasyn will transition to Rocephin 2 g daily on discharge x 2 weeks Question concern answered Dictation was produced using [employer] dictation software. please excuse any grammatical, word or spelling errors. Time with Patient: Less than 30
[2023-11-26 16:30] LABS: Glucose,Whole Blood 168 mg/dL (70-110)
[2023-11-26 21:18] LABS: Glucose,Whole Blood 237 mg/dL (70-110)
[2023-11-27 05:48] LABS: Glucose,Whole Blood 190 mg/dL (70-110)
--- NOTE | 2023-11-27 08:36 | XR ---
EXAMINATION TYPE: XR chest 1V portable DATE OF EXAM: 11/27/2023 COMPARISON: 11/26/2023 HISTORY: Left pleural effusion TECHNIQUE: Single frontal view of the chest is obtained. FINDINGS: Left-sided consolidation and small effusion. Pigtail catheter remains in position. Minimal less than 5% tiny left apical pneumothorax. Right lung demonstrates minimal right-sided pleural flui d with no consolidation. No overt failure. Heart size stable. Osseous structures unchanged. IMPRESSION: Stable left-sided consolidation and small pleural effusion. Tiny less than 5% left apica l pneumothorax.
[2023-11-27 11:31] LABS: Glucose,Whole Blood 173 mg/dL (70-110)
--- NOTE | 2023-11-27 12:16 | P.PN ---
Subjective Progress Note Date: 11/27/23 Principal diagnosis: Reason for follow-up is empyema Patient is a 78-year-old female with a past medical history significant for diabetes mellitus hypertension hyperlipidemia asthma, presented to the hospital left-sided chest pain increasing shortness of breath and cough has been diagnosed with pneumonia/empyema, status post chest tube placement. On today's evaluation that is 11/27/2023,the patient denies any fever or any chills, patient is breathing comfortably on room air, the patient left-sided chest pain has decreased in intensity denies shortness of breath and no significant cough, patient denies abdominal pain, no nausea vomiting or diarrhea. Labs are pending from this morning white count was down to 12.18 yesterday Objective - Vital Signs Vital signs: Vital Signs Temp 98.0 F 11/27/23 08:00 Pulse 107 H 11/27/23 08:00 Resp 19 11/27/23 08:00 BP 122/73 11/27/23 08:00 Pulse Ox 97 11/27/23 08:00 FiO2 21 11/20/23 08:19 Intake & Output 11/26/23 11/27/23 11/27/23 18:59 06:59 18:59 Intake Total 220 Output Total 10 Balance -10 220 Intake: Oral 220 Output: Chest Tube Drainage 10 Left Posterior Chest 10 Other: Voiding Method Toilet Toilet Toilet # Voids 3 3 # Bowel Movements 3 - Exam GENERAL DESCRIPTION: An elderly female lying in bed in no distress RESPIRATORY SYSTEM: Unlabored breathing , decreased breath sounds at bases HEART: S1 S2 regular rate and rhythm , ABDOMEN: Soft , no tenderness EXTREMITIES: No edema feet - Labs CBC & Chem 7: 11/26/23 05:42 11/26/23 05:42 Labs: Abnormal Lab Results - Last 24 Hours (Table) 11/26/23 11/26/23 11/27/23 Range/Units 16:29 21:17 05:47 POC Glucose (mg/dL) 168 H 237 H 190 H (70-110) mg/dL 11/27/23 Range/Units 11:28 POC Glucose (mg/dL) 173 H (70-110) mg/dL Assessment and Plan (1) Empyema Current Visit: Yes Status: Acute Code(s): J86.9 - PYOTHORAX WITHOUT FISTULA SNOMED Code(s): 366565192 (2) Left lower lobe pneumonia Current Visit: Yes Status: Acute Code(s): J18.9 - PNEUMONIA, UNSPECIFIED ORGANISM SNOMED Code(s): 341037811 (3) Leukocytosis Current Visit: Yes Status: Acute Code(s): D72.829 - ELEVATED WHITE BLOOD CELL COUNT, UNSPECIFIED SNOMED Code(s): 022041456 Plan: 1patient was in the hospital with sepsis in this patient who did have a low- grade fever tachycardia elevated white count source is left-sided pneumonia with a parapneumonic effusion/empyema in this patient was status post thoracocentesis followed by chest tube placement cultures currently growing alphahemolytic St reptococcus 2-patient is afebrile and the patient white count is down as of yesterday labs pending from this morning we will keep the patient on Unasyn while inpatient finishing therapy with Rocephin prescription provided to the field nurse case manager Question concern answered Dictation was produced using [employer] dictation software. please excuse any grammatical, word or spelling errors. Time with Patient: Less than 30
--- NOTE | 2023-11-27 14:15 | P.PN ---
Subjective Progress Note Date: 11/27/23 (\) Principal diagnosis: Left-sided pleural effusion status post thoracentesis, leukocytosis, hyponatremia. History of hypertension, hyperlipidemia, asthma, diabetes, previous light tobacco dependence with cessation many years ago, family history of cancer. POD# #6 placement of an 8.5 Uzbek pigtail drainage catheter into the patient's left-sided empyema via ultrasound guidance by interventional radiology. Patient was seen and examined in follow-up today November 27, 2023 at her bedside on the fourth floor medical surgical unit. She is currently sitting up to the bedside chair, is awake, alert, oriented x 3 and is in no acute apparent distress. She denies any complaints of pain or shortness of breath at this time. Reports that she is still having a productive cough with tenacious moreno blood-tinged sputum, although has improved since starting on Mucinex. Left chest pigtail catheter remains in place to low continuous wall suction -20 cm H2O. No air leak is present. No output in the last 24 hours. Oxygen saturations are 95% on room air and she is achieving 750 to 1000 mL on her incentive spirometry with encouragement. Chest x-ray results reviewed. Objective - Vital Signs Vital signs: Vital Signs Temp 98.0 F 11/27/23 08:00 Pulse 107 H 11/27/23 08:00 Resp 19 11/27/23 08:00 BP 122/73 11/27/23 08:00 Pulse Ox 97 11/27/23 08:00 FiO2 21 11/20/23 08:19 Intake & Output 11/26/23 11/27/23 11/27/23 18:59 06:59 18:59 Intake Total 220 Output Total 10 Balance -10 220 Intake: Oral 220 Output: Chest Tube Drainage 10 Left Posterior Chest 10 Other: Voiding Method Toilet Toilet Toilet # Voids 3 3 # Bowel Movements 3 - Exam CONSTITUTIONAL: Appears comfortable, cooperative, no acute distress RESPIRATORY: Lungs sounds diminished in the left base. Respirations symmetrica l, nonlabored. Currently on room air with oxygen saturation 95%. Achieving 750-1000 mL on her incentive spirometry CARDIOVASCULAR: S1, S2 present. Regular rate and rhythm. Palpable peripheral pulses bilaterally. No edema present. No calf pain or tenderness noted. SCDs present. GASTROINTESTINAL: Abdomen soft, nontender, nondistended. Active bowel sounds present 4 quadrants. Tolerating diet. GENITOURINARY: Continues to void. INTEGUMENTARY: Skin is warm and dry, no clubbing or cyanosis is present. Left chest pigtail catheter site dressing clean, dry and intact. NEUROLOGIC: Cranial nerves II through XII intact. No focal deficits. MUSKULOSKELETAL: Able to move all extremities, strength equal bilaterally, gait normal. PSYCHIATRIC: Alert and oriented to person place and time, appropriate affect, intact judgment and insight. INVASIVE LINES AND TUBES: Left pigtail catheter present, no air leaks present, no output from the left chest pigtail catheter in the last 24 hours. - Allied health notes Allied health notes reviewed: nursing - Labs CBC & Chem 7: 11/26/23 05:42 11/26/23 05:42 Labs: Abnormal Lab Results - Last 24 Hours (Table) 11/26/23 11/26/23 11/27/23 Range/Units 16:29 21:17 05:47 POC Glucose (mg/dL) 168 H 237 H 190 H (70-110) mg/dL 11/27/23 Range/Units 11:28 POC Glucose (mg/dL) 173 H (70-110) mg/dL - Imaging and Cardiology Chest x-ray: report reviewed, image reviewed Assessment and Plan Assessment: Left-sided pleural effusion/empyema, status post thoracentesis with removal of 150 mL purulent drainage, status post pigtail catheter placement Leukocytosis, likely due to pneumonia Hyponatremia Fever, chest pain, shortness of breath secondary to above History of hypertension Hyperlipidemia Asthma Diabetes Previous light tobacco dependence with cessation many years ago Family history of cancer Plan: No further alteplase/dornase pleural instillation to left chest pigtail catheter. We will potentially remove the left pigtail catheter tomorrow November 28, 2023. We will order a CT of the chest without contrast to compare with the CT of the chest completed on November 23, 2023. No surgical intervention warranted at this point, although if patient's effusion does not improve will consider possible VATS with decortication. Encourage use of incentive spirometry 10 times every hour while awake. Continue antibiotics per ID recommendations. Increase activity as tolerated. Medical management of other comorbidities per internal medicine, pulmonology. More recommendations to follow based on patient's clinical course. Time with Patient: Less than 30
[2023-11-27 16:19] LABS: Glucose,Whole Blood 149 mg/dL (70-110)
--- NOTE | 2023-11-27 17:12 | P.PN ---
Subjective Progress Note Date: 11/27/23 Aliya Leiva, is a 78-year-old female patient of Dr. Valderrama who presented to the ER with complaints of muscle aches and shaking febrile and chest pain that has been occurring over the past week. Patient states she's had some external shortness of breath and poor oral intake. Patient has past medical history of asthma, diabetes mellitus, I disorder, hyperlipidemia and hypertension.chest x- ray completed showing COPD with continued moderate left pleural effusion. Lab work revealing a WBC of 30.8, sodium 127, creatinine 0.56. Troponin negative. D-dimer elevated at 3.10CT of the chest completed showing no acute pulmonary embolism. Airspace consolidation in the left lower lobe consistent with lobar pneumonia.influenza, RSV and COVID-19 negative.at this time patient was admitted. Patient started on IV antibiotics. Pulmonary service is consulted. Blood culture and sputum culture ordered repeat labs ordered. At this time patient is sitting up in chair. Current vital signs temp 90.6, heart rate 103, blood pressure 129/70 fourth pulse ox 93% on room air. ultrasound of chest has been ordered per pulmonary for possible pleurocentesis. on 11/20/2023 patient was seen and examined on the medical floor, she is alert and oriented 3 in no apparent distress, she is complaining of cough and shortness of breath, with mild improvement since yesterday, otherwise she denies any complaints there is no fever or chills no headache or dizziness no chest pain, no nausea or vomiting no abdominal pain no diarrhea no blood in the stools no burning with urination no frequency or urgency and no hematuria.. Patient remains on IV antibiotic Unasyn and vancomycin, awaiting culture results. left sided chest tube remains in place. On 11/21/2023 patient's alert and oriented 3. Patient reports improvement from yesterday. Patient remains on IV antibiotics. Discussed case with cardio thoracic surgery continue current plan of altaplase through pigtail. Chest tube remains in placecurrent vital signs temp 98.0, heart rate 101, respiratory rate 18, blood pressure 131/76 with pulse ox of 95%.white blood cell trending down 15.34. Patient remains on vancomycin and Unasyn. On 11/22/2023 patient's alert and oriented 3.Patient reports improvement from yesterday. Chest tube remains in place patient remains on IV antibiotics. Pulmonary, cardiothoracic infectious disease service is following.Current vital signs temp 97.6, heart rate 98, respiratory rate 17, blood pressure 126/73 with a pulse ox 95% on room air Patient denies chest pain or shortness of breath. Patient denies any nausea vomiting or diarrhea. Patient denies any urinary burning or frequency On 11/23/2023 patient was seen and examined on the medical floor she is alert and oriented 3 in no apparent distress, she is complaining of mild pain at the site of the chest tube, otherwise she denies any complaints there is no fever or chills no headache or dizziness no chest pain, No shortness of breath no cough no nausea or vomiting no abdominal pain no diarrhea and no urinary symptoms On 11/24/2023 patient is alert and oriented 3. Patient states she is feeling improved. Patient will need outpatient IV antibiotics per ID recommendation PICC line has been placed. Continue TPA administration her cardiothoracic param lucio. Chest tube remains in place on 11/25/2023 patient was seen and examined on the medical floor, she is alert and oriented 3 in no apparent distress, she is complaining of mild pain at the site of the chest to, otherwise she denies any complaints, her vital exam reveals a temperature of 98.3 pulse 112 respiration 18 blood pressure 152/87 pulse ox 95% on room air, laboratory data reveals a white blood count of 17.13 hemoglobin 10.2 platelet count 588 BUN 6.9 creatinine 0.6 patient remains on IV Unasyn, she is followed by pulmonary, infectious disease, and thoracic surgery, she is improving gradually, will continue to follow closely. On 11/25/2022 for patient's alert and oriented 3. Patient reports improvement from yesterday. Chest tube remains in place. Current vital signs temp 98.6, heart rate 101, respiratory rate 18, blood pressure 133/77 with pulse ox 96 on room air.white blood cell improving today 12.18. Patient denies chest pain or shortness breath. Patient denies nausea vomiting or diarrhea. Patient denies any urinary burning on 11/27/2023 patient was seen and examined on the medical floor, she is alert and oriented 3 in no apparent distress, she is complaining of mild pain at the site of the chest to, otherwise she denies any complaints, there is no fever or chills no headache or dizziness no chest pain no shortness of breath no cough no nausea or vomiting no abdominal pain no diarrhea and no urinary symptoms, chest tube remains in, pulmonary and thoracic surgery are following. Objective - Vital Signs Vital signs: Vital Signs Temp 98.0 F 11/27/23 08:00 Pulse 107 H 11/27/23 08:00 Resp 19 11/27/23 08:00 BP 122/73 11/27/23 08:00 Pulse Ox 97 11/27/23 08:00 FiO2 21 11/20/23 08:19 Intake & Output 11/26/23 11/27/23 11/27/23 18:59 06:59 18:59 Intake Total 220 Output Total 10 Balance -10 220 Intake: Oral 220 Output: Chest Tube Drainage 10 Left Posterior Chest 10 Other: Voiding Method Toilet Toilet Toilet # Voids 3 3 # Bowel Movements 3 - Exam In general patient is alert and oriented x 3 in no distress HEENT head normocephalic and atraumatic Neck is supple no JVD no goiter no lymphadenopathy no carotid bruit Chest examination reveals a scattered crackles in both lung astorga no wheezing Cardiac exam reveals regular heart sounds S1 and S2 no gallops no murmurs Abdomen is soft nontender no organomegaly with normal bowel sounds Extremity exam reveals no edema no cyanosis or clubbing Neurological examination reveals no gross focal deficits - Labs CBC & Chem 7: 11/26/23 05:42 11/26/23 05:42 Labs: Abnormal Lab Results - Last 24 Hours (Table) 11/26/23 11/26/23 11/26/23 Range/Units 05:42 05:42 11:42 WBC 12.18 H (4.50-10.00) X 10*3/uL RBC 3.14 L (4.10-5.20) X 10*6/uL Hgb 9.5 L (12.0-15.0) g/dL Hct 29.4 L (37.2-46.3) % Plt Count 541 H (140-440) X 10*3/uL Immature Gran # 0.20 H (0.00-0.04) X 10*3/uL Neutrophils # 8.94 H (1.80-7.70) X 10*3/uL BUN 6.6 L (9.0-27.0) mg/dL BUN/Creatinine Ratio 11.00 L (12.00-20.00) Ratio Glucose 180 H (70-110) mg/dL POC Glucose (mg/dL) 199 H (70-110) mg/dL Calcium 8.6 L (8.7-10.3) mg/dL Total Protein 5.1 L (6.2-8.2) g/dL Albumin 2.8 L (3.8-4.9) g/dL Albumin/Globulin Ratio 1.22 L (1.60-3.17) Ratio 11/26/23 11/26/23 11/27/23 Range/Units 16:29 21:17 05:47 WBC (4.50-10.00) X 10*3/uL RBC (4.10-5.20) X 10*6/uL Hgb (12.0-15.0) g/dL Hct (37.2-46.3) % Plt Count (140-440) X 10*3/uL Immature Gran # (0.00-0.04) X 10*3/uL Neutrophils # (1.80-7.70) X 10*3/uL BUN (9.0-27.0) mg/dL BUN/Creatinine Ratio (12.00-20.00) Ratio Glucose (70-110) mg/dL POC Glucose (mg/dL) 168 H 237 H 190 H (70-110) mg/dL Calcium (8.7-10.3) mg/dL Total Protein (6.2-8.2) g/dL Albumin (3.8-4.9) g/dL Albumin/Globulin Ratio (1.60-3.17) Ratio Assessment and Plan Assessment: 1. Left lower lobe pneumonia 2. Leukocytosis secondary to above 3. Pleural effusion status post pleurocentesis with purulent drainage esuspect empyema 4. Hyponatremia secondary to dehydration 5. Elevated d-dimer. CTA negative for PE 6. History of asthma 7. History of diabetes mellitus. Patient on sliding scale coverage 8. History of macular degeneration 9. History of hyperlipidemia 10. History of essential hypertension DVT prophylaxis heparin. GI prophylaxis Protonix Pulmonary service is consulted cardiothoracic following Sputum and blood cultures ordered Patient started on IV antibiotics PICC line placed for IV antibiotics repeat labs ordered
--- NOTE | 2023-11-27 17:31 | P.PN ---
Subjective Progress Note Date: 11/27/23 On today's evaluation of 11/27/2023, the patient is being seen for a follow-up. The patient is doing well. No specific complaints. The patient had a left- sided pneumonia complicated by development of a empyema. Cultures were positive for alphahemolytic Streptococcus. The patient had a pigtail catheter inserted and this is postop day #6. This was inserted by interventional radiology. The patient is having some limited cough. No significant sputum production. The catheter remains in place with some wall suction at -20 cm of water. No evidence of any air leak. Oxygenation is stable on room air with a pulse ox of 95% and the patient continues to use incentive spirometer. Repeat chest x-ray from today was reviewed and the patient was found to have a stable left-sided consolidation with small pleural effusion and questionable pneumothorax on the left. No other new complaints otherwise for now. A follow-up CAT scan was ordered to reevaluate for any residual effusion/pocket/abscess. Total amount of output from the pigtail catheter over the past 24 hours has been approximately 10 cc Objective - Vital Signs Vital signs: Vital Signs Temp 97.6 F 11/27/23 14:00 Pulse 112 H 11/27/23 14:00 Resp 17 11/27/23 14:00 BP 130/80 11/27/23 14:00 Pulse Ox 97 11/27/23 14:00 FiO2 21 11/20/23 08:19 Intake & Output 11/26/23 11/27/23 11/27/23 18:59 06:59 18:59 Intake Total 220 Output Total 10 0 Balance -10 220 0 Intake: Oral 220 Output: Chest Tube Drainage 10 0 Left Posterior Chest 10 0 Other: Voiding Method Toilet Toilet Toilet # Voids 3 3 # Bowel Movements 3 - Exam CONSTITUTIONAL: Appears comfortable, cooperative, no acute distress RESPIRATORY: Lungs sounds diminished in the left base. Respirations symmetrical, nonlabored. Currently on room air with oxygen saturation 95%. Achieving 750-1000 mL on her incentive spirometry CARDIOVASCULAR: S1, S2 present. Regular rate and rhythm. Palpable peripheral pulses bilaterally. No edema present. No calf pain or tenderness noted. SCDs present. GASTROINTESTINAL: Abdomen soft, nontender, nondistended. Active bowel sounds present 4 quadrants. Tolerating diet. GENITOURINARY: Continues to void. INTEGUMENTARY: Skin is warm and dry, no clubbing or cyanosis is present. Left chest pigtail catheter site dressing clean, dry and intact. NEUROLOGIC: Cranial nerves II through XII intact. No focal deficits. MUSKULOSKELETAL: Able to move all extremities, strength equal bilaterally, gait normal. PSYCHIATRIC: Alert and oriented to person place and time, appropriate affect, intact judgment and insight. INVASIVE LINES AND TUBES: Left pigtail catheter present, no air leaks present, no output from the left chest pigtail catheter in the last 24 hours. - Labs CBC & Chem 7: 11/26/23 05:42 11/26/23 05:42 Labs: Abnormal Lab Results - Last 24 Hours (Table) 11/26/23 11/27/23 11/27/23 Range/Units 21:17 05:47 11:28 POC Glucose (mg/dL) 237 H 190 H 173 H (70-110) mg/dL 11/27/23 Range/Units 16:17 POC Glucose (mg/dL) 149 H (70-110) mg/dL Assessment and Plan Plan: Left lung empyema, status post left-sided thoracentesis today November 19, 2023 with 150 cc of thick creamy moreno fluid returned. Suspect empyema. Received a left-sided pigtail catheter placement on 11/20/2023. Lytics instilled daily x 5 so far. Preliminary cultures revealing alpha hemolytic Streptococcus. Remains on Unasyn. Acute community-acquired pneumonia in the left lower lobe, empyema Febrile illness secondary to above, recovered Leukocytosis secondary to above, improving Hyponatremia, recovered Diabetes mellitus with hyperglycemia Macular degeneration Hyperlipidemia Hypertension Plan: Clinically stable and output from the pigtail catheter is minimal Obtain a follow-up CAT scan of the chest to decide on further management Continue Unasyn Stable and on room air Working well with the incentive spirometer We will continue to follow
[2023-11-27 20:05] LABS: Glucose,Whole Blood 279 mg/dL (70-110)
--- NOTE | 2023-11-27 23:12 | CT ---
EXAMINATION TYPE: CT chest wo con DATE OF EXAM: 11/27/2023 COMPARISON: 11/23/2023 HISTORY: Loculated Left pleural effusion. CT DLP: 269 mGycm, Automated exposure control for dose reduction was used. CONTRAST: Performed injected with 0 mL of Isovue 300. TECHNIQUE: Axial images were obtained at 5 mm thick sections. Reconstructed images are reviewed on [employer] computer in the coronal plane. FINDINGS: Portion of the thyroid visualized is normal. There is a loculated fluid collection within the posterior left lung base measures approximately 5.9 x 7.7 cm. There is a subtle density change could indicate underlying debris. Some minimal air is with in the superior portion. Differential diagnosis could include abscess and empyema. This has developed from the comparison study. Previous pneumothorax not identified. There is mild emphysematous changes present. No enlarged mediastinal or hilar adenopathy is evident. The ascending aorta diameter at the level o f the main pulmonary artery is 3.3 cm. The main pulmonary artery diameter at the bifurcation is 2.[address] sections are obtained through the upper abdomen. Abdomen is essentially unremarkable. IMPRESSION: 1. Developing loculated low-density collection left base, increased in size from prior study. Debris dependent density change. Empyema, loculated effusion, complex hemothorax should be included in the d ifferential diagnosis..
[2023-11-28 05:56] LABS: Glucose,Whole Blood 178 mg/dL (70-110)
[2023-11-28 08:36] LABS: Basophils # (A) 0.08 X 10*3/uL (0.00-0.10); Basophils % (A) 0.6 %; Eosinophils # (A) 0.21 X 10*3/uL (0.04-0.35); Eosinophils % (A) 1.7 %; HGB 10.2 g/dL (12.0-15.0); Lymphocytes # (A) 2.08 X 10*3/uL (0.90-5.00); Lymphocytes % (A) 16.6 %; MCH 31.7 pg (27.0-32.0); MCHC 32.9 g/dL (32.0-37.0); MCV 96.3 FL (80.0-97.0); Mean Platelet Volume 11.9 FL (9.5-12.2); Monocytes # (A) 0.77 X 10*3/uL (0.20-1.00); Monocytes % (A) 6.1 %; NRBC Per 100 WBC 0 X 10*3/uL (0.00-0.01); Neutrophils # (A) 9.27 X 10*3/uL (1.80-7.70); Neutrophils % (A) 73.8 %; Platelet Count 583 X 10*3/uL (140-440); RBC 3.22 X 10*6/uL (4.10-5.20); RDW 13.2 % (11.5-14.5); WBC 12.56 X 10*3/uL (4.50-10.00)
--- NOTE | 2023-11-28 08:49 | XR ---
EXAMINATION TYPE: XR chest 2V DATE OF EXAM: 11/28/2023 COMPARISON: 11/27/2023 TECHNIQUE: PA and lateral views submitted. HISTORY: Left pleural effusion FINDINGS: Left-sided consolidation and small effusion. Pigtail catheter remains in position. No sizable pneumot horax. Right lung demonstrates minimal right-sided pleural fluid with no consolidation. No overt fail ure. Heart size stable. Osseous structures unchanged. IMPRESSION: 1. Stable left-sided consolidation and small pleural effusion..
[2023-11-28 09:03] LABS: ALT 26 U/L (8-44); AST 25 U/L (13-35); Albumin 3.1 g/dL (3.8-4.9); Albumin/Globulin Ratio 1.15 Ratio (1.60-3.17); Alkaline Phosphatase 144 U/L (41-126); Blood Urea Nitrogen 7.5 mg/dL (9.0-27.0); Calcium 9.2 mg/dL (8.7-10.3); Carbon Dioxide 27.1 mmol/L (21.6-31.8); Chloride 100 mmol/L (96-109); Globulin 2.7 g/dL (1.6-3.3); Glucose 176 mg/dL (70-110); Potassium 4.6 mmol/L (3.5-5.5); Sodium 136 mmol/L (135-145); Total Bilirubin 0.3 mg/dL (0.3-1.2); Total Protein 5.8 g/dL (6.2-8.2)
--- NOTE | 2023-11-28 09:25 | P.PN ---
Subjective Progress Note Date: 11/28/23 Aliya Leiva, is a 78-year-old female patient of Dr. Valderrama who presented to the ER with complaints of muscle aches and shaking febrile and chest pain that has been occurring over the past week. Patient states she's had some external shortness of breath and poor oral intake. Patient has past medical history of asthma, diabetes mellitus, I disorder, hyperlipidemia and hypertension.chest x- ray completed showing COPD with continued moderate left pleural effusion. Lab work revealing a WBC of 30.8, sodium 127, creatinine 0.56. Troponin negative. D-dimer elevated at 3.10CT of the chest completed showing no acute pulmonary embolism. Airspace consolidation in the left lower lobe consistent with lobar pneumonia.influenza, RSV and COVID-19 negative.at this time patient was admitted. Patient started on IV antibiotics. Pulmonary service is consulted. Blood culture and sputum culture ordered repeat labs ordered. At this time patient is sitting up in chair. Current vital signs temp 90.6, heart rate 103, blood pressure 129/70 fourth pulse ox 93% on room air. ultrasound of chest has been ordered per pulmonary for possible pleurocentesis. on 11/20/2023 patient was seen and examined on the medical floor, she is alert and oriented 3 in no apparent distress, she is complaining of cough and shortness of breath, with mild improvement since yesterday, otherwise she denies any complaints there is no fever or chills no headache or dizziness no chest pain, no nausea or vomiting no abdominal pain no diarrhea no blood in the stools no burning with urination no frequency or urgency and no hematuria.. Patient remains on IV antibiotic Unasyn and vancomycin, awaiting culture results. left sided chest tube remains in place. On 11/21/2023 patient's alert and oriented 3. Patient reports improvement from yesterday. Patient remains on IV antibiotics. Discussed case with cardio thoracic surgery continue current plan of altaplase through pigtail. Chest tube remains in placecurrent vital signs temp 98.0, heart rate 101, respiratory rate 18, blood pressure 131/76 with pulse ox of 95%.white blood cell trending down 15.34. Patient remains on vancomycin and Unasyn. On 11/22/2023 patient's alert and oriented 3.Patient reports improvement from yesterday. Chest tube remains in place patient remains on IV antibiotics. Pulmonary, cardiothoracic infectious disease service is following.Current vital signs temp 97.6, heart rate 98, respiratory rate 17, blood pressure 126/73 with a pulse ox 95% on room air Patient denies chest pain or shortness of breath. Patient denies any nausea vomiting or diarrhea. Patient denies any urinary burning or frequency On 11/23/2023 patient was seen and examined on the medical floor she is alert and oriented 3 in no apparent distress, she is complaining of mild pain at the site of the chest tube, otherwise she denies any complaints there is no fever or chills no headache or dizziness no chest pain, No shortness of breath no cough no nausea or vomiting no abdominal pain no diarrhea and no urinary symptoms On 11/24/2023 patient is alert and oriented 3. Patient states she is feeling improved. Patient will need outpatient IV antibiotics per ID recommendation PICC line has been placed. Continue TPA administration her cardiothoracic param lucio. Chest tube remains in place on 11/25/2023 patient was seen and examined on the medical floor, she is alert and oriented 3 in no apparent distress, she is complaining of mild pain at the site of the chest to, otherwise she denies any complaints, her vital exam reveals a temperature of 98.3 pulse 112 respiration 18 blood pressure 152/87 pulse ox 95% on room air, laboratory data reveals a white blood count of 17.13 hemoglobin 10.2 platelet count 588 BUN 6.9 creatinine 0.6 patient remains on IV Unasyn, she is followed by pulmonary, infectious disease, and thoracic surgery, she is improving gradually, will continue to follow closely. On 11/25/2022 for patient's alert and oriented 3. Patient reports improvement from yesterday. Chest tube remains in place. Current vital signs temp 98.6, heart rate 101, respiratory rate 18, blood pressure 133/77 with pulse ox 96 on room air.white blood cell improving today 12.18. Patient denies chest pain or shortness breath. Patient denies nausea vomiting or diarrhea. Patient denies any urinary burning on 11/27/2023 patient was seen and examined on the medical floor, she is alert and oriented 3 in no apparent distress, she is complaining of mild pain at the site of the chest to, otherwise she denies any complaints, there is no fever or chills no headache or dizziness no chest pain no shortness of breath no cough no nausea or vomiting no abdominal pain no diarrhea and no urinary symptoms, chest tube remains in, pulmonary and thoracic surgery are following. on 11/28/2023 for patient's alert and oriented x 3. chest CT completed. Cardiothoracic surgery awaiting further recommendations. Infectious disease services are following. White blood cell 12.56.current vital signs 98.2, heart rate 14, respiratory rate 18, blood pressure 117/76 with pulse ox 95% on room air Objective - Vital Signs Vital signs: Vital Signs Temp 98.2 F 11/28/23 07:09 Pulse 104 H 11/28/23 07:09 Resp 18 11/28/23 07:09 BP 117/76 11/28/23 07:09 Pulse Ox 95 11/28/23 07:09 FiO2 21 11/20/23 08:19 Intake & Output 11/27/23 11/28/23 11/28/23 18:59 06:59 18:59 Output Total 0 0 0 Balance 0 0 0 Output: Chest Tube Drainage 0 0 0 Left Posterior Chest 0 0 0 Other: Voiding Method Toilet Toilet # Voids 3 3 1 - Exam In general patient is alert and oriented x 3 in no distress HEENT head normocephalic and atraumatic Neck is supple no JVD no goiter no lymphadenopathy no carotid bruit Chest examination reveals a scattered crackles in both lung [place] no wheezing Cardiac exam reveals regular heart sounds S1 and S2 no gallops no murmurs Abdomen is soft nontender no organomegaly with normal bowel sounds Extremity exam reveals no edema no cyanosis or clubbing Neurological examination reveals no gross focal deficits - Labs CBC & Chem 7: 11/28/23 05:30 11/28/23 05:30 Labs: Abnormal Lab Results - Last 24 Hours (Table) 11/27/23 11/27/23 11/27/23 Range/Units 11:28 16:17 20:03 WBC (4.50-10.00) X 10*3/uL RBC (4.10-5.20) X 10*6/uL Hgb (12.0-15.0) g/dL Hct (37.2-46.3) % Plt Count (140-440) X 10*3/uL Immature Gran # (0.00-0.04) X 10*3/uL Neutrophils # (1.80-7.70) X 10*3/uL BUN (9.0-27.0) mg/dL Glucose (70-110) mg/dL POC Glucose (mg/dL) 173 H 149 H 279 H (70-110) mg/dL Alkaline Phosphatase (41-126) U/L Total Protein (6.2-8.2) g/dL Albumin (3.8-4.9) g/dL Albumin/Globulin Ratio (1.60-3.17) Ratio 11/28/23 11/28/23 11/28/23 Range/Units 05:30 05:30 05:55 WBC 12.56 H (4.50-10.00) X 10*3/uL RBC 3.22 L (4.10-5.20) X 10*6/uL Hgb 10.2 L (12.0-15.0) g/dL Hct 31.0 L (37.2-46.3) % Plt Count 583 H (140-440) X 10*3/uL Immature Gran # 0.15 H (0.00-0.04) X 10*3/uL Neutrophils # 9.27 H (1.80-7.70) X 10*3/uL BUN 7.5 L (9.0-27.0) mg/dL Glucose 176 H (70-110) mg/dL POC Glucose (mg/dL) 178 H (70-110) mg/dL Alkaline Phosphatase 144 H (41-126) U/L Total Protein 5.8 L (6.2-8.2) g/dL Albumin 3.1 L (3.8-4.9) g/dL Albumin/Globulin Ratio 1.15 L (1.60-3.17) Ratio Microbiology - Last 24 Hours (Table) 11/19/23 10:45 Fungal Culture - Preliminary Pleural Fluid 11/19/23 10:45 Acid Fast Bacilli Smear - Preliminary Pleural Fluid Acid Fast Bacilli Culture - Preliminary Assessment and Plan Assessment: 1. Left lower lobe pneumonia 2. Leukocytosis secondary to above 3. Pleural effusion status post pleurocentesis with purulent drainage esuspect empyema 4. Hyponatremia secondary to dehydration 5. Elevated d-dimer. CTA negative for PE 6. History of asthma 7. History of diabetes mellitus. Patient on sliding scale coverage 8. History of macular degeneration 9. History of hyperlipidemia 10. History of essential hypertension DVT prophylaxis heparin. GI prophylaxis Protonix Pulmonary service is consulted cardiothoracic following Sputum and blood cultures ordered Patient started on IV antibiotics PICC line placed for IV antibiotics repeat labs ordered
--- NOTE | 2023-11-28 09:53 | P.PN ---
Subjective Progress Note Date: 11/28/23 Principal diagnosis: Left-sided pleural effusion status post thoracentesis, leukocytosis, hyponatremia. History of hypertension, hyperlipidemia, asthma, diabetes, previous light tobacco dependence with cessation many years ago, family history of cancer. POD# #7 placement of an 8.5 [place] pigtail drainage catheter into the patient's left-sided empyema via ultrasound guidance by interventional radiology. The patient was seen and examined in follow-up today November 28, 2023 at her bedside on the fourth floor medical surgical unit. She is currently sitting up to the bedside chair, is awake, alert, oriented x 3 and is in no acute apparent distress. Denies any complaints of pain or shortness of breath at this time, and states that she feels the best she is felt since admission. She has been afebrile in the last 24 hours, and remains on Unasyn for antibiotic coverage managed by infectious disease. Oxygen saturations are 95% on room air and she is achieving 750 to 1000 mL on her incentive spirometry with encouragement. Laboratory results reviewed, WBC count today is 12.56, hemoglobin 10.0, hematocrit 31.0, platelets 583. CT scan of the chest without contrast was c ompleted yesterday which showed a developing loculated low-density collection to her left base which was increased in size from her prior study on November 23, 2023. Chest x-ray results reviewed. Pleural fluid cytology from November 22, 2023 showed dense acute inflammatory cells and bacteria consistent with empyema. Left chest pigtail catheter remains in place to low continuous wall suction -20 cm H2O. No air leak is present. No drainage in the last 24 hours. Objective - Vital Signs Vital signs: Vital Signs Temp 98.2 F 11/28/23 07:09 Pulse 104 H 11/28/23 07:09 Resp 18 11/28/23 07:09 BP 117/76 11/28/23 07:09 Pulse Ox 95 11/28/23 07:09 FiO2 21 11/20/23 08:19 Intake & Output 11/27/23 11/28/23 11/28/23 18:59 06:59 18:59 Output Total 0 0 0 Balance 0 0 0 Output: Chest Tube Drainage 0 0 0 Left Posterior Chest 0 0 0 Other: Voiding Method Toilet Toilet # Voids 3 3 1 - Exam CONSTITUTIONAL: Appears comfortable, cooperative, no acute distress RESPIRATORY: Lungs sounds essentially clear throughout, diminished in the left base. Respirations symmetrical, nonlabored. Currently on room air with oxygen saturation 95%. Achieving 750-1000 mL on her incentive spirometry CARDIOVASCULAR: S1, S2 present. Regular rate and rhythm. Palpable peripheral pulses bilaterally. No edema present. No calf pain or tenderness noted. SCDs present. GASTROINTESTINAL: Abdomen soft, nontender, nondistended. Active bowel sounds present 4 quadrants. Tolerating diet. GENITOURINARY: Continues to void. INTEGUMENTARY: Skin is warm and dry, no clubbing or cyanosis is present. Left chest pigtail catheter site dressing clean, dry and intact. NEUROLOGIC: Cranial nerves II through XII intact. No focal deficits. MUSKULOSKELETAL: Able to move all extremities, strength equal bilaterally, gait normal. PSYCHIATRIC: Alert and oriented to person place and time, appropriate affect, intact judgment and insight. INVASIVE LINES AND TUBES: Left pigtail catheter present, no air leaks present, no output from the left chest pigtail catheter in the last 24 hours. - Allied health notes Allied health notes reviewed: nursing - Labs CBC & Chem 7: 11/28/23 05:30 11/28/23 05:30 Labs: Abnormal Lab Results - Last 24 Hours (Table) 11/27/23 11/27/23 11/27/23 Range/Units 11:28 16:17 20:03 WBC (4.50-10.00) X 10*3/uL RBC (4.10-5.20) X 10*6/uL Hgb (12.0-15.0) g/dL Hct (37.2-46.3) % Plt Count (140-440) X 10*3/uL Immature Gran # (0.00-0.04) X 10*3/uL Neutrophils # (1.80-7.70) X 10*3/uL BUN (9.0-27.0) mg/dL Glucose (70-110) mg/dL POC Glucose (mg/dL) 173 H 149 H 279 H (70-110) mg/dL Alkaline Phosphatase (41-126) U/L Total Protein (6.2-8.2) g/dL Albumin (3.8-4.9) g/dL Albumin/Globulin Ratio (1.60-3.17) Ratio 11/28/23 11/28/23 11/28/23 Range/Units 05:30 05:30 05:55 WBC 12.56 H (4.50-10.00) X 10*3/uL RBC 3.22 L (4.10-5.20) X 10*6/uL Hgb 10.2 L (12.0-15.0) g/dL Hct 31.0 L (37.2-46.3) % Plt Count 583 H (140-440) X 10*3/uL Immature Gran # 0.15 H (0.00-0.04) X 10*3/uL Neutrophils # 9.27 H (1.80-7.70) X 10*3/uL BUN 7.5 L (9.0-27.0) mg/dL Glucose 176 H (70-110) mg/dL POC Glucose (mg/dL) 178 H (70-110) mg/dL Alkaline Phosphatase 144 H (41-126) U/L Total Protein 5.8 L (6.2-8.2) g/dL Albumin 3.1 L (3.8-4.9) g/dL Albumin/Globulin Ratio 1.15 L (1.60-3.17) Ratio Microbiology - Last 24 Hours (Table) 11/19/23 10:45 Fungal Culture - Preliminary Pleural Fluid 11/19/23 10:45 Acid Fast Bacilli Smear - Preliminary Pleural Fluid Acid Fast Bacilli Culture - Preliminary - Imaging and Cardiology Chest x-ray: report reviewed, image reviewed Assessment and Plan Assessment: Left-sided pleural effusion/empyema, status post thoracentesis with removal of 150 mL purulent drainage, status post pigtail catheter placement Leukocytosis, likely due to pneumonia Hyponatremia Fever, chest pain, shortness of breath secondary to above History of hypertension Hyperlipidemia Asthma Diabetes Previous light tobacco dependence with cessation many years ago Family history of cancer Plan: No further alteplase/dornase pleural instillation to left chest pigtail catheter. We will potentially remove the left pigtail catheter today. No surgical intervention at this point, will consider possible VATS with decortication, versus medical management, versus another pigtail placement by interventional radiology. Encourage use of incentive spirometry 10 times every hour while awake. Continue antibiotics per ID recommendations. Increase activity as tolerated. Medical management of other comorbidities per internal medicine, pulmonology. More recommendations to follow based on patient's clinical course. Time with Patient: Less than 30
[2023-11-28 11:31] LABS: Glucose,Whole Blood 148 mg/dL (70-110)
--- NOTE | 2023-11-28 14:25 | US ---
Ultrasound-guided chest tube insertion DATE OF EXAM: 11/28/2023 CLINICAL HISTORY: Left empyema The procedure was discussed with the patient. The risks, complications, benefits, and alternatives we re discussed and any questions were answered. Informed consent was obtained. The patient was placed supine on the ultrasound table and prepped and draped in the usual sterile fas hion. All elements of maximal barrier and sterile technique were utilized. Under ultrasound guidance, access into the pleural space was obtained, via the 8 [place] percutaneous drainage catheter system and direct ultras ound guidance. Approximately 50 liters of purple serous fluid was removed. The patient was stable throughout the procedure and remained stable upon discharge from Department of Radiology. IMPRESSION: 1. Successful left chest tube under ultrasound guidance.
--- NOTE | 2023-11-28 15:31 | P.PN ---
Subjective Progress Note Date: 11/28/23 On today's evaluation of 11/27/2023, the patient is being seen for a follow-up. The patient is doing well. No specific complaints. The patient had a left- sided pneumonia complicated by development of a empyema. Cultures were positive for alphahemolytic Streptococcus. The patient had a pigtail catheter inserted and this is postop day #6. This was inserted by interventional radiology. The patient is having some limited cough. No significant sputum production. The catheter remains in place with some wall suction at -20 cm of water. No evidence of any air leak. Oxygenation is stable on room air with a pulse ox of 95% and the patient continues to use incentive spirometer. Repeat chest x-ray from today was reviewed and the patient was found to have a stable left-sided consolidation with small pleural effusion and questionable pneumothorax on the left. No other new complaints otherwise for now. A follow-up CAT scan was ordered to reevaluate for any residual effusion/pocket/abscess. Total amount of output from the pigtail catheter over the past 24 hours has been approximately 10 cc On today's evaluation of 11/28/2023, the patient is on room air oxygen. No fever. The patient remains on IV Unasyn. I reviewed the CAT scan of the chest that was done yesterday and the patient has a loculated fluid collection in the posterior left lung base measuring 7.7 cm in size and this is a loculated empyema. Note that the inside of pigtail catheter is outside of this loculated area. Case was discussed with cardiothoracic surgery and the plan is to insert another tube to drain this pockets. The white cell count of 12.5 with a hemoglobin 10.2 and a platelet count of 583. Electrolytes are all within normal limits. Patient has no specific complaints that she is using the incentive s pirometer for now. Objective - Vital Signs Vital signs: Vital Signs Temp 98.2 F 11/28/23 14:56 Pulse 98 11/28/23 14:56 Resp 17 11/28/23 14:56 BP 127/73 11/28/23 14:56 Pulse Ox 97 11/28/23 14:56 FiO2 21 11/20/23 08:19 Intake & Output 11/27/23 11/28/23 11/28/23 18:59 06:59 18:59 Output Total 0 0 0 Balance 0 0 0 Output: Chest Tube Drainage 0 0 0 Left Posterior Chest 0 0 0 Other: Voiding Method Toilet Toilet # Voids 3 3 3 - Exam CONSTITUTIONAL: Appears comfortable, cooperative, no acute distress RESPIRATORY: Lungs sounds diminished in the left base. Respirations symmetrical, nonlabored. Currently on room air with oxygen saturation 95%. Achieving 750-1000 mL on her incentive spirometry CARDIOVASCULAR: S1, S2 present. Regular rate and rhythm. Palpable peripheral pulses bilaterally. No edema present. No calf pain or tenderness noted. SCDs present. GASTROINTESTINAL: Abdomen soft, nontender, nondistended. Active bowel sounds present 4 quadrants. Tolerating diet. GENITOURINARY: Continues to void. INTEGUMENTARY: Skin is warm and dry, no clubbing or cyanosis is present. Left chest pigtail catheter site dressing clean, dry and intact. NEUROLOGIC: Cranial nerves II through XII intact. No focal deficits. MUSKULOSKELETAL: Able to move all extremities, strength equal bilaterally, gait normal. PSYCHIATRIC: Alert and oriented to person place and time, appropriate affect, intact judgment and insight. INVASIVE LINES AND TUBES: Left pigtail catheter present, no air leaks present, no output from the left chest pigtail catheter in the last 24 hours. - Labs CBC & Chem 7: 11/28/23 05:30 11/28/23 05:30 Labs: Abnormal Lab Results - Last 24 Hours (Table) 11/27/23 11/27/23 11/28/23 Range/Units 16:17 20:03 05:30 WBC 12.56 H (4.50-10.00) X 10*3/uL RBC 3.22 L (4.10-5.20) X 10*6/uL Hgb 10.2 L (12.0-15.0) g/dL Hct 31.0 L (37.2-46.3) % Plt Count 583 H (140-440) X 10*3/uL Immature Gran # 0.15 H (0.00-0.04) X 10*3/uL Neutrophils # 9.27 H (1.80-7.70) X 10*3/uL BUN (9.0-27.0) mg/dL Glucose (70-110) mg/dL POC Glucose (mg/dL) 149 H 279 H (70-110) mg/dL Alkaline Phosphatase (41-126) U/L Total Protein (6.2-8.2) g/dL Albumin (3.8-4.9) g/dL Albumin/Globulin Ratio (1.60-3.17) Ratio 11/28/23 11/28/23 11/28/23 Range/Units 05:30 05:55 11:29 WBC (4.50-10.00) X 10*3/uL RBC (4.10-5.20) X 10*6/uL Hgb (12.0-15.0) g/dL Hct (37.2-46.3) % Plt Count (140-440) X 10*3/uL Immature Gran # (0.00-0.04) X 10*3/uL Neutrophils # (1.80-7.70) X 10*3/uL BUN 7.5 L (9.0-27.0) mg/dL Glucose 176 H (70-110) mg/dL POC Glucose (mg/dL) 178 H 148 H (70-110) mg/dL Alkaline Phosphatase 144 H (41-126) U/L Total Protein 5.8 L (6.2-8.2) g/dL Albumin 3.1 L (3.8-4.9) g/dL Albumin/Globulin Ratio 1.15 L (1.60-3.17) Ratio Microbiology - Last 24 Hours (Table) 11/19/23 10:45 Fungal Culture - Preliminary Pleural Fluid 11/19/23 10:45 Acid Fast Bacilli Smear - Preliminary Pleural Fluid Acid Fast Bacilli Culture - Preliminary Assessment and Plan Plan: Left lung empyema, status post left-sided thoracentesis today November 19, 2023 with 150 cc of thick creamy moreno fluid returned. Suspect empyema. Received a left-sided pigtail catheter placement on 11/20/2023. Lytics instilled daily x 5 so far. Preliminary cultures revealing alpha hemolytic Streptococcus. Remains on Unasyn. A follow-up CAT scan of the chest was done on 11/27/2023 and the patient was found to have a loculated pocket measuring 7.7 cm in size in the posterior left lung base. Acute community-acquired pneumonia in the left lower lobe, empyema Febrile illness secondary to above, recovered Leukocytosis secondary to above, improving Hyponatremia, recovered Diabetes mellitus with hyperglycemia Macular degeneration Hyperlipidemia Hypertension Plan: Recommend interventional radiology to insert another pigtail catheter to drain the involved pocket of empyema. CAT scan of the chest was reviewed and the case was discussed with the cardiothoracic team. Continue Unasyn Stable and on room air Working well with the incentive spirometer We will continue to follow
[2023-11-28 16:46] LABS: Glucose,Whole Blood 249 mg/dL (70-110)
[2023-11-28] MEDS: KETOROLAC 15 MG/ML 1 ML VIAL IVP SCH (18:24)
[2023-11-28 20:24] LABS: Glucose,Whole Blood 206 mg/dL (70-110)
[2023-11-29 04:59] LABS: Appearance,BF Grossly Bloody (Clear)
[2023-11-29 06:33] LABS: Glucose,Whole Blood 151 mg/dL (70-110)
--- NOTE | 2023-11-29 07:41 | XR ---
EXAMINATION TYPE: XR chest 1V portable DATE OF EXAM: 11/29/2023 COMPARISON: 11/28/2023 HISTORY: Abnormal x-ray TECHNIQUE: Single frontal view of the chest is obtained. FINDINGS: Left-sided consolidation and small effusion. Pigtail catheters noted in position. No siza ble pneumothorax. Right lung demonstrates minimal right-sided pleural fluid with no consolidation. No overt failure. Heart size stable. Osseous structures unchanged. IMPRESSION: Stable left-sided consolidation and small pleural effusion.
[2023-11-29 09:00] LABS: Eosinophils % (A) 2.9 %; HCT 30.4 % (37.2-46.3); HGB 9.9 g/dL (12.0-15.0); Lymphocytes # (A) 2.15 X 10*3/uL (0.90-5.00); Lymphocytes % (A) 20.8 %; MCHC 32.6 g/dL (32.0-37.0); MCV 95.3 FL (80.0-97.0); Mean Platelet Volume 11.6 FL (9.5-12.2); Monocytes # (A) 0.67 X 10*3/uL (0.20-1.00); Monocytes % (A) 6.5 %; NRBC Per 100 WBC 0 X 10*3/uL (0.00-0.01); Neutrophils # (A) 7.02 X 10*3/uL (1.80-7.70); Neutrophils % (A) 67.7 %; Platelet Count 559 X 10*3/uL (140-440); RBC 3.19 X 10*6/uL (4.10-5.20); RDW 13.3 % (11.5-14.5); WBC 10.35 X 10*3/uL (4.50-10.00)
[2023-11-29 09:13] LABS: ALT 24 U/L (8-44); AST 25 U/L (13-35); Albumin 3.1 g/dL (3.8-4.9); Albumin/Globulin Ratio 1.19 Ratio (1.60-3.17); Alkaline Phosphatase 132 U/L (41-126); BUN/Creat Ratio 14.33 Ratio (12.00-20.00); Blood Urea Nitrogen 8.6 mg/dL (9.0-27.0); Calcium 9.5 mg/dL (8.7-10.3); Carbon Dioxide 25.2 mmol/L (21.6-31.8); Chloride 98 mmol/L (96-109); Globulin 2.6 g/dL (1.6-3.3); Glucose 165 mg/dL (70-110); Potassium 4.7 mmol/L (3.5-5.5); Sodium 135 mmol/L (135-145); Total Bilirubin 0.3 mg/dL (0.3-1.2); Total Protein 5.7 g/dL (6.2-8.2)
--- NOTE | 2023-11-29 09:13 | P.PN ---
Subjective Progress Note Date: 11/29/23 Principal diagnosis: Left-sided pleural effusion status post thoracentesis, leukocytosis, hyponatremia. History of hypertension, hyperlipidemia, asthma, diabetes, previous light tobacco dependence with cessation many years ago, family history of cancer POD# #8 placement of left-sided pigtail drainage catheter via ultrasound guidance by interventional radiology The patient was seen and examined this morningwith Dr. Echeverria sitting up in recliner on the medical surgical unit in no acute distress and does states she continues to feel better. Remains on room air. New left sided pigtail remains with 190 mL serosanguineous drainage, original left-sided pigtail catheter with no drainage in over 24 hours. Remains on IV Unasyn. Patient has been ambulatory without difficulty. No other new concerns. Objective - Vital Signs Vital signs: Vital Signs Temp 98.0 F 11/29/23 01:08 Pulse 97 11/29/23 01:08 Resp 15 11/29/23 01:08 BP 139/78 11/29/23 01:08 Pulse Ox 98 11/29/23 08:58 FiO2 21 11/20/23 08:19 Intake & Output 11/28/23 11/29/23 11/29/23 18:59 06:59 18:59 Output Total 360 10 Balance -360 -10 Output: Chest Tube Drainage 360 10 Chest Tube 360 10 Left Posterior Chest 0 0 Other: Voiding Method Toilet Toilet # Voids 3 3 - Exam CONSTITUTIONAL: Appears comfortable, cooperative, no acute distress RESPIRATORY: Lungs sounds diminished in the left base. Respirations even, nonlabored. Currently on room air with oxygen saturation 98% CARDIOVASCULAR: S1, S2 present. Tacky but regular rate and rhythm. Palpable peripheral pulses bilaterally. No edema present. No calf pain or tenderness noted. SCDs present. GASTROINTESTINAL: Abdomen soft, nontender, nondistended. Active bowel sounds present 4 quadrants. Tolerating diet, positive bowel movement 11/26 GENITOURINARY: Continues to void INTEGUMENTARY: Skin is warm and dry NEUROLOGIC: Cranial nerves II through XII intact MUSKULOSKELETAL: Able to move all extremities, strength equal bilaterally, gait normal PSYCHIATRIC: Alert and oriented to person place and time, appropriate affect, intact judgment and insight INVASIVE LINES AND TUBES: 2 left pigtail catheters present, no air leaks present, original pigtail without any drainage for greater than 24 hours, new pigtail with 190 mL serosanguineous drainage since insertion yesterday - Allied health notes Allied health notes reviewed: nursing - Labs CBC & Chem 7: 11/29/23 05:25 11/28/23 05:30 Labs: Abnormal Lab Results - Last 24 Hours (Table) 11/28/23 11/28/23 11/28/23 Range/Units 11:29 14:15 16:45 WBC (4.50-10.00) X 10*3/uL RBC (4.10-5.20) X 10*6/uL Hgb (12.0-15.0) g/dL Hct (37.2-46.3) % Plt Count (140-440) X 10*3/uL Immature Gran # (0.00-0.04) X 10*3/uL POC Glucose (mg/dL) 148 H 249 H (70-110) mg/dL Fluid Appearance Grossly Bloody A (Clear) 11/28/23 11/29/23 11/29/23 Range/Units 20:23 05:25 06:32 WBC 10.35 H (4.50-10.00) X 10*3/uL RBC 3.19 L (4.10-5.20) X 10*6/uL Hgb 9.9 L (12.0-15.0) g/dL Hct 30.4 L (37.2-46.3) % Plt Count 559 H (140-440) X 10*3/uL Immature Gran # 0.11 H (0.00-0.04) X 10*3/uL POC Glucose (mg/dL) 206 H 151 H (70-110) mg/dL Fluid Appearance (Clear) Microbiology - Last 24 Hours (Table) 11/28/23 14:15 Gram Stain - Preliminary Pleural Fluid - Imaging and Cardiology Chest x-ray: report reviewed, image reviewed Assessment and Plan Assessment: Left-sided pleural effusion/empyema, status post thoracentesis with removal of 150 mL purulent drainage, status post pigtail catheter placement x2 Leukocytosis, likely due to pneumonia Hyponatremia Fever, chest pain, shortness of breath secondary to above History of hypertension Hyperlipidemia Asthma Diabetes Previous light tobacco dependence with cessation many years ago Family history of cancer Plan: Will instill lytics to new pigtail catheter, allowed to dwell for 1 to 2 hours before draining. Depending on drainage new pigtail catheter might be discontinued tomorrow Will discontinue old pigtail catheter No surgical intervention warranted Continue antibiotics per ID recommendations Increase activity as tolerated Incentive spirometry ordered and should be encouraged Medical management of other comorbidities per internal medicine, pulmonology More recommendations to follow
[2023-11-29] MEDS: DORNASE ALFA 5 MG in SODIUM CHLORIDE 0.9% 50 ML IRRIGATION ONE (09:29)
[2023-11-29] MEDS: ALTEPLASE 10 MG in SODIUM CHLORIDE 0.9% 50 ML IRRIGATION ONE (09:30)
--- NOTE | 2023-11-29 11:11 | P.PN ---
Subjective Progress Note Date: 11/29/23 Aliya Leiva, is a 78-year-old female patient of Dr. Valderrama who presented to the ER with complaints of muscle aches and shaking febrile and chest pain that has been occurring over the past week. Patient states she's had some external shortness of breath and poor oral intake. Patient has past medical history of asthma, diabetes mellitus, I disorder, hyperlipidemia and hypertension.chest x- ray completed showing COPD with continued moderate left pleural effusion. Lab work revealing a WBC of 30.8, sodium 127, creatinine 0.56. Troponin negative. D-dimer elevated at 3.10CT of the chest completed showing no acute pulmonary embolism. Airspace consolidation in the left lower lobe consistent with lobar pneumonia.influenza, RSV and COVID-19 negative.at this time patient was admitted. Patient started on IV antibiotics. Pulmonary service is consulted. Blood culture and sputum culture ordered repeat labs ordered. At this time patient is sitting up in chair. Current vital signs temp 90.6, heart rate 103, blood pressure 129/70 fourth pulse ox 93% on room air. ultrasound of chest has been ordered per pulmonary for possible pleurocentesis. on 11/20/2023 patient was seen and examined on the medical floor, she is alert and oriented 3 in no apparent distress, she is complaining of cough and shortness of breath, with mild improvement since yesterday, otherwise she denies any complaints there is no fever or chills no headache or dizziness no chest pain, no nausea or vomiting no abdominal pain no diarrhea no blood in the stools no burning with urination no frequency or urgency and no hematuria.. Patient remains on IV antibiotic Unasyn and vancomycin, awaiting culture results. left sided chest tube remains in place. On 11/21/2023 patient's alert and oriented 3. Patient reports improvement from yesterday. Patient remains on IV antibiotics. Discussed case with cardio thoracic surgery continue current plan of altaplase through pigtail. Chest tube remains in placecurrent vital signs temp 98.0, heart rate 101, respiratory rate 18, blood pressure 131/76 with pulse ox of 95%.white blood cell trending down 15.34. Patient remains on vancomycin and Unasyn. On 11/22/2023 patient's alert and oriented 3.Patient reports improvement from yesterday. Chest tube remains in place patient remains on IV antibiotics. Pulmonary, cardiothoracic infectious disease service is following.Current vital signs temp 97.6, heart rate 98, respiratory rate 17, blood pressure 126/73 with a pulse ox 95% on room air Patient denies chest pain or shortness of breath. Patient denies any nausea vomiting or diarrhea. Patient denies any urinary burning or frequency On 11/23/2023 patient was seen and examined on the medical floor she is alert and oriented 3 in no apparent distress, she is complaining of mild pain at the site of the chest tube, otherwise she denies any complaints there is no fever or chills no headache or dizziness no chest pain, No shortness of breath no cough no nausea or vomiting no abdominal pain no diarrhea and no urinary symptoms On 11/24/2023 patient is alert and oriented 3. Patient states she is feeling improved. Patient will need outpatient IV antibiotics per ID recommendation PICC line has been placed. Continue TPA administration her cardiothoracic param lucio. Chest tube remains in place on 11/25/2023 patient was seen and examined on the medical floor, she is alert and oriented 3 in no apparent distress, she is complaining of mild pain at the site of the chest to, otherwise she denies any complaints, her vital exam reveals a temperature of 98.3 pulse 112 respiration 18 blood pressure 152/87 pulse ox 95% on room air, laboratory data reveals a white blood count of 17.13 hemoglobin 10.2 platelet count 588 BUN 6.9 creatinine 0.6 patient remains on IV Unasyn, she is followed by pulmonary, infectious disease, and thoracic surgery, she is improving gradually, will continue to follow closely. On 11/25/2022 for patient's alert and oriented 3. Patient reports improvement from yesterday. Chest tube remains in place. Current vital signs temp 98.6, heart rate 101, respiratory rate 18, blood pressure 133/77 with pulse ox 96 on room air.white blood cell improving today 12.18. Patient denies chest pain or shortness breath. Patient denies nausea vomiting or diarrhea. Patient denies any urinary burning on 11/27/2023 patient was seen and examined on the medical floor, she is alert and oriented 3 in no apparent distress, she is complaining of mild pain at the site of the chest to, otherwise she denies any complaints, there is no fever or chills no headache or dizziness no chest pain no shortness of breath no cough no nausea or vomiting no abdominal pain no diarrhea and no urinary symptoms, chest tube remains in, pulmonary and thoracic surgery are following. on 11/28/2023 for patient's alert and oriented x 3. chest CT completed. Cardiothoracic surgery awaiting further recommendations. Infectious disease services are following. White blood cell 12.56.current vital signs 98.2, heart rate 14, respiratory rate 18, blood pressure 117/76 with pulse ox 95% on room air 11/28/2022 for patient's alert and oriented 3 and a pigtail chest tube placed yesterday. Alteplase has been administered per cardiothoracic. Awaiting furt her recommendations. At this time patient denies chest pain or shortness breath. Patient denies nausea vomiting or diarrhea. Patient denies any urinary burning or frequency. Current vital signs temp 98.0, heart rate 97, blood pressure 119/63 with pulse ox 97. Patient remains on IV Unasyn Objective - Vital Signs Vital signs: Vital Signs Temp 97.9 F 11/29/23 08:16 Pulse 104 H 11/29/23 08:16 Resp 18 11/29/23 08:16 BP 119/63 11/29/23 08:16 Pulse Ox 98 11/29/23 08:58 FiO2 21 11/20/23 08:19 Intake & Output 11/28/23 11/29/23 11/29/23 18:59 06:59 18:59 Output Total 360 10 Balance -360 -10 Output: Chest Tube Drainage 360 10 Chest Tube 360 10 Left Posterior Chest 0 0 Other: Voiding Method Toilet Toilet Toilet # Voids 3 3 - Exam In general patient is alert and oriented x 3 in no distress HEENT head normocephalic and atraumatic Neck is supple no JVD no goiter no lymphadenopathy no carotid bruit Chest examination reveals a scattered crackles in both lung [place] no wheezing Cardiac exam reveals regular heart sounds S1 and S2 no gallops no murmurs Abdomen is soft nontender no organomegaly with normal bowel sounds Extremity exam reveals no edema no cyanosis or clubbing Neurological examination reveals no gross focal deficits - Labs CBC & Chem 7: 11/29/23 05:25 11/29/23 05:25 Labs: Abnormal Lab Results - Last 24 Hours (Table) 11/28/23 11/28/2311/27/24 Range/Units 11:29 14:15 16:45 WBC (4.50-10.00) X 10*3/uL RBC (4.10-5.20) X 10*6/uL Hgb (12.0-15.0) g/dL Hct (37.2-46.3) % Plt Count (140-440) X 10*3/uL Immature Gran # (0.00-0.04) X 10*3/uL BUN (9.0-27.0) mg/dL Glucose (70-110) mg/dL POC Glucose (mg/dL) 148 H 249 H (70-110) mg/dL Alkaline Phosphatase (41-126) U/L Total Protein (6.2-8.2) g/dL Albumin (3.8-4.9) g/dL Albumin/Globulin Ratio (1.60-3.17) Ratio Fluid Appearance Grossly Bloody A (Clear) 11/28/23 11/29/23 11/29/23 Range/Units 20:23 05:25 05:25 WBC 10.35 H (4.50-10.00) X 10*3/uL RBC 3.19 L (4.10-5.20) X 10*6/uL Hgb 9.9 L (12.0-15.0) g/dL Hct 30.4 L (37.2-46.3) % Plt Count 559 H (140-440) X 10*3/uL Immature Gran # 0.11 H (0.00-0.04) X 10*3/uL BUN 8.6 L (9.0-27.0) mg/dL Glucose 165 H (70-110) mg/dL POC Glucose (mg/dL) 206 H (70-110) mg/dL Alkaline Phosphatase 132 H (41-126) U/L Total Protein 5.7 L (6.2-8.2) g/dL Albumin 3.1 L (3.8-4.9) g/dL Albumin/Globulin Ratio 1.19 L (1.60-3.17) Ratio Fluid Appearance (Clear) 11/29/23 Range/Units 06:32 WBC (4.50-10.00) X 10*3/uL RBC (4.10-5.20) X 10*6/uL Hgb (12.0-15.0) g/dL Hct (37.2-46.3) % Plt Count (140-440) X 10*3/uL Immature Gran # (0.00-0.04) X 10*3/uL BUN (9.0-27.0) mg/dL Glucose (70-110) mg/dL POC Glucose (mg/dL) 151 H (70-110) mg/dL Alkaline Phosphatase (41-126) U/L Total Protein (6.2-8.2) g/dL Albumin (3.8-4.9) g/dL Albumin/Globulin Ratio (1.60-3.17) Ratio Fluid Appearance (Clear) Microbiology - Last 24 Hours (Table) 11/28/23 14:15 Gram Stain - Preliminary Pleural Fluid Assessment and Plan Assessment: 1. Left lower lobe pneumonia 2. Leukocytosis secondary to above 3. Pleural effusion status post pleurocentesis with purulent drainage esuspect empyema 4. Hyponatremia secondary to dehydration 5. Elevated d-dimer. CTA negative for PE 6. History of asthma 7. History of diabetes mellitus. Patient on sliding scale coverage 8. History of macular degeneration 9. History of hyperlipidemia 10. History of essential hypertension DVT prophylaxis heparin. GI prophylaxis Protonix Pulmonary service is consulted cardiothoracic following Sputum and blood cultures ordered Patient started on IV antibiotics PICC line placed for IV antibiotics repeat labs ordered
[2023-11-29 11:52] LABS: Glucose,Whole Blood 164 mg/dL (70-110)
--- NOTE | 2023-11-29 15:03 | P.PN ---
Subjective Progress Note Date: 11/29/23 On today's evaluation of 11/27/2023, the patient is being seen for a follow-up. The patient is doing well. No specific complaints. The patient had a left- sided pneumonia complicated by development of a empyema. Cultures were positive for alphahemolytic Streptococcus. The patient had a pigtail catheter inserted and this is postop day #6. This was inserted by interventional radiology. The patient is having some limited cough. No significant sputum production. The catheter remains in place with some wall suction at -20 cm of water. No evidence of any air leak. Oxygenation is stable on room air with a pulse ox of 95% and the patient continues to use incentive spirometer. Repeat chest x-ray from today was reviewed and the patient was found to have a stable left-sided consolidation with small pleural effusion and questionable pneumothorax on the left. No other new complaints otherwise for now. A follow-up CAT scan was ordered to reevaluate for any residual effusion/pocket/abscess. Total amount of output from the pigtail catheter over the past 24 hours has been approximately 10 cc On today's evaluation of 11/28/2023, the patient is on room air oxygen. No fever. The patient remains on IV Unasyn. I reviewed the CAT scan of the chest that was done yesterday and the patient has a loculated fluid collection in the posterior left lung base measuring 7.7 cm in size and this is a loculated empyema. Note that the inside of pigtail catheter is outside of this loculated area. Case was discussed with cardiothoracic surgery and the plan is to insert another tube to drain this pockets. The white cell count of 12.5 with a hemoglobin 10.2 and a platelet count of 583. Electrolytes are all within normal limits. Patient has no specific complaints that she is using the incentive s pirometer for now. On today's evaluation of 11/29/2023, I am seeing the patient for a follow-up. The patient remains on room air oxygen. No specific complaints. She remains on antibiotics. Note that the patient had a pigtail catheter insertion yesterday and a total of 200 cc of serosanguineous material was drained from the fistula pocket was seen on the CAT scan of the chest. The patient will be feeling better. She remains on IV Unasyn. Alteplase was administered through the second pigtail catheter was inserted yesterday. The patient has a WBC count of 10 with a hemoglobin 9.9, electrolytes are all stable, BUN is at 8 with a creatinine of 0.6. No specific complaints for now. Using incentive spirometer. Objective - Vital Signs Vital signs: Vital Signs Temp 97.9 F 11/29/23 08:16 Pulse 104 H 11/29/23 08:16 Resp 18 11/29/23 08:16 BP 119/63 11/29/23 08:16 Pulse Ox 98 11/29/23 08:58 FiO2 21 11/20/23 08:19 Intake & Output 11/28/23 11/29/23 11/29/23 18:59 06:59 18:59 Output Total 360 10 Balance -360 -10 Output: Chest Tube Drainage 360 10 Chest Tube 360 10 Left Posterior Chest 0 0 Other: Voiding Method Toilet Toilet Toilet # Voids 3 3 - Exam CONSTITUTIONAL: Appears comfortable, cooperative, no acute distress RESPIRATORY: Lungs sounds diminished in the left base. Respirations symmetrical, nonlabored. Currently on room air with oxygen saturation 95%. Achieving 750-1000 mL on her incentive spirometry CARDIOVASCULAR: S1, S2 present. Regular rate and rhythm. Palpable peripheral pulses bilaterally. No edema present. No calf pain or tenderness noted. SCDs present. GASTROINTESTINAL: Abdomen soft, nontender, nondistended. Active bowel sounds present 4 quadrants. Tolerating diet. GENITOURINARY: Continues to void. INTEGUMENTARY: Skin is warm and dry, no clubbing or cyanosis is present. Left chest pigtail catheter site dressing clean, dry and intact. NEUROLOGIC: Cranial nerves II through XII intact. No focal deficits. MUSKULOSKELETAL: Able to move all extremities, strength equal bilaterally, gait normal. PSYCHIATRIC: Alert and oriented to person place and time, appropriate affect, intact judgment and insight. INVASIVE LINES AND TUBES: Left pigtail catheter present, no air leaks present, no output from the left chest pigtail catheter in the last 24 hours. - Labs CBC & Chem 7: 11/29/23 05:25 11/29/23 05:25 Labs: Abnormal Lab Results - Last 24 Hours (Table) 11/28/23 11/28/23 11/28/23 Range/Units 11:29 14:15 16:45 WBC (4.50-10.00) X 10*3/uL RBC (4.10-5.20) X 10*6/uL Hgb (12.0-15.0) g/dL Hct (37.2-46.3) % Plt Count (140-440) X 10*3/uL Immature Gran # (0.00-0.04) X 10*3/uL BUN (9.0-27.0) mg/dL Glucose (70-110) mg/dL POC Glucose (mg/dL) 148 H 249 H (70-110) mg/dL Alkaline Phosphatase (41-126) U/L Total Protein (6.2-8.2) g/dL Albumin (3.8-4.9) g/dL Albumin/Globulin Ratio (1.60-3.17) Ratio Fluid Appearance Grossly Bloody A (Clear) 11/28/23 11/29/23 11/29/23 Range/Units 20:23 05:25 05:25 WBC 10.35 H (4.50-10.00) X 10*3/uL RBC 3.19 L (4.10-5.20) X 10*6/uL Hgb 9.9 L (12.0-15.0) g/dL Hct 30.4 L (37.2-46.3) % Plt Count 559 H (140-440) X 10*3/uL Immature Gran # 0.11 H (0.00-0.04) X 10*3/uL BUN 8.6 L (9.0-27.0) mg/dL Glucose 165 H (70-110) mg/dL POC Glucose (mg/dL) 206 H (70-110) mg/dL Alkaline Phosphatase 132 H (41-126) U/L Total Protein 5.7 L (6.2-8.2) g/dL Albumin 3.1 L (3.8-4.9) g/dL Albumin/Globulin Ratio 1.19 L (1.60-3.17) Ratio Fluid Appearance (Clear) 11/29/23 Range/Units 06:32 WBC (4.50-10.00) X 10*3/uL RBC (4.10-5.20) X 10*6/uL Hgb (12.0-15.0) g/dL Hct (37.2-46.3) % Plt Count (140-440) X 10*3/uL Immature Gran # (0.00-0.04) X 10*3/uL BUN (9.0-27.0) mg/dL Glucose (70-110) mg/dL POC Glucose (mg/dL) 151 H (70-110) mg/dL Alkaline Phosphatase (41-126) U/L Total Protein (6.2-8.2) g/dL Albumin (3.8-4.9) g/dL Albumin/Globulin Ratio (1.60-3.17) Ratio Fluid Appearance (Clear) Microbiology - Last 24 Hours (Table) 11/28/23 14:15 Gram Stain - Preliminary Pleural Fluid Assessment and Plan Plan: Left lung empyema, status post left-sided thoracentesis today November 19, 2023 with 150 cc of thick creamy moreno fluid returned. Suspect empyema. Received a left-sided pigtail catheter placement on 11/20/2023. Lytics instilled daily x 5 through pigtail #1.. cultures revealing alpha hemolytic Streptococcus. Follow- up CAT scan of the chest showed a 7.7 cm pocket in the posterior left lung and a pigtail #2 was inserted and a total of 200 cc of fluid was drained. Chest x-ray shows some limited consolidation of the left lung base. Acute community-acquired pneumonia in the left lower lobe, empyema, improving Febrile illness secondary to above, recovered Leukocytosis secondary to above, improving Hyponatremia, recovered Diabetes mellitus with hyperglycemia Macular degeneration Hyperlipidemia Hypertension Plan: Alteplase to be administered through the pigtail #2 Daily chest x-ray Continue Unasyn Stable and on room air Working well with the incentive spirometer We will continue to follow
[2023-11-29 16:45] LABS: Glucose,Whole Blood 203 mg/dL (70-110)
[2023-11-29 21:06] LABS: Glucose,Whole Blood 371 mg/dL (70-110)
[2023-11-30 06:26] LABS: Glucose,Whole Blood 171 mg/dL (70-110)
--- NOTE | 2023-11-30 07:46 | XR ---
EXAMINATION TYPE: XR chest 1V portable DATE OF EXAM: 11/30/2023 COMPARISON: 11/29/2023 HISTORY: Pleural effusion TECHNIQUE: Single frontal view of the chest is obtained. FINDINGS: There is interval reduction size of the left-sided pleural effusion with basilar consolida tion. Right lung is clear. Biapical pleural thickening. Osseous structures stable. Arthropathy of the shoulders. IMPRESSION: Interval reduction in size of the left-sided pleural effusion with persistent consolidat ion and small amount of residual fluid.
--- NOTE | 2023-11-30 08:52 | P.PN ---
Subjective Progress Note Date: 11/30/23 Principal diagnosis: Left-sided pleural effusion status post thoracentesis, leukocytosis, hyponatremia. History of hypertension, hyperlipidemia, asthma, diabetes, previous light tobacco dependence with cessation many years ago, family history of cancer POD# #9 placement of left-sided pigtail drainage catheter via ultrasound guidance by interventional radiology The patient was seen and examined this morning sitting up in recliner on the medical surgical unit in no acute distress and does states she continues to feel better. Remains on room air. Second left sided pigtail remains with 210 mL serosanguineous drainage after lytic dose given yesterday, original left-sided p igtail catheter discontinued without incident yesterday. Remains on IV Unasyn. Patient has been ambulatory without difficulty. No other new concerns. Objective - Vital Signs Vital signs: Vital Signs Temp 98.3 F 11/30/23 07:25 Pulse 108 H 11/30/23 07:25 Resp 16 11/30/23 07:25 BP 122/70 11/30/23 07:25 Pulse Ox 95 11/30/23 08:09 FiO2 21 11/20/23 08:19 Intake & Output 11/29/23 11/30/23 11/30/23 18:59 06:59 18:59 Output Total 402 10 Balance -402 -10 Output: Chest Tube Drainage 400 10 Chest Tube 400 10 Left Posterior Chest 0 Urine/Stool Mix 2 Other: Voiding Method Toilet # Voids 1 - Exam CONSTITUTIONAL: Appears comfortable, cooperative, no acute distress RESPIRATORY: Lungs sounds diminished in the left base. Respirations even, nonlabored. Currently on room air with oxygen saturation 95% CARDIOVASCULAR: S1, S2 present. Tacky but regular rate and rhythm. Palpable peripheral pulses bilaterally. No edema present. No calf pain or tenderness noted. SCDs present. GASTROINTESTINAL: Abdomen soft, nontender, nondistended. Active bowel sounds present 4 quadrants. Tolerating diet, positive bowel movement 11/26 GENITOURINARY: Continues to void INTEGUMENTARY: Skin is warm and dry NEUROLOGIC: Cranial nerves II through XII intact MUSKULOSKELETAL: Able to move all extremities, strength equal bilaterally, gait normal PSYCHIATRIC: Alert and oriented to person place and time, appropriate affect, intact judgment and insight INVASIVE LINES AND TUBES: Left pigtail catheter present, no air leaks present, 210 mL serosanguineous drainage in the last 24 hours - Allied health notes Allied health notes reviewed: nursing - Labs CBC & Chem 7: 11/29/23 05:25 11/29/23 05:25 Labs: Abnormal Lab Results - Last 24 Hours (Table) 11/29/23 11/29/23 11/29/23 Range/Units 05:25 05:25 11:51 WBC 10.35 H (4.50-10.00) X 10*3/uL RBC 3.19 L (4.10-5.20) X 10*6/uL Hgb 9.9 L (12.0-15.0) g/dL Hct 30.4 L (37.2-46.3) % Plt Count 559 H (140-440) X 10*3/uL Immature Gran # 0.11 H (0.00-0.04) X 10*3/uL BUN 8.6 L (9.0-27.0) mg/dL Glucose 165 H (70-110) mg/dL POC Glucose (mg/dL) 164 H (70-110) mg/dL Alkaline Phosphatase 132 H (41-126) U/L Total Protein 5.7 L (6.2-8.2) g/dL Albumin 3.1 L (3.8-4.9) g/dL Albumin/Globulin Ratio 1.19 L (1.60-3.17) Ratio 11/29/23 11/29/23 11/30/23 Range/Units 16:43 21:04 06:25 WBC (4.50-10.00) X 10*3/uL RBC (4.10-5.20) X 10*6/uL Hgb (12.0-15.0) g/dL Hct (37.2-46.3) % Plt Count (140-440) X 10*3/uL Immature Gran # (0.00-0.04) X 10*3/uL BUN (9.0-27.0) mg/dL Glucose (70-110) mg/dL POC Glucose (mg/dL) 203 H 371 H 171 H (70-110) mg/dL Alkaline Phosphatase (41-126) U/L Total Protein (6.2-8.2) g/dL Albumin (3.8-4.9) g/dL Albumin/Globulin Ratio (1.60-3.17) Ratio Microbiology - Last 24 Hours (Table) 11/28/23 14:15 Gram Stain - Preliminary Pleural Fluid Body Fluid Culture - Preliminary 11/28/23 14:15 Acid Fast Bacilli Smear - Preliminary Pleural Fluid - Imaging and Cardiology Chest x-ray: report reviewed, image reviewed Assessment and Plan Assessment: Left-sided pleural effusion/empyema, status post thoracentesis with removal of 150 mL purulent drainage, status post pigtail catheter placement x2 Leukocytosis, likely due to pneumonia Hyponatremia Fever, chest pain, shortness of breath secondary to above History of hypertension Hyperlipidemia Asthma Diabetes Previous light tobacco dependence with cessation many years ago Family history of cancer Plan: Will discontinue pigtail catheter No surgical intervention warranted Continue antibiotics per ID recommendations Increase activity as tolerated Incentive spirometry ordered and should be encouraged Medical management of other comorbidities per internal medicine, pulmonology Patient does have concerns about home IV antibiotic management, does not feel she will be able to do by herself, home care ordered Will repeat chest x-ray in the morning, if stable will sign off
[2023-11-30 11:20] LABS: Glucose,Whole Blood 268 mg/dL (70-110)
[2023-11-30 16:49] LABS: Glucose,Whole Blood 135 mg/dL (70-110)
--- NOTE | 2023-11-30 17:21 | P.PN ---
Subjective Progress Note Date: 11/30/23 Aliya Leiva, is a 78-year-old female patient of Dr. Valderrama who presented to the ER with complaints of muscle aches and shaking febrile and chest pain that has been occurring over the past week. Patient states she's had some external shortness of breath and poor oral intake. Patient has past medical history of asthma, diabetes mellitus, I disorder, hyperlipidemia and hypertension.chest x- ray completed showing COPD with continued moderate left pleural effusion. Lab work revealing a WBC of 30.8, sodium 127, creatinine 0.56. Troponin negative. D-dimer elevated at 3.10CT of the chest completed showing no acute pulmonary embolism. Airspace consolidation in the left lower lobe consistent with lobar pneumonia.influenza, RSV and COVID-19 negative.at this time patient was admitted. Patient started on IV antibiotics. Pulmonary service is consulted. Blood culture and sputum culture ordered repeat labs ordered. At this time patient is sitting up in chair. Current vital signs temp 90.6, heart rate 103, blood pressure 129/70 fourth pulse ox 93% on room air. ultrasound of chest has been ordered per pulmonary for possible pleurocentesis. on 11/20/2023 patient was seen and examined on the medical floor, she is alert and oriented 3 in no apparent distress, she is complaining of cough and shortness of breath, with mild improvement since yesterday, otherwise she denies any complaints there is no fever or chills no headache or dizziness no chest pain, no nausea or vomiting no abdominal pain no diarrhea no blood in the stools no burning with urination no frequency or urgency and no hematuria.. Patient remains on IV antibiotic Unasyn and vancomycin, awaiting culture results. left sided chest tube remains in place. On 11/21/2023 patient's alert and oriented 3. Patient reports improvement from yesterday. Patient remains on IV antibiotics. Discussed case with cardio thoracic surgery continue current plan of altaplase through pigtail. Chest tube remains in placecurrent vital signs temp 98.0, heart rate 101, respiratory rate 18, blood pressure 131/76 with pulse ox of 95%.white blood cell trending down 15.34. Patient remains on vancomycin and Unasyn. On 11/22/2023 patient's alert and oriented 3.Patient reports improvement from yesterday. Chest tube remains in place patient remains on IV antibiotics. Pulmonary, cardiothoracic infectious disease service is following.Current vital signs temp 97.6, heart rate 98, respiratory rate 17, blood pressure 126/73 with a pulse ox 95% on room air Patient denies chest pain or shortness of breath. Patient denies any nausea vomiting or diarrhea. Patient denies any urinary burning or frequency On 11/23/2023 patient was seen and examined on the medical floor she is alert and oriented 3 in no apparent distress, she is complaining of mild pain at the site of the chest tube, otherwise she denies any complaints there is no fever or chills no headache or dizziness no chest pain, No shortness of breath no cough no nausea or vomiting no abdominal pain no diarrhea and no urinary symptoms On 11/24/2023 patient is alert and oriented 3. Patient states she is feeling improved. Patient will need outpatient IV antibiotics per ID recommendation PICC line has been placed. Continue TPA administration her cardiothoracic param lucio. Chest tube remains in place on 11/25/2023 patient was seen and examined on the medical floor, she is alert and oriented 3 in no apparent distress, she is complaining of mild pain at the site of the chest to, otherwise she denies any complaints, her vital exam reveals a temperature of 98.3 pulse 112 respiration 18 blood pressure 152/87 pulse ox 95% on room air, laboratory data reveals a white blood count of 17.13 hemoglobin 10.2 platelet count 588 BUN 6.9 creatinine 0.6 patient remains on IV Unasyn, she is followed by pulmonary, infectious disease, and thoracic surgery, she is improving gradually, will continue to follow closely. On 11/25/2022 for patient's alert and oriented 3. Patient reports improvement from yesterday. Chest tube remains in place. Current vital signs temp 98.6, heart rate 101, respiratory rate 18, blood pressure 133/77 with pulse ox 96 on room air.white blood cell improving today 12.18. Patient denies chest pain or shortness breath. Patient denies nausea vomiting or diarrhea. Patient denies any urinary burning on 11/27/2023 patient was seen and examined on the medical floor, she is alert and oriented 3 in no apparent distress, she is complaining of mild pain at the site of the chest to, otherwise she denies any complaints, there is no fever or chills no headache or dizziness no chest pain no shortness of breath no cough no nausea or vomiting no abdominal pain no diarrhea and no urinary symptoms, chest tube remains in, pulmonary and thoracic surgery are following. on 11/28/2023 for patient's alert and oriented x 3. chest CT completed. Cardiothoracic surgery awaiting further recommendations. Infectious disease services are following. White blood cell 12.56.current vital signs 98.2, heart rate 14, respiratory rate 18, blood pressure 117/76 with pulse ox 95% on room air 11/28/2022 for patient's alert and oriented 3 and a pigtail chest tube placed yesterday. Alteplase has been administered per cardiothoracic. Awaiting furt her recommendations. At this time patient denies chest pain or shortness breath. Patient denies nausea vomiting or diarrhea. Patient denies any urinary burning or frequency. Current vital signs temp 98.0, heart rate 97, blood pressure 119/63 with pulse ox 97. Patient remains on IV Unasyn on 11/30/2023 patient was seen and examined on the medical floor she is alert and oriented 3 in no apparent distress there is no fever or chills no headache or dizziness no chest pain, shortness of breath has improved she has occasional cough no nausea or vomiting no abdominal pain no diarrhea and no urinary symptoms. left sided pigtail catheter has been discontinued, patient is tolerating well, she remains on IV Unasyn, will continue to monitor closely. Objective - Vital Signs Vital signs: Vital Signs Temp 98.4 F 11/30/23 14:15 Pulse 100 11/30/23 14:15 Resp 16 11/30/23 14:15 BP 119/69 11/30/23 14:15 Pulse Ox 96 11/30/23 14:15 FiO2 21 11/20/23 08:19 Intake & Output 11/29/23 11/30/23 11/30/23 18:59 06:59 18:59 Intake Total 500 Output Total 402 10 Balance -402 -10 500 Intake: Oral 500 Output: Chest Tube Drainage 400 10 Chest Tube 400 10 Left Posterior Chest 0 Urine/Stool Mix 2 Other: Voiding Method Toilet Toilet # Voids 1 4 - Exam In general patient is alert and oriented x 3 in no distress HEENT head normocephalic and atraumatic Neck is supple no JVD no goiter no lymphadenopathy no carotid bruit Chest examination reveals a scattered crackles in both lung [place] no wheezing Cardiac exam reveals regular heart sounds S1 and S2 no gallops no murmurs Abdomen is soft nontender no organomegaly with normal bowel sounds Extremity exam reveals no edema no cyanosis or clubbing Neurological examination reveals no gross focal deficits - Labs CBC & Chem 7: 11/29/23 05:25 11/29/23 05:25 Labs: Abnormal Lab Results - Last 24 Hours (Table) 11/29/23 11/30/23 11/30/23 Range/Units 21:04 06:25 11:19 POC Glucose (mg/dL) 371 H 171 H 268 H (70-110) mg/dL 11/30/23 Range/Units 16:48 POC Glucose (mg/dL) 135 H (70-110) mg/dL Microbiology - Last 24 Hours (Table) 11/28/23 14:15 Gram Stain - Preliminary Pleural Fluid Body Fluid Culture - Preliminary 11/28/23 14:15 Acid Fast Bacilli Smear - Preliminary Pleural Fluid Assessment and Plan Assessment: 1. Left lower lobe pneumonia 2. Leukocytosis secondary to above 3. Pleural effusion status post pleurocentesis with purulent drainage esuspect empyema 4. Hyponatremia secondary to dehydration 5. Elevated d-dimer. CTA negative for PE 6. History of asthma 7. History of diabetes mellitus. Patient on sliding scale coverage 8. History of macular degeneration 9. History of hyperlipidemia 10. History of essential hypertension DVT prophylaxis heparin. GI prophylaxis Protonix Pulmonary service is consulted cardiothoracic following Sputum and blood cultures ordered Patient started on IV antibiotics PICC line placed for IV antibiotics repeat labs ordered
--- NOTE | 2023-11-30 20:16 | P.PN ---
Subjective Progress Note Date: 11/30/23 On today's evaluation of 11/27/2023, the patient is being seen for a follow-up. The patient is doing well. No specific complaints. The patient had a left- sided pneumonia complicated by development of a empyema. Cultures were positive for alphahemolytic Streptococcus. The patient had a pigtail catheter inserted and this is postop day #6. This was inserted by interventional radiology. The patient is having some limited cough. No significant sputum production. The catheter remains in place with some wall suction at -20 cm of water. No evidence of any air leak. Oxygenation is stable on room air with a pulse ox of 95% and the patient continues to use incentive spirometer. Repeat chest x-ray from today was reviewed and the patient was found to have a stable left-sided consolidation with small pleural effusion and questionable pneumothorax on the left. No other new complaints otherwise for now. A follow-up CAT scan was ordered to reevaluate for any residual effusion/pocket/abscess. Total amount of output from the pigtail catheter over the past 24 hours has been approximately 10 cc On today's evaluation of 11/28/2023, the patient is on room air oxygen. No fever. The patient remains on IV Unasyn. I reviewed the CAT scan of the chest that was done yesterday and the patient has a loculated fluid collection in the posterior left lung base measuring 7.7 cm in size and this is a loculated empyema. Note that the inside of pigtail catheter is outside of this loculated area. Case was discussed with cardiothoracic surgery and the plan is to insert another tube to drain this pockets. The white cell count of 12.5 with a hemoglobin 10.2 and a platelet count of 583. Electrolytes are all within normal limits. Patient has no specific complaints that she is using the incentive s pirometer for now. On today's evaluation of 11/29/2023, I am seeing the patient for a follow-up. The patient remains on room air oxygen. No specific complaints. She remains on antibiotics. Note that the patient had a pigtail catheter insertion yesterday and a total of 200 cc of serosanguineous material was drained from the fistula pocket was seen on the CAT scan of the chest. The patient will be feeling better. She remains on IV Unasyn. Alteplase was administered through the second pigtail catheter was inserted yesterday. The patient has a WBC count of 10 with a hemoglobin 9.9, electrolytes are all stable, BUN is at 8 with a creatinine of 0.6. No specific complaints for now. Using incentive spirometer. On 11/30/2023, the patient is feeling great. The pigtail catheters have been removed and the patient is afebrile and hemodynamically stable. Note that the output from the pigtail catheter was minimal. Total amount of output was in the order of 240 cc. She remains on IV Unasyn. She is ambulating. Blood work from today is not done and yesterday's blood work was noted. Blood sugars under better control for now. Objective - Vital Signs Vital signs: Vital Signs Temp 98.4 F 11/30/23 14:15 Pulse 100 11/30/23 14:15 Resp 16 11/30/23 14:15 BP 119/69 11/30/23 14:15 Pulse Ox 96 11/30/23 14:15 FiO2 21 11/20/23 08:19 Intake & Output 11/30/23 11/30/23 12/01/23 06:59 18:59 06:59 Intake Total 500 Output Total 10 Balance -10 500 Intake: Oral 500 Output: Chest Tube Drainage 10 Chest Tube 10 Other: Voiding Method Toilet # Voids 4 - Exam CONSTITUTIONAL: Appears comfortable, cooperative, no acute distress RESPIRATORY: Lungs sounds diminished in the left base. Respirations symmet rical, nonlabored. Currently on room air with oxygen saturation 95%. Achieving 750-1000 mL on her incentive spirometry CARDIOVASCULAR: S1, S2 present. Regular rate and rhythm. Palpable peripheral pulses bilaterally. No edema present. No calf pain or tenderness noted. SCDs present. GASTROINTESTINAL: Abdomen soft, nontender, nondistended. Active bowel sounds present 4 quadrants. Tolerating diet. GENITOURINARY: Continues to void. INTEGUMENTARY: Skin is warm and dry, no clubbing or cyanosis is present. NEUROLOGIC: Cranial nerves II through XII intact. No focal deficits. MUSKULOSKELETAL: Able to move all extremities, strength equal bilaterally, gait normal. PSYCHIATRIC: Alert and oriented to person place and time, appropriate affect, intact judgment and insight. INVASIVE LINES AND TUBES: Pigtail catheter and removed - Labs CBC & Chem 7: 11/29/23 05:25 11/29/23 05:25 Labs: Abnormal Lab Results - Last 24 Hours (Table) 11/29/23 11/30/23 11/30/23 Range/Units 21:04 06:25 11:19 POC Glucose (mg/dL) 371 H 171 H 268 H (70-110) mg/dL 11/30/23 Range/Units 16:48 POC Glucose (mg/dL) 135 H (70-110) mg/dL Microbiology - Last 24 Hours (Table) 11/28/23 14:15 Gram Stain - Preliminary Pleural Fluid Body Fluid Culture - Preliminary 11/28/23 14:15 Acid Fast Bacilli Smear - Preliminary Pleural Fluid Assessment and Plan Plan: Left lung empyema, status post left-sided thoracentesis today November 19, 2023 with 150 cc of thick creamy moreno fluid returned. Suspect empyema. Received a left-sided pigtail catheter placement on 11/20/2023. Lytics instilled daily x 5 through pigtail #1.. cultures revealing alpha hemolytic Streptococcus. Follow- up CAT scan of the chest showed a 7.7 cm pocket in the posterior left lung and a pigtail #2 was inserted and the patient had adequate drainage and subsequently the drainage stopped and both of the catheters were removed. The chest x-ray from today shows some limited atelectatic change the left lung base. No active respiratory issues at this point in time and the patient is currently on room air oxygen. Acute community-acquired pneumonia in the left lower lobe, empyema, improving Febrile illness secondary to above, recovered Leukocytosis secondary to above, improving Hyponatremia, recovered Diabetes mellitus with hyperglycemia Macular degeneration Hyperlipidemia Hypertension Plan: Pigtail catheters have been removed Daily chest x-ray Continue Unasyn and transition this patient to oral antibiotics possibly Augmentin within next 1-44 8 hours Stable and on room air Working well with the incentive spirometer We will continue to follow
[2023-11-30 21:16] LABS: Glucose,Whole Blood 239 mg/dL (70-110)
[2023-12-01 05:51] LABS: Glucose,Whole Blood 174 mg/dL (70-110)
--- NOTE | 2023-12-01 07:31 | P.PN ---
Subjective Progress Note Date: 11/28/23 Principal diagnosis: Reason for follow-up is empyema Patient is a 78-year-old female with a past medical history significant for diabetes mellitus hypertension hyperlipidemia asthma, presented to the hospital left-sided chest pain increasing shortness of breath and cough has been diagnosed with pneumonia/empyema, status post chest tube placement. On today's evaluation that is 11/28/2023,the patient remains to be afebrile, patient is on room air not requiring supplemental oxygen and denies any shortness of breath some left-sided chest pain denies any worsening cough or sputum production.Patient denies having any nausea or vomiting, no abdominal pain and no diarrhea has been reported Patient white count is 12.56, creatinine 0.6 Objective - Vital Signs Vital signs: Vital Signs Temp 98.2 F 11/28/23 07:09 Pulse 118 H 11/28/23 13:45 Resp 16 11/28/23 13:45 BP 147/81 11/28/23 13:45 Pulse Ox 99 11/28/23 13:45 FiO2 21 11/20/23 08:19 Intake & Output 11/27/23 11/28/23 11/28/23 18:59 06:59 18:59 Output Total 0 0 0 Balance 0 0 0 Output: Chest Tube Drainage 0 0 0 Left Posterior Chest 0 0 0 Other: Voiding Method Toilet Toilet # Voids 3 3 3 - Exam GENERAL DESCRIPTION: An elderly female lying in bed in no distress RESPIRATORY SYSTEM: Unlabored breathing , decreased breath sounds at bases HEART: S1 S2 regular rate and rhythm , ABDOMEN: Soft , no tenderness EXTREMITIES: No edema feet - Labs CBC & Chem 7: 11/29/23 05:25 11/29/23 05:25 Labs: Abnormal Lab Results - Last 24 Hours (Table) 11/27/23 11/27/23 11/28/23 Range/Units 16:17 20:03 05:30 WBC 12.56 H (4.50-10.00) X 10*3/uL RBC 3.22 L (4.10-5.20) X 10*6/uL Hgb 10.2 L (12.0-15.0) g/dL Hct 31.0 L (37.2-46.3) % Plt Count 583 H (140-440) X 10*3/uL Immature Gran # 0.15 H (0.00-0.04) X 10*3/uL Neutrophils # 9.27 H (1.80-7.70) X 10*3/uL BUN (9.0-27.0) mg/dL Glucose (70-110) mg/dL POC Glucose (mg/dL) 149 H 279 H (70-110) mg/dL Alkaline Phosphatase (41-126) U/L Total Protein (6.2-8.2) g/dL Albumin (3.8-4.9) g/dL Albumin/Globulin Ratio (1.60-3.17) Ratio 11/28/23 11/28/23 11/28/23 Range/Units 05:30 05:55 11:29 WBC (4.50-10.00) X 10*3/uL RBC (4.10-5.20) X 10*6/uL Hgb (12.0-15.0) g/dL Hct (37.2-46.3) % Plt Count (140-440) X 10*3/uL Immature Gran # (0.00-0.04) X 10*3/uL Neutrophils # (1.80-7.70) X 10*3/uL BUN 7.5 L (9.0-27.0) mg/dL Glucose 176 H (70-110) mg/dL POC Glucose (mg/dL) 178 H 148 H (70-110) mg/dL Alkaline Phosphatase 144 H (41-126) U/L Total Protein 5.8 L (6.2-8.2) g/dL Albumin 3.1 L (3.8-4.9) g/dL Albumin/Globulin Ratio 1.15 L (1.60-3.17) Ratio Microbiology - Last 24 Hours (Table) 11/19/23 10:45 Fungal Culture - Preliminary Pleural Fluid 11/19/23 10:45 Acid Fast Bacilli Smear - Preliminary Pleural Fluid Acid Fast Bacilli Culture - Preliminary Assessment and Plan (1) Empyema Current Visit: Yes Status: Acute Code(s): J86.9 - PYOTHORAX WITHOUT FISTULA SNOMED Code(s): 827109876 (2) Left lower lobe pneumonia Current Visit: Yes Status: Acute Code(s): J18.9 - PNEUMONIA, UNSPECIFIED ORGANISM SNOMED Code(s): 066820437 (3) Leukocytosis Current Visit: Yes Status: Acute Code(s): D72.829 - ELEVATED WHITE BLOOD CELL COUNT, UNSPECIFIED SNOMED Code(s): 427369893 Plan: 1patient was in the hospital with sepsis in this patient who did have a low- grade fever tachycardia elevated white count source is left-sided pneumonia with a parapneumonic effusion/empyema in this patient was status post thoracocentesis followed by chest tube placement cultures currently growing alphahemolytic St reptococcus 2-patient is afebrile and the patient white count is trending down, patient currently on Unasyn to continue and monitor clinical course closely Dictation was produced using [employer] dictation software. please excuse any grammatical, word or spelling errors.
--- NOTE | 2023-12-01 07:32 | P.PN ---
Subjective Progress Note Date: 11/29/23 Principal diagnosis: Reason for follow-up is empyema Patient is a 78-year-old female with a past medical history significant for diabetes mellitus hypertension hyperlipidemia asthma, presented to the hospital left-sided chest pain increasing shortness of breath and cough has been diagnosed with pneumonia/empyema, status post chest tube placement. On today's evaluation that is 11/29/2023, the patient continues to be afebrile, the patient is on room air and breathing comfortably, the Pt left-sided chest pain has decreased in intensity denies any worsening cough, the patient denies having any abdominal pain no vomiting or any diarrhea has been reported by the nursing staff Patient white count is 10.35, creatinine 0.6 Objective - Vital Signs Vital signs: Vital Signs Temp 97.9 F 11/29/23 08:16 Pulse 104 H 11/29/23 08:16 Resp 18 11/29/23 08:16 BP 119/63 11/29/23 08:16 Pulse Ox 98 11/29/23 08:58 FiO2 21 11/20/23 08:19 Intake & Output 11/28/23 11/29/23 11/29/23 18:59 06:59 18:59 Output Total 360 10 2 Balance -360 -10 -2 Output: Chest Tube Drainage 360 10 Chest Tube 360 10 Left Posterior Chest 0 0 Urine/Stool Mix 2 Other: Voiding Method Toilet Toilet Toilet # Voids 3 3 3 - Exam GENERAL DESCRIPTION: An elderly female lying in bed in no distress RESPIRATORY SYSTEM: Unlabored breathing , decreased breath sounds at bases HEART: S1 S2 regular rate and rhythm , ABDOMEN: Soft , no tenderness EXTREMITIES: No edema feet - Labs CBC & Chem 7: 11/29/23 05:25 11/29/23 05:25 Labs: Abnormal Lab Results - Last 24 Hours (Table) 11/28/23 11/28/23 11/28/23 Range/Units 14:15 16:45 20:23 WBC (4.50-10.00) X 10*3/uL RBC (4.10-5.20) X 10*6/uL Hgb (12.0-15.0) g/dL Hct (37.2-46.3) % Plt Count (140-440) X 10*3/uL Immature Gran # (0.00-0.04) X 10*3/uL BUN (9.0-27.0) mg/dL Glucose (70-110) mg/dL POC Glucose (mg/dL) 249 H 206 H (70-110) mg/dL Alkaline Phosphatase (41-126) U/L Total Protein (6.2-8.2) g/dL Albumin (3.8-4.9) g/dL Albumin/Globulin Ratio (1.60-3.17) Ratio Fluid Appearance Grossly Bloody A (Clear) 11/29/23 11/29/23 11/29/23 Range/Units 05:25 05:25 06:32 WBC 10.35 H (4.50-10.00) X 10*3/uL RBC 3.19 L (4.10-5.20) X 10*6/uL Hgb 9.9 L (12.0-15.0) g/dL Hct 30.4 L (37.2-46.3) % Plt Count 559 H (140-440) X 10*3/uL Immature Gran # 0.11 H (0.00-0.04) X 10*3/uL BUN 8.6 L (9.0-27.0) mg/dL Glucose 165 H (70-110) mg/dL POC Glucose (mg/dL) 151 H (70-110) mg/dL Alkaline Phosphatase 132 H (41-126) U/L Total Protein 5.7 L (6.2-8.2) g/dL Albumin 3.1 L (3.8-4.9) g/dL Albumin/Globulin Ratio 1.19 L (1.60-3.17) Ratio Fluid Appearance (Clear) 11/29/23 Range/Units 11:51 WBC (4.50-10.00) X 10*3/uL RBC (4.10-5.20) X 10*6/uL Hgb (12.0-15.0) g/dL Hct (37.2-46.3) % Plt Count (140-440) X 10*3/uL Immature Gran # (0.00-0.04) X 10*3/uL BUN (9.0-27.0) mg/dL Glucose (70-110) mg/dL POC Glucose (mg/dL) 164 H (70-110) mg/dL Alkaline Phosphatase (41-126) U/L Total Protein (6.2-8.2) g/dL Albumin (3.8-4.9) g/dL Albumin/Globulin Ratio (1.60-3.17) Ratio Fluid Appearance (Clear) Microbiology - Last 24 Hours (Table) 11/28/23 14:15 Gram Stain - Preliminary Pleural Fluid Assessment and Plan (1) Empyema Current Visit: Yes Status: Acute Code(s): J86.9 - PYOTHORAX WITHOUT FISTULA SNOMED Code(s): 818455868 (2) Left lower lobe pneumonia Current Visit: Yes Status: Acute Code(s): J18.9 - PNEUMONIA, UNSPECIFIED ORGANISM SNOMED Code(s): 716309671 (3) Leukocytosis Current Visit: Yes Status: Acute Code(s): D72.829 - ELEVATED WHITE BLOOD CELL COUNT, UNSPECIFIED SNOMED Code(s): 974322208 Plan: 1patient was in the hospital with sepsis in this patient who did have a low- grade fever tachycardia elevated white count source is left-sided pneumonia with a parapneumonic effusion/empyema in this patient was status post thoracocentesis followed by chest tube placement cultures currently growing alphahemolytic Streptococcus 2-patient is afebrile and the patient white count is down to normal, patient will be treated with Unasyn while inpatient and transition to Rocephin on discharge Dictation was produced using [email or web address] dictation software. please excuse any grammatical, word or spelling errors. Time with Patient: Less than 30
--- NOTE | 2023-12-01 07:33 | P.PN ---
Subjective Progress Note Date: 11/30/23 Principal diagnosis: Reason for follow-up is empyema Patient is a 78-year-old female with a past medical history significant for diabetes mellitus hypertension hyperlipidemia asthma, presented to the hospital left-sided chest pain increasing shortness of breath and cough has been diagnosed with pneumonia/empyema, status post chest tube placement. On today's evaluation that is 11/30/2023, Patient is afebrile patient is currently on room air and denies having any shortness of breath, the patient did have improvement in the left-sided chest pain and cough has decreased in intensity, the patient denies any nausea vomiting did not have any abdominal pain and no diarrhea. No new labs were done today Objective - Vital Signs Vital signs: Vital Signs Temp 98.3 F 11/30/23 07:25 Pulse 108 H 11/30/23 09:35 Resp 16 11/30/23 09:35 BP 122/70 11/30/23 07:25 Pulse Ox 95 11/30/23 08:09 FiO2 21 11/20/23 08:19 Intake & Output 11/29/23 11/30/23 11/30/23 18:59 06:59 18:59 Intake Total 200 Output Total 402 10 Balance -402 -10 200 Intake: Oral 200 Output: Chest Tube Drainage 400 10 Chest Tube 400 10 Left Posterior Chest 0 Urine/Stool Mix 2 Other: Voiding Method Toilet Toilet # Voids 1 - Exam GENERAL DESCRIPTION: An elderly female lying in bed in no distress RESPIRATORY SYSTEM: Unlabored breathing , decreased breath sounds at bases HEART: S1 S2 regular rate and rhythm , ABDOMEN: Soft , no tenderness EXTREMITIES: No edema feet - Labs CBC & Chem 7: 11/29/23 05:25 11/29/23 05:25 Labs: Abnormal Lab Results - Last 24 Hours (Table) 11/29/23 11/29/23 11/30/23 Range/Units 16:43 21:04 06:25 POC Glucose (mg/dL) 203 H 371 H 171 H (70-110) mg/dL 11/30/23 Range/Units 11:19 POC Glucose (mg/dL) 268 H (70-110) mg/dL Microbiology - Last 24 Hours (Table) 11/28/23 14:15 Gram Stain - Preliminary Pleural Fluid Body Fluid Culture - Preliminary 11/28/23 14:15 Acid Fast Bacilli Smear - Preliminary Pleural Fluid Assessment and Plan (1) Empyema Current Visit: Yes Status: Acute Code(s): J86.9 - PYOTHORAX WITHOUT FISTULA SNOMED Code(s): 499394630 (2) Left lower lobe pneumonia Current Visit: Yes Status: Acute Code(s): J18.9 - PNEUMONIA, UNSPECIFIED ORGANISM SNOMED Code(s): 285717456 (3) Leukocytosis Current Visit: Yes Status: Acute Code(s): D72.829 - ELEVATED WHITE BLOOD CELL COUNT, UNSPECIFIED SNOMED Code(s): 018474320 Plan: 1patient was in the hospital with sepsis in this patient who did have a low- grade fever tachycardia elevated white count source is left-sided pneumonia with a parapneumonic effusion/empyema in this patient was status post thoracocentesis followed by chest tube placement cultures currently growing alphahemolytic Streptococcus 2-patient is afebrile and the patient white count has normalized as of yesterday no CBC was done today, patient to continue with Unasyn while inpatient and monitor clinical course closely Dictation was produced using [employer] dictation software. please excuse any grammatical, word or spelling errors. Time with Patient: Less than 30
--- NOTE | 2023-12-01 08:12 | XR ---
EXAMINATION TYPE: XR chest 2V DATE OF EXAM: 12/01/2023 COMPARISON: 11/30/2023 TECHNIQUE: PA and lateral views submitted. HISTORY: Left pleural effusion FINDINGS: There is interval reduction size of the left-sided pleural effusion with basilar consolidation. Right lung is clear. Biapical pleural thickening. Osseous structures stable. Arthropathy of the shoulders. Left-sided chest tube has been removed. Nodule overlying the right lower chest may be related to nip ple shadow. Correlate for underlying COPD. Biapical pleural thickening or scarring. IMPRESSION: 1. Stable left lower lobe consolidation and small effusion..
--- NOTE | 2023-12-01 08:41 | P.PN ---
Subjective Progress Note Date: 12/01/23 Principal diagnosis: Left-sided pleural effusion status post thoracentesis, leukocytosis, hyponatremia. History of hypertension, hyperlipidemia, asthma, diabetes, previous light tobacco dependence with cessation many years ago, family history of cancer POD# #10 placement of left-sided pigtail drainage catheter via ultrasound guidance by interventional radiology The patient was seen and examined this morning sitting up in recliner on the medical surgical unit in no acute distress and does states she continues to feel better. Remains on room air. Second left sided pigtail catheter discontinued yesterday without incident. Remains on IV Unasyn. Patient has been ambulatory without difficulty. No other new concerns. Objective - Vital Signs Vital signs: Vital Signs Temp 98.6 F 12/01/23 03:28 Pulse 106 H 12/01/23 03:28 Resp 15 12/01/23 03:28 BP 135/71 12/01/23 03:28 Pulse Ox 96 12/01/23 03:28 FiO2 21 11/20/23 08:19 Intake & Output 11/30/23 12/01/23 12/01/23 18:59 06:59 18:59 Intake Total 500 Balance 500 Intake: Oral 500 Other: Voiding Method Toilet # Voids 4 5 - Exam CONSTITUTIONAL: Appears comfortable, cooperative, no acute distress RESPIRATORY: Lungs sounds diminished in the left base. Respirations even, nonlabored. Currently on room air with oxygen saturation 96%. Able to achieve 1000 mL on incentive spirometry CARDIOVASCULAR: S1, S2 present. Tacky but regular rate and rhythm. Palpable peripheral pulses bilaterally. No edema present. No calf pain or tenderness noted. SCDs present. GASTROINTESTINAL: Abdomen soft, nontender, nondistended. Active bowel sounds present 4 quadrants. Tolerating diet, positive bowel movement 11/26 GENITOURINARY: Continues to void INTEGUMENTARY: Skin is warm and dry NEUROLOGIC: Cranial nerves II through XII intact MUSKULOSKELETAL: Able to move all extremities, strength equal bilaterally, gait normal PSYCHIATRIC: Alert and oriented to person place and time, appropriate affect, intact judgment and insight - Allied health notes Allied health notes reviewed: nursing - Labs CBC & Chem 7: 11/29/23 05:25 11/29/23 05:25 Labs: Abnormal Lab Results - Last 24 Hours (Table) 05/02/24 05/02/24 05/02/24 Range/Units 11:19 16:48 21:15 POC Glucose (mg/dL) 268 H 135 H 239 H (70-110) mg/dL 12/01/23 Range/Units 05:50 POC Glucose (mg/dL) 174 H (70-110) mg/dL Microbiology - Last 24 Hours (Table) 11/28/23 14:15 Gram Stain - Preliminary Pleural Fluid Body Fluid Culture - Preliminary - Imaging and Cardiology Chest x-ray: image reviewed Assessment and Plan Assessment: Left-sided pleural effusion/empyema, status post thoracentesis with removal of 150 mL purulent drainage, status post pigtail catheter placement x2 Leukocytosis, likely due to pneumonia Hyponatremia Fever, chest pain, shortness of breath secondary to above History of hypertension Hyperlipidemia Asthma Diabetes Previous light tobacco dependence with cessation many years ago Family history of cancer Plan: No surgical intervention warranted Continue antibiotics per ID recommendations Increase activity as tolerated Incentive spirometry ordered and should be encouraged Medical management of other comorbidities per internal medicine, pulmonology Patient does have concerns about home IV antibiotic management, does not feel she will be able to do by herself, home care ordered Will sign off. Patient is cleared for discharge from our standpoint when okay with other services. Discharge instructions related to chest tube sites placed on discharge plan, patient does not need to follow-up with cardiothoracic surgery but may follow-up with pulmonology Please call us with any further questions
--- NOTE | 2023-12-01 11:27 | P.PN ---
Subjective Progress Note Date: 12/01/23 Aliya Leiva, is a 78-year-old female patient of Dr. Valderrama who presented to the ER with complaints of muscle aches and shaking febrile and chest pain that has been occurring over the past week. Patient states she's had some external shortness of breath and poor oral intake. Patient has past medical history of asthma, diabetes mellitus, I disorder, hyperlipidemia and hypertension.chest x- ray completed showing COPD with continued moderate left pleural effusion. Lab work revealing a WBC of 30.8, sodium 127, creatinine 0.56. Troponin negative. D-dimer elevated at 3.10CT of the chest completed showing no acute pulmonary embolism. Airspace consolidation in the left lower lobe consistent with lobar pneumonia.influenza, RSV and COVID-19 negative.at this time patient was admitted. Patient started on IV antibiotics. Pulmonary service is consulted. Blood culture and sputum culture ordered repeat labs ordered. At this time patient is sitting up in chair. Current vital signs temp 90.6, heart rate 103, blood pressure 129/70 fourth pulse ox 93% on room air. ultrasound of chest has been ordered per pulmonary for possible pleurocentesis. on 11/20/2023 patient was seen and examined on the medical floor, she is alert and oriented 3 in no apparent distress, she is complaining of cough and shortness of breath, with mild improvement since yesterday, otherwise she denies any complaints there is no fever or chills no headache or dizziness no chest pain, no nausea or vomiting no abdominal pain no diarrhea no blood in the stools no burning with urination no frequency or urgency and no hematuria.. Patient remains on IV antibiotic Unasyn and vancomycin, awaiting culture results. left sided chest tube remains in place. On 11/21/2023 patient's alert and oriented 3. Patient reports improvement from yesterday. Patient remains on IV antibiotics. Discussed case with cardio thoracic surgery continue current plan of altaplase through pigtail. Chest tube remains in placecurrent vital signs temp 98.0, heart rate 101, respiratory rate 18, blood pressure 131/76 with pulse ox of 95%.white blood cell trending down 15.34. Patient remains on vancomycin and Unasyn. On 11/22/2023 patient's alert and oriented 3.Patient reports improvement from yesterday. Chest tube remains in place patient remains on IV antibiotics. Pulmonary, cardiothoracic infectious disease service is following.Current vital signs temp 97.6, heart rate 98, respiratory rate 17, blood pressure 126/73 with a pulse ox 95% on room air Patient denies chest pain or shortness of breath. Patient denies any nausea vomiting or diarrhea. Patient denies any urinary burning or frequency On 11/23/2023 patient was seen and examined on the medical floor she is alert and oriented 3 in no apparent distress, she is complaining of mild pain at the site of the chest tube, otherwise she denies any complaints there is no fever or chills no headache or dizziness no chest pain, No shortness of breath no cough no nausea or vomiting no abdominal pain no diarrhea and no urinary symptoms On 11/24/2023 patient is alert and oriented 3. Patient states she is feeling improved. Patient will need outpatient IV antibiotics per ID recommendation PICC line has been placed. Continue TPA administration her cardiothoracic param lucio. Chest tube remains in place on 11/25/2023 patient was seen and examined on the medical floor, she is alert and oriented 3 in no apparent distress, she is complaining of mild pain at the site of the chest to, otherwise she denies any complaints, her vital exam reveals a temperature of 98.3 pulse 112 respiration 18 blood pressure 152/87 pulse ox 95% on room air, laboratory data reveals a white blood count of 17.13 hemoglobin 10.2 platelet count 588 BUN 6.9 creatinine 0.6 patient remains on IV Unasyn, she is followed by pulmonary, infectious disease, and thoracic surgery, she is improving gradually, will continue to follow closely. On 11/25/2022 for patient's alert and oriented 3. Patient reports improvement from yesterday. Chest tube remains in place. Current vital signs temp 98.6, heart rate 101, respiratory rate 18, blood pressure 133/77 with pulse ox 96 on room air.white blood cell improving today 12.18. Patient denies chest pain or shortness breath. Patient denies nausea vomiting or diarrhea. Patient denies any urinary burning on 11/27/2023 patient was seen and examined on the medical floor, she is alert and oriented 3 in no apparent distress, she is complaining of mild pain at the site of the chest to, otherwise she denies any complaints, there is no fever or chills no headache or dizziness no chest pain no shortness of breath no cough no nausea or vomiting no abdominal pain no diarrhea and no urinary symptoms, chest tube remains in, pulmonary and thoracic surgery are following. on 11/28/2023 for patient's alert and oriented x 3. chest CT completed. Cardiothoracic surgery awaiting further recommendations. Infectious disease services are following. White blood cell 12.56.current vital signs 98.2, heart rate 14, respiratory rate 18, blood pressure 117/76 with pulse ox 95% on room air 11/28/2022 for patient's alert and oriented 3 and a pigtail chest tube placed yesterday. Alteplase has been administered per cardiothoracic. Awaiting furt her recommendations. At this time patient denies chest pain or shortness breath. Patient denies nausea vomiting or diarrhea. Patient denies any urinary burning or frequency. Current vital signs temp 98.0, heart rate 97, blood pressure 119/63 with pulse ox 97. Patient remains on IV Unasyn on 11/30/2023 patient was seen and examined on the medical floor she is alert and oriented 3 in no apparent distress there is no fever or chills no headache or dizziness no chest pain, shortness of breath has improved she has occasional cough no nausea or vomiting no abdominal pain no diarrhea and no urinary symptoms. left sided pigtail catheter has been discontinued, patient is tolerating well, she remains on IV Unasyn, will continue to monitor closely. On 11/30/2024 for patient's alert and oriented 3. Chest tubes have been removed. Per pulmonary and infectious disease patient to be maintained on IV antibiotic Unasyn with possible discharge on by mouth antibiotics awaiting further recommendations.current vital signs temp 97.8, heart rate 102, respiratory rate 16, blood pressure 120/74 with pulse ox of 98% Objective - Vital Signs Vital signs: Vital Signs Temp 97.8 F 12/01/23 07:31 Pulse 102 H 12/01/23 07:31 Resp 18 12/01/23 08:00 BP 120/74 12/01/23 07:31 Pulse Ox 98 12/01/23 07:31 FiO2 21 11/20/23 08:19 Intake & Output 11/30/23 12/01/23 12/01/23 18:59 06:59 18:59 Intake Total 500 Balance 500 Intake: Oral 500 Other: Voiding Method Toilet Toilet # Voids 4 5 - Exam In general patient is alert and oriented x 3 in no distress HEENT head normocephalic and atraumatic Neck is supple no JVD no goiter no lymphadenopathy no carotid bruit Chest examination reveals a scattered crackles in both lung [place] no wheezing Cardiac exam reveals regular heart sounds S1 and S2 no gallops no murmurs Abdomen is soft nontender no organomegaly with normal bowel sounds Extremity exam reveals no edema no cyanosis or clubbing Neurological examination reveals no gross focal deficits - Labs CBC & Chem 7: 11/29/23 05:25 11/29/23 05:25 Labs: Abnormal Lab Results - Last 24 Hours (Table) 11/30/23 11/30/23 12/01/23 Range/Units 16:48 21:15 05:50 POC Glucose (mg/dL) 135 H 239 H 174 H (70-110) mg/dL Microbiology - Last 24 Hours (Table) 11/28/23 14:15 Gram Stain - Preliminary Pleural Fluid Body Fluid Culture - Preliminary Assessment and Plan Assessment: 1. Left lower lobe pneumonia 2. Leukocytosis secondary to above 3. Pleural effusion status post pleurocentesis with purulent drainage esuspect empyema 4. Hyponatremia secondary to dehydration 5. Elevated d-dimer. CTA negative for PE 6. History of asthma 7. History of diabetes mellitus. Patient on sliding scale coverage 8. History of macular degeneration 9. History of hyperlipidemia 10. History of essential hypertension DVT prophylaxis heparin. GI prophylaxis Protonix Pulmonary service is consulted cardiothoracic following Sputum and blood cultures ordered Patient started on IV antibiotics PICC line placed for IV antibiotics repeat labs ordered
[2023-12-01 11:42] LABS: Glucose,Whole Blood 163 mg/dL (70-110)
--- NOTE | 2023-12-01 14:58 | P.PN ---
Subjective Progress Note Date: 12/01/23 On today's evaluation of 11/27/2023, the patient is being seen for a follow-up. The patient is doing well. No specific complaints. The patient had a left- sided pneumonia complicated by development of a empyema. Cultures were positive for alphahemolytic Streptococcus. The patient had a pigtail catheter inserted and this is postop day #6. This was inserted by interventional radiology. The patient is having some limited cough. No significant sputum production. The catheter remains in place with some wall suction at -20 cm of water. No evidence of any air leak. Oxygenation is stable on room air with a pulse ox of 95% and the patient continues to use incentive spirometer. Repeat chest x-ray from today was reviewed and the patient was found to have a stable left-sided consolidation with small pleural effusion and questionable pneumothorax on the left. No other new complaints otherwise for now. A follow-up CAT scan was ordered to reevaluate for any residual effusion/pocket/abscess. Total amount of output from the pigtail catheter over the past 24 hours has been approximately 10 cc On today's evaluation of 11/28/2023, the patient is on room air oxygen. No fever. The patient remains on IV Unasyn. I reviewed the CAT scan of the chest that was done yesterday and the patient has a loculated fluid collection in the posterior left lung base measuring 7.7 cm in size and this is a loculated empyema. Note that the inside of pigtail catheter is outside of this loculated area. Case was discussed with cardiothoracic surgery and the plan is to insert another tube to drain this pockets. The white cell count of 12.5 with a hemoglobin 10.2 and a platelet count of 583. Electrolytes are all within normal limits. Patient has no specific complaints that she is using the incentive s pirometer for now. On today's evaluation of 11/29/2023, I am seeing the patient for a follow-up. The patient remains on room air oxygen. No specific complaints. She remains on antibiotics. Note that the patient had a pigtail catheter insertion yesterday and a total of 200 cc of serosanguineous material was drained from the fistula pocket was seen on the CAT scan of the chest. The patient will be feeling better. She remains on IV Unasyn. Alteplase was administered through the second pigtail catheter was inserted yesterday. The patient has a WBC count of 10 with a hemoglobin 9.9, electrolytes are all stable, BUN is at 8 with a creatinine of 0.6. No specific complaints for now. Using incentive spirometer. On 11/30/2023, the patient is feeling great. The pigtail catheters have been removed and the patient is afebrile and hemodynamically stable. Note that the output from the pigtail catheter was minimal. Total amount of output was in the order of 240 cc. She remains on IV Unasyn. She is ambulating. Blood work from today is not done and yesterday's blood work was noted. Blood sugars under better control for now. On 12/01/2023, no new complaints, the patient's condition is essentially stable. Repeat chest x-ray was done and showed some limited atelectatic changes/effusion the left lung base and the patient is currently on IV Unasyn. Will Awaiting discharge patient home on oral antibiotics. Hemodynamically stable. Afebrile. Patient is currently on room air oxygen. Objective - Vital Signs Vital signs: Vital Signs Temp 97.8 F 12/01/23 07:31 Pulse 102 H 12/01/23 07:31 Resp 18 12/01/23 08:00 BP 120/74 12/01/23 07:31 Pulse Ox 98 12/01/23 07:31 FiO2 21 11/20/23 08:19 Intake & Output 11/30/23 12/01/23 12/01/23 18:59 06:59 18:59 Intake Total 500 Balance 500 Intake: Oral 500 Other: Voiding Method Toilet Toilet # Voids 4 5 - Exam CONSTITUTIONAL: Appears comfortable, cooperative, no acute distress RESPIRATORY: Lungs sounds diminished in the left base. Respirations symmetrical, nonlabored. Currently on room air with oxygen saturation 95%. Achieving 750-1000 mL on her incentive spirometry CARDIOVASCULAR: S1, S2 present. Regular rate and rhythm. Palpable peripheral pulses bilaterally. No edema present. No calf pain or tenderness noted. SCDs present. GASTROINTESTINAL: Abdomen soft, nontender, nondistended. Active bowel sounds present 4 quadrants. Tolerating diet. GENITOURINARY: Continues to void. INTEGUMENTARY: Skin is warm and dry, no clubbing or cyanosis is present. NEUROLOGIC: Cranial nerves II through XII intact. No focal deficits. MUSKULOSKELETAL: Able to move all extremities, strength equal bilaterally, gait normal. PSYCHIATRIC: Alert and oriented to person place and time, appropriate affect, intact judgment and insight. INVASIVE LINES AND TUBES: Pigtail catheter and removed - Labs CBC & Chem 7: 11/29/23 05:25 11/29/23 05:25 Labs: Abnormal Lab Results - Last 24 Hours (Table) 11/30/23 11/30/23 12/01/23 Range/Units 16:48 21:15 05:50 POC Glucose (mg/dL) 135 H 239 H 174 H (70-110) mg/dL 12/01/23 Range/Units 11:41 POC Glucose (mg/dL) 163 H (70-110) mg/dL Microbiology - Last 24 Hours (Table) 11/28/23 14:15 Anaerobic Culture - Preliminary Pleural Fluid 11/28/23 14:15 Gram Stain - Preliminary Pleural Fluid Body Fluid Culture - Preliminary Assessment and Plan Plan: Left lung empyema, status post left-sided thoracentesis today November 19, 2023 with 150 cc of thick creamy moreno fluid returned. Suspect empyema. Received a left-sided pigtail catheter placement on 11/20/2023. Lytics instilled daily x 5 through pigtail #1.. cultures revealing alpha hemolytic Streptococcus. Follow- up CAT scan of the chest showed a 7.7 cm pocket in the posterior left lung and a pigtail #2 was inserted and the patient had adequate drainage and subsequently the drainage stopped and both of the catheters were removed. The chest x-ray from today shows some limited atelectatic change the left lung base. No active respiratory issues at this point in time and the patient is currently on room air oxygen. Acute community-acquired pneumonia in the left lower lobe, empyema, improving Febrile illness secondary to above, recovered Leukocytosis secondary to above, improving Hyponatremia, recovered Diabetes mellitus with hyperglycemia Macular degeneration Hyperlipidemia Hypertension Plan: Pigtail catheters have been removed Repeat chest x-ray shows limited atelectatic changes and possibly a small effusion left lung base Continue Unasyn and transition this patient to oral antibiotics possibly Augmentin within next 1-44 8 hours Stable and on room air Working well with the incentive spirometer We will continue to follow
[2023-12-01 16:43] LABS: Glucose,Whole Blood 164 mg/dL (70-110)
[2023-12-01 21:30] LABS: Glucose,Whole Blood 249 mg/dL (70-110)
[2023-12-02 06:26] LABS: Glucose,Whole Blood 173 mg/dL (70-110)
--- NOTE | 2023-12-02 08:06 | P.PN ---
Subjective Progress Note Date: 12/01/23 Principal diagnosis: Reason for follow-up is empyema Patient is a 78-year-old female with a past medical history significant for diabetes mellitus hypertension hyperlipidemia asthma, presented to the hospital left-sided chest pain increasing shortness of breath and cough has been diagnosed with pneumonia/empyema, status post chest tube placement. On today's evaluation that is 12/01/2023, patient has been afebrile, patient is breathing comfortably and is currently on room air, patient did have improvement in the left-sided chest pain denies any worsening cough or sputum production no nausea vomiting no abdominal pain no diarrhea. Chest x-ray this morning still showing left lower lobe consolidation and small effusion no new labs obtained today Objective - Vital Signs Vital signs: Vital Signs Temp 97.8 F 12/01/23 07:31 Pulse 102 H 12/01/23 07:31 Resp 18 12/01/23 08:00 BP 120/74 12/01/23 07:31 Pulse Ox 98 12/01/23 07:31 FiO2 21 11/20/23 08:19 Intake & Output 11/30/23 12/01/23 12/01/23 18:59 06:59 18:59 Intake Total 500 Balance 500 Intake: Oral 500 Other: Voiding Method Toilet Toilet # Voids 4 5 - Exam GENERAL DESCRIPTION: An elderly female lying in bed in no distress RESPIRATORY SYSTEM: Unlabored breathing , decreased breath sounds at bases HEART: S1 S2 regular rate and rhythm , ABDOMEN: Soft , no tenderness EXTREMITIES: No edema feet - Labs CBC & Chem 7: 11/29/23 05:25 11/29/23 05:25 Labs: Abnormal Lab Results - Last 24 Hours (Table) 11/30/23 11/30/23 12/01/23 Range/Units 16:48 21:15 05:50 POC Glucose (mg/dL) 135 H 239 H 174 H (70-110) mg/dL 12/01/23 Range/Units 11:41 POC Glucose (mg/dL) 163 H (70-110) mg/dL Microbiology - Last 24 Hours (Table) 11/28/23 14:15 Gram Stain - Preliminary Pleural Fluid Body Fluid Culture - Preliminary Assessment and Plan (1) Empyema Current Visit: Yes Status: Acute Code(s): J86.9 - PYOTHORAX WITHOUT FISTULA SNOMED Code(s): 685869070 (2) Left lower lobe pneumonia Current Visit: Yes Status: Acute Code(s): J18.9 - PNEUMONIA, UNSPECIFIED ORGANISM SNOMED Code(s): 176043892 (3) Leukocytosis Current Visit: Yes Status: Acute Code(s): D72.829 - ELEVATED WHITE BLOOD CELL COUNT, UNSPECIFIED SNOMED Code(s): 034373570 Plan: 1patient was in the hospital with sepsis in this patient who did have a low- grade fever tachycardia elevated white count source is left-sided pneumonia with a parapneumonic effusion/empyema in this patient was status post thoracocentesis followed by chest tube placement cultures currently growing alphahemolytic Streptococcus 2-patient is afebrile and the patient white count has normalized however the patient chest x-ray has not normalized keeping in mind her complicated course will be recommending a 2-week course of IV Rocephin on discharge prescription already provided to the counseling case manager for now continue with Unasyn Dictation was produced using [employer] dictation software. please excuse any grammatical, word or spelling errors. Time with Patient: Less than 30
[2023-12-02 09:16] LABS: Basophils # (A) 0.11 X 10*3/uL (0.00-0.10); Basophils % (A) 1.5 %; Eosinophils % (A) 4.1 %; HCT 28.5 % (37.2-46.3); HGB 9.2 g/dL (12.0-15.0); Lymphocytes # (A) 1.69 X 10*3/uL (0.90-5.00); Lymphocytes % (A) 23.2 %; MCH 31.2 pg (27.0-32.0); MCHC 32.3 g/dL (32.0-37.0); MCV 96.6 FL (80.0-97.0); Mean Platelet Volume 11.7 FL (9.5-12.2); Monocytes # (A) 0.55 X 10*3/uL (0.20-1.00); Monocytes % (A) 7.5 %; NRBC Per 100 WBC 0 X 10*3/uL (0.00-0.01); Neutrophils # (A) 4.61 X 10*3/uL (1.80-7.70); Neutrophils % (A) 63.2 %; Platelet Count 515 X 10*3/uL (140-440); RBC 2.95 X 10*6/uL (4.10-5.20); RDW 13.8 % (11.5-14.5)
[2023-12-02 10:15] LABS: ALT 23 U/L (8-44); AST 26 U/L (13-35); Alkaline Phosphatase 121 U/L (41-126); BUN/Creat Ratio 12.71 Ratio (12.00-20.00); Blood Urea Nitrogen 8.9 mg/dL (9.0-27.0); Calcium 9.5 mg/dL (8.7-10.3); Carbon Dioxide 23.9 mmol/L (21.6-31.8); Chloride 102 mmol/L (96-109); Globulin 2.5 g/dL (1.6-3.3); Glucose 169 mg/dL (70-110); Potassium 5.3 mmol/L (3.5-5.5); Sodium 139 mmol/L (135-145); Total Bilirubin <0.2 mg/dL (0.3-1.2); Total Protein 5.5 g/dL (6.2-8.2)
[2023-12-02 11:41] LABS: Glucose,Whole Blood 223 mg/dL (70-110)
[2023-12-02 13:46] VITALS: BP 142/67; PULSE 77; RESP 15; TEMP 97
--- NOTE | 2023-12-02 13:59 | P.DS ---
Providers Date of admission: 11/18/23 23:24 Expected date of discharge: 12/02/23 Attending physician: Jeffery Gandhi Consults: 11/18/23 23:24 Consult Physician Routine Consulting Provider: Jc Bhakta Consult Reason/Comments: Left lobar pneumonia Do you want consulting provider notified?: Yes, Notify in am 11/20/23 10:22 Consult Physician Routine Consulting Provider: Tomas Echeverria Consult Reason/Comments: Empyema Do you want consulting provider notified?: Yes 11/21/23 09:48 Consult Physician Routine Consulting Provider: Adriel Recinos Consult Reason/Comments: empyema Do you want consulting provider notified?: Yes Primary care physician: Keely Valderrama Hospital Course: Diagnosis on discharge: 1. Left lower lobe pneumonia 2. Leukocytosis secondary to above 3. Pleural effusion status post pleurocentesis with purulent drainage esuspect empyema 4. Hyponatremia secondary to dehydration 5. Elevated d-dimer. CTA negative for PE 6. History of asthma 7. History of diabetes mellitus. Patient on sliding scale coverage 8. History of macular degeneration 9. History of hyperlipidemia 10. History of essential hypertension Hospital course: Aliya Leiva, is a 78-year-old female patient of Dr. Valderrama who presented to the ER with complaints of muscle aches and shaking febrile and chest pain that has been occurring over the past week. Patient states she's had some external shortness of breath and poor oral intake. Patient has past medical history of asthma, diabetes mellitus, I disorder, hyperlipidemia and hypertension.chest x- ray completed showing COPD with continued moderate left pleural effusion. Lab work revealing a WBC of 30.8, sodium 127, creatinine 0.56. Troponin negative. D-dimer elevated at 3.10CT of the chest completed showing no acute pulmonary embolism. Airspace consolidation in the left lower lobe consistent with lobar pneumonia.influenza, RSV and COVID-19 negative.at this time patient was admitted. Patient started on IV antibiotics. Pulmonary service is consulted. Blood culture and sputum culture ordered repeat labs ordered. At this time patient is sitting up in chair. Current vital signs temp 90.6, heart rate 103, blood pressure 129/70 fourth pulse ox 93% on room air. ultrasound of chest has been ordered per pulmonary for possible pleurocentesis. on 11/20/2023 patient was seen and examined on the medical floor, she is alert and oriented 3 in no apparent distress, she is complaining of cough and shortness of breath, with mild improvement since yesterday, otherwise she denies any complaints there is no fever or chills no headache or dizziness no chest pain, no nausea or vomiting no abdominal pain no diarrhea no blood in the stools no burning with urination no frequency or urgency and no hematuria.. Patient remains on IV antibiotic Unasyn and vancomycin, awaiting culture results. left sided chest tube remains in place. On 11/21/2023 patient's alert and oriented 3. Patient reports improvement from yesterday. Patient remains on IV antibiotics. Discussed case with cardio thoracic surgery continue current plan of altaplase through pigtail. Chest tube remains in placecurrent vital signs temp 98.0, heart rate 101, respiratory rate 18, blood pressure 131/76 with pulse ox of 95%.white blood cell trending down 15.34. Patient remains on vancomycin and Unasyn. On 11/22/2023 patient's alert and oriented 3.Patient reports improvement from yesterday. Chest tube remains in place patient remains on IV antibiotics. Pulmonary, cardiothoracic infectious disease service is following.Current vital signs temp 97.6, heart rate 98, respiratory rate 17, blood pressure 126/73 with a pulse ox 95% on room air Patient denies chest pain or shortness of breath. Patient denies any nausea vomiting or diarrhea. Patient denies any urinary burning or frequency On 11/23/2023 patient was seen and examined on the medical floor she is alert and oriented 3 in no apparent distress, she is complaining of mild pain at the site of the chest tube, otherwise she denies any complaints there is no fever or chills no headache or dizziness no chest pain, No shortness of breath no cough no nausea or vomiting no abdominal pain no diarrhea and no urinary symptoms On 11/24/2023 patient is alert and oriented 3. Patient states she is feeling improved. Patient will need outpatient IV antibiotics per ID recommendation PICC line has been placed. Continue TPA administration her cardiothoracic surgery. Chest tube remains in place on 11/25/2023 patient was seen and examined on the medical floor, she is alert and oriented 3 in no apparent distress, she is complaining of mild pain at the site of the chest to, otherwise she denies any complaints, her vital exam reveals a temperature of 98.3 pulse 112 respiration 18 blood pressure 152/87 pulse ox 95% on room air, laboratory data reveals a white blood count of 17.13 hemoglobin 10.2 platelet count 588 BUN 6.9 creatinine 0.6 patient remains on IV Unasyn, she is followed by pulmonary, infectious disease, and thoracic surgery, she is improving gradually, will continue to follow closely. On 11/25/2022 for patient's alert and oriented 3. Patient reports improvement from yesterday. Chest tube remains in place. Current vital signs temp 98.6, heart rate 101, respiratory rate 18, blood pressure 133/77 with pulse ox 96 on room air.white blood cell improving today 12.18. Patient denies chest pain or shortness breath. Patient denies nausea vomiting or diarrhea. Patient denies any urinary burning on 11/27/2023 patient was seen and examined on the medical floor, she is alert and oriented 3 in no apparent distress, she is complaining of mild pain at the site of the chest to, otherwise she denies any complaints, there is no fever or chills no headache or dizziness no chest pain no shortness of breath no cough no nausea or vomiting no abdominal pain no diarrhea and no urinary symptoms, chest tube remains in, pulmonary and thoracic surgery are following. on 11/28/2023 for patient's alert and oriented x 3. chest CT completed. Cardiothoracic surgery awaiting further recommendations. Infectious disease services are following. White blood cell 12.56.current vital signs 98.2, heart rate 14, respiratory rate 18, blood pressure 117/76 with pulse ox 95% on room air 11/28/2022 for patient's alert and oriented 3 and a pigtail chest tube placed yesterday. Alteplase has been administered per cardiothoracic. Awaiting further recommendations. At this time patient denies chest pain or shortness breath. Patient denies nausea vomiting or diarrhea. Patient denies any urinary burning or frequency. Current vital signs temp 98.0, heart rate 97, blood pressure 119/63 with pulse ox 97. Patient remains on IV Unasyn on 11/30/2023 patient was seen and examined on the medical floor she is alert and oriented 3 in no apparent distress there is no fever or chills no headache or dizziness no chest pain, shortness of breath has improved she has occasional cough no nausea or vomiting no abdominal pain no diarrhea and no urinary symptoms. left sided pigtail catheter has been discontinued, patient is tolerating well, she remains on IV Unasyn, will continue to monitor closely. On 12/01/2023 for patient's alert and oriented 3. Chest tubes have been removed. Per pulmonary and infectious disease patient to be maintained on IV antibiotic Unasyn with possible discharge on by mouth antibiotics awaiting further recommendations.current vital signs temp 97.8, heart rate 102, res piratory rate 16, blood pressure 120/74 with pulse ox of 98% On 12/02/2023 Patient was seen and examined on the medical floor, she is alert and oriented 3 in no apparent distress, she denies any complaints at this time, there is no fever or chills no headache or dizziness no chest pain no shortness of breath no cough no nausea or vomiting no abdominal pain no diarrhea and no urinary symptoms. Initial recommendation by infectious disease is to discharge patient on IV antibiotics, however patient was very anxious about taking IV antibiotics at home, and did not want to do that. Subsequence recommendation by infectious disease was to discharge patient on a course of oral Augmentin for 2 weeks. Patient was given a prescription for Augmentin, she was instructed to return to the hospital if having any fever, or worsening cough or worsening shortness of breath. Patient Condition at Discharge: Fair Plan - Discharge Summary Discharge Rx Participant: No New Discharge Prescriptions: New Amoxic-Pot Clav 875-125Mg [Augmentin 875-125] 1 tab PO Q12HR 15 Days #30 tab Continue Lovastatin [Mevacor] 40 mg PO DAILY Cholecalciferol [Vitamin D3 (25 Mcg = 1000 Iu)] 50 mcg PO DAILY Albuterol Sulfate [Proair Hfa] 1 - 2 puff INHALATION RT-Q6H PRN PRN Reason: Shortness Of Breath Vit C/E/Zn/Coppr/Lutein/Zeaxan [Preservision Areds 2 Softgel] 1 cap PO DAILY metFORMIN HCL [Glucophage] 750 mg PO DAILY Triamterene-Hctz 37.5-25Mg [Maxzide 37.5-25] 1 tab PO DAILY Aspirin EC [Ecotrin Low Dose] 81 mg PO DAILY [place]-3/Dha/Epa/Fish Oil [Fish Oil 1,000 mg Softgel] 1 cap PO DAILY Discharge Medication List Cholecalciferol [Vitamin D3 (25 Mcg = 1000 Iu)] 50 mcg PO DAILY 04/05/16 [History] Lovastatin [Mevacor] 40 mg PO DAILY 04/05/16 [History] Albuterol Sulfate [Proair Hfa] 1 - 2 puff INHALATION RT-Q6H PRN 04/10/19 [History] Vit C/E/Zn/Coppr/Lutein/Zeaxan [Preservision Areds 2 Softgel] 1 cap PO DAILY 04/10/19 [History] metFORMIN HCL [Glucophage] 750 mg PO DAILY 04/10/19 [History] Aspirin EC [Ecotrin Low Dose] 81 mg PO DAILY 11/18/23 [History] [place]-3/Dha/Epa/Fish Oil [Fish Oil 1,000 mg Softgel] 1 cap PO DAILY 11/18/23 [History] Triamterene-Hctz 37.5-25Mg [Maxzide 37.5-25] 1 tab PO DAILY 11/18/23 [History] Amoxic-Pot Clav 875-125Mg [Augmentin 875-125] 1 tab PO Q12HR 15 Days #30 tab 12/02/23 [Rx] Follow up Appointment(s)/Referral(s): Keely Valderrama MD [Primary Care Provider] - 1-2 days [facility] [NON-STAFF] - 1-2 Days ([facility] will call you to schedule your in home nursing visits to start IV antibiotic teaching. Your first visit will be the day after discharge. ) Adriel Recinos MD [STAFF PHYSICIAN] - 1 Week Activity/Diet/Wound Care/Special Instructions: DISCHARGE INSTRUCTIONS: 1. No driving for 2 weeks, or until physician gives their ok. 2. No lifting, pushing, or pulling more than 10 pounds for 2 weeks. The physician will advise of any restriction changes. 3. Continue pain control per as needed orders. Alternate acetaminophen (Tylenol) and ibuprofen (Motrin/Advil) for pain. 4. Continue with incentive spirometry and splinting until otherwise directed by the physician. 5. Leave chest tube dressing for 48 hours (Monday12/02/23). After that, remove all dressings and shower daily. 6. Routine incision care. No powders, lotions, ointments on incisions.
--- NOTE | 2023-12-02 14:14 | P.PN ---
Subjective Progress Note Date: 12/02/23 On today's evaluation of 11/27/2023, the patient is being seen for a follow-up. The patient is doing well. No specific complaints. The patient had a left- sided pneumonia complicated by development of a empyema. Cultures were positive for alphahemolytic Streptococcus. The patient had a pigtail catheter inserted and this is postop day #6. This was inserted by interventional radiology. The patient is having some limited cough. No significant sputum production. The catheter remains in place with some wall suction at -20 cm of water. No evidence of any air leak. Oxygenation is stable on room air with a pulse ox of 95% and the patient continues to use incentive spirometer. Repeat chest x-ray from today was reviewed and the patient was found to have a stable left-sided consolidation with small pleural effusion and questionable pneumothorax on the left. No other new complaints otherwise for now. A follow-up CAT scan was ordered to reevaluate for any residual effusion/pocket/abscess. Total amount of output from the pigtail catheter over the past 24 hours has been approximately 10 cc On today's evaluation of 11/28/2023, the patient is on room air oxygen. No fever. The patient remains on IV Unasyn. I reviewed the CAT scan of the chest that was done yesterday and the patient has a loculated fluid collection in the posterior left lung base measuring 7.7 cm in size and this is a loculated empyema. Note that the inside of pigtail catheter is outside of this loculated area. Case was discussed with cardiothoracic surgery and the plan is to insert another tube to drain this pockets. The white cell count of 12.5 with a hemoglobin 10.2 and a platelet count of 583. Electrolytes are all within normal limits. Patient has no specific complaints that she is using the incentive s pirometer for now. On today's evaluation of 11/29/2023, I am seeing the patient for a follow-up. The patient remains on room air oxygen. No specific complaints. She remains on antibiotics. Note that the patient had a pigtail catheter insertion yesterday and a total of 200 cc of serosanguineous material was drained from the fistula pocket was seen on the CAT scan of the chest. The patient will be feeling better. She remains on IV Unasyn. Alteplase was administered through the second pigtail catheter was inserted yesterday. The patient has a WBC count of 10 with a hemoglobin 9.9, electrolytes are all stable, BUN is at 8 with a creatinine of 0.6. No specific complaints for now. Using incentive spirometer. On 11/30/2023, the patient is feeling great. The pigtail catheters have been removed and the patient is afebrile and hemodynamically stable. Note that the output from the pigtail catheter was minimal. Total amount of output was in the order of 240 cc. She remains on IV Unasyn. She is ambulating. Blood work from today is not done and yesterday's blood work was noted. Blood sugars under better control for now. On 12/01/2023, no new complaints, the patient's condition is essentially stable. Repeat chest x-ray was done and showed some limited atelectatic changes/effusion the left lung base and the patient is currently on IV Unasyn. Will Awaiting discharge patient home on oral antibiotics. Hemodynamically stable. Afebrile. Patient is currently on room air oxygen. 12/02/2023, the patient is being seen for a follow-up. Doing well. Ambulating. No respiratory distress. No fever or chills. Labs are all adequate with a hemoglobin of 9.2 and a white cell count of 7.3. Electrolytes are normal, renal function is normal. Objective - Vital Signs Vital signs: Vital Signs Temp 96.8 F L 12/02/23 07:35 Pulse 95 12/02/23 07:35 Resp 16 12/02/23 07:35 BP 150/90 12/02/23 07:35 Pulse Ox 98 12/02/23 07:35 FiO2 21 11/20/23 08:19 Intake & Output 12/01/23 12/02/23 12/02/23 18:59 06:59 18:59 Other: Voiding Method Toilet Toilet # Voids 2 4 - Exam CONSTITUTIONAL: Appears comfortable, cooperative, no acute distress RESPIRATORY: Lungs sounds diminished in the left base. Respirations symmetrical, nonlabored. Currently on room air with oxygen saturation 95%. Achieving 750-1000 mL on her incentive spirometry CARDIOVASCULAR: S1, S2 present. Regular rate and rhythm. Palpable peripheral pulses bilaterally. No edema present. No calf pain or tenderness noted. SCDs present. GASTROINTESTINAL: Abdomen soft, nontender, nondistended. Active bowel sounds present 4 quadrants. Tolerating diet. GENITOURINARY: Continues to void. INTEGUMENTARY: Skin is warm and dry, no clubbing or cyanosis is present. NEUROLOGIC: Cranial nerves II through XII intact. No focal deficits. MUSKULOSKELETAL: Able to move all extremities, strength equal bilaterally, gait normal. PSYCHIATRIC: Alert and oriented to person place and time, appropriate affect, intact judgment and insight. INVASIVE LINES AND TUBES: Pigtail catheter and removed - Labs CBC & Chem 7: 12/02/23 06:06 12/02/23 06:06 Labs: Abnormal Lab Results - Last 24 Hours (Table) 12/01/23 12/01/23 12/01/23 Range/Units 11:41 16:42 21:28 RBC (4.10-5.20) X 10*6/uL Hgb (12.0-15.0) g/dL Hct (37.2-46.3) % Plt Count (140-440) X 10*3/uL Basophils # (0.00-0.10) X 10*3/uL Anion Gap (4.00-12.00) mmol/L BUN (9.0-27.0) mg/dL Glucose (70-110) mg/dL POC Glucose (mg/dL) 163 H 164 H 249 H (70-110) mg/dL Total Bilirubin (0.3-1.2) mg/dL Total Protein (6.2-8.2) g/dL Albumin (3.8-4.9) g/dL Albumin/Globulin Ratio (1.60-3.17) Ratio 12/02/23 12/02/23 12/02/23 Range/Units 06:06 06:06 06:25 RBC 2.95 L (4.10-5.20) X 10*6/uL Hgb 9.2 L (12.0-15.0) g/dL Hct 28.5 L (37.2-46.3) % Plt Count 515 H (140-440) X 10*3/uL Basophils # 0.11 H (0.00-0.10) X 10*3/uL Anion Gap 13.10 H (4.00-12.00) mmol/L BUN 8.9 L (9.0-27.0) mg/dL Glucose 169 H (70-110) mg/dL POC Glucose (mg/dL) 173 H (70-110) mg/dL Total Bilirubin <0.2 L (0.3-1.2) mg/dL Total Protein 5.5 L (6.2-8.2) g/dL Albumin 3.0 L (3.8-4.9) g/dL Albumin/Globulin Ratio 1.20 L (1.60-3.17) Ratio Microbiology - Last 24 Hours (Table) 11/28/23 14:15 Gram Stain - Preliminary Pleural Fluid Body Fluid Culture - Preliminary 11/28/23 14:15 Anaerobic Culture - Preliminary Pleural Fluid Assessment and Plan Plan: Left lung empyema, status post left-sided thoracentesis today November 19, 2023 with 150 cc of thick creamy moreno fluid returned. Suspect empyema. Received a left-sided pigtail catheter placement on 11/20/2023. Lytics instilled daily x 5 through pigtail #1.. cultures revealing alpha hemolytic Streptococcus. Follow- up CAT scan of the chest showed a 7.7 cm pocket in the posterior left lung and a pigtail #2 was inserted and the patient had adequate drainage and subsequently the drainage stopped and both of the catheters were removed. The chest x-ray from today shows some limited atelectatic change the left lung base. No active respiratory issues at this point in time and the patient is currently on room air oxygen. Acute community-acquired pneumonia in the left lower lobe, empyema, improving Febrile illness secondary to above, recovered Leukocytosis secondary to above, improving Hyponatremia, recovered Diabetes mellitus with hyperglycemia Macular degeneration Hyperlipidemia Hypertension Plan: Pigtail catheters have been removed Repeat chest x-ray shows limited atelectatic changes and possibly a small effusion left lung base The patient can be discharged home on oral, recommend Augmentin for the next 4 to 6 weeks Stable and on room air Working well with the incentive spirometer
--- NOTE | 2023-12-02 21:33 | P.PN ---
Subjective Progress Note Date: 12/02/23 Principal diagnosis: Reason for follow-up is empyema Patient is a 78-year-old female with a past medical history significant for diabetes mellitus hypertension hyperlipidemia asthma, presented to the hospital left-sided chest pain increasing shortness of breath and cough has been diagnosed with pneumonia/empyema, status post chest tube placement. On today's evaluation that is 12/02/2023,the patient denies any fever or any chills, patient is breathing comfortably on room air, the patient denies chest pain shortness of breath and no significant cough, patient denies abdominal pain, no nausea vomiting or diarrhea. Patient is feeling better wants to go home. Patient white count 7.30, creatinine 0.7 Objective - Vital Signs Vital signs: Vital Signs Temp 96.8 F L 12/02/23 07:35 Pulse 95 12/02/23 07:35 Resp 16 12/02/23 07:35 BP 150/90 12/02/23 07:35 Pulse Ox 98 12/02/23 07:35 FiO2 21 11/20/23 08:19 Intake & Output 12/01/23 12/02/23 12/02/23 18:59 06:59 18:59 Other: Voiding Method Toilet Toilet # Voids 2 4 - Exam GENERAL DESCRIPTION: An elderly female lying in bed in no distress RESPIRATORY SYSTEM: Unlabored breathing , decreased breath sounds at bases HEART: S1 S2 regular rate and rhythm , ABDOMEN: Soft , no tenderness EXTREMITIES: No edema feet - Labs CBC & Chem 7: 12/02/23 06:06 12/02/23 06:06 Labs: Abnormal Lab Results - Last 24 Hours (Table) 12/01/23 12/01/23 12/02/23 Range/Units 16:42 21:28 06:06 RBC 2.95 L (4.10-5.20) X 10*6/uL Hgb 9.2 L (12.0-15.0) g/dL Hct 28.5 L (37.2-46.3) % Plt Count 515 H (140-440) X 10*3/uL Basophils # 0.11 H (0.00-0.10) X 10*3/uL Anion Gap (4.00-12.00) mmol/L BUN (9.0-27.0) mg/dL Glucose (70-110) mg/dL POC Glucose (mg/dL) 164 H 249 H (70-110) mg/dL Total Bilirubin (0.3-1.2) mg/dL Total Protein (6.2-8.2) g/dL Albumin (3.8-4.9) g/dL Albumin/Globulin Ratio (1.60-3.17) Ratio 12/02/23 12/02/23 12/02/23 Range/Units 06:06 06:25 11:40 RBC (4.10-5.20) X 10*6/uL Hgb (12.0-15.0) g/dL Hct (37.2-46.3) % Plt Count (140-440) X 10*3/uL Basophils # (0.00-0.10) X 10*3/uL Anion Gap 13.10 H (4.00-12.00) mmol/L BUN 8.9 L (9.0-27.0) mg/dL Glucose 169 H (70-110) mg/dL POC Glucose (mg/dL) 173 H 223 H (70-110) mg/dL Total Bilirubin <0.2 L (0.3-1.2) mg/dL Total Protein 5.5 L (6.2-8.2) g/dL Albumin 3.0 L (3.8-4.9) g/dL Albumin/Globulin Ratio 1.20 L (1.60-3.17) Ratio Microbiology - Last 24 Hours (Table) 11/28/23 14:15 Gram Stain - Preliminary Pleural Fluid Body Fluid Culture - Preliminary 11/28/23 14:15 Anaerobic Culture - Preliminary Pleural Fluid Assessment and Plan (1) Empyema Status: Acute Code(s): J86.9 - PYOTHORAX WITHOUT FISTULA SNOMED Code(s): 851134458 (2) Left lower lobe pneumonia Status: Acute Code(s): J18.9 - PNEUMONIA, UNSPECIFIED ORGANISM SNOMED Co de(s): 658865820 (3) Leukocytosis Status: Acute Code(s): D72.829 - ELEVATED WHITE BLOOD CELL COUNT, UNSPECIFIED SNOMED Code(s): 092645083 Plan: 1patient was in the hospital with sepsis in this patient who did have a low- grade fever tachycardia elevated white count source is left-sided pneumonia with a parapneumonic effusion/empyema in this patient was status post thoracocentesis followed by chest tube placement cultures currently growing alphahemolytic St reptococcus 2-patient is afebrile and the patient white count has normalized however the patient chest x-ray has not normalized keeping in mind her complicated course patient has been advised Rocephin on discharge apparently the patient is refusing IV antibiotic as per discussion admitting team may go with oral Augmentin x 2-week however high risk of readmission and failure Dictation was produced using [employer] dictation software. please excuse any grammatical, word or spelling errors. Time with Patient: Less than 30
== END 2023-12-02 15:42 | disposition home health service (06) | DRG 871 ==
LOC: EC 18:32 → 4SSUR 23:24
PROVIDERS: ADMIT Internal Medicine; ATTEND Internal Medicine
PROC: 0W9B3ZZ Drainage of Left Pleural Cavity, Percutaneous Approach (ICD-10-PCS; principal; 2023-11-19)
PROC: 3E05317 Introduction of Other Thrombolytic into Peripheral Artery, Percutaneous Approach (ICD-10-PCS; 2023-11-21)
PROC: 05HF33Z Insertion of Infusion Device into Left Cephalic Vein, Percutaneous Approach (ICD-10-PCS; 2023-11-24)
PROC: 0W9B30Z Drainage of Left Pleural Cavity with Drainage Device, Percutaneous Approach (ICD-10-PCS; 2023-11-28)
DX: A40.8 Other streptococcal sepsis (principal); J15.4 Pneumonia due to other streptococci; J86.9 Pyothorax without fistula; J44.0 Chronic obstructive pulmonary disease with (acute) lower respiratory infection; E11.65 Type 2 diabetes mellitus with hyperglycemia; E87.1 Hypo-osmolality and hyponatremia; J91.8 Pleural effusion in other conditions classified elsewhere; R04.2 Hemoptysis; I10 Essential (primary) hypertension; E86.0 Dehydration; H35.30 Unspecified macular degeneration; I49.1 Atrial premature depolarization; R09.02 Hypoxemia; E78.5 Hyperlipidemia, unspecified; Z79.82 Long term (current) use of aspirin; Z87.891 Personal history of nicotine dependence; Z79.84 Long term (current) use of oral hypoglycemic drugs; Z79.899 Other long term (current) drug therapy; Z88.1 Allergy status to other antibiotic agents; Z11.52 Encounter for screening for COVID-19
CPT/HCPCS: 32551; 36410; 36415; 71045; 71046; 71250; 71275; 76604; 76937; 76942; 80053; 80202; 82465; 82565; 82945; 83605; 83615; 83735; 83880; 84145; 84157; 84311; 84478; 84484; 85025; 85379; 85610; 85730; 87040; 87070; 87075; 87102; 87116; 87205; 87206; 87449; 87496; 87498; 87502; 87529; 87634; 87635; 87636; 87798; 88108; 88305; 89050; 93005; 94640; 94760; 96361; 96374; 99291

== ENCOUNTER → 2023-12-13 | Outpatient (CLI) | payer MEDICARE, OTHER ==
--- NOTE | 2023-12-13 16:35 | XR ---
EXAMINATION TYPE: XR chest 2V DATE OF EXAM: 12/13/2023 3:28 PM CLINICAL INDICATION:Female, 78 years old with history of J85.2 ABSCESS OF LUNG WITHOUT PNEUMONIA; [facility] COMPARISON: Chest radiographs from 12/01/2023 TECHNIQUE: XR chest 2V Frontal and lateral views of the chest. FINDINGS: Lungs/Pleura: Decrease in left pleural effusion suggested. There is no evidence of pleural effusion, focal consolidation, or pneumothorax. Pulmonary vascularity: Unremarkable. Heart/mediastinum: Cardiomediastinal silhouette is unremarkable. Musculoskeletal: No acute osseous pathology. IMPRESSION: Decrease in left pleural effusion, otherwise No acute cardiopulmonary disease/process.
== END | disposition home or self-care (01) ==
LOC: RADXRMAIN 15:10
PROVIDERS: ATTEND Internal Medicine Infectious Disease
DX: J90 Pleural effusion, not elsewhere classified (principal)
CPT/HCPCS: 71046

== ENCOUNTER → 2024-05-15 | Outpatient (CLI) | payer MEDICARE, OTHER ==
--- NOTE | 2024-05-15 22:47 | BD ---
EXAMINATION TYPE: Axial Bone Density DATE OF EXAM: 05/15/2024 CLINICAL HISTORY: 78 years old Female. ICD-10 CODE: Z78.0 Post menopausal wo HRT Height: 60 Weight: 98.9 FRAX RISK QUESTIONS: Alcohol (3 or more units per day): no Family History (Parent hip fracture): father Glucocorticoids (More than 3mos): no (Ex: prednisone, prednisolone, methylprednisolone, dexamethasone, and hydrocortisone). History of Fracture in Adulthood: no Secondary Osteoporosis: 1. Type 1 Diabetes: no 2. Hyperthyroidism: no 3. Menopause before 45: no 4. Malnutrition: no 5. Chronic liver disease: no Rheumatoid Arthritis: no Current Tobacco Use: no RISK FACTORS HISTORY OF: Hip Fracture (Right/Left): no Spine Fracture: no History of Wrist Fracture: no Surgery to Spine/Hip(right/left)/Wrist (right/left): no MEDICATIONS: Thyroid Medications: no Osteoporosis Medications: no EXAM MEASUREMENTS: Bone mineral densitometry was performed using the [employer]. Bone mineral density as measured about the Lumbar spine is: ----- L1-L4(G/cm2): 0.931 T Score Values are as follows: ----- L1: -2.8 ----- L2: -2.5 ----- L3: -2.4 ----- L4: -1.2 ----- L1-L4: -2.1 Z Score Values are as follows: ----- L1: -0.3 ----- L2: 0.0 ----- L3: 0.1 ----- L4: 1.3 ----- L1-L4: 0.4 Bone mineral density has: decreased -1.2 % since study of: 04/13/2022 Bone mineral density about the R hip (g/cm2): 0.758 Bone mineral density about the L hip (g/cm2): 0.715 T Score values are as follows: -----R Neck: -2.2 -----L Neck: -2.3 -----R Total: -2.0 -----L Total: -2.3 Z Score values are as follows: -----R Neck: 0.3 -----L Neck: 0.2 -----R Total: 0.4 -----L Total: 0.1 Bone mineral density has: decreased -6.2 % since study of: 04/13/2022 FRAX%s: The graph provided illustrates a 41.3% chance for a major osteoporotic fx and a 31.1% chance for the hips probability for fx in 10 years time. IMPRESSION: Osteoporosis (T Score less than -2.5). There is increased fracture risk and therapy is usually indicated based on age. Re-Screen 1-2 years. NOTE: T-SCORE=SD OF THE YOUNG ADULT MEAN. [facility], , 05/15/2024 10:45 PM
== END ==
LOC: RADBDWWP 15:16
PROVIDERS: ATTEND Family Medicine
CPT/HCPCS: 77080